=== PATIENT | male | born 1940 | race Caucasian/White ===

== ENCOUNTER 2018-04-24 14:00 | Inpatient (IN) | payer MEDICARE, SELFPAY ==
[2018-04-24] VITALS (20 sets, daily range): BP systolic 126–184; BP diastolic 11–117; PULSE 85–128; RESP 12–23; TEMP 36.2–36.6; O2SAT 95–100; BMI 25.9; BMI 25.7; BMI 26.0
--- NOTE | 2018-04-24 14:16 | NURSING ---
STROKE ALERT CALLED.
--- NOTE | 2018-04-24 14:17 | EKG12_ITS ---
Test Reason : NEURO SYMPTOMS Blood Pressure : / mmHG Vent. Rate : 093 BPM Atrial Rate : 100 BPM P-R Int : 000 ms QRS Dur : 066 ms QT Int : 324 ms P-R-T Axes : 000 072 033 degrees QTc Int : 402 ms Atrial fibrillation Septal infarct , age undetermined Abnormal ECG Confirmed by ABDI MATHEW, ALYSON ([id number]), assignment desk editor SPENCER BRIGHT ([id number]) on 04/27/2018 3:09:10 PM Referred By: KATHY Confirmed By:ALYSON PATTON MD
--- NOTE | 2018-04-24 14:17 | CT_ITS ---
STUDY: CT BRAIN WITHOUT CONTRAST REASON FOR EXAM: Male, 77 years old. Stroke protocol. History of aneurysmal bleed RADIATION DOSAGE (If Supplied By Facility): CTDIvol = ( 44.99 ) mGy, DLP = ( 796.11 ) mGycm TECHNIQUE: Transaxial CT imaging of the brain was performed without administration of intravenous contrast material. Individualized dose optimization techniques were used for this CT. COMPARISON: None. FINDINGS: No evidence for shift of midline structures, mass effect or compression of ventricles noted. No acute intra-articular extra-axial hemorrhage is seen. There is encephalomalacia and gliosis in the left parietal lobe noted with ex vacuo enlargement of the left occipital horn and atrial trigone of the lateral ventricle. Vascular calcifications are identified. No discrete mass in the posterior fossa. The basal cisterns are patent. Calvarium is intact. No evidence for cerebellar tonsillar herniation. IMPRESSION: No evidence for acute intracranial findings. Encephalomalacia and gliosis in the left parietal lobe noted with ex vacuo dilatation of the occipital horn of the left lateral ventricle as well as the left atrial trigone N.B. : The above information has been verbally conveyed by Drew Forrester to Mike Regan on 04/24/2018 14:32:05 (ET). Electronically Signed: Drew Forrester, at 14:33 EST Tel , Service support , CT/Brain/Head without Contrast
--- NOTE | 2018-04-24 14:17 | RAD_ITS ---
STUDY: X-RAY CHEST REASON FOR EXAM: Male, 77 years old. Possible stroke TECHNIQUE: AP COMPARISON: 05/28/2014 FINDINGS: EKG leads project over the chest. The lungs are clear and expanded. There is no demonstrated pleural abnormality. Normal size heart. Aortic valve device is noted. Normal mediastinum and roberto carlos. Normal visualized pulmonary arteries. There is atherosclerotic calcification of the aortic arch with tortuosity. No acute bony process. There is no demonstrated abnormality of the visualized soft tissue structures of the upper abdomen. RAD/Chest 1 View IMPRESSION: Nonacute portable x-ray examination of the chest. Electronically Signed: Chan Marion MD at 14:40 EST , Service support ,
--- NOTE | 2018-04-24 14:30 | ED.DCSUM_ITS ---
- ER Visit Summary Date of Service: 04/24/18 Chief Complaint: Headache with blurred vision and now difficulty with his speech History of Present Illness: The patient is a 77 M known history of a prior descending dissection and a prior bleeding brain aneurysm that was not surgically amenable to repair. This is already been evaluated and worked up in the past at [facility]. Yesterday the patient had a gradual onset of a headache that he thought was a sinus headache. He later developed some visual disturbance which all started around noon yesterday. And then today he has had trouble with his speech. And a headache and seems of gotten worse. He denies any vomiting. No head trauma. He is on no blood thinners besides aspirin. Denies any other complaints. Physical Examination: Blood pressure initially 171/1 oh temperature 97.3. Heart rate 100. Pulse ox 9 9% on room air no hypoxia. HEENT exam pupils round reactive light. 2 mm bilaterally. No facial droop. His words are easily understandable but he is having trouble putting them together consistent with a dysarthria. There is no slurring of speech. Neck nontender. Lungs clear to auscultation bilaterally. Heart irregular rate in the 90s. Abdomen is soft and nontender. Patient is moving all 4 extremities. He has equal symmetrical transplant case manager strength. Dorsi and plantar flexion intact. No numbness. Neurologically he is awake. He is alert. At times he does appear to have difficulty understanding my questions. He has obvious dysarthria but no slurring of his speech. No facial droop. Is an NIH score of 2. Test Results: Patient taken emergently to CAT scan and a stroke team was initiated. CBC normal. White count of 7. Hemoglobin is 13. Electrolytes unremarkable gap of 8. Glucose of 97. Creatinine 1.3. PT, PTT and INR normal. Troponin normal. EKG showed A. fib rate of 93. Chest x-ray portable one view showed no acute abnormality read both by myself and the radiologist. CT of the brain without contrast showed no acute findings per the radiologist who called me. He did have encephalomalacia on the left parietal lobe. CTA of the head and neck showed no acute abnormality. No significant occlusion. And no obvious aneurysm. Emergency Department Course and Treatment: While in the emergency department and awaiting test results the patient had -1-minute tonic-clonic seizure. It resolved spontaneously. He was given 1 mg of Ativan. I discussed this along with all his test results with the neurologist and he will be loaded with IV Keppra. I have also already spoken with the hospitalist to admit the patient to the PCU. Treatment Plan: Admission to the PCU for further evaluation and workup. At this time no anticoagulation per the radiologist. Disposition: Admission Impression: Acute headache with visual change and dysarthria secondary to acute CVA History of known brain aneurysm however not seen on our CTA of the brain and neck today. History of prior dissection Chronic atrial fibrillation Acute seizure This note was generated with [employer] dictation software. It may contain incorrect words, spelling, and punctuation that were not noted in review of the chart prior to signing ED Disposition - Plan for ED Patient: Chief Complaint: Neuro S/Sx Referrals: Kasi Velázquez MD [Primary Care Provider] -
--- NOTE | 2018-04-24 14:32 | CT_ITS ---
STUDY: CTA OF THE BRAIN AND NECK REASON FOR EXAM: Male, 77 years old. Stroke alert RADIATION DOSAGE (If Supplied By Facility): CTDIvol = ( 24.11 ) mGy, DLP = ( 742.65 ) mGycm TECHNIQUE: CT angiography was performed with a multi-detector CT scanner. Data acquisition was obtained from the aortic arch through the vertex following intravenous administration of 100 ml of Isovue 370. MIP images were reconstructed from the axial data set. Post-processing of the angiographic images was performed, with multiplanar reformation and 3D reconstruction. Individualized dose optimization techniques were used for this CT. COMPARISON: None. FINDINGS: The origin of the great vessels are patent. Atherosclerotic calcifications of the aortic arch seen. There is likely a chronic dissection of the proximal left subclavian artery with mild narrowing. The bilateral common carotid arteries are patent. There is atherosclerotic calcifications and soft tissue plaque formation of the bilateral carotid bifurcation with mild narrowing. The cervical internal carotid arteries are patent. Origin of the vertebral arteries are patent. The remaining segments of the vertebral arteries are also patent. Petrous and cavernous segments of the internal carotid arteries are patent mild fusiform dilatation of the cavernous segment of the right internal carotid artery seen. Bilateral middle cerebral arteries are patent. The bilateral anterior cerebral arteries are patent. Patent anterior communicating artery. Vertebrobasilar junction is patent. The basilar artery is patent. The superior cerebellar arteries are patent. Posterior cerebral arteries are patent. Small infundibulum at the origin of the left posterior communicating artery Emphysematous changes in the lung apices IMPRESSION: No evidence for significant cervical carotid or vertebral artery stenosis, occlusion or dissection. No definite evidence for intracranial saccular aneurysm seen. Fusiform dilatation of the cavernous segment of the right internal carotid artery measuring up to 6 mm. Small infundibulum versus 2 mm aneurysm at the origin of the left posterior communicating artery. 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 : The above information has been verbally conveyed by Drew Forrester to Dr. Mike Regan MD, on 04/24/2018 15:33:24 (ET). Electronically Signed: Drew Forrester, at 15:29 EST Tel , Service support , STUDY: CTA OF THE BRAIN AND NECK REASON FOR EXAM: Male, 77 years old. Stroke alert RADIATION DOSAGE (If Supplied By Facility): CTDIvol = ( 24.11 ) mGy, DLP = ( 742.65 ) mGycm TECHNIQUE: CT angiography was performed with a multi-detector CT scanner. Data acquisition was obtained from the aortic arch through the vertex following intravenous administration of 100 ml of Isovue 370. MIP images were reconstructed from the axial data set. Post-processing of the angiographic images was performed, with multiplanar reformation and 3D reconstruction. Individualized dose optimization techniques were used for this CT. COMPARISON: None. FINDINGS: The origin of the great vessels are patent. Atherosclerotic calcifications of the aortic arch seen. There is likely a chronic dissection of the proximal left subclavian artery with mild narrowing. The bilateral common carotid arteries are patent. There is atherosclerotic calcifications and soft tissue plaque formation of the bilateral carotid bifurcation with mild narrowing. The cervical internal carotid arteries are patent. Origin of the vertebral arteries are patent. The remaining segments of the vertebral arteries are also patent. Petrous and cavernous segments of the internal carotid arteries are patent mild fusiform dilatation of the cavernous segment of the right internal carotid artery seen. Bilateral middle cerebral arteries are patent. The bilateral anterior cerebral arteries are patent. Patent anterior communicating artery. Vertebrobasilar junction is patent. The basilar artery is patent. The superior cerebellar arteries are patent. Posterior cerebral arteries are patent. Small infundibulum at the origin of the left posterior communicating artery Emphysematous changes in the lung apices IMPRESSION: No evidence for significant cervical carotid or vertebral artery stenosis, occlusion or dissection. No definite evidence for intracranial saccular aneurysm seen. Fusiform dilatation of the cavernous segment of the right internal carotid artery measuring up to 6 mm. Small infundibulum versus 2 mm aneurysm at the origin of the left posterior communicating artery. 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 : The above information has been verbally conveyed by Drew Forrester to Dr. Mike Regan MD, on 04/24/2018 15:33:24 (ET). Electronically Signed: Drew Forrester, at 15:30 EST Tel , Service support , CT/CTA Neck W/WO Contrast
--- NOTE | 2018-04-24 14:32 | CT_ITS ---
STUDY: CTA OF THE BRAIN AND NECK REASON FOR EXAM: Male, 77 years old. Stroke alert RADIATION DOSAGE (If Supplied By Facility): CTDIvol = ( 24.11 ) mGy, DLP = ( 742.65 ) mGycm TECHNIQUE: CT angiography was performed with a multi-detector CT scanner. Data acquisition was obtained from the aortic arch through the vertex following intravenous administration of 100 ml of Isovue 370. MIP images were reconstructed from the axial data set. Post-processing of the angiographic images was performed, with multiplanar reformation and 3D reconstruction. Individualized dose optimization techniques were used for this CT. COMPARISON: None. FINDINGS: The origin of the great vessels are patent. Atherosclerotic calcifications of the aortic arch seen. There is likely a chronic dissection of the proximal left subclavian artery with mild narrowing. The bilateral common carotid arteries are patent. There is atherosclerotic calcifications and soft tissue plaque formation of the bilateral carotid bifurcation with mild narrowing. The cervical internal carotid arteries are patent. Origin of the vertebral arteries are patent. The remaining segments of the vertebral arteries are also patent. Petrous and cavernous segments of the internal carotid arteries are patent mild fusiform dilatation of the cavernous segment of the right internal carotid artery seen. Bilateral middle cerebral arteries are patent. The bilateral anterior cerebral arteries are patent. Patent anterior communicating artery. Vertebrobasilar junction is patent. The basilar artery is patent. The superior cerebellar arteries are patent. Posterior cerebral arteries are patent. Small infundibulum at the origin of the left posterior communicating artery Emphysematous changes in the lung apices IMPRESSION: No evidence for significant cervical carotid or vertebral artery stenosis, occlusion or dissection. No definite evidence for intracranial saccular aneurysm seen. Fusiform dilatation of the cavernous segment of the right internal carotid artery measuring up to 6 mm. Small infundibulum versus 2 mm aneurysm at the origin of the left posterior communicating artery. 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 : The above information has been verbally conveyed by Drew Forrester to Dr. Mike Regan MD, on 04/24/2018 15:33:24 (ET). Electronically Signed: Drew Forrester, at 15:29 EST Tel , Service support , STUDY: CTA OF THE BRAIN AND NECK REASON FOR EXAM: Male, 77 years old. Stroke alert RADIATION DOSAGE (If Supplied By Facility): CTDIvol = ( 24.11 ) mGy, DLP = ( 742.65 ) mGycm TECHNIQUE: CT angiography was performed with a multi-detector CT scanner. Data acquisition was obtained from the aortic arch through the vertex following intravenous administration of 100 ml of Isovue 370. MIP images were reconstructed from the axial data set. Post-processing of the angiographic images was performed, with multiplanar reformation and 3D reconstruction. Individualized dose optimization techniques were used for this CT. COMPARISON: None. FINDINGS: The origin of the great vessels are patent. Atherosclerotic calcifications of the aortic arch seen. There is likely a chronic dissection of the proximal left subclavian artery with mild narrowing. The bilateral common carotid arteries are patent. There is atherosclerotic calcifications and soft tissue plaque formation of the bilateral carotid bifurcation with mild narrowing. The cervical internal carotid arteries are patent. Origin of the vertebral arteries are patent. The remaining segments of the vertebral arteries are also patent. Petrous and cavernous segments of the internal carotid arteries are patent mild fusiform dilatation of the cavernous segment of the right internal carotid artery seen. Bilateral middle cerebral arteries are patent. The bilateral anterior cerebral arteries are patent. Patent anterior communicating artery. Vertebrobasilar junction is patent. The basilar artery is patent. The superior cerebellar arteries are patent. Posterior cerebral arteries are patent. Small infundibulum at the origin of the left posterior communicating artery Emphysematous changes in the lung apices IMPRESSION: No evidence for significant cervical carotid or vertebral artery stenosis, occlusion or dissection. No definite evidence for intracranial saccular aneurysm seen. Fusiform dilatation of the cavernous segment of the right internal carotid artery measuring up to 6 mm. Small infundibulum versus 2 mm aneurysm at the origin of the left posterior communicating artery. 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 : The above information has been verbally conveyed by Drew Forrester to Dr. Mike Regan MD, on 04/24/2018 15:33:24 (ET). Electronically Signed: Drew Forrester, at 15:30 EST Tel , Service support , CT/CTA Head W/WO Contrast
[2018-04-24 14:34] LABS: Absolute Lymphocyte Count 1.45 X10^3/ul (0.83-4.51); Absolute Neutrophil Count 5.1 X10^3/uL (2.0-7.7); Basophil# 0.04 X10^3/uL; Basophil% 0.5 % (0-1); Eosinophil# 0.26 X10^3/uL; Eosinophils% 3.4 % (0-5); Hematocrit 48.6 % (40-54); Hemoglobin 16.1 g/dl (13.0-16.5); Lymphocyte # 1.45 X10^3/ul (4.0); Lymphocyte % 19.2 % (19-41); Mean Corp Hgb Conc 33.1 g/gl (32-36); Mean Corpuscular Hgb 30.6 pg (27.0-32.0); Mean Corpuscular Volume 92.4 fL (80-94); Mean Platelet Vol. 9.6 fl (6.2-12.0); Monocyte# 0.66 X10^3/uL; Monocyte% 8.7 % (0-10); Neutrophil # 5.13 X10^3/uL (2.7-7.7); Neutrophil % 67.9 % (47-70); Platelet Count 185 K/mm3 (150-450); Prothrombin Time (Protime)PT. 12.9 SECONDS (11.7-14.9); RBC Distribution Width CV 13.9 % (11.6-14.6); RBC Distribution Width SD 46.1 fl (35.1-43.9); Red Blood Count 5.26 M/mm3 (4.6-6.2); White Blood Count 7.6 K/mm3 (4.4-11.0)
[2018-04-24 14:35] LABS: POSITIVE COUNT NO; POSITIVE DIFFERENTIAL NO; POSITIVE MORPHOLOGY NO; Partial Thromboplast Time 30.9 Seconds (24.1-36.2)
[2018-04-24] MEDS: 0.9% Normal Saline 1,000 ML 999 ML IV (14:38)
[2018-04-24 14:46] LABS: Anion Gap 8 (5-15); BUN 20 mg/dL (7-18); BUN/Creat Ratio 14.8 RATIO (10-20); Calcium,Total 9.4 mg/dL (8.5-10.1); Chloride 106 mmol/L (98-107); Creatinine, Serum 1.35 mg/dL (0.70-1.30); EST Glomerular Filtration Rate 54 mL/min (>60); Est Glom Filt Rate - Afr Amer 66 mL/min (>60); Estimated Creatinine Clearance 47.31 ml/min; Glucose 97 mg/dL (74-106); Potassium 4.5 mmol/L (3.5-5.1); Sodium Level 142 mmol/L (136-145)
--- NOTE | 2018-04-24 14:51 | NURSING ---
DR AG FOR DR HAMMER
[2018-04-24] MEDS: LORazepam 2 MG/ML Syringe 1 MG IV (15:28)
--- NOTE | 2018-04-24 15:29 | ED.RN ---
PT HAD A 30 TO 60 SEIZURE WHILE IN THE DEPARTMENT. DR HAMMER MADE AWARE, PT MEDICATED WITH ATIVAN. WAS BESIDE AND INFORMED PT HAD A HIGHER LIKELIHOOD OF HAVING SEIZURES.
--- NOTE | 2018-04-24 15:34 | NURSING ---
DR CUBA FOR DR HAMMER
--- NOTE | 2018-04-24 15:34 | NURSING ---
DR AG PAGED
--- NOTE | 2018-04-24 15:45 | NURSING ---
PCU CVA, ACUTE SEIZURE, CHRONIC AFIB KOTSONIS
[2018-04-24] MEDS: levETIRAcetam IV 1,000 MG/100 ML BAG 400 MG IV (15:55)
--- NOTE | 2018-04-24 16:17 | NURSING ---
NEW ROOM CVICU 201
--- NOTE | 2018-04-24 16:19 | HP.PCM_ITS ---
Problem List (1) Aneurysm Status: Chronic (2) Aortic dissection Status: Chronic (3) Chronic a-fib Status: Chronic (4) CVA (cerebral vascular accident) Status: Acute (5) Seizure Status: Acute (6) HTN (hypertension) Status: Chronic History of Present Illness Date of Admission: 04/24/18 Chief Complaint: Aphasia The patient is a 77 year old M with past medical history consistent for chronic A. fib, cerebral aneurysm, a descending aortic dissection, presenting with a headache for 1 day prior to admission and then today his noticed that he would speak but his words would be in an abnormal order or just incorrect. For example instead of saying let us take out the garbage and she said lets take out the sink. So she brought him to the hospital given his previous history with a cerebral aneurysm, where he was taken to [facility] where he was told that where it is in location they cannot repair it surgically, and that he needs to remain off of all anticoagulation. In the ER he only had the speech difficulty and was therefore given an NIH of 2. He had a CT of the brain which was negative for bleed, and the head and neck CTAs were both negative. Neurology had been called and made aware of the case. Between talking to the neurologist and consulting me for admission. The patient also then had a seizure that he spontaneously broke out of, however he was given a milligram of Ativan, and was loaded with 1 g of Keppra. During my interview and exam, patient had a second seizure. Also lasted lasted for less than a minute and resolved spontaneously. Past Medical History Past Medical History (Chronic Problems): Chronic Problems Aneurysm (Chronic) Aortic dissection (Chronic) Chronic a-fib (Chronic) HTN (hypertension) (Chronic) Allergies codeine Allergy (Verified 05/18/14 18:25) Other amoxicillin Adverse Reaction (Verified 04/24/18 14:01) Other Penicillins Adverse Reaction (Verified 04/24/18 14:01) Other Home Medications: Ambulatory Orders Medication Instructions Recorded Amlodipine [Norvasc] 5 mg PO DAILY 05/18/14 Aspirin [Aspirin, Baby] 81 mg PO DAILY@0800 05/18/14 Atorvastatin Calcium [Lipitor] 20 mg PO QHS 05/18/14 Metoprolol Succinate [Toprol Xl] 100 mg PO DAILY 04/24/18 Surgical History: no surgical history Lives: With Family Smoking Status: Former smoker Tobacco Use: Cigarettes Alcohol: None Drugs: None - *Family History Maternal History Items: Heart Disease Paternal History Items: Heart Disease, Stroke Review of Systems Unable to obtain accurate/complete ROS d/t: Patient altered mental status after Ativan and 2 seizures. VTE Information - Inpt Only VTE Present on Admission: No Patient Problems: Active and Suspected Problems CVA (cerebral vascular accident) (Acute) Seizure (Acute) - Physical Exam General: - - Cannot respond to questions, he does make eye contact when called HEENT: Atraumatic, PERRLA, EOMI, Normocephalic Oral: Dry Mucosa Neck: Supple, No JVD Lungs: Clear to auscultation, Normal air movement, No rhonchi, No wheeze, No rales Cardiovascular: Regular rate, Regular Rhythm, Normal S1, Normal S2, No murmurs Abdomen: Soft, Non Tender, Non-Distended, No Hepato-splenomegaly Extremities: No edema, Capillary Refill Less than 3 Seconds Skin: No rashes, No breakdown Neurological: - - Very difficult to assess neuro exam after Ativan and seizures. Initially he was unable to move both upper extremities and then progressed to scratching his face with his left hand. He does not respond to prompts to participate in exam. Vital Signs Temp Pulse Resp BP Pulse Ox 97.3 F L 128 H 18 153/106 H 100 04/24/18 14:01 04/24/18 16:00 04/24/18 16:00 04/24/18 16:00 04/24/18 16:00 Oxygen Flow Rate (L/min) 4 Oxygen Delivery Method Nasal Cannula Weight: 181 lb 3.52 oz Body Mass Index (BMI) 25.9 Finger Stick Blood Glucose 103 Laboratory Tests Past 24 Hrs 04/24/18 04/24/18 04/24/18 14:15 14:15 14:15 WBC 7.6 RBC 5.26 Hgb 16.1 Hct 48.6 MCV 92.4 MCH 30.6 MCHC 33.1 RDW 13.9 RDW Differential 46.1 H Plt Count 185 MPV 9.6 Immature Gran % (Auto) 0.300 Neut % (Auto) 67.9 Lymph % (Auto) 19.2 [place] % (Auto) 8.7 Eos % (Auto) 3.4 Baso % (Auto) 0.5 Absolute Neuts (auto) 5.1 Absolute Lymphs (auto) 1.45 Total Counted Not Reportable PT 12.9 INR 1.0 APTT 30.9 Sodium 142 Potassium 4.5 Chloride 106 Carbon Dioxide 28.0 Anion Gap 8 BUN 20 H Creatinine 1.35 H Estim Creat Clear Calc 47.31 Est GFR (MDRD) Af Amer 66 Est GFR (MDRD) Non-Af 54 L BUN/Creatinine Ratio 14.8 Glucose 97 Calcium 9.4 Troponin I < 0.015 Assessment/Plan All Active Problems CVA (cerebral vascular accident) (Acute) Seizure (Acute) 1. CVA/Seizure x2/h/o descending aortic dissection/Cerebral aneurysm - His symptoms prior to the seizure and ativan convincing for a stroke with an NIH of 2 - CT brain was negative for a bleed and CTA head and neck was also negative - Seizure is likely secondary to stroke as he does not have a seizure history - NPO, with speech therapy and PT/OT - 1 gm of keppra IV followed by Keppra 500 mg IV BID - C/s to neurology, MRI in am along with echo - Given the seizure and ativan it is very difficult to assess his neuro exam. Unable to determine NIH given this confounder, unfortunately, given his aneurysm, he is not a candidate for tPA or anticoagulation. - Admit to the ICU for neuro assessments - He is already on asprin, will add plavix - Will increase lipitor to 40 mg if/when able to take PO - permissive HTN, neuro checks per protocol 2. Chronic A-fib/HTN - will hold his home medications - Will make lopressor IV available if the HR requires it - Echo in am DVT: SCDs Code Visit Inpatient E&M: 35463 Subs Hosp L3
--- NOTE | 2018-04-24 16:38 | ED.RN ---
PT TAKING PT [facility] HOME.
[2018-04-24] MEDS: 0.9% Normal Saline 1,000 ML 100 ML IV (18:55)
--- NOTE | 2018-04-24 21:10 | ECHOCS_ITS ---
Reason For Study: TIA/CVA Procedure This was a 2D Doppler, Color Flow transthoracic echocardiogram. The study was technically difficult. Contrast injection was performed. Exam performed portable in ICU/CCU. Left Ventricle Normal LV size. Left ventricular systolic function is normal. The estimated ejection fraction is 60 %. Transmitral diastolic flow velocities suggest severe (stage 3) diastolic dysfunction. No regional wall motion abnormalities noted. Right Ventricle Normal RV size. Normal systolic function. Atria Normal left atrium. Normal right atrium. Bubble contrast study negative for right to left interatrial shunt. Mitral Valve Normal mitral valve. Tricuspid Valve Normal tricuspid valve. Aortic Valve The aortic valve is not well visualized. Pulmonic Valve Normal pulmonic valve. Great Vessels Normal aortic root. The pulmonary artery is normal size. Normal inferior vena cava. Pericardium/Pleural No pericardial effusion. Medication Diluted definity 3ml given slow IV push to enhance endocardial definition. Performed a rapid injection of agitated mix of 9 cc saline and 1cc air to assess for atrial septal defect. MMode/2D Measurements & Calculations LVIDd: 3.9 cm IVSd: 1.0 cm LVOT diam: 2.0 cm LVIDs: 2.5 cm LVPWd: 1.2 cm RVDd: 3.2 cm FS: 36.4 % LVOT area: 3.0 cm2 LAV(MOD-sp4): 38.6 ml LA A4 area: 17.4 cm2 RA A4 area: 17.7 cm2 Time Measurements MV dec time: 0.18 sec Doppler Measurements & Calculations MV E max bekah: 102.6 cm/sec Ao V2 max: 192.0 cm/sec LV V1 max: 107.0 cm/sec MV A max bekah: 37.2 cm/sec Ao max P.8 mmHg LV V1 max P.6 mmHg MV E/A: 2.8 Ao V2 mean: 112.0 cm/sec LV V1 mean P.1 mmHg Ao mean P.3 mmHg LV V1 mean: 64.1 cm/sec Ao V2 VTI: 33.0 cm LV V1 VTI: 21.7 cm REZA(I,D): 2.0 cm2 REZA(V,D): 1.7 cm2 SV(LVOT): 65.2 ml PA V2 max: 69.5 cm/sec TR max bekah: 266.4 cm/sec TR max P.4 mmHg Interpretation Summary Normal LV size. Left ventricular systolic function is normal. The estimated ejection fraction is 60 %. Bubble contrast study negative for right to left interatrial shunt. Contrast injection was performed. Ordering Physician: Oh Rose Referring Physician: Cdaen Velázquez Performed By: Benji Palafox RCS
[2018-04-24] MEDS: levETIRAcetam IV 100 ML 400 MG IV (22:05)
[2018-04-25] VITALS (17 sets, daily range): BP systolic 127–174; BP diastolic 75–122; PULSE 71–109; RESP 12–20; TEMP 35.6–36.7; O2SAT 2–100
[2018-04-25] MEDS: 0.9% Normal Saline 1,000 ML 100 ML IV ×2 (04:11→14:21)
--- NOTE | 2018-04-25 04:49 | EKG12_ITS ---
Test Reason : AM Blood Pressure : / mmHG Vent. Rate : 082 BPM Atrial Rate : 091 BPM P-R Int : 000 ms QRS Dur : 076 ms QT Int : 378 ms P-R-T Axes : 000 023 030 degrees QTc Int : 441 ms Atrial fibrillation Septal infarct , age undetermined Abnormal ECG When compared with ECG of 24-APR-2018 14:14, MANUAL COMPARISON REQUIRED, DATA IS UNCONFIRMED Confirmed by ABDI MATHEW, ALYSON ([id number]), hardwood faller SPENCER BRIGHT ([id number]) on 04/29/2018 2:24:23 PM Referred By: ROSA ELENA Confirmed By:ALYSON PATTON MD
[2018-04-25 04:53] LABS: Cholesterol 114 mg/dL (200); High Density Lipoprotein 36 mg/dL; Triglycerides 106 mg/dL; Very Low Density Lipoprotein 21 mg/dL (5-40)
[2018-04-25 05:15] LABS: AST(SGOT) 17 U/L (15-37); Alanine Aminotransfer ALT/SGPT 26 U/L (16-61); Albumin, Serum 3.2 g/dL (3.2-5.0); Alkaline Phosphatase 103 U/L (45-117); Bilirubin, Direct 0.23 mg/dL (0.00-0.30); Globulin 3.1 g/dL (2.2-4.2); Protein, Total 6.3 g/dL (6.4-8.2)
[2018-04-25 05:32] LABS: Amphetamine Urine VISTA NEGATIVE (<1000 ng/mL); Barbiturate Urine VISTA NEGATIVE (< 200 ng/mL); Benzodiazepine Urine VISTA NEGATIVE (< 200 ng/mL); Cocaine Urine VISTA NEGATIVE (< 300 ng/mL); Ecstacy Urine VISTA NEGATIVE (< 500 ng/mL); Methadone Urine VISTA NEGATIVE (< 300 ng/mL); PCP Urine VISTA NEGATIVE (< 25 ng/mL); THC Urine VISTA NEGATIVE (< 50 ng/mL); Vista UDS pH Range 6
[2018-04-25 06:40] LABS: Bedside Glucose 86 mg/dL (70-110)
--- NOTE | 2018-04-25 06:41 | NURSING ---
NIH: 9 BGT: 86 VSS PT IS MORE ALERT. SPEECH IS MORE CLEAR. CONTINUES TO BE APHASIC WITH DYSARTHRIA. NO S/S OF ANY SEIZURE ACTIVITY
--- NOTE | 2018-04-25 07:52 | PCM.PN.HOSP ---
Patient Problems: Active and Suspected Problems CVA (cerebral vascular accident) (Acute) Seizure (Acute) Subjective: Patient is a 77-year-old gentleman with multiple comorbidities including chronic A. fib not on systemic anticoagulation due to history of bleeding cerebral aneurysm as well as a descending aortic dissection who presented with speech difficulty with was later followed by seizure. A suspicion of acute ischemic stroke was made admitted to the intensive care unit for subsequent management Objective: GENERAL: Not in distress HEENT: Atraumatic; moist oral mucosa EYES; Anicteric, Normal Conjunctiva NECK; supple, normal thyroid, no distended JVD. RESPIRATORY: Diminished to auscultation bilaterally, CARDIOVASCULAR: Irregularly irregular GI: soft, non-tender, normoactive bowel sounds, : No Renal angle tenderness; EXTREMITIES: No edema, no clubbing, no cyanosis. MUSCULOSKELETAL: No Joint Tenderness; NEURO: Awake; with receptive aphasia muscle strength 5/5 in both upper and lower extremities SKIN: No Rash PSYCH; Normal affect Vitals/I&O's: Vital Signs Temp Pulse Resp BP Pulse Ox 97.4 F L 71 16 157/81 H 97 04/25/18 06:00 04/25/18 07:14 04/25/18 07:00 04/25/18 07:00 04/25/18 07:00 Oxygen Flow Rate (L/min) 2 Oxygen Delivery Method Room Air Weight: 82.3 kg Body Mass Index (BMI) 25.7 Finger Stick Blood Glucose 103 Intake and Output for Last 24 Hours 04/23/18 04/24/18 04/25/18 23:59 23:59 23:59 Intake Total 1098 / 1098 Output Total 600 / 600 980 / 980 Balance -600 / -600 118 / 118 Laboratory Results 04/24/18 14:15: WBC 7.6, RBC 5.26, Hgb 16.1, Hct 48.6, MCV 92.4, MCH 30.6, MCHC 33.1, RDW 13.9, RDW Differential 46.1 H, Plt Count 185, MPV 9.6, Immature Gran % (Auto) 0.300, Neut % (Auto) 67.9, Lymph % (Auto) 19.2, [place] % (Auto) 8.7, Eos % (Auto) 3.4, Baso % (Auto) 0.5, Absolute Neuts (auto) 5.1, Absolute Lymphs (auto) 1.45, Total Counted Not Reportable 04/24/18 14:15: PT 12.9, INR 1.0, APTT 30.9 04/24/18 14:15: Sodium 142, Potassium 4.5, Chloride 106, Carbon Dioxide 28.0, Anion Gap 8, BUN 20 H, Creatinine 1.35 H, Estim Creat Clear Calc 47.31, Est GFR (MDRD) Af Amer 66, Est GFR (MDRD) Non-Af 54 L, BUN/Creatinine Ratio 14.8, Glucose 97, Calcium 9.4, Troponin I < 0.015 04/25/18 04:16: Triglycerides 106, Cholesterol 114, LDL Cholesterol 57, VLDL Cholesterol 21, HDL Cholesterol 36 L 04/25/18 04:16: Total Bilirubin 1.00, Direct Bilirubin 0.23, AST 17, ALT 26, Alkaline Phosphatase 103, Total Protein 6.3 L, Albumin 3.2, Globulin 3.1, TSH 2.20 04/25/18 04:16: Troponin I < 0.015 04/25/18 05:00: Ethyl Alcohol 6.0 04/25/18 05:05: Urine Opiates Screen NEGATIVE, Urine Methadone Screen NEGATIVE, Ur Barbiturates Screen NEGATIVE, Ur Phencyclidine Scrn NEGATIVE, Ur Amphetamines Screen NEGATIVE, U Methamphetamin-MDMA NEGATIVE, U Benzodiazepines Scrn NEGATIVE, Urine Cocaine Screen NEGATIVE, U Cannabinoids Screen NEGATIVE, Ur Drug Screen Comment 04/25/18 06:37: POC Glucose 86 Current Medications Clopidogrel Bisulfate (Plavix) 75 mg PO DAILY [facility] Sodium Chloride () 1,000 mls @ 100 mls/hr IV .Q10H [facility] Last Admin: 04/25/18 04:11 Dose: 100 mls/hr Levetiracetam (Keppra Iv) 100 mls @ 400 mls/hr IV Q12 [facility] Last Admin: 04/24/18 22:05 Dose: 400 mls/hr Labetalol HCl (Trandate) 10 mg IV Q10M PRN PRN Reason: MAINTAIN BP < 220/120 Stop: 04/25/18 16:59 Magnesium Hydroxide (Milk Of Magnesia) 30 ml PO DAILY PRN PRN PRN Reason: Constipation Sodium Chloride () 5 - 15 ml IV UD PRN PRN Reason: SALINE FLUSH Medical Necessity - Tobacco Use Smoking Status: Former smoker Tobacco Use: Cigarettes Assessment/Plan All Active Problems CVA (cerebral vascular accident) (Acute) Seizure (Acute) Patient is a 77-year-old gentleman with multiple comorbidities including chronic A. fib not on systemic anticoagulation due to history of bleeding cerebral aneurysm as well as a descending aortic dissection who presented with speech difficulty with was later followed by seizure. A suspicion of acute ischemic stroke was made admitted to the intensive care unit for subsequent management 1. New onset seizure suspected to be secondary to stroke. Patient was started on Keppra admitted to the intensive care unit placed on seizure precautions did receive Ativan scheduled to undergo subsequent evaluation with MRI of the brain with and without contrast. Consultation placed to neurology Suspected ischemic CVA possibly embolic from patient underlying chronic A. fib. Admitted to the intensive care unit being assessed with every 4 neuro checks. Patient was started on Plavix MRI ordered for subsequent evaluation. 2D echo was also ordered and consultation placed to neurology 3. Chronic A. fib rate controlled patient was deemed not a candidate for systemic anticoagulation due to his history of bleeding cerebral aneurysm as well as ascending aortic dissection 4. Hypertension patient blood pressure acceptable 5. Dyslipidemia-patient is on statin therapy, continued at home dose 6. History of bleeding cerebral aneurysm 7. History of descending aortic dissection 8. DVT: SCDs Active Medications Clopidogrel Bisulfate (Plavix) 75 mg PO DAILY [facility] Sodium Chloride () 1,000 mls @ 100 mls/hr IV .Q10H [facility] Last Admin: 04/25/18 04:11 Dose: 100 mls/hr Levetiracetam (Keppra Iv) 100 mls @ 400 mls/hr IV Q12 [facility] Last Admin: 04/24/18 22:05 Dose: 400 mls/hr Labetalol HCl (Trandate) 10 mg IV Q10M PRN PRN Reason: MAINTAIN BP < 220/120 Stop: 04/25/18 16:59 Magnesium Hydroxide (Milk Of Magnesia) 30 ml PO DAILY PRN PRN PRN Reason: Constipation Sodium Chloride () 5 - 15 ml IV UD PRN PRN Reason: SALINE FLUSH Clinical Impression(s) from Imaging Studies Brain CT 04/24/18 14:17 Chest X-Ray 04/24/18 14:17 IMPRESSION: Nonacute portable x-ray examination of the chest. Electronically Signed: Chan Marion MD at 14:40 EST , Service support , Head CTA 04/24/18 14:32 Neck CTA 04/24/18 14:32 Code Visit Inpatient E&M: 73231 Subs Hosp L3
[2018-04-25] MEDS: levETIRAcetam IV 100 ML 400 MG IV (10:40)
--- NOTE | 2018-04-25 12:08 | CASEMGMT ---
SW met w/pt and in room. Tucker BAL, also in room and finishing up documentation. SW spoke w/pt and about prior level of function. Pt attempting to answer, and though his speech is clear, he is seeming to have difficulty answering the questions. As per , pt was fully independent to this. Pt lives home w/, drives, works, no DME needed. Pt's PCP is Dr. Velázquez, and pt uses [facility] in [place] for medication. As per VALERIANO Ceballos, pt will need speech therapy at discharge. PT/OT are pending, as per pt is having an MRI and will be able to do PT/OT after this. SW reviewed discharge options w/, including home w/home therapies, or outpt therapy, vs. rehab in a facility. SW educated pt and to the inpt rehab unit here in the hospital if needed. Pt's open to this and agreeable to have SW call and give the rehab unit his name. SW explained that once pt has PT/OT, we will have a better understanding on if this would be needed. states understanding. SW gave this SW's name and number in the event she has any additional questions. SW did call Juliana in inpt rehab and put pt on the inpt rehab list. SW will follow up later today or tomorrow once pt has had PT/OT. CAROLYN Sánchez, RESEARCH PROGRAM MANAGER
--- NOTE | 2018-04-25 13:13 | CON.PCM_ITS ---
Problem List (1) CVA (cerebral vascular accident) Status: Acute (2) Seizure Status: Acute Reason for Consult Date of Consultation: 04/25/18 Reason for Consultation: Stroke, seizure History of Present Illness: The patient is a 77 year old M with PMH HTN, Chronic Afib not on AC, H/O cerebral aneurysm with h/o brain bleeding, h/O aortic dissection admitted with CRAWFORD and speech disturbances. History is obtained from patient and his ,and medical records. Per he had frontal CRAWFORD that started on Wednesday04/23/18, then yesterday morning (04/24/18) had speech disturbances where he was making paraphasic errors, was repeating himself a lot, had issues with repetitions. No focal motor weakness, sensory loss, visual disturbances and per speech is improving since yesterday but she feels he is still not at baseline. NIHSS was 2 on admission per ED documentation. Per at baseline he does not fall, never had any seizures in the past, does not use cane or walker to ambulate, does drive, does not need any assistance for his ADLs and is on ASA. Per he has been told not to be on AC due to aneurysm and h/o brain bleed. He sees Dr. Rodriguez from [facility]. Per documentation patient also had 2 witnessed GTC seizure in the ED lasting for a minute or so, with tongue bite and confusion, was loaded with 1 g Keppra and started on Keppra [address] head showed left parietal en cephalomalacia, CTA head/neck showed Fusiform dilatation of the cavernous segment of the right internal carotid artery measuring up to 6 mm. Small infundibulum versus 2 mm aneurysm at the origin of the left posterior communicating artery. 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 Past Medical History Past Medical History (Chronic Problems): Chronic Problems Aneurysm (Chronic) Aortic dissection (Chronic) Chronic a-fib (Chronic) HTN (hypertension) (Chronic) Allergies codeine Allergy (Verified 05/18/14 18:25) Other amoxicillin Adverse Reaction (Verified 04/24/18 14:01) Other Penicillins Adverse Reaction (Verified 04/24/18 14:01) Other Home Medications: Ambulatory Orders Medication Instructions Recorded Amlodipine [Norvasc] 5 mg PO DAILY 05/18/14 Aspirin [Aspirin, Baby] 81 mg PO DAILY@0800 05/18/14 Atorvastatin Calcium [Lipitor] 20 mg PO QHS 05/18/14 Metoprolol Succinate [Toprol Xl] 100 mg PO DAILY 04/24/18 Surgical History: no surgical history Lives: With Family Smoking Status: Former smoker Tobacco Use: Cigarettes Alcohol: None Drugs: None - *Family History Maternal History Items: Heart Disease Paternal History Items: Heart Disease, Stroke Review of Systems Constitutional: Reports: - - complete ROS negative except as documented in HPI Patient Problems: Active and Suspected Problems CVA (cerebral vascular accident) (Acute) Seizure (Acute) - Physical Exam General: Alert HEENT: Normocephalic Neck: Supple Lungs: Normal air movement Cardiovascular: Normal S1, Normal S2, Irregular Rate Abdomen: Bowel Sounds Present Extremities: No cyanosis Neurological: - - consious, alert, AoAx3, CN 2-12 grossly intact, power 5/5 all 4 extremities, no cerebellar signs, no sensory loss, Reflexes + B/L B/S/T/K/A, gait deferred, 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, NIHSS 2 at present, mRS 0 at baseline Psych/Mental Status: Normal Affect Vital Signs Temp Pulse Resp BP Pulse Ox 98.1 F 95 14 139/80 H 96 04/25/18 08:00 04/25/18 12:32 04/25/18 11:00 04/25/18 11:00 04/25/18 11:00 Oxygen Flow Rate (L/min) 2 Oxygen Delivery Method Room Air Weight: 82.3 kg Body Mass Index (BMI) 25.7 Finger Stick Blood Glucose 103 Intake and Output for Last 24 Hours 04/23/18 04/24/18 04/25/18 23:59 23:59 23:59 Intake Total 1098 / 1098 Output Total 600 / 600 980 / 980 Balance -600 / -600 118 / 118 Laboratory Tests Past 24 Hrs 04/24/18 04/24/18 04/24/18 14:15 14:15 14:15 WBC 7.6 RBC 5.26 Hgb 16.1 Hct 48.6 MCV 92.4 MCH 30.6 MCHC 33.1 RDW 13.9 RDW Differential 46.1 H Plt Count 185 MPV 9.6 Immature Gran % (Auto) 0.300 Neut % (Auto) 67.9 Lymph % (Auto) 19.2 [place] % (Auto) 8.7 Eos % (Auto) 3.4 Baso % (Auto) 0.5 Absolute Neuts (auto) 5.1 Absolute Lymphs (auto) 1.45 Total Counted Not Reportable PT 12.9 INR 1.0 APTT 30.9 Sodium 142 Potassium 4.5 Chloride 106 Carbon Dioxide 28.0 Anion Gap 8 BUN 20 H Creatinine 1.35 H Estim Creat Clear Calc 47.31 Est GFR (MDRD) Af Amer 66 Est GFR (MDRD) Non-Af 54 L BUN/Creatinine Ratio 14.8 Glucose 97 Calcium 9.4 Total Bilirubin Direct Bilirubin AST ALT Alkaline Phosphatase Troponin I < 0.015 Total Protein Albumin Globulin Triglycerides Cholesterol LDL Cholesterol VLDL Cholesterol HDL Cholesterol TSH Urine Opiates Screen Urine Methadone Screen Ur Barbiturates Screen Ur Phencyclidine Scrn Ur Amphetamines Screen U Methamphetamin-MDMA U Benzodiazepines Scrn Urine Cocaine Screen U Cannabinoids Screen Ur Drug Screen Comment Ethyl Alcohol 04/25/18 04/25/18 04/25/18 04:16 04:16 04:16 WBC RBC Hgb Hct MCV MCH MCHC RDW RDW Differential Plt Count MPV Immature Gran % (Auto) Neut % (Auto) Lymph % (Auto) [place] % (Auto) Eos % (Auto) Baso % (Auto) Absolute Neuts (auto) Absolute Lymphs (auto) Total Counted PT INR APTT Sodium Potassium Chloride Carbon Dioxide Anion Gap BUN Creatinine Estim Creat Clear Calc Est GFR (MDRD) Af Amer Est GFR (MDRD) Non-Af BUN/Creatinine Ratio Glucose Calcium Total Bilirubin 1.00 Direct Bilirubin 0.23 AST 17 ALT 26 Alkaline Phosphatase 103 Troponin I < 0.015 Total Protein 6.3 L Albumin 3.2 Globulin 3.1 Triglycerides 106 Cholesterol 114 LDL Cholesterol 57 VLDL Cholesterol 21 HDL Cholesterol 36 L TSH 2.20 Urine Opiates Screen Urine Methadone Screen Ur Barbiturates Screen Ur Phencyclidine Scrn Ur Amphetamines Screen U Methamphetamin-MDMA U Benzodiazepines Scrn Urine Cocaine Screen U Cannabinoids Screen Ur Drug Screen Comment Ethyl Alcohol 04/25/18 04/25/18 05:00 05:05 WBC RBC Hgb Hct MCV MCH MCHC RDW RDW Differential Plt Count MPV Immature Gran % (Auto) Neut % (Auto) Lymph % (Auto) [place] % (Auto) Eos % (Auto) Baso % (Auto) Absolute Neuts (auto) Absolute Lymphs (auto) Total Counted PT INR APTT Sodium Potassium Chloride Carbon Dioxide Anion Gap BUN Creatinine Estim Creat Clear Calc Est GFR (MDRD) Af Amer Est GFR (MDRD) Non-Af BUN/Creatinine Ratio Glucose Calcium Total Bilirubin Direct Bilirubin AST ALT Alkaline Phosphatase Troponin I Total Protein Albumin Globulin Triglycerides Cholesterol LDL Cholesterol VLDL Cholesterol HDL Cholesterol TSH Urine Opiates Screen NEGATIVE Urine Methadone Screen NEGATIVE Ur Barbiturates Screen NEGATIVE Ur Phencyclidine Scrn NEGATIVE Ur Amphetamines Screen NEGATIVE U Methamphetamin-MDMA NEGATIVE U Benzodiazepines Scrn NEGATIVE Urine Cocaine Screen NEGATIVE U Cannabinoids Screen NEGATIVE Ur Drug Screen Comment Ethyl Alcohol 6.0 POC Glucose 04/25/18 06:37 POC Glucose 86 Assessment/Plan All Active Problems CVA (cerebral vascular accident) (Acute) Seizure (Acute) The patient is a 77 year old M with PMH HTN, Chronic Afib not on AC, H/O cerebral aneurysm with h/o brain bleeding, h/O aortic dissection admitted with CRAWFORD and speech disturbances. History is obtained from patient and his ,and medical records. Per he had frontal CRAWFORD that started on Wednesday04/23/18, then yesterday morning (04/24/18) had speech disturbances where he was making paraphasic errors, was repeating himself a lot, had issues with repetitions. No focal motor weakness, sensory loss, visual disturbances and per speech is improving since yesterday but she feels he is still not at baseline. NIHSS was 2 on admission per ED documentation. Per at baseline he does not fall, never had any seizures in the past, does not use cane or walker to ambulate, does drive, does not need any assistance for his ADLs and is on ASA. Per he has been told not to be on AC due to aneurysm and h/o brain bleed. He sees Dr. Rodriguez from [facility]. Per documentation patient also had 2 witnessed GTC seizure in the ED lasting for a minute or so, with tongue bite and confusion, was loaded with 1 g Keppra and started on Keppra [address] head showed left parietal encephalomalacia, CTA head/neck showed Fusiform dilatation of the cavernous segment of the right internal carotid artery measuring up to 6 mm. Small infundibulum versus 2 mm aneurysm at the origin of the left posterior communicating artery. 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 Impression R/O Left MCA stroke- possible ? Conduction aphasia Seizure Plan -On ASA -Lipitor 40 mg PO q hs -Check MRI Brain w/o contrast, if found to have a stroke, would recommend Eliquis. But patient's wants to discuss things further with her Neurologist from [facility] Dr. Rodriguez before agreeing to any AC. -CTA head/neck reviewed -Neurosurgery referral for aneurysm evaluation -TTE-EF 60%, normal LA size, no PFO -LDL-57, [id number] -Given h/o aneurysm and no hemodynamically significant intracranial or extracranial stenosis, control the SBP to around 140-150 mmHg, defer to hospitalist team -Stroke risk factors discussed and stroke education provided -Increase Keppra to 750 mg PO BID -Check EEG -Seizure precautions discussed in detail -Patient counseled not to drive for 6 months -Patient's wants to be transferred to [facility] for further management. -GI/DVT prophylaxis -Fall precautions -PT/OT/ST -Further medical management per hospitalist team -Please call with questions if any -Thank you for allowing us to participate in patient's care and management
--- NOTE | 2018-04-25 13:18 | CASEMGMT ---
SW spoke w/, she states that [facility] has POA/LW papers, she will try to get a copy for our charts here as well. CAROLYN Sánchez MSW
[2018-04-25] MEDS: 0.9% NaCl Peripheral Flush Adult/Peds IV ×2 (13:38→14:20)
[2018-04-25] MEDS: Labetalol 20 MG/4 ML Vial 10 MG IV ×2 (13:38→14:20)
--- NOTE | 2018-04-25 13:45 | PCM.DC ---
- Discharge Diagnoses Current Active Problems: Current Active and Chronic Problems Aneurysm (Chronic) Aortic dissection (Chronic) Chronic a-fib (Chronic) CVA (cerebral vascular accident) (Acute) Seizure (Acute) HTN (hypertension) (Chronic) You will use the following diet at home:: Cardiac Allergies/Adverse Reactions: Allergies codeine Allergy (Verified 05/18/14 18:25) Other amoxicillin Adverse Reaction (Verified 04/24/18 14:01) Other Penicillins Adverse Reaction (Verified 04/24/18 14:01) Other Medications to take at Discharge Amlodipine [Norvasc] 5 mg PO DAILY 05/18/14 Aspirin [Aspirin, Baby] 81 mg PO DAILY@0800 05/18/14 Atorvastatin Calcium [Lipitor] 20 mg PO QHS 05/18/14 Metoprolol Succinate [Toprol Xl] 100 mg PO DAILY 04/24/18 Primary Care Physician: Kasi Velázquez MD [Primary Care Provider] - Please follow up with your Primary Care Physician in: IN 1-2 WEEKS Test Results: Test results from this visit will be discussed in further detail at your follow-up appointment, if applicable. Proposed Discharge Date: 04/25/18
--- NOTE | 2018-04-25 14:03 | NURSING ---
Report called to Carmen LCAE[facility] at [facility]. Will call back to unit w/ ETA per request.
--- NOTE | 2018-04-25 14:09 | PCM.DC.SUM ---
Discharge Date and Diagnosis - Problem List Patient Problems: Active and Suspected Problems CVA (cerebral vascular accident) (Acute) Seizure (Acute) Date of Admission: 04/24/18 Date of Discharge: 04/25/18 - Primary Discharge Diagnosis Active and Suspected Problems CVA (cerebral vascular accident) (Acute) Seizure (Acute) - Secondary Discharge Diagnosis Chronic Problems Aneurysm (Chronic) Aortic dissection (Chronic) Chronic a-fib (Chronic) HTN (hypertension) (Chronic) Hospital Course and Treatment Imaging Results: Clinical Impression(s) from Imaging Studies Chest X-Ray 04/24/18 14:17 IMPRESSION: Nonacute portable x-ray examination of the chest. Electronically Signed: Chan Marion MD at 14:40 EST , Service support , Summary of Care Provided: Patient is a 77-year-old gentleman with multiple comorbidities including chronic A. fib not on systemic anticoagulation due to history of bleeding cerebral aneurysm as well as a descending aortic dissection who presented with speech difficulty with was later followed by seizure. A suspicion of acute ischemic stroke was made admitted to the intensive care unit for subsequent management 1. New onset seizure suspected to be secondary to stroke. Patient was started on Keppra admitted to the intensive care unit placed on seizure precautions did receive Ativan scheduled to undergo subsequent evaluation with MRI of the brain with and without contrast. Consultation placed to neurology patient was discussed with patient's neurologist at [facility] who requested for patient to be transferred to [facility] Main campus call was placed and patient was accepted for transfer 2. Suspected ischemic CVA possibly embolic from patient underlying chronic A. fib. Admitted to the intensive care unit being assessed with every 4 neuro checks. Patient was started on Plavix MRI ordered for subsequent evaluation. 2D echo was also ordered and consultation placed to neurology 3. Chronic A. fib rate controlled patient was deemed not a candidate for systemic anticoagulation due to his history of bleeding cerebral aneurysm as well as ascending aortic dissection 4. Hypertension patient blood pressure acceptable 5. Dyslipidemia-patient is on statin therapy, continued at home dose 6. History of bleeding cerebral aneurysm 7. History of descending aortic dissection 8. DVT: SCDs Patient Problems: Active and Suspected Problems CVA (cerebral vascular accident) (Acute) Seizure (Acute) - Physical Exam General: No apparent distress HEENT: Atraumatic Neck: No JVD Vital Signs Temp Pulse Resp BP Pulse Ox 98.1 F 95 18 169/122 H 97 04/25/18 13:00 04/25/18 13:00 04/25/18 13:00 04/25/18 13:00 04/25/18 13:00 Oxygen Flow Rate (L/min) 2 Oxygen Delivery Method Room Air Weight: 82.3 kg Body Mass Index (BMI) 25.7 Finger Stick Blood Glucose 103 Intake and Output for Last 24 Hours 04/23/18 04/24/18 04/25/18 23:59 23:59 23:59 Intake Total 2029 Output Total 600 / 600 1880 / 1880 Balance -600 / -600 150 / 150 Laboratory Tests Past 24 Hrs 04/24/18 04/24/18 04/24/18 14:15 14:15 14:15 WBC 7.6 RBC 5.26 Hgb 16.1 Hct 48.6 MCV 92.4 MCH 30.6 MCHC 33.1 RDW 13.9 RDW Differential 46.1 H Plt Count 185 MPV 9.6 Immature Gran % (Auto) 0.300 Neut % (Auto) 67.9 Lymph % (Auto) 19.2 [place] % (Auto) 8.7 Eos % (Auto) 3.4 Baso % (Auto) 0.5 Absolute Neuts (auto) 5.1 Absolute Lymphs (auto) 1.45 Total Counted Not Reportable PT 12.9 INR 1.0 APTT 30.9 Sodium 142 Potassium 4.5 Chloride 106 Carbon Dioxide 28.0 Anion Gap 8 BUN 20 H Creatinine 1.35 H Estim Creat Clear Calc 47.31 Est GFR (MDRD) Af Amer 66 Est GFR (MDRD) Non-Af 54 L BUN/Creatinine Ratio 14.8 Glucose 97 Calcium 9.4 Total Bilirubin Direct Bilirubin AST ALT Alkaline Phosphatase Troponin I < 0.015 Total Protein Albumin Globulin Triglycerides Cholesterol LDL Cholesterol VLDL Cholesterol HDL Cholesterol TSH Urine Opiates Screen Urine Methadone Screen Ur Barbiturates Screen Ur Phencyclidine Scrn Ur Amphetamines Screen U Methamphetamin-MDMA U Benzodiazepines Scrn Urine Cocaine Screen U Cannabinoids Screen Ur Drug Screen Comment Ethyl Alcohol 04/25/18 04/25/18 04/25/18 04:16 04:16 04:16 WBC RBC Hgb Hct MCV MCH MCHC RDW RDW Differential Plt Count MPV Immature Gran % (Auto) Neut % (Auto) Lymph % (Auto) [place] % (Auto) Eos % (Auto) Baso % (Auto) Absolute Neuts (auto) Absolute Lymphs (auto) Total Counted PT INR APTT Sodium Potassium Chloride Carbon Dioxide Anion Gap BUN Creatinine Estim Creat Clear Calc Est GFR (MDRD) Af Amer Est GFR (MDRD) Non-Af BUN/Creatinine Ratio Glucose Calcium Total Bilirubin 1.00 Direct Bilirubin 0.23 AST 17 ALT 26 Alkaline Phosphatase 103 Troponin I < 0.015 Total Protein 6.3 L Albumin 3.2 Globulin 3.1 Triglycerides 106 Cholesterol 114 LDL Cholesterol 57 VLDL Cholesterol 21 HDL Cholesterol 36 L TSH 2.20 Urine Opiates Screen Urine Methadone Screen Ur Barbiturates Screen Ur Phencyclidine Scrn Ur Amphetamines Screen U Methamphetamin-MDMA U Benzodiazepines Scrn Urine Cocaine Screen U Cannabinoids Screen Ur Drug Screen Comment Ethyl Alcohol 04/25/18 04/25/18 05:00 05:05 WBC RBC Hgb Hct MCV MCH MCHC RDW RDW Differential Plt Count MPV Immature Gran % (Auto) Neut % (Auto) Lymph % (Auto) [place] % (Auto) Eos % (Auto) Baso % (Auto) Absolute Neuts (auto) Absolute Lymphs (auto) Total Counted PT INR APTT Sodium Potassium Chloride Carbon Dioxide Anion Gap BUN Creatinine Estim Creat Clear Calc Est GFR (MDRD) Af Amer Est GFR (MDRD) Non-Af BUN/Creatinine Ratio Glucose Calcium Total Bilirubin Direct Bilirubin AST ALT Alkaline Phosphatase Troponin I Total Protein Albumin Globulin Triglycerides Cholesterol LDL Cholesterol VLDL Cholesterol HDL Cholesterol TSH Urine Opiates Screen NEGATIVE Urine Methadone Screen NEGATIVE Ur Barbiturates Screen NEGATIVE Ur Phencyclidine Scrn NEGATIVE Ur Amphetamines Screen NEGATIVE U Methamphetamin-MDMA NEGATIVE U Benzodiazepines Scrn NEGATIVE Urine Cocaine Screen NEGATIVE U Cannabinoids Screen NEGATIVE Ur Drug Screen Comment Ethyl Alcohol 6.0 POC Glucose 04/25/18 06:37 POC Glucose 86 Home Medications: Medications to take at Discharge Amlodipine [Norvasc] 5 mg PO DAILY 05/18/14 Aspirin [Aspirin, Baby] 81 mg PO DAILY@0800 05/18/14 Atorvastatin Calcium [Lipitor] 20 mg PO QHS 05/18/14 Metoprolol Succinate [Toprol Xl] 100 mg PO DAILY 04/24/18 Primary Care Physician: Kasi Velázquez MD [Primary Care Provider] - Please follow up with your Primary Care Physician in: [place] 1-2 WEEKS Disposition: Acute care Hospital [facility] Minutes spent on discharge:: 55 Patient Condition:: Stable Medical Necessity - Tobacco Use Smoking Status: Former smoker Tobacco Use: Cigarettes Meaningful Use Info Meaningful Use Diagnoses (Choose all that apply): Ischemic CVA - CVA Therapy Assessed for PT,OT and/or ST?: Yes - Ischemic Stroke Antithrombotic order at d/c?: Yes Dx of Atrial fib/flutter?: Yes Anticoagulant at discharge?: No Reason anticoagulant not ordered: Medical Contraindication Statins at discharge?: Yes Primary Dx Acute Ischemic CVA?: No IV tPA ordered during stay?: No Reason IV t-PA not ordered: Medical Contraindication Code Visit Inpatient E&M: [id number] Disch Hosp
--- NOTE | 2018-04-25 14:13 | DS.PCM_ITS ---
Discharge Date and Diagnosis - Problem List Patient Problems: Active and Suspected Problems CVA (cerebral vascular accident) (Acute) Seizure (Acute) Date of Admission: 04/24/18 Date of Discharge: 04/25/18 - Primary Discharge Diagnosis Active and Suspected Problems CVA (cerebral vascular accident) (Acute) Seizure (Acute) - Secondary Discharge Diagnosis Chronic Problems Aneurysm (Chronic) Aortic dissection (Chronic) Chronic a-fib (Chronic) HTN (hypertension) (Chronic) Hospital Course and Treatment Imaging Results: Clinical Impression(s) from Imaging Studies Chest X-Ray 04/24/18 14:17 IMPRESSION: Nonacute portable x-ray examination of the chest. Electronically Signed: Chan Marion MD at 14:40 EST , Service support , Summary of Care Provided: Patient is a 77-year-old gentleman with multiple comorbidities including chronic A. fib not on systemic anticoagulation due to history of bleeding cerebral aneurysm as well as a descending aortic dissection who presented with speech dif ficulty with was later followed by seizure. A suspicion of acute ischemic stroke was made admitted to the intensive care unit for subsequent management 1. New onset seizure suspected to be secondary to stroke. Patient was started on Keppra admitted to the intensive care unit placed on seizure precautions did receive Ativan scheduled to undergo subsequent evaluation with MRI of the brain with and without contrast. Consultation placed to neurology patient was discussed with patient's neurologist at [facility] who requested for patient to be transferred to [facility] Main campus call was placed and patient was accepted for transfer 2. Suspected ischemic CVA possibly embolic from patient underlying chronic A. fib. Admitted to the intensive care unit being assessed with every 4 neuro checks. Patient was started on Plavix MRI ordered for subsequent evaluation. 2D echo was also ordered and consultation placed to neurology 3. Chronic A. fib rate controlled patient was deemed not a candidate for systemic anticoagulation due to his history of bleeding cerebral aneurysm as well as ascending aortic dissection 4. Hypertension patient blood pressure acceptable 5. Dyslipidemia-patient is on statin therapy, continued at home dose 6. History of bleeding cerebral aneurysm 7. History of descending aortic dissection 8. DVT: SCDs Patient Problems: Active and Suspected Problems CVA (cerebral vascular accident) (Acute) Seizure (Acute) - Physical Exam General: No apparent distress HEENT: Atraumatic Neck: No JVD Vital Signs Temp Pulse Resp BP Pulse Ox 98.1 F 95 18 169/122 H 97 04/25/18 13:00 04/25/18 13:00 04/25/18 13:00 04/25/18 13:00 04/25/18 13:00 Oxygen Flow Rate (L/min) 2 Oxygen Delivery Method Room Air Weight: 82.3 kg Body Mass Index (BMI) 25.7 Finger Stick Blood Glucose 103 Intake and Output for Last 24 Hours 04/23/18 04/24/18 04/25/18 23:59 23:59 23:59 Intake Total 2029 Output Total 600 / 600 1880 / 1880 Balance -600 / -600 150 / 150 Laboratory Tests Past 24 Hrs 04/24/18 04/24/18 04/24/18 14:15 14:15 14:15 WBC 7.6 RBC 5.26 Hgb 16.1 Hct 48.6 MCV 92.4 MCH 30.6 MCHC 33.1 RDW 13.9 RDW Differential 46.1 H Plt Count 185 MPV 9.6 Immature Gran % (Auto) 0.300 Neut % (Auto) 67.9 Lymph % (Auto) 19.2 [place] % (Auto) 8.7 Eos % (Auto) 3.4 Baso % (Auto) 0.5 Absolute Neuts (auto) 5.1 Absolute Lymphs (auto) 1.45 Total Counted Not Reportable PT 12.9 INR 1.0 APTT 30.9 Sodium 142 Potassium 4.5 Chloride 106 Carbon Dioxide 28.0 Anion Gap 8 BUN 20 H Creatinine 1.35 H Estim Creat Clear Calc 47.31 Est GFR (MDRD) Af Amer 66 Est GFR (MDRD) Non-Af 54 L BUN/Creatinine Ratio 14.8 Glucose 97 Calcium 9.4 Total Bilirubin Direct Bilirubin AST ALT Alkaline Phosphatase Troponin I < 0.015 Total Protein Albumin Globulin Triglycerides Cholesterol LDL Cholesterol VLDL Cholesterol HDL Cholesterol TSH Urine Opiates Screen Urine Methadone Screen Ur Barbiturates Screen Ur Phencyclidine Scrn Ur Amphetamines Screen U Methamphetamin-MDMA U Benzodiazepines Scrn Urine Cocaine Screen U Cannabinoids Screen Ur Drug Screen Comment Ethyl Alcohol 04/25/18 04/25/18 04/25/18 04:16 04:16 04:16 WBC RBC Hgb Hct MCV MCH MCHC RDW RDW Differential Plt Count MPV Immature Gran % (Auto) Neut % (Auto) Lymph % (Auto) [place] % (Auto) Eos % (Auto) Baso % (Auto) Absolute Neuts (auto) Absolute Lymphs (auto) Total Counted PT INR APTT Sodium Potassium Chloride Carbon Dioxide Anion Gap BUN Creatinine Estim Creat Clear Calc Est GFR (MDRD) Af Amer Est GFR (MDRD) Non-Af BUN/Creatinine Ratio Glucose Calcium Total Bilirubin 1.00 Direct Bilirubin 0.23 AST 17 ALT 26 Alkaline Phosphatase 103 Troponin I < 0.015 Total Protein 6.3 L Albumin 3.2 Globulin 3.1 Triglycerides 106 Cholesterol 114 LDL Cholesterol 57 VLDL Cholesterol 21 HDL Cholesterol 36 L TSH 2.20 Urine Opiates Screen Urine Methadone Screen Ur Barbiturates Screen Ur Phencyclidine Scrn Ur Amphetamines Screen U Methamphetamin-MDMA U Benzodiazepines Scrn Urine Cocaine Screen U Cannabinoids Screen Ur Drug Screen Comment Ethyl Alcohol 04/25/18 04/25/18 05:00 05:05 WBC RBC Hgb Hct MCV MCH MCHC RDW RDW Differential Plt Count MPV Immature Gran % (Auto) Neut % (Auto) Lymph % (Auto) [place] % (Auto) Eos % (Auto) Baso % (Auto) Absolute Neuts (auto) Absolute Lymphs (auto) Total Counted PT INR APTT Sodium Potassium Chloride Carbon Dioxide Anion Gap BUN Creatinine Estim Creat Clear Calc Est GFR (MDRD) Af Amer Est GFR (MDRD) Non-Af BUN/Creatinine Ratio Glucose Calcium Total Bilirubin Direct Bilirubin AST ALT Alkaline Phosphatase Troponin I Total Protein Albumin Globulin Triglycerides Cholesterol LDL Cholesterol VLDL Cholesterol HDL Cholesterol TSH Urine Opiates Screen NEGATIVE Urine Methadone Screen NEGATIVE Ur Barbiturates Screen NEGATIVE Ur Phencyclidine Scrn NEGATIVE Ur Amphetamines Screen NEGATIVE U Methamphetamin-MDMA NEGATIVE U Benzodiazepines Scrn NEGATIVE Urine Cocaine Screen NEGATIVE U Cannabinoids Screen NEGATIVE Ur Drug Screen Comment Ethyl Alcohol 6.0 POC Glucose 04/25/18 06:37 POC Glucose 86 Home Medications: Medications to take at Discharge Amlodipine [Norvasc] 5 mg PO DAILY 05/18/14 Aspirin [Aspirin, Baby] 81 mg PO DAILY@0800 05/18/14 Atorvastatin Calcium [Lipitor] 20 mg PO QHS 05/18/14 Metoprolol Succinate [Toprol Xl] 100 mg PO DAILY 04/24/18 Primary Care Physician: Kasi Velázquez MD [Primary Care Provider] - Please follow up with your Primary Care Physician in: [place] 1-2 WEEKS Disposition: Acute care Hospital - [facility] Minutes spent on discharge:: 55 Patient Condition:: Stable Medical Necessity - Tobacco Use Smoking Status: Former smoker Tobacco Use: Cigarettes Meaningful Use Info Meaningful Use Diagnoses (Choose all that apply): Ischemic CVA - CVA Therapy Assessed for PT,OT and/or ST?: Yes - Ischemic Stroke Antithrombotic order at d/c?: Yes Dx of Atrial fib/flutter?: Yes Anticoagulant at discharge?: No Reason anticoagulant not ordered: Medical Contraindication Statins at discharge?: Yes Primary Dx Acute Ischemic CVA?: No IV tPA ordered during stay?: No Reason IV t-PA not ordered: Medical Contraindication Code Visit Inpatient E&M: [id number] Disch Hosp
[2018-04-25 21:35] LABS: Hemoglobin A1c 6.8 % (4.2-6.3)
[2018-04-28 07:16] LABS: Bedside Glucose 103 mg/dL (70-110)
--- OUTSIDE RECORDS SUMMARY | 2018-07-27 13:31 | XMS RPT_ITS ---
:1940 Author Organization OHIP Care Team Providers Name Role Phone NIYA BRADY Referring Unavailable NIYA BRADY Referring Unavailable SERGE, TRUPTI R Referring Unavailable SERGE, TRPUTI R Referring Unavailable SERGE, TRUPTI R Attending Unavailable DAVE BAUER (STUDY ABROAD ADVISOR) Referring Unavailable LIZ SKINNER Attending Unavailable SERGE, TRUPTI R Referring Unavailable HELDLAINE (CONSTRUCTION DRIVER) Referring Unavailable HELDLAINE (CONSTRUCTION DRIVER) Referring Unavailable LIZ EPPERSON Attending Unavailable HELDLAINE (CONSTRUCTION DRIVER) Attending Unavailable SERGE, TRUPTI R Referring Unavailable SHIRA WATKINS Attending Unavailable SERGE, TRUPTI R Referring Unavailable SERGE, TRUPTI R Referring Unavailable SERGE, TRUPTI R Admitting Unavailable SERGE, TRUPTI R Attending Unavailable SERGE, TRUPTI R Referring Unavailable SERGE, TRUPTI R Referring Unavailable KAREN OLIVEROS (PA) Attending Unavailable SERGE, TRUPTI R Referring Unavailable SERGE, TRUPTI R Referring Unavailable SERGE, TRUPTI R Referring Unavailable SERGE, TRUPTI R Attending Unavailable SERGE, TRUPTI R Referring Unavailable SERGE, TRUPTI R Referring Unavailable JOSE RAUL VELÁZQUEZ) Attending Unavailable LAINE QUILES (CONSTRUCTION DRIVER) Referring Unavailable JOSE RAUL VELÁZQUEZ) Referring Unavailable JOSE RAUL VELÁZQUEZ) Referring Unavailable BURSLEY, CHRISTOPHER B (MD) Attending Unavailable JOSE RAUL VELÁZQUEZ () Referring Unavailable JOSR, DOLORA R Admitting Unavailable BILLY MORALES Referring Unavailable LIMARCO Attending Unavailable JOSE RAUL VELÁZQUEZ) Attending Unavailable JOSE RAUL VELÁZQUEZ) Referring Unavailable WISCO, DOLORA R Attending Unavailable WISCO, DOLORA R Referring Unavailable CHIPTIEN Attending Unavailable WISCO, DOLORA R Referring Unavailable WAZNI, HEATHERSSAMA M Referring Unavailable CHIPTIEN Referring Unavailable EMMIE BAIRES Attending Unavailable WISCO, DOLORA R Referring Unavailable Kasi Velázquez Primary Care Unavailable [place] Admitting Unavailable Renan Hawk Consulting Unavailable Billy Morales Attending Unavailable [place] Admitting Unavailable [place] Attending Unavailable Kasi Velázquez Primary Care Unavailable [place] Consulting Unavailable [place] Admitting Unavailable Billy Morales Attending Unavailable Kasi Velázquez Primary Care Unavailable Renan Hawk Consulting Unavailable Billy Morales Consulting Unavailable Nathaniel Villafuerte Attending Unavailable Billy Morales Referring Unavailable PROBLEMS PROBLEMS DATE TYPE CONDITION / CODE ATTENDING STATUS SOURCE 05/18/2018 Active 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, not intractable, without status epilepticus / G40.109(ICD-10) 04/29/2018 Active Chronic atrial NA Active [facility] fibrillation / [facility] Main I48.2(ICD-10) [place] [facility] 05/18/2018 Active Nontraumatic WISCO, DOLORA R Active [facility] intracranial [facility] Main hemorrhage, [place] unspecified / Repository I62.9(ICD-10) 04/29/2018 Active Other sequelae of LI, [place]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[facility] cerebral infarction / [facility] I69.398(ICD-10) [place] [facility] 04/29/2018 Active Unspecified LI, [place] Active [facility] convulsions / [facility] Main R56.9(ICD-10) [place] [facility] 04/29/2018 Active Nontraumatic LI, [place] Active [facility] intracerebral [facility] Main hemorrhage, [place] unspecified / Repository I61.9(ICD-10) 04/27/2018 Active Other speech MARCO MARQUES Active [facility] disturbances / [facility] R47.89(ICD-10) [place] [facility] 12/24/2017 Active Transient visual NA Active [facility] loss, right eye / Clinic Main H53.121(ICD-10) [place] [facility] 12/24/2017 Active Sudden visual loss, NA Active [facility] right eye / Clinic Main H53.131(ICD-10) [place] [facility] 12/23/2017 Active Unspecified visual NA Active [facility] disturbance / [facility] Main H53.9(ICD-10) [place] [facility] 09/01/2017 Active 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 / I25.10(ICD-10) 09/01/2017 Active Essential (primary) SERGE, TRUPTI Active [facility] hypertension / R Clinic Main I10(ICD-10) [place] [facility] 09/01/2017 Active Nonrheumatic aortic SERGE, TRUPTI Active [facility] (valve) stenosis / R [facility] Main I35.0(ICD-10) [place] [facility] 09/01/2017 Active Hyperlipidemia, SERGE, TRUPTI Active [facility] unspecified / R Clinic Main E78.5(ICD-10) [place] [facility] 08/30/2017 Active Other hyperlipidemia SERGE, TRUPTI Active [facility] / E78.4(ICD-10) R Clinic Main [place] [facility] 08/26/2017 Active Encounter for NA Active [facility] preprocedural [facility] Main cardiovascular [place] examination / Repository Z01.810(ICD-10) 08/26/2017 Active Heart failure, NA Active [facility] unspecified / [facility] Main I50.9(ICD-10) [place] [facility] 08/26/2017 Active Endocarditis, 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 / [facility] Main I38(ICD-10) [place] [facility] 01/12/2017 Active Aphasia / NA Active [facility] R47.01(ICD-10) Clinic Main [place] [facility] 01/12/2017 Active Abdominal aortic NA Active [facility] aneurysm, without Clinic Main rupture / [place] I71.4(ICD-10) Repository 07/02/2017 Active Paroxysmal atrial NA Active [facility] fibrillation / [facility] Main I48.0(ICD-10) [place] [facility] 07/02/2017 Active 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 / Clinic Main I77.70(ICD-10) [place] [facility] 07/02/2017 Active Unknown / SERGE, TRUPTI Active [facility] UNK(Unknown) R Clinic Main [place] [facility] 07/02/2017 Active 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 Emmie Baires [phone] Your Physician has scheduled you for an elective procedure at [facility]. You will be scheduled in the Electrophysiology Laboratory at Desk J2-1 EP PROCEDURE Procedure Date: July 04, 2018 1) It is extremely important that you call [facility] at [phone] or and ask for the EP Scheduling Nurse, Pager #[phone] between the hours of 3:00 p.m. - 5:00 p.m. Wednesday through Wednesday, the day before the procedure date. The scheduling nurse will give you the report-in time for your procedure, discuss fasting instructions, and medication instructions. - If your procedure is Wednesday, please call the Wednesday before. - If your procedure is after a hol, please call the EP Scheduling Nurse the day before the holiday. Arrival time for your procedure is based on an approximate start time. While we attempt to give you an accurate time, emergency circumstances beyond our control may disrupt the existing schedule. We apologize ahead of time for any inconvenience that this may cause you. 2) Do not have anything to eat or drink after midnight the night before your procedure. 3) On the day of your procedure, please [facility] to Des[facility], to review your admission paper work. You will then need to proceed to Desk J2-1 on the second floor of the [facility] for your procedure. 4) If you are admitted after your procedure, you will go to a hospital floor after your procedure. You should be discharged at approximately 11:00am the day following your procedure. 5) It is important for you to call as soon as possible if you should need to cancel your scheduled procedure. If you have any further questions regarding your procedure, please contact your physician?s office : Dr. Emmie Baires [phone] 6) Medication instructions: Continue medication as prescribed 7) If you are female of childbearing age, we will request your permission for a test (blood work) prior to the procedure. 8) If you have any insurance concerns regarding this procedure, please contact our pre-certification office at or [phone] 9) If you are traveling from out of town and need overnight accommodations, please contact our lodging coordinator at ext [phone] or ext [phone] or visit our website at [email or web address] PROGRESS Observed: 05/18/2018 Status: COMPLETED Source: [place] 2:22 PM [facility] REPOSITORY HNO ID: [id number] Author: Emmie Baires MD Service: (none) Author Type: Physician Type: Progress Notes Filed: 05/20/2018 3:13 PM Note Text: [facility] [place] Greyson Santiago Department of Cardiovascular Medicine SECTION OF CARDIAC PACING and ELECTROPHYSIOLOGY OUTPATIENT VISIT DATE May 18, 2018 OUTPATIENT VISIT TYPE CONSULTATION PRIMARY CARE PHYSICIAN: Jose Raul Velázquez MD [address] [place] [address] REFERRING PHYSICIAN Jessica Rodriguez MD [address] [facility] [address] CHIEF COMPLAINT: AF, ICH HISTORY OF PRESENT ILLNESS/NURSING INTAKE HISTORY: Cardiac consultation at the request of Dr. Jessica Rodriguez.A copy of this consultation note will be provided to the requesting physician by way of shared Medical record or letter to requesting physician via US mail. Mr. Ruffin is a 78 year old male who is seen today for evaluation for a Watchman device. He has a history of permanent atrial fibrillation and had been treated with coumadin for stroke prophylaxis. He has history of ICH in the left parietal lobe in while on coumadin in 2013. Anticoagulation was stopped after the bleed and he has been off since that time. He has been cleared by Dr. Rodriguez to use short term Eliquis for the Watchman procedure. He denies chest pain, shortness of breath, orthopnea, cough, edema, palpitations, PND, lightheadedness or syncope. 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 - Scalp psoriasis - Seizures ([facility]) PAST SURGICAL HISTORY Procedure Laterality Date - PAST SURGICAL HISTORY OF 10/2017 TAVR - TONSILLECTOMY HX SOCIAL HISTORY Social History Substance Use Topics - Smoking status: Former Smoker Packs/day: 1.50 Years: 59.00 Quit date: 07/02/2012 - Smokeless tobacco: Never Used - Alcohol use Yes Comment: occasional FAMILY HISTORY Problem Relation Age of Onset - Hypertension Mother age 90 from internal bleeding - Stroke Father 80 age 84 - other (Myocardial infarction) Brother 70 ALLERGIES: ALLERGIES Allergen Reactions - Amoxacillin [Amoxic* Mental Status Change - Codeine Other: See Comments irregular heart beat - Penicillins Unknown MEDICATIONS: lamoTRIgine (LAMICTAL) 25 mg tablet Wk1:25 mg am; Wk 2:25mg bid;Wk 3: 50mg am, 25 mg pm; Wk 4: 50 mg bid; Wk 5: 75mg am, 50 mg pm; Wk 6: 75 mg bid; no refill lamoTRIgine (LAMICTAL) 100 mg tablet Take 1 tablet by mouth twice daily. Start week 7: 100 mg bid refill 100 mg bid phenytoin ER (DILANTIN) 100 mg ER capsule Take 3 capsules by mouth daily at bedtime. levETIRAcetam (KEPPRA) 750 mg tablet Take 2 tablets by mouth twice daily. triamcinolone acetonide (KENALOG) 0.1 % cream Apply 1 application to affected area twice daily. Apply sparingly to area for rash/itching. metoprolol succinate ER (TOPROL XL) 100 mg Tb24 Take 1 tablet by mouth once daily. amLODIPine (NORVASC) 5 mg tablet Take 1 tablet by mouth once daily. atorvastatin (LIPITOR) 20 mg tablet Take 1 tablet by mouth once daily. aspirin, enteric coated (ASPIRIN, ENTERIC COATED) 81 mg EC tablet Take 81 mg by mouth once daily. Angelica Edwards RN PHYSICAL EXAMINATION: Pulse 90 Ht 175.3 cm (5' 9) Wt 80.3 kg (177 lb) BMI 26.14 kg/m? General appearance: well appearing, in no acute distress, alert H+ENT: no JVP, no goiter apparent, no icterus Lungs: Lungs clear to auscultation, No wheezing or rhonchi Heart: irir, liliam Abdomen: Abdomen soft, non-tender. Bowel sounds normal. No masses, organomegaly Extremities: no edema Neuro: Grossly intact. Pulses: present bilaterally Skin:no apparent skin break CHIEF COMPLAINT: AF, ICH HISTORY OF PRESENT ILLNESS: Cardiac consultation at the request of Dr. Jessica Rodriguez.A copy of this consultation note will be provided to the requesting physician by way of shared Medical record or letter to requesting physician via US mail. Mr. Ruffin is a 78 year old male who is seen today for evaluation for a Watchman device. He has a history of permanent atrial fibrillation and had been treated with coumadin for stroke prophylaxis. He has history of ICH in the left parietal lobe in while on coumadin in 2013. Anticoagulation was stopped after the bleed and he has been off since that time. He has been cleared by Dr. Rodriguez to use short term Eliquis for the Watchman procedure. He denies chest pain, shortness of breath, orthopnea, cough, edema, palpitations, PND, lightheadedness or syncope. IMPRESSION:PLAN AND RECOMMENDATIONS: Permanent AF and ICH and CHADSVASC=5. Agree that Watchman is indicated to prevent stroke and avoid care home oral anticoagulation. Discussed the procedure at length including specific risks. They want to proceed. Emmie Baires MD I personally interviewed, confirmed and edited the above information as obtained by others. CONTACT INFORMATION: Emmie Baires MD, MD PHENYTOIN Collected: 05/18/2018 Status: F Source: [place] 1:51 PM [facility] REPOSITORY TYPE CODE TESTS RESULT OUT OF REFERENCE UNITS RANGE LAB PHT 10.0-20.0 ug/mL Phenytoin 12.6 Result Comment: Reference ranges and high/low indicator flags are provided as general guidelines only. The treating physician must determine appropriate target levels/dosing based on the specific clinical situation. Performed By: #### PHT, PHTFR, LEVET, CMP #### [facility] [address] [place], [place] [address] PHENYTOIN, FREE Collected: 05/18/2018 Status: F Source: [place] 1:51 PM [facility] REPOSITORY TYPE CODE TESTS RESULT OUT OF REFERENCE UNITS RANGE LAB PHTFR 1.0-2.0 ug/mL 1.1 Phenytoin, Free Result Comment: Reference ranges and high/low indicator flags are provided as general guidelines only. The treating physician must determine appropriate target levels/dosing based on the specific clinic al situation. This test was developed and its performance characteristics determined by [facility] Pathology and Laboratory Medicine [place] ([facility]). It has not been cleared or approved by the FDA. [facility] is regulated under CLIA as qualified to perform high-complexity testing. This test is used for clinical purposes. It should not be regarded as investigational or for research. Performed By: #### PHT, PHTFR, LEVET, CMP #### [facility] [address] [place], [place] [address] LEVETIRACETAM Collected: 05/18/2018 Status: F Source: [place] 1:51 PM [facility] REPOSITORY TYPE CODE TESTS RESULT OUT OF REFERENCE UNITS RANGE LAB LEVETI 12.0-46.0 ug/mL Levetiracetam High 52.6 Result Comment: This test is not suitable for patients receiving treatment with the drug brivaracetam (Briviact). The drug causes an interference that may lead to falsely elevated levetiracetam results. Reference ranges and high/low indicator flags are provided as general guidelines only. The treating physician must determine appropriate target levels/dosing based on the specific clinical situation. This test was developed and its performance characteristics determined by [facility] Pathology and Laboratory [facility] [place] ([facility]). It has not been cleared or approved by the FDA. -[facility] is regulated under CLIA as qualified to perform high-complexity testing. This test is used for clinical purposes. It should not be regarded as investigational or for research. Performed By: #### PHT, PHTFR, XOCHILT, CMP #### [facility] [address] [place] [id number] COMP METABOLIC PANEL Collected: 05/18/2018 Status: F Source: [place] 1:51 PM [facility] REPOSITORY TYPE CODE TESTS RESULT OUT OF REFERENCE UNITS RANGE LAB TP 6.3-8.0 g/dL Protein, High Total 8.2 LAB ALB 3.9-4.9 g/dL Albumin 4.7 LAB CA 8.5-10.2 mg/dL Calcium, Total 10.0 LAB TBIL 0.2-1.3 mg/dL Bilirubin, Total 0.3 LAB ALKP 38-113 U/L Alkaline High Phosphatase 177 LAB AST 14-40 U/L AST 32 LAB GLU 74-99 mg/dL Glucose High 102 Result Comment: The [place] Diabetes Association (ADA) provides guidance for cutoff values for fasting glucose and random glucose. The ADA defines fasting as no caloric intake for at least 8 hours. Fas ting plasma glucose results between 100 to 125 mg/dL indicate increased risk for diabetes (prediabetes). Fasting plasma glucose results greater than or equal to 126 mg/dL meet the criteria for diagnosis of diabetes. In the absence of unequivocal hyperglycemia, results should be confirmed by repeat testing. In a patient with classic symptoms of hyperglycemia or hyperglycemic crisis, random plasma glucose results greater than or equal to 200 mg/dL meet the criteria for diagnosis of diabetes. Reference: Standards of Medical Care in Diabetes 2016, [place] Diabetes Association. Diabetes Care. 2016.39(Suppl 1). LAB BUN 9-24 mg/dL BUN 18 LAB CRET 0.73-1.22 mg/dL Creatinine 1.15 LAB NA 136-144 mmol/L Sodium 140 LAB K 3.7-5.1 mmol/L Potassium 4.6 LAB CL 97-105 mmol/L Chloride 99 LAB CO2 22-30 mmol/L CO2 27 LAB AGAP 9-18 mmol/L Anion Gap 14 LAB ALT 10-54 U/L ALT 45 LAB GFRAA eGFR- Amer. >60 LAB GFRNAA . eGFR-All Other Races >60 Result Comment: eGFR (Estimated GFR) Units of measure: mL/min/1.73 meters squared eGFR is derived from the reexpressed MDRD Study equation using the following parameters: serum creatinine, age, gender and race. The creatinine assay has been calibrated to be traceable to IDMS. An eGFR <60 mL/min/1.73m2 for >3 months is consistent with chronic kidney disease. Refer to KDOQI guidelines for clinical interpretation. In patients with unstable renal function, e.g. those with acute kidney injury, the eGFR may not accurately reflect actual GFR. Performed By: #### PHT, PHTFR, XOCHILT, CMP #### [facility] [address] [place], [place] [address] CNOV Observed: 05/18/2018 Status: COMPLETED Source: [place] 1:45 PM [facility] REPOSITORY Office Visit (CARDMN) AUGUSTINTYREL Lis ([id number]) 1940 M Date Time Provider Department 05/18/18 1:45 PM EMMIE BAIRES During your visit today, we recorded the following information about you: Pulse Blood pressure Weight Height 90/minute 143/85 80.3 kg 1.753 m Emmie Baires MD, MD 05/20/2018 3:13 PM [facility] [place] Greyson Santiago Department of Cardiovascular Medicine SECTION OF CARDIAC PACING and ELECTROPHYSIOLOGY OUTPATIENT VISIT DATE May 18, 2018 OUTPATIENT VISIT TYPE CONSULTATION PRIMARY CARE PHYSICIAN: Jose Raul Velázquez MD [address] [place] [address] REFERRING PHYSICIAN Jessica Rodriguez MD [address] [facility] [address] CHIEF COMPLAINT: AF, ICH HISTORY OF PRESENT ILLNESS/NURSING INTAKE HISTORY: Cardiac consultation at the request of Dr. Jessica Rodriguez.A copy of this consultation note will be provided to the requesting physician by way of shared Medical record or letter to requesting physician via US mail. Mr. Ruffin is a 78 year old male who is seen today for evaluation for a Watchman device. He has a history of permanent atrial fibrillation and had been treated with coumadin for stroke prophylaxis. He has history of ICH in the left parietal lobe in while on coumadin in 2013. Anticoagulation was stopped after the bleed and he has been off since that time. He has been cleared by Dr. Rodriguez to use short term Eliquis for the Watchman procedure. He denies chest pain, shortness of breath, orthopnea, cough, edema, palpitations, PND, lightheadedness or syncope. PAST MEDICAL HISTORY Diagnosis Date - AAA (abdominal aortic aneurysm) ([facility]) - Aortic dissection distal to left subclavian ([facility]) - Aortic stenosis severe, s/p TAVR - Atrial fibrillation ([facility]) 2011 Dr. 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 - Scalp psoriasis - Seizures ([facility]) PAST SURGICAL HISTORY Procedure Laterality Date - PAST SURGICAL HISTORY OF 10/2017 TAVR - TONSILLECTOMY HX SOCIAL HISTORY Social History Substance Use Topics - Smoking status: Former Smoker Packs/day: 1.50 Years: 59.00 Quit date: 07/02/2012 - Smokeless tobacco: Never Used - Alcohol use Yes Comment: occasional FAMILY HISTORY Problem Relation Age of Onset - Hypertension Mother age 90 from internal bleeding - Stroke Father 80 age 84 - other (Myocardial infarction) Brother 70 ALLERGIES: ALLERGIES Allergen Reactions - Amoxacillin [Amoxic* Mental Status Change - Codeine Other: See Comments irregular heart beat - Penicillins Unknown MEDICATIONS: lamoTRIgine (LAMICTAL) 25 mg tablet Wk1:25 mg am; Wk 2:25mg bid;Wk 3: 50mg am, 25 mg pm; Wk 4: 50 mg bid; Wk 5: 75mg am, 50 mg pm; Wk 6: 75 mg bid; no refill lamoTRIgine (LAMICTAL) 100 mg tablet Take 1 tablet by mouth twice daily. Start week 7: 100 mg bid refill 100 mg bid phenytoin ER (DILANTIN) 100 mg ER capsule Take 3 capsules by mouth daily at bedtime. levETIRAcetam (KEPPRA) 750 mg tablet Take 2 tablets by mouth twice daily. triamcinolone acetonide (KENALOG) 0.1 % cream Apply 1 application to affected area twice daily. Apply sparingly to area for rash/itching. metoprolol succinate ER (TOPROL XL) 100 mg Tb24 Take 1 tablet by mouth once daily. amLODIPine (NORVASC) 5 mg tablet Take 1 tablet by mouth once daily. atorvastatin (LIPITOR) 20 mg tablet Take 1 tablet by mouth once daily. aspirin, enteric coated (ASPIRIN, ENTERIC COATED) 81 mg EC tablet Take 81 mg by mouth once daily. Angelica Edwards RN PHYSICAL EXAMINATION: Pulse 90 Ht 175.3 cm (5' 9) Wt 80.3 kg (177 lb) BMI 26.14 kg/m? General appearance: well appearing, in no acute distress, alert H+ENT: no JVP, no goiter apparent, no icterus Lungs: Lungs clear to auscultation, No wheezing or rhonchi Heart: irir, liliam Abdomen: Abdomen soft, non-tender. Bowel sounds normal. No masses, organomegaly Extremities: no edema Neuro: Grossly intact. Pulses: present bilaterally Skin:no apparent skin break CHIEF COMPLAINT: AF, ICH HISTORY OF PRESENT ILLNESS: Cardiac consultation at the request of Dr. Jessica Rodriguez.A copy of this consultation note will be provided to the requesting physician by way of shared Medical record or letter to requesting physician via [place] mail. Mr. Ruffin is a 78 year old male who is seen today for evaluation for a Watchman device. He has a history of permanent atrial fibrillation and had been treated with coumadin for stroke prophylaxis. He has history of ICH in the left parietal lobe in while on coumadin in 2013. Anticoagulation was stopped after the bleed and he has been off since that time. He has been cleared by Dr. Rodriguez to use short term Eliquis for the Watchman procedure. He denies chest pain, shortness of breath, orthopnea, cough, edema, palpitations, PND, lightheadedness or syncope. IMPRESSION:PLAN AND RECOMMENDATIONS: Permanent AF and ICH and CHADSVASC=5. 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 Discussed the procedure at length including specific risks. They want to proceed. Emmie Baires MD I personally interviewed, confirmed and edited the above information as obtained by others. CONTACT INFORMATION: Emmie Baires MD, MD Referring Provider: JESSICA RODRIGUEZ [[id number]] Allergies As of Date: 05/18/2018 Noted Allergy Reaction AMOXACILLIN (AMOXICILLIN) 07/02/2017 1 - Mental Status Change CODEINE 01/07/2017 14 - Other: See Comments Comments: irregular heart beat PENICILLINS 05/18/2018 16 - Unknown Date Reviewed: 05/18/2018 Reviewed by: Jazmine Perdomo Ma - Fully Assessed Primary Visit Diagnosis:AAA (abdominal aortic aneurysm) without rupture (HCC) [I71.4] Other Visit Diagnoses:Atrial fibrillation, chronic (HCC) [I48.2] Essential hypertension [I10] Atherosclerosis of [place] coronary artery of [place] heart without angina pectoris [I25.10] Prescriptions as of 05/18/2018 Sig: LAMOTRIGINE 25 MG TABLET Wk1:25 mg am; Wk 2:25mg bid;W* LAMOTRIGINE 100 MG TABLET Take 1 tablet by mouth twice * PHENYTOIN SODIUM EXTENDED 100* Take 3 capsules by mouth joel* X LEVETIRACETAM 750 MG TABLET Take 2 tablets by mouth twice* TRIAMCINOLONE ACETONIDE 0.1 %* Apply 1 application to affect* METOPROLOL SUCCINATE ER 100 M* Take 1 tablet by mouth once d* AMLODIPINE 5 MG TABLET Take 1 tablet by mouth once d* ATORVASTATIN 20 MG TABLET Take 1 tablet by mouth once d* ASPIRIN 81 MG TABLET,DELAYED * Take 81 mg by mouth once joel* Problem List As Of Date 05/18/2018 Noted Resolved Aortic dissection (HCC) [I71.00] INVALID FOR* More... Atrial fibrillation, chronic (HCC) [I48.2] INVALID FOR* More... Hyperlipidemia [E78.5] INVALID FOR* More... Essential hypertension [I10] INVALID FOR* More... Word finding difficulty [R47.89] INVALID FOR*04/27/2018 More... AAA (abdominal aortic aneurysm) without rupture*INVALID FOR* More... More... Nonrheumatic aortic valve stenosis [I35.0] INVALID FOR* More... Atherosclerosis of [place] coronary artery witho*INVALID FOR* More... Intraparenchymal hemorrhage of brain (HCC) [I61*INVALID FOR*04/29/2018 More... History of cerebral hemorrhage [Z86.79] INVALID FOR* More... 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 Focal epilepsy with impairment of consciousness*INVALID FOR* Encounter Status:Closed by EMMIE BAIRES MD on 05/20/18 ECG COMPLETE W Observed: 05/18/2018 Status: F Source: [facility] 1:38 PM [facility] REPOSITORY NAME : TYREL RUFFIN PID : [id number] : 1940 Gender : Male Race : ORD : [id number] Procedure Date : May 18 2018 13:38:14 Edit Date : May 20 2018 16:13:34 Diagnosis:ATRIAL FIBRILLATION ABNORMAL ECG Confirmed by LINDA WELLS M.D. ([id number]) on 05/20/2018 4:04:27 PM Ventricular Rate : 90 BPM Atrial Rate : 394 BPM QRS Duration : 68 ms Q-T Interval : 340 ms QTC Calculation(Bezet) : 415 ms R [place] : 23 degrees T [place] : 43 degrees Test Reason : Location : [address] [place], [place] [id number] J14 Overread By : LINDA WELLS M.D. Edited By : LINDA WELLS M.D. Referred By : EMMIE BAIRES Acquired by : TY JOHNSON PROGRESS Observed: 05/18/2018 Status: COMPLETED Source: [facility] 12:02 PM [facility] REPOSITORY O ID: [id number] Author: Tien Hill Service: (none) Author Type: Physician Type: Progress Notes Filed: 05/18/2018 1:33 PM Note Text: [facility] Patient Name: Tyrel Ruffin Date of : 1940 CLINIC NOTE - INITIAL VISIT CHIEF COMPLAINT: epilepsy, here for further evaluation and treatment. CONSULTING DOCTOR: Jessica Rodriguez MD [address] [facility] [address] Consultation requested by for treatment of seizures. PRESENT ILLNESS: The patient was accompanied by his at this clinic visit. This is a 78 year old right-handed male who presents with a chief complaint of new onset of seizures in Apr 2018. He has a history of L occipital ICH 2/2 (October of 2013), afib (not on AC), former aortic dissection. He was admitted to Neurology for seizures 04/2018, BEM recorded NCS seizures from left parietal-occipital region. He was treated with Levetiracetam and Vimpat but replaced vimpat with Dilantin due to the cost of Vimpat. It was noted that patient had 3 seconds of sinus pauses without symptoms. He was discharged on Levetiracetam 1500 mg bid and Dilantin 300 mg qHS. His major complain is tiredness 1-2 hours after taking morning dose of Levetiractam that he needs to take a nap, he feels fine afterwards. Denies mood irritability and depression. Per patient and his : seizure onset was 04/24/2016. Patient had visual aura of seeing colorful flashing in all visual collins that lasted for 10 seconds. His also noted him messed up his words that he said sink instead of toaster when he asked his to check the toast for breakfast. They decided to come to ER where he had a motor seizure (after HCT) that his noted that while lying in bed, his head turned to his right, and his eyes locked into his right side, he had right jaw clenching with tongue biting. 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 Discharged from [facility] Neurology 05/01/2018: ?77 year old male with a history of L occipital ICH 2/ (October of 2013), afib (not on AC), former aortic dissection who presented to [facility] from outside ED with new onset seizures. Seizure semiology: Technicolor vision in R visual field -> speech changes (mixing up words) -> right head version and jaw clenching (bit tongue) -> head shaking and right arm stiffening followed by confusion and lethargy. He had 2 of these seizures in the outside ED, was given 2 mg Ativan and 1 g Keppra, then started on Keppra [address] brain unremarkable. 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 He was transferred to [facility] for further management. At [facility] he was monitored with EEG which showed multiple left parietal occipital seizures. He was started on Vimpat 100 mg BID and his Keppra was increased to 1500 mg BID with resolution of his seizures. The patient was unable to afford Vimpat after discharge so this was switched to Dilantin ER 300 mg QHs. After starting Dilantin, he two 3 second sinus pauses during which he was asymptomatic. His discharge was therefore delayed to monitor for recurrence of this. He had no further sinus pauses and was discharged on 05/01/18. He had a repeat MRI which was stable to his prior imaging with no signs of a new stroke. Etiology of seizures thought to be area of prior ICH in the left occipital lobe. He will follow up in Epilepsy Clinic 05/11/18.? 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 Mild chronic microvascular ischemic changes. No significant interval change in imaging appearance of the brain since prior study dated 12/24/2017.? 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 levETIRAcetam (KEPPRA) 750 mg tablet Take 2 tablets by mouth twice daily. triamcinolone acetonide (KENALOG) 0.1 % cream Apply 1 application to affected area twice daily. Apply sparingly to area for rash/itching. metoprolol succinate ER (TOPROL XL) 100 mg Tb24 Take 1 tablet by mouth once daily. amLODIPine (NORVASC) 5 mg tablet Take 1 tablet by mouth once daily. atorvastatin (LIPITOR) 20 mg tablet Take 1 tablet by mouth once daily. aspirin, enteric coated (ASPIRIN, ENTERIC COATED) 81 mg EC tablet Take 81 mg by mouth once daily. 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 - Scalp psoriasis - Seizures ([facility]) No past medical history pertinent negatives. 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 Has living REVIEW OF SYSTEMS: CONST: no change in weight; no lightheadedness; no fevers, chills, or night sweats. There have been no headaches. EYES: no double vision; no blurred vision ENT: no change in hearing; no trouble swallowing NEURO: no focal weakness or sensory loss; + memory loss; difficult in reading CARD: no chest pain or palpitations, no leg edema RESP: no shortness of breath or cough : no urinary urgency, frequency, or hematuria GI: no abdominal pain or change in bowel habits MUSC: no joint pain or swelling, no muscle or back pain PSYCH: no change in mood or sleep patterns HEME: no bruising, bleeding, or swollen glands. All other organ systems are negative. GENERAL EXAMINATION: There were no vitals taken for this visit. General Appearance: in no acute distress. HEENT: There are no facial dysmorphic features. Normocephalic. SKIN: no rashes. Normal color. EXTREMITIES: no edema NEUROLOGICAL EXAM: The patient's speech, affect, and cognition appear normal. Normal eye movements. No nystagmus noted. No facial asymmetry,hearing intact. Muscle Bulk are normal. There is no tremor GAIT is steady. 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 Seizure onset 04/24/2018 with visual aura, words messed up, LOC and right cheek motor seizures. Currently on Levetiracetam 1500 mg bid and Dilantin 300 mg qHS He has side effects to peak level of LEV. Discussed that care home side effects of Dilantin, and recommended transition from Dilantin to Lamotrigine, and continue LEV at this time PLAN: The following tests were ordered for the patient: Levels LEV, Dilantin, CMP ---- he has peak level side effect to LEV (but just got a new bottle of medicine paid 180 $ for 30 days), discussed switching to extended 24 hr LEV but affordability is a question 1. change from taking 1500 mg (2 pills of 750 mg) and 1500 mg bid to 750 mg morning, 750 mg at lunch time and 1500 mg in the evening. 2. Transition from Dilantin to Lamotrigine LAMICTAL (Lamotrigine) 25 MG (watch for rash) Week 1: Take 1 pill AM Dilantin 300 mg bedtime Week 2: Take 1 pill AM and 1pill PM Dilantin 300 mg bedtime Week 3: Take 2 pills AM and 1 pill PM Dilantin 200 mg bedtime Week 4: Take 2 pills AM and 2 pills PM Dilantin 200 mg bedtime Week 5: Take 3 pills AM and 2 pills PM Dilantin 100 mg bedtime Week 6: Take 3 pills AM and 3 pills PM Dilantin 100 mg bedtime Then change the tablets to LAMICTAL(Lamotrigine) 100 mg Week 7: 100 mg morning, 100 mg evening Stop dilantin Call Dr. Hill's office for update and plans for lab work of LEV and Lamotrigine No driving till we clear him in the future. No climb stairs or walk down stairs when feeling lightheadbnwith the patient: Risks, benefits, side effects, and alternatives to use of Lamotrigine (Lamictal), Levetiracetam (Keppra) and Phenytoin (Dilantin) were discussed with the patient. The patient agreed with the plan as outlined above. Follow up in August 16, 2017 (Wednesday) Tien Hill MD PhD Staff, [facility] [place], [place] Primary Care Physician: Jose Raul Velázquez MD [address] [facility] [id number] Referring Physician: Jessica Rodriguez MD [address] [facility] [id number] Mr. Tyrel Ruffin [address] [place] [id number] CNOV Observed: 05/18/2018 Status: COMPLETED Source: [facility] 11:40 AM [facility] REPOSITORY Office Visit (NE50MN) TYREL RUFFIN ([id number]) 1940 M Date Time Provider Department 05/18/18 11:40 AM TIEN HILL NE50MN During your visit today, we recorded the following information about you: Pulse Blood pressure Weight Height 68/minute 163/82 80.3 kg 1.753 m Tien Hill MD PhD 05/18/2018 1:33 PM Signed [facility] Patient Name: Tyrel Ruffin Date of : 1940 CLINIC NOTE - INITIAL VISIT CHIEF COMPLAINT: epilepsy, here for further evaluation and treatment. CONSULTING DOCTOR: Jessica Rodriguez MD [address] [facility] [id number] Consultation requested by for treatment of seizures. PRESENT ILLNESS: The patient was accompanied by his at this clinic visit. This is a 78 year old right-handed male who presents with a chief complaint of new onset of seizures in Apr 2018. He has a history of L occipital ICH 2/2 (October of 2013), afib (not on AC), former aortic dissection. He was admitted to Neurology for seizures 04/2018, BEM recorded NCS seizures from left parietal-occipital region. He was treated with Levetiracetam and Vimpat but replaced vimpat with Dilantin due to the cost of Vimpat. It was noted that patient had 3 seconds of sinus pauses without symptoms. He was discharged on Levetiracetam 1500 mg bid and Dilantin 300 mg qHS. His major complain is tiredness 1-2 hours after taking morning dose of Levetiractam that he needs to take a nap, he feels fine afterwards. Denies mood irritability and depression. Per patient and his : seizure onset was 04/24/2016. Patient had visual aura of seeing colorful flashing in all visual collins that lasted for 10 seconds. His also noted him messed up his words that he said sink instead of toaster when he asked his to check the toast for breakfast. They decided to come to ER where he had a motor seizure (after HCT) that his noted that while lying in bed, his head turned to his right, and his eyes locked into his right side, he had right jaw clenching with tongue biting. 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 Discharged from [facility] Neurology 05/01/2018: ?77 year old male with a history of L occipital ICH 2/ (October of 2013), afib (not on AC), former aortic dissection who presented to [facility] from outside ED with new onset seizures. Seizure semiology: Technicolor vision in R visual field -> speech changes (mixing up words) -> right head version and jaw clenching (bit tongue) -> head shaking and right arm stiffening followed by confusion and lethargy. He had 2 of these seizures in the outside ED, was given 2 mg Ativan and 1 g Keppra, then started on Keppra [address] brain unremarkable. 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 He was transferred to [facility] for further management. At [facility] he was monitored with EEG which showed multiple left parietal occipital seizures. He was started on Vimpat 100 mg BID and his Keppra was increased to 1500 mg BID with resolution of his seizures. The patient was unable to afford Vimpat after discharge so this was switched to Dilantin ER 300 mg QHs. After starting Dilantin, he two 3 second sinus pauses during which he was asymptomatic. His discharge was therefore delayed to monitor for recurrence of this. He had no further sinus pauses and was discharged on 05/01/18. He had a repeat MRI which was stable to his prior imaging with no signs of a new stroke. Etiology of seizures thought to be area of prior ICH in the left occipital lobe. He will follow up in Epilepsy Clinic 05/11/18.? 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 Mild chronic microvascular ischemic changes. No significant interval change in imaging appearance of the brain since prior study dated 12/24/2017.? 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 levETIRAcetam (KEPPRA) 750 mg tablet Take 2 tablets by mouth twice daily. triamcinolone acetonide (KENALOG) 0.1 % cream Apply 1 application to affected area twice daily. Apply sparingly to area for rash/itching. metoprolol succinate ER (TOPROL XL) 100 mg Tb24 Take 1 tablet by mouth once daily. amLODIPine (NORVASC) 5 mg tablet Take 1 tablet by mouth once daily. atorvastatin (LIPITOR) 20 mg tablet Take 1 tablet by mouth once daily. aspirin, enteric coated (ASPIRIN, ENTERIC COATED) 81 mg EC tablet Take 81 mg by mouth once daily. 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 - Scalp psoriasis - Seizures ([facility]) No past medical history pertinent negatives. 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 Has living REVIEW OF SYSTEMS: CONST: no change in weight; no lightheadedness; no fevers, chills, or night sweats. There have been no headaches. EYES: no double vision; no blurred vision ENT: no change in hearing; no trouble swallowing NEURO: no focal weakness or sensory loss; + memory loss; difficult in reading CARD: no chest pain or palpitations, no leg edema RESP: no shortness of breath or cough : no urinary urgency, frequency, or hematuria GI: no abdominal pain or change in bowel habits MUSC: no joint pain or swelling, no muscle or back pain PSYCH: no change in mood or sleep patterns HEME: no bruising, bleeding, or swollen glands. All other organ systems are negative. GENERAL EXAMINATION: There were no vitals taken for this visit. General Appearance: in no acute distress. HEENT: There are no facial dysmorphic features. Normocephalic. SKIN: no rashes. Normal color. EXTREMITIES: no edema NEUROLOGICAL EXAM: The patient's speech, affect, and cognition appear normal. Normal eye movements. No nystagmus noted. No facial asymmetry,hearing intact. Muscle Bulk are normal. There is no tremor GAIT is steady. 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 Seizure onset 04/24/2018 with visual aura, words messed up, LOC and right cheek motor seizures. Currently on Levetiracetam 1500 mg bid and Dilantin 300 mg qHS He has side effects to peak level of LEV. 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 change from taking 1500 mg (2 pills of 750 mg) and 1500 mg bid to 750 mg morning, 750 mg at lunch time and 1500 mg in the evening. 2. Transition from Dilantin to Lamotrigine LAMICTAL (Lamotrigine) 25 MG (watch for rash) Week 1: Take 1 pill AM Dilantin 300 mg bedtime Week 2: Take 1 pill AM and 1pill PM Dilantin 300 mg bedtime Week 3: Take 2 pills AM and 1 pill PM Dilantin 200 mg bedtime Week 4: Take 2 pills AM and 2 pills PM Dilantin 200 mg bedtime Week 5: Take 3 pills AM and 2 pills PM Dilantin 100 mg bedtime Week 6: Take 3 pills AM and 3 pills PM Dilantin 100 mg bedtime Then change the tablets to LAMICTAL(Lamotrigine) 100 mg Week 7: 100 mg morning, 100 mg evening Stop dilantin Call Dr. Hill's office for update and plans for lab work of LEV and Lamotrigine No driving till we clear him in the future. No climb stairs or walk down stairs when feeling lightheadbnwith the patient: Risks, benefits, side effects, and alternatives to use of Lamotrigine (Lamictal), Levetiracetam (Keppra) and Phenytoin (Dilantin) were discussed with the patient. The patient agreed with the plan as outlined above. Follow up in August 16, 2017 (Wednesday) Tien Hill MD PhD Staff, [facility] [place], [place] Primary Care Physician: Jose Raul Velázquez MD [address] [id number] Referring Physician: Jessica Rodriguez MD [address] [id number] Mr. Tyrel Ruffin [facility] [phone] Tien Hill MD PhD 05/18/2018 1:07 PM Signed Levetiracetam: 750 mg morning, 750 mg at lunch, 1500 mg bedtime Transition from Dilantin to Lamotrigine LAMICTAL (Lamotrigine) 25 MG Week 1: Take 1 pill AM Dilantin 300 mg bedtime Week 2: Take 1 pill AM and 1pill PM Dilantin 300 mg bedtime Week 3: Take 2 pills AM and 1 pill PM Dilantin 200 mg bedtime Week 4: Take 2 pills AM and 2 pills PM Dilantin 200 mg bedtime Week 5: Take 3 pills AM and 2 pills PM Dilantin 100 mg bedtime Week 6: Take 3 pills AM and 3 pills PM Dilantin 100 mg bedtime Then change the tablets to LAMICTAL(Lamotrigine) 100 mg Week 7: 100 mg morning, 100 mg evening Stop dilantin Call Dr. 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 Start week 7: 100 mg bid refill 100 mg bidDisp: 60 tabletRfl: 11 COMP METABOLIC PANEL [SQCMP] Order #: [id number] FUTURE LEVETIRACETAM [SQLEVET] Order #: [id number] FUTURE PHENYTOIN/DILANTIN [SQPHT] Order #: [id number] FUTURE PHENYTOIN FREE BLD [SQPHTFR] Order #: [id number] FUTURE Prescriptions as of 05/18/2018 Sig: LAMOTRIGINE 25 MG TABLET Wk1:25 mg am; Wk 2:25mg bid;W* LAMOTRIGINE 100 MG TABLET Take 1 tablet by mouth twice * PHENYTOIN SODIUM EXTENDED 100* Take 3 capsules by mouth joel* LEVETIRACETAM 750 MG TABLET Take 2 tablets by mouth twice* TRIAMCINOLONE ACETONIDE 0.1 %* Apply 1 application to affect* METOPROLOL SUCCINATE ER 100 M* Take 1 tablet by mouth once d* AMLODIPINE 5 MG TABLET Take 1 tablet by mouth once d* ATORVASTATIN 20 MG TABLET Take 1 tablet by mouth once d* ASPIRIN 81 MG TABLET,DELAYED * Take 81 mg by mouth once joel* Problem List As Of Date 05/18/2018 Noted Resolved Aortic dissection (HCC) [I71.00] INVALID FOR* More... Atrial fibrillation, chronic (HCC) [I48.2] INVALID FOR* More... Hyperlipidemia [E78.5] INVALID FOR* More... Essential hypertension [I10] INVALID FOR* More... Word finding difficulty [R47.89] INVALID FOR*04/27/2018 More... AAA (abdominal aortic aneurysm) without rupture*INVALID FOR* More... More... Nonrheumatic aortic valve stenosis [I35.0] INVALID FOR* More... Atherosclerosis of [place] coronary artery witho*INVALID FOR* More... Intraparenchymal hemorrhage of brain (HCC) [I61*INVALID FOR*04/29/2018 More... Brain aneurysm [I67.1] INVALID FOR* Cerebral aneurysm, nonruptured [I67.1] INVALID FOR* History of cerebral hemorrhage [Z86.79] INVALID FOR* CVA (cerebral vascular accident) (HCC) [I63.9] INVALID FOR* More... 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 Focal epilepsy with impairment of consciousness*INVALID FOR* Other instructions from your clinician: Levetiracetam: 750 mg morning, 750 mg at lunch, 1500 mg bedtime Transition from Dilantin to Lamotrigine LAMICTAL (Lamotrigine) 25 MG Week 1: Take 1 pill AM Dilantin 300 mg bedtime Week 2: Take 1 pill AM and 1pill PM Dilantin 300 mg bedtime Week 3: Take 2 pills AM and 1 pill PM Dilantin 200 mg bedtime Week 4: Take 2 pills AM and 2 pills PM Dilantin 200 mg bedtime Week 5: Take 3 pills AM and 2 pills PM Dilantin 100 mg bedtime Week 6: Take 3 pills AM and 3 pills PM Dilantin 100 mg bedtime Then change the tablets to LAMICTAL(Lamotrigine) 100 mg Week 7: 100 mg morning, 100 mg evening Stop dilantin Call Dr. Hill's office for update and plans for lab work of LEV and Lamotrigine Prescriptions ordered this encounter Disp Refills Start End LAMOTRIGINE 25 MG TABLET 180 * 0 05/18/2018 Class: Print RX Sig: Wk1:25 mg am; Wk 2:25mg bid;Wk 3: 50mg am, 25 mg pm; Wk 4: 50 mg bid; Wk 5: 75mg am, 50 mg pm; Wk 6: 75 mg bid; no refill LAMOTRIGINE 100 MG TABLET 60 t* 11 05/18/2018 Class: Print RX Route: ORAL Sig: Take 1 tablet by mouth twice daily. Start week 7: 100 mg bid refill 100 mg bid Disposition: Return in about 3 months (around 08/16/2018). Follow-up and Disposition History Recorded Encounter Status:Closed by CHIP MATHEW, TIEN PHD on 05/18/18 PROGRESS Observed: 05/18/2018 Status: COMPLETED Source: [place] 10:10 AM [facility] RE[facility] HNO ID: [id number] Author: Jessica Rodriguez Service: (none) Author Type: Physician Type: Progress Notes Filed: 05/20/2018 4:47 PM Note Text: [facility] Follow-up Visit Last seen: 02/11/2017 Reason for visit: Est patient Date of last event: April 25, 2018 History of event; Patient presented to [facility] from [facility] with new onset seizures. Technicolor vision in R visual field and mixing up words right head version with jaw clenching head shaking and right arm stiffening followed by confusion and lethargy. Transferred to [facility] ICU Antiplatelet, Anticoagulant, Statin: Aspirin and Atorvastatin Side effects : No Refills needed: No Residual deficits: Fatigue PT/OT/ST: No therapy needs Disposition: Home Next phase of care: Home with spouse and children Interval history: Patient has had no new neurological deficits. Patient continues to have significant fatigue, unaware of new seizure events Questions for visit: What is risk for stroke? What should be done about atrial fibrillation? Jim Brown RN Tyrel Ruffin is a 78 year old right handed male who presents for follow-up of intracranial hemorrhage with atrial fibrillation Brief History: 76 year old man with s/p TAVR 2017, HTN, HPL, chronic AF who had ICH in the L parietal lobe w/ while on AC in October 2013 w/ recovery back to baseline. January 07, 2017 he had and episode of garbled speech, right sided numbness, and spasm with MRI negative for acute ischemic stroke. Interval History: Severe . He was deemed high risk for surgical valve replacement. He underwent minimally invasive valve replacement. TAVR done 2017 Admission for epilepsy in 04/25/18. He presented with altered mental status. MRI brain did not show new ischemic stroke. He was placed on VIMPAT and Keppra for seizure control. Switched to dilantin instead of Keppra due to cost. Did not get WATCHMAN device placement. Per cardiology note, plan was for L atrial appendage excision if he was going to have valve replacement surgery. CURRENT MEDICATION Current Outpatient Prescriptions: phenytoin ER (DILANTIN) 100 mg ER capsule Take 3 capsules by mouth daily at bedtime. levETIRAcetam (KEPPRA) 750 mg tablet Take 2 tablets by mouth twice daily. triamcinolone acetonide (KENALOG) 0.1 % cream Apply 1 application to affected area twice daily. Apply sparingly to area for rash/itching. metoprolol succinate ER (TOPROL XL) 100 mg Tb24 Take 1 tablet by mouth once daily. amLODIPine (NORVASC) 5 mg tablet Take 1 tablet by mouth once daily. atorvastatin (LIPITOR) 20 mg tablet Take 1 tablet by mouth once daily. aspirin, enteric coated (ASPIRIN, ENTERIC COATED) 81 mg EC tablet Take 81 mg by mouth once daily. No current facility-administered medications for this visit. REVIEW OF SYSTEMS ALLERGIES Allergen Reactions - Amoxacillin [Amoxic* Mental Status Change - Codeine Other: See Comments irregular heart beat Review of Systems Constitutional Positive for Fatigue Eyes Positive for Change in vison not corrected by glasses (occasional floaters) Hent: Negative Cardiovascular (A-fib) Respiratory: Negative GI: Negative : Negative Endocrine: Negative Musculoskeletal: Negative Integumentary: Negative Heme/Lymph: Negative Allergy/Immunologic: Negative Neurologic: Negative Psychiatric: Negative Patient's Review of Systems has been reviewed with the patient and updated as appropriate. EXAMINATION Vital Signs BP 124/100 Pulse 93 Resp 17 Ht 5' 9.02 (1.75m) Wt 177 lb (80.3kg) BMI 26.13 kg/(m2). GENERAL: No acute distress NECK: No carotid bruits, supple CARDIOVASCULAR: Irregular rhythm. No murmur RESPIRATORY: Normal respiratory effort. Clear to auscultation without rhonchi, rales, wheezing. NEURO: NIH Stroke Scale: 1a. Mental Status - LOC 0 = Alert and Attentive 1b. LOC Questions 0 = Correct age and month 1c. LOC-Commands 0 = Both 2. Gaze 0 = Normal 3. Visual Field 0 = Full 4. Facial Weakness 0 = Normal 5a. Left Arm 0 = No drift 5b. Right Arm 0 = No drift 6a. Left Leg 0 = No drift 6b. Right Leg 0 = No drift 7. Ataxia 0 = Absent 8. Sensory 0 = Normal 9. Aphasia 0 = None 10. Dysarthria 0 = Absent 11. Neglect 0 = None NIHSS Total (0-44): 0 MENTAL STATUS: Alert, oriented to person, place and time and Speech fluent and appropriate CRANIAL NERVES: PERRLA, Visual collins intact to confrontation, Extraocular movements intact, Facial sensation intact, Face symmetric, No facial droop or ptosis, No dysarthria and Tongue protrudes midline MOTOR: No drift and Normal tone MOTOR STRENGTH: Upper and lower extremity 5/5 bilaterally REFLEXES: UE and LE reflexes are equal and reactive SENSATION: Intact light touch in UE and LE bilaterally COORDINATION: Finger-to- nose-finger intact bilaterally and [id number] intact bilaterally GAIT: Normal-based REVIEW OF MEDICAL RECORDS LABS Cholesterol: Cholesterol, Total (mg/dL) Date Value 01/07/2017 132 Total Cholesterol, Nonfasting (mg/dL) Date Value 04/27/2018 107 LDL Cholesterol (mg/dL) Date Value 01/07/2017 73 LDL Cholesterol, Nonfasting (mg/dL) Date Value 04/27/2018 53 HDL Cholesterol (mg/dL) Date Value 01/07/2017 34 HDL Cholesterol, Nonfasting (mg/dL) Date Value 04/27/2018 34 Triglyceride (mg/dL) Date Value 01/07/2017 127 Triglycerides, Nonfasting (mg/dL) Date Value 04/27/2018 101 Diabetes: Hemoglobin A1C (%) Date Value 04/25/2018 6.5 IMAGING MRI brain 04/26/18: L parietal encephalomalacia. Negative for acute intracranial stroke or hemoarrahge. Stable small enhancement in the region of the encephalomalacia. IMPRESSION 78 year old man with history of parietal hemorrhage in 2013 when on anticoagulation with coumadin, s/p TAVR, chronic atrial fibrillation (only on aspirin), hypertension. [id number] 5(Age, HTN, TIA). Intracranial hemorrhage while on coumadin in 2014. Hemorrhage is parenchymal, not subarachnoid hemorrhage. MRA in 2017 does not show intracranial aneurysm. 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 Currently on dilantin and Keppra. This is managed by epilepsy, they have appointment today w/ Dr. Pa. RECOMMENDATION Continue aspirin at this time. Consult EP for Watchman placement for stroke prevention Ok to be on anticoagulation, Eliquis short term Discussion, counseling, coordination of care > 50% of 40 minutes. Questions asked/ answered. Follow-up with results/ adherence to plan/ continued education. SIGNATURE Jessica Rodriguez MD Staff, Vascular Neurology May 18, 2018 Addendum: Mr. Tyrel Ruffin has a history of non valvular AF. He is at increased risk for stroke and systemic embolism based on a [id number] May, Sushila LS, Mike JS, et. al., 2014 AHA/ACC/HRS Guideline for the Management of Patients With Atrial Fibrillation A Report of the [place] [employer]/[place] Heart Association Task Force on Practice Guidelines and the Heart Rhythm Society, Circulation, 2014; 130: [id number]. Score of 5 and is recommended for anticoagulation therapy. Mr. Ruffin is being referred for a Watchman Device as an alternative to oral anticoagulation and he has been found to be suitable for short term oral anticoagulation however is unable to take care home oral anticoagulation for the following reasons: intracranial hemorrhage The rationale for this procedure over pharmacologic therapy includes: increased risk of intracranial hemorrhage on care home anticoagulation, taking into account the safety and effectiveness of the device based on clinical trials. A formal shared decision was reached with Tyrel Ruffin. Through the use of the shared decision making tool, he has made the decision to have this device implanted with hopes of eliminating continued necessity for the long-term use of oral anticoagulation. I feel that Tyrel Ruffin will benefit greatly from this procedure. In addition to atrial fibrillation, he also suffers from (list all other health-related conditions that patient suffers from and include diagnoses that apply. Provide a brief description of patient?s therapies, including medical management, to date.) Jessica Rodriguez MD May 18, 2018 CNOV Observed: 05/18/2018 Status: COMPLETED Source: [place] 10:10 AM [facility] REPOSIT[facility] Office Visit ([id number]) TYREL RUFFIN ([id number]) 1940 M Date Time Provider Department 05/18/18 10:10 AM JESSICA RODRIGUEZ [id number] During your visit today, we recorded the following information about you: Pulse Respiration Blood pressure Weight 93/minute 17/minute 124/100 80.3 kg Height 1.753 m Jessica Rodriguez MD 05/20/2018 4:47 PM Addendum [facility] Follow-up Visit Last seen: 02/11/2017 Reason for visit: Est patient Date of last event: April 25, 2018 History of event; Patient presented to [facility] from [facility] with new onset seizures. Technicolor vision in R visual field and mixing up words right head version with jaw clenching head shaking and right arm stiffening followed by confusion and lethargy. Transferred to [facility] ICU Antiplatelet, Anticoagulant, Statin: Aspirin and Atorvastatin Side effects : No Refills needed: No Residual deficits: Fatigue PT/OT/ST: No therapy needs Disposition: Home Next phase of care: Home with spouse and children Interval history: Patient has had no new neurological deficits. Patient continues to have significant fatigue, unaware of new seizure events Questions for visit: What is risk for stroke? What should be done about atrial fibrillation? Jim Brown RN Tyrel Ruffin is a 78 year old right handed male who presents for follow-up of intracranial hemorrhage with atrial fibrillation Brief History: 76 year old man with s/p TAVR 2018, HTN, HPL, chronic AF who had ICH in the L parietal lobe w/ while on AC in October 2013 w/ recovery back to baseline. January 07, 2017 he had and episode of garbled speech, right sided numbness, and spasm with MRI negative for acute ischemic stroke. Interval History: Severe . He was deemed high risk for surgical valve replacement. He underwent minimally invasive valve replacement. TAVR done 2017 Admission for epilepsy in 04/25/18. He presented with altered mental status. MRI brain did not show new ischemic stroke. He was placed on VIMPAT and Keppra for seizure control. Switched to dilantin instead of Keppra due to cost. Did not get WATCHMAN device placement. Per cardiology note, plan was for L atrial appendage excision if he was going to have valve replacement surgery. CURRENT MEDICATION Current Outpatient Prescriptions: phenytoin ER (DILANTIN) 100 mg ER capsule Take 3 capsules by mouth daily at bedtime. levETIRAcetam (KEPPRA) 750 mg tablet Take 2 tablets by mouth twice daily. triamcinolone acetonide (KENALOG) 0.1 % cream Apply 1 application to affected area twice daily. Apply sparingly to area for rash/itching. metoprolol succinate ER (TOPROL XL) 100 mg Tb24 Take 1 tablet by mouth once daily. amLODIPine (NORVASC) 5 mg tablet Take 1 tablet by mouth once daily. atorvastatin (LIPITOR) 20 mg tablet Take 1 tablet by mouth once daily. aspirin, enteric coated (ASPIRIN, ENTERIC COATED) 81 mg EC tablet Take 81 mg by mouth once daily. No current facility-administered medications for this visit. REVIEW OF SYSTEMS ALLERGIES Allergen Reactions - Amoxacillin [Amoxic* Mental Status Change - Codeine Other: See Comments irregular heart beat Review of Systems Constitutional Positive for Fatigue Eyes Positive for Change in vison not corrected by glasses (occasional floaters) Hent: Negative Cardiovascular (A-fib) Respiratory: Negative GI: Negative : Negative Endocrine: Negative Musculoskeletal: Negative Integumentary: Negative Heme/Lymph: Negative Allergy/Immunologic: Negative Neurologic: Negative Psychiatric: Negative Patient's Review of Systems has been reviewed with the patient and updated as appropriate. EXAMINATION Vital Signs BP 124/100 Pulse 93 Resp 17 Ht 5' 9.02 (1.75m) Wt 177 lb (80.3kg) BMI 26.13 kg/(m2). GENERAL: No acute distress NECK: No carotid bruits, supple CARDIOVASCULAR: Irregular rhythm. No murmur RESPIRATORY: Normal respiratory effort. Clear to auscultation without rhonchi, rales, wheezing. NEURO: NIH Stroke Scale: 1a. Mental Status - LOC 0 = Alert and Attentive 1b. LOC Questions 0 = Correct age and month 1c. LOC-Commands 0 = Both 2. Gaze 0 = Normal 3. Visual Field 0 = Full 4. Facial Weakness 0 = Normal 5a. Left Arm 0 = No drift 5b. Right Arm 0 = No drift 6a. Left Leg 0 = No drift 6b. Right Leg 0 = No drift 7. Ataxia 0 = Absent 8. Sensory 0 = Normal 9. Aphasia 0 = None 10. Dysarthria 0 = Absent 11. Neglect 0 = None NIHSS Total (0-44): 0 MENTAL STATUS: Alert, oriented to person, place and time and Speech fluent and appropriate CRANIAL NERVES: PERRLA, Visual collins intact to confrontation, Extraocular movements intact, Facial sensation intact, Face symmetric, No facial droop or ptosis, No dysarthria and Tongue protrudes midline MOTOR: No drift and Normal tone MOTOR STRENGTH: Upper and lower extremity 5/5 bilaterally REFLEXES: UE and LE reflexes are equal and reactive SENSATION: Intact light touch in UE and LE bilaterally COORDINATION: Finger-to- nose-finger intact bilaterally and [id number] intact bilaterally GAIT: Normal-based REVIEW OF MEDICAL RECORDS LABS Cholesterol: Cholesterol, Total (mg/dL) Date Value 01/07/2017 132 Total Cholesterol, Nonfasting (mg/dL) Date Value 04/27/2018 107 LDL Cholesterol (mg/dL) Date Value 01/07/2017 73 LDL Cholesterol, Nonfasting (mg/dL) Date Value 04/27/2018 53 HDL Cholesterol (mg/dL) Date Value 01/07/2017 34 HDL Cholesterol, Nonfasting (mg/dL) Date Value 04/27/2018 34 Triglyceride (mg/dL) Date Value 01/07/2017 127 Triglycerides, Nonfasting (mg/dL) Date Value 04/27/2018 101 Diabetes: Hemoglobin A1C (%) Date Value 04/25/2018 6.5 IMAGING MRI brain 04/26/18: L parietal encephalomalacia. Negative for acute intracranial stroke or hemoarrahge. Stable small enhancement in the region of the encephalomalacia. IMPRESSION 78 year old man with history of parietal hemorrhage in 2013 when on anticoagulation with coumadin, s/p TAVR, chronic atrial fibrillation (only on aspirin), hypertension. [id number] 5(Age, HTN, TIA). Intracranial hemorrhage while on coumadin in 2014. Hemorrhage is parenchymal, not subarachnoid hemorrhage. MRA in 2017 does not show intracranial aneurysm. 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 Currently on dilantin and Keppra. This is managed by epilepsy, they have appointment today w/ Dr. Pa. RECOMMENDATION Continue aspirin at this time. Consult EP for Watchman placement for stroke prevention Ok to be on anticoagulation, Eliquis short term Discussion, counseling, coordination of care > 50% of 40 minutes. Questions asked/ answered. Follow-up with results/ adherence to plan/ continued education. SIGNATURE Jessica Rodriguez MD Staff, Vascular Neurology May 18, 2018 Addendum: Mr. Tyrel Ruffin has a history of non valvular AF. He is at increased risk for stroke and systemic embolism based on a [id number] May CT, Sushila LS, Mike JS, et. al., 2014 AHA/ACC/HRS Guideline for the Management of Patients With Atrial Fibrillation A Report of the [place] [employer]/[place] Heart Association Task Force on Practice Guidelines and the Heart Rhythm Society, Circulation, 2014; 130: [id number]. Score of 5 and is recommended for anticoagulation therapy. Mr. Ruffin is being referred for a Watchman Device as an alternative to oral anticoagulation and he has been found to be suitable for short term oral anticoagulation however is unable to take care home oral anticoagulation for the following reasons: intracranial hemorrhage The rationale for this procedure over pharmacologic therapy includes: increased risk of intracranial hemorrhage on vermin exterminator anticoagulation, taking into account the safety and effectiveness of the device based on clinical trials. A formal shared decision was reached with Tyrel Ruffin. Through the use of the shared decision making tool, he has made the decision to have this device implanted with hopes of eliminating continued necessity for the long-term use of oral anticoagulation. I feel that Tyrel Ruffin will benefit greatly from this procedure. In addition to atrial fibrillation, he also suffers from (list all other health-related conditions that patient suffers from and include diagnoses that apply. Provide a brief description of patient?s therapies, including medical management, to date.) Jessica Rodriguez MD May 18, 2018 Jessica Rodriguez MD 05/18/2018 11:53 AM Signed IMPRESSION Chronic atrial fibrillation Intracranial hemorrhage while on coumadin in 2013 Secondary epilepsy RECOMMENDATION Continue aspirin Consult EP for Watchman placement for stroke prevention Ok to be on anticoagulation, Eliquis short term SIGNATURE Jessica Rodriguez MD Staff, Vascular Neurology [phone] May 18, 2018 11:51 AM Stroke Signs and Symptoms: *Stroke is a medical emergency. Know these warning signs of stroke: Sudden numbness or weakness of the face, arm or leg, especially on one side of the body Sudden confusion, trouble speaking, or understanding Sudden trouble seeing in one eye, or both eyes Sudden trouble walking, dizziness, loss of balance, or coordination Sudden severe headache with no known cause *If you, or someone with you, has one or more of these signs, don't delay! Immediately call 911, or the emergency medical services (EMS) number so an ambulance can be sent for you. Also, check the time so that you will know when the symptoms first appeared. It is very important to take immediate action, every second counts. Medical treatment may be available if action is taken early enough. Referring Provider: JESSICA RODRIGUEZ [[id number]] Allergies As of Date: 05/18/2018 Noted Allergy Reaction AMOXACILLIN (AMOXICILLIN) 07/02/2017 1 - Mental Status Change CODEINE 01/07/2017 14 - Other: See Comments Comments: irregular heart beat PENICILLINS 05/18/2018 16 - Unknown Date Reviewed: 05/18/2018 Reviewed by: Jazmine Perdomo Ma - Fully Assessed Reason for Visit: Hospital Discharge [414] Visit Diagnoses:Atrial fibrillation, chronic (HCC) [I48.2] Spontaneous intracranial hemorrhage (HCC) [I62.9] History of intracranial hemorrhage [Z86.79] Order(s):CONSULT TO CARDIOLOGY [9004] Order #: [id number]: [id number] Prescriptions as of 05/18/2018 Sig: PHENYTOIN SODIUM EXTENDED 100* Take 3 capsules by mouth joel* X LEVETIRACETAM 750 MG TABLET Take 2 tablets by mouth twice* TRIAMCINOLONE ACETONIDE 0.1 %* Apply 1 application to affect* METOPROLOL SUCCINATE ER 100 M* Take 1 tablet by mouth once d* AMLODIPINE 5 MG TABLET Take 1 tablet by mouth once d* ATORVASTATIN 20 MG TABLET Take 1 tablet by mouth once d* ASPIRIN 81 MG TABLET,DELAYED * Take 81 mg by mouth once joel* Problem List As Of Date 05/18/2018 Noted Resolved Aortic dissection (HCC) [I71.00] INVALID FOR* More... Atrial fibrillation, chronic (HCC) [I48.2] INVALID FOR* More... Hyperlipidemia [E78.5] INVALID FOR* More... Essential hypertension [I10] INVALID FOR* More... Word finding difficulty [R47.89] INVALID FOR*04/27/2018 More... AAA (abdominal aortic aneurysm) without rupture*INVALID FOR* More... More... Nonrheumatic aortic valve stenosis [I35.0] INVALID FOR* More... Atherosclerosis of [place] coronary artery witho*INVALID FOR* More... Intraparenchymal hemorrhage of brain (HCC) [I61*INVALID FOR*04/29/2018 More... History of cerebral hemorrhage [Z86.79] INVALID FOR* More... 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 Focal epilepsy with impairment of consciousness*INVALID FOR* Other instructions from your clinician: IMPRESSION Chronic atrial fibrillation Intracranial hemorrhage while on coumadin in 2013 Secondary epilepsy RECOMMENDATION Continue aspirin Consult EP for Watchman placement for stroke prevention Ok to be on anticoagulation, Eliquis short term SIGNATURE Jessica Rodriguez MD Staff, Vascular Neurology [phone] May 18, 2018 11:51 AM Stroke Signs and Symptoms: *Stroke is a medical emergency. Know these warning signs of stroke: Sudden numbness or weakness of the face, arm or leg, especially on one side of the body Sudden confusion, trouble speaking, or understanding Sudden trouble seeing in one eye, or both eyes Sudden trouble walking, dizziness, loss of balance, or coordination Sudden severe headache with no known cause *If you, or someone with you, has one or more of these signs, don't delay! Immediately call 911, or the emergency medical services (EMS) number so an ambulance can be sent for you. Also, check the time so that you will know when the symptoms first appeared. It is very important to take immediate action, every second counts. Medical treatment may be available if action is taken early enough. Disposition: Return in about 3 months (around 08/16/2018). Follow-up and Disposition History Recorded Letter Text Jessica Rodriguez MD [address] [place] [address] May 18, 2018 Jose Raul Robles) MD [address] [facility] [address] VIA Facsimile: [phone] Re: Tyrel Ruffin : 1940 Dear Dr. Velázquez, Thank you for the opportunity to participate in the care of your patient Tyrel Ruffin, who I saw at [facility] [place] on 05/18/2018. My Assessment and Plan are as follows: [facility] Follow-up Visit Last seen: 02/11/2017 Reason for visit: Est patient Date of last event: April 25, 2018 History of event; Patient presented to [facility] from [facility] with new onset seizures. Technicolor vision in R visual field and mixing up words right head version with jaw clenching head shaking and right arm stiffening followed by confusion and lethargy. Transferred to [facility] ICU Antiplatelet, Anticoagulant, Statin: Aspirin and Atorvastatin Side effects : No Refills needed: No Residual deficits: Fatigue PT/OT/ST: No therapy needs Disposition: Home Next phase of care: Home with spouse and children Interval history: Patient has had no new neurological deficits. Patient continues to have significant fatigue, unaware of new seizure events Questions for visit: What is risk for stroke? What should be done about atrial fibrillation? Jim Brown RN Tyrel Ruffin is a 78 year old right handed male who presents for follow-up of intracranial hemorrhage with atrial fibrillation Brief History: 76 year old man with s/p TAVR 2017, HTN, HPL, chronic AF who had ICH in the L parietal lobe w/ while on AC in October 2013 w/ recovery back to baseline. January 07, 2017 he had and episode of garbled speech, right sided numbness, and spasm with MRI negative for acute ischemic stroke. Interval History: Severe . He was deemed high risk for surgical valve replacement. He underwent minimally invasive valve replacement. TAVR done 2017 Admission for epilepsy in 04/25/18. He presented with altered mental status. MRI brain did not show new ischemic stroke. He was placed on VIMPAT and Keppra for seizure control. Switched to dilantin instead of Keppra due to cost. Did not get WATCHMAN device placement. Per cardiology note, plan was for L atrial appendage excision if he was going to have valve replacement surgery. CURRENT MEDICATION Current Outpatient Prescriptions: phenytoin ER (DILANTIN) 100 mg ER capsule Take 3 capsules by mouth daily at bedtime. levETIRAcetam (KEPPRA) 750 mg tablet Take 2 tablets by mouth twice daily. triamcinolone acetonide (KENALOG) 0.1 % cream Apply 1 application to affected area twice daily. Apply sparingly to area for rash/itching. metoprolol succinate ER (TOPROL XL) 100 mg Tb24 Take 1 tablet by mouth once daily. amLODIPine (NORVASC) 5 mg tablet Take 1 tablet by mouth once daily. atorvastatin (LIPITOR) 20 mg tablet Take 1 tablet by mouth once daily. aspirin, enteric coated (ASPIRIN, ENTERIC COATED) 81 mg EC tablet Take 81 mg by mouth once daily. No current facility-administered medications for this visit. REVIEW OF SYSTEMS ALLERGIES Allergen Reactions - Amoxacillin [Amoxic* Mental Status Change - Codeine Other: See Comments irregular heart beat Review of Systems Constitutional Positive for Fatigue Eyes Positive for Change in vison not corrected by glasses (occasional floaters) Hent: Negative Cardiovascular (A-fib) Respiratory: Negative GI: Negative : Negative Endocrine: Negative Musculoskeletal: Negative Integumentary: Negative Heme/Lymph: Negative Allergy/Immunologic: Negative Neurologic: Negative Psychiatric: Negative Patient's Review of Systems has been reviewed with the patient and updated as appropriate. EXAMINATION Vital Signs BP 124/100 Pulse 93 Resp 17 Ht 5' 9.02 (1.75m) Wt 177 lb (80.3kg) BMI 26.13 kg/(m2). GENERAL: No acute distress NECK: No carotid bruits, supple CARDIOVASCULAR: Irregular rhythm. No murmur RESPIRATORY: Normal respiratory effort. Clear to auscultation without rhonchi, rales, wheezing. NEURO: NIH Stroke Scale: 1a. Mental Status - LOC 0 = Alert and Attentive 1b. LOC Questions 0 = Correct age and month 1c. LOC-Commands 0 = Both 2. Gaze 0 = Normal 3. Visual Field 0 = Full 4. Facial Weakness 0 = Normal 5a. Left Arm 0 = No drift 5b. Right Arm 0 = No drift 6a. Left Leg 0 = No drift 6b. Right Leg 0 = No drift 7. Ataxia 0 = Absent 8. Sensory 0 = Normal 9. Aphasia 0 = None 10. Dysarthria 0 = Absent 11. Neglect 0 = None NIHSS Total (0-44): 0 MENTAL STATUS: Alert, oriented to person, place and time and Speech fluent and appropriate CRANIAL NERVES: PERRLA, Visual collins intact to confrontation, Extraocular movements intact, Facial sensation intact, Face symmetric, No facial droop or ptosis, No dysarthria and Tongue protrudes midline MOTOR: No drift and Normal tone MOTOR STRENGTH: Upper and lower extremity 5/5 bilaterally REFLEXES: UE and LE reflexes are equal and reactive SENSATION: Intact light touch in UE and LE bilaterally COORDINATION: Finger-to- nose-finger intact bilaterally and Atxs-vq-[id number] intact bilaterally GAIT: Normal-based REVIEW OF MEDICAL RECORDS LABS Cholesterol: Cholesterol, Total (mg/dL) Date Value 01/07/2017 132 Total Cholesterol, Nonfasting (mg/dL) Date Value 04/27/2018 107 LDL Cholesterol (mg/dL) Date Value 01/07/2017 73 LDL Cholesterol, Nonfasting (mg/dL) Date Value 04/27/2018 53 HDL Cholesterol (mg/dL) Date Value 01/07/2017 34 HDL Cholesterol, Nonfasting (mg/dL) Date Value 04/27/2018 34 Triglyceride (mg/dL) Date Value 01/07/2017 127 Triglycerides, Nonfasting (mg/dL) Date Value 04/27/2018 101 Diabetes: Hemoglobin A1C (%) Date Value 04/25/2018 6.5 IMAGING MRI brain 04/26/18: L parietal encephalomalacia. Negative for acute intracranial stroke or hemoarrahge. Stable small enhancement in the region of the encephalomalacia. IMPRESSION 78 year old man with history of parietal hemorrhage in 2014 when on anticoagulation with coumadin, s/p TAVR, chronic atrial fibrillation (only on aspirin), hypertension. [id number] 5(Age, HTN, TIA). Intracranial hemorrhage while on coumadin in 2014. Hemorrhage is parenchymal, not subarachnoid hemorrhage. 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 Currently on dilantin and Keppra. This is managed by epilepsy, they have appointment today w/ Dr. Pa. RECOMMENDATION Continue aspirin at this time. Consult EP for Watchman placement for stroke prevention Ok to be on anticoagulation, Eliquis short term Discussion, counseling, coordination of care > 50% of 40 minutes. Questions asked/ answered. Follow-up with results/ adherence to plan/ continued education. SIGNATURE Jessica Rodriguez MD Staff, Vascular Neurology May 18, 2018 If you have any questions or need additional information, please feel free to contact me. Thanks again for your kind referral. Best regards, Jessica Rodriguez MD cc: No Recipients If you would like your next patient report to be electronic, please consider signing up for [facility]'s [employer] service. This is a complimentary service that enables you to view real-time information about the treatment your patients receive while at [facility]. To register online to use [employer], simply log onto [facility]ia and click the register button to begin. If you need assistance, please contact [employer] customer support at [phone] or [email or web address]. Encounter Status:Closed by JESSICA RODRIGUEZ MD on 05/18/18 CNOV Observed: 05/11/2018 Status: COMPLETED Source: [place] 4:00 PM [facility] REPOSITORY Office Visit (FAMPWS) TYREL RUFFIN ([id number]) 1940 M Date Time Provider Department 05/11/18 4:00 PM JOSE RAUL VEL[facility]ZQUEZ) [facility] During your visit today, we recorded the following information about you: Temperature Pulse Respiration Blood pressure 97.3 degrees 72/minute 16/minute 118/84 Weight 80.3 kg Jose Raul Velázquez MD 05/11/2018 8:34 PM Signed Chief Complaint No chief complaint on file. HPI Tyrel Ruffin is a 78 year old male who presents here today for Hospital Discharge Follow up. Patient was admitted to [facility] from 04/25 to 05/01 after having new onset of seizures. 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 Seizure semiology: Technicolor vision in R visual field -> speech changes (mixing up words) -> right head version and jaw clenching (bit tongue) -> head shaking and right arm stiffening followed by confusion and lethargy. He had 2 of these seizures in the outside ED, was given 2 mg Ativan and 1 g Keppra, then started on Keppra [address] brain unremarkable. 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 He was transferred to [facility] for further management. ? At [facility] he was monitored with EEG which showed multiple left parietal occipital seizures. He was started on Vimpat 100 mg BID and his Keppra was increased to 1500 mg BID with resolution of his seizures. The patient was unable to afford Vimpat after discharge so this was switched to Dilantin ER 300 mg QHs. ? After starting Dilantin, he two 3 second sinus pauses during which he was asymptomatic. His discharge was therefore delayed to monitor for recurrence of this. He had no further sinus pauses and was discharged on 05/01/18. ? ? He had a repeat MRI which was stable to his prior imaging with no signs of a new stroke. Etiology of seizures thought to be area of prior ICH in the left occipital lobe. He will follow up in Epilepsy Clinic 05/11/18. ? Transitions of Care Critical Issues: New medications: Dilantin ER 300mg qhs, Keppra 1500 mg BID ? Was supposed to be evaluated for Watchman but was lost to follow up. Follow up in Stroke clinic scheduled for 05/18/18 ? LABS AND PROCEDURES PENDING AT DISCHARGE: No pending results. ? TRANSITION CARE MANAGEMENT (TCM) INITIAL CONTACT H[employer] Commanding Officer Outreach ? Provider Action/FYI: Pt states is not in need of anything at this time. ? ? Initial contact with patient post discharge, spoke to spouse. Patient identified by name and . ? TRANSITION CARE MANAGEMENT INITIAL OUTREACH DOCUMENTATION: Date of Outreach: 04/27/2018 04/27/2018 Outreach Attempt 1: - Contact Not Made Outreach Attempt 2: Contact Not Made - Date of Discharge 04/25/2018 04/25/2018 Some recent data might be hidden ? ? SUMMARY: -Pt discharged from [facility] [place] on 05/01/18. -Admitted for: cva ? Do you have a hospital follow up appointment with your PCP? Appointment on 05/13/[address] Velázquez. Yes. Remind patient of appointment date, time, and location. If not within 14 calendar days of discharge - please reschedule accordingly. ? MEDICATIONS: Many patients have questions or concerns about their medications once they are home. Were you prescribed any new medications? Yes, phenytoin 100 mg 3 at bedtime, keppra 750 mg 2 in am 2 in pm ? Were you told to hold any medications? No Were any of your medications discontinued? No ? Do you have any questions about getting or taking your medications? No ? Your discharge instructions/After visit Summary (AVS) are important in guiding you through the recovery process. Is there anything I might help you understand? No ? Do you have all the necessary equipment and supplies at home? Yes ? Medical records from recent hospitalization: Epic Since discharge, patient has not had any recurrent seizure activity. Complains of feeling more fatigued and a bit lightheaded on current regimen. Denies falls. Tolerating PO diet without nausea, vomiting, diarrhea. Able to perform ADLs. Has not been driving per neurology recommendations. Has upcoming appointment with stroke team and seizure team on 05/18 at [facility]. Discussed that patient may be on current regimen indefinitely. From records available, does not look like he had new stroke, just remnants from prior ICH that could be causing current seizure symptoms. Past medical history, appointments, medications, allergies reviewed. 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 - Scalp psoriasis Previous Surgical History PAST SURGICAL HISTORY Procedure Laterality Date - PAST SURGICAL HISTORY OF 10/2017 TAVR - TONSILLECTOMY HX Family History FAMILY HISTORY Problem Relation Age of Onset - Hypertension Mother age 90 from internal bleeding - Stroke Father 80 age 84 - other (Myocardial infarction) Brother 70 Patient Allergies ALLERGIES Allergen Reactions - Amoxacillin [Amoxic* Mental Status Change - Codeine Other: See Comments irregular heart beat Current Medications Current Outpatient Prescriptions on File Prior to Visit: amLODIPine (NORVASC) 5 mg tablet Take 1 tablet by mouth once daily. aspirin, enteric coated (ASPIRIN, ENTERIC COATED) 81 mg EC tablet Take 81 mg by mouth once daily. atorvastatin (LIPITOR) 20 mg tablet Take 1 tablet by mouth once daily. levETIRAcetam (KEPPRA) 750 mg tablet Take 2 tablets by mouth twice daily. metoprolol succinate ER (TOPROL XL) 100 mg Tb24 Take 1 tablet by mouth once daily. phenytoin ER (DILANTIN) 100 mg ER capsule Take 3 capsules by mouth daily at bedtime. triamcinolone acetonide (KENALOG) 0.1 % cream Apply 1 application to affected area twice daily. Apply sparingly to area for rash/itching. No current facility-administered medications on file prior to visit. 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 Has living Review of Symptoms REVIEW OF SYSTEMS GENERAL: No weight loss, malaise or fevers RESPIRATORY: Negative for cough, hemoptysis, wheezing, COPD, dyspnea or shortness of breath CARDIOVASCULAR: Negative for chest pain, leg swelling, hypertension, CHF or palpitations GI: No nausea, vomiting, or diarrhea SKIN: Negative for lesions, rash, and itching EXAM: BP 118/84 Pulse 72 Temp 36.3 ?C (97.3 ?F) (Tympanic) Resp 16 Wt 80.3 kg (177 lb) SpO2 98% BMI 26.13 kg/m? General Appearance: Well appearing, AOx2, (name, place)in no acute distress, well-hydrated, well nourished.. Skin: Skin color, texture, turgor normal, no suspicious rashes or lesions. Lungs: lungs clear to auscultation. No wheezing, rhonchi, rales. Heart: RRR without murmur, gallop, or rubs. No ectopy. Abdomen: Normal abdominal exam, Abdomen soft, non-tender. Bowel sounds normal. No masses, organomegaly. Extremities: No deformities, edema, skin discoloration, clubbing or cyanosis. Good capillary refill. . Neurologic: Negative findings: speech normal, mental status intact, cranial nerves 2-12 intact, gait, including heel, toe, and tandem walking normal, Romberg negative, muscle tone normal, muscle strength normal, sensation to light touch and pinprick normal, reflexes normal and symmetric. Health Maintenance List DTAP,TDAP,TD(1 - Tdap) due on 1959 COLORECTAL CANCER SCREENING,SEE MODIFIER due on 1990 ADULT PREVNAR-13 due on 2005 PNEUMOVAX AGE 65 AND OVER WITH 5YR LOOKBACK(1) due on 2005 STATIN MED ADHERENCE due on 06/10/2018 ANNUAL PCP TEAM CHRONIC DISEASE VISIT due on 01/25/2019 BP CONTROLLED (<130/80) due on 01/25/2019 LDL CHOLESTEROL due on 04/27/2019 DIABETES SCREEN due on 04/29/2021 LIPID SCREEN due on 04/27/2023 INFLUENZA Completed Data reviewed Component Latest Ref Rng AND Units 04/28/2018 04/29/2018 04/30/2018 05/01/2018 05/01/2018 05/01/2018 5:01 AM 7:16 AM 11:19 AM WBC 3.70 - 11.00 k/uL 6.06 6.26 RBC 4.20 - 6.00 m/uL 5.18 5.11 Hemoglobin 13.0 - 17.0 g/dL 15.7 15.5 Hematocrit 39.0 - 51.0 % 47.0 46.9 MCV 80.0 - 100.0 fL 90.7 91.8 MCH 26.0 - 34.0 pG 30.3 30.3 MCHC 30.5 - 36.0 g/dL 33.4 33.0 RDW-CV 11.5 - 15.0 % 13.4 13.7 Platelet Count 150 - 400 k/uL 174 185 MPV 9.0 - 12.7 fL 10.3 10.1 Absolute nRBC <0.01 k/uL <0.01 <0.01 Glucose 74 - 99 mg/dL 111 (H) BUN 9 - 24 mg/dL 19 Creatinine 0.73 - 1.22 mg/dL 1.22 Sodium 136 - 144 mmol/L 141 Potassium 3.7 - 5.1 mmol/L 3.6 (L) Chloride 97 - 105 mmol/L 103 CO2 22 - 30 mmol/L 25 Anion Gap 9 - 18 mmol/L 13 Calcium 8.5 - 10.2 mg/dL 9.5 eGFR- >60 eGFR-All Other Races . 58 Phenytoin Free 1.0 - 2.0 ug/mL 1.3 1.3 Phenytoin 10.0 - 20.0 ug/mL 13.7 12.7 Glucose, Point of Care 74 - 99 mg/dL 96 131 (A) ASSESSMENT/PLAN: 1. 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 No recurrent episodes on current regimen. Recommend f/u with neurology as scheduled. 2. History of cerebral hemorrhage - ICD9: V12.59, ICD10: Z86.79 No new stroke symptoms. Continue current regimen to control BP, lipids, and ASA. 3. Cerebral aneurysm, nonruptured - ICD9: 437.3, ICD10: I67.1 See #2 4. Cerebrovascular accident (CVA), unspecified mechanism (HCC) - ICD9: 434.91, ICD10: I63.9 See #2 5. Hospital discharge follow-up - ICD9: V67.59, ICD10: Z09 Jose Raul Velázquez MD Referring Provider: JOSE RAUL VELÁZQUEZ) [[id number]] Allergies As of Date: 05/11/2018 Noted Allergy Reaction AMOXACILLIN (AMOXICILLIN) 07/02/2017 1 - Mental Status Change CODEINE 01/07/2017 14 - Other: See Comments Comments: irregular heart beat Date Reviewed: 05/11/2018 Reviewed by: Tal Horvath Ma - Fully Assessed Reason for Visit: Hospital Follow Up [177] Cmt: [facility] [place] Reason For Visit History Recorded Primary Visit Diagnosis:Seizures (HCC) [R56.9] Other Visit Diagnoses:History of cerebral hemorrhage [Z86.79] Cerebral aneurysm, nonruptured [I67.1] Cerebrovascular accident (CVA), unspecified mechanism (HCC) [I63.9] Hospital discharge follow-up [Z09] Prescriptions as of 05/11/2018 Sig: AMLODIPINE 5 MG TABLET Take 1 tablet by mouth once d* ASPIRIN 81 MG TABLET,DELAYED * Take 81 mg by mouth once joel* ATORVASTATIN 20 MG TABLET Take 1 tablet by mouth once d* LEVETIRACETAM 750 MG TABLET Take 2 tablets by mouth twice* METOPROLOL SUCCINATE ER 100 M* Take 1 tablet by mouth once d* PHENYTOIN SODIUM EXTENDED 100* Take 3 capsules by mouth joel* TRIAMCINOLONE ACETONIDE 0.1 %* Apply 1 application to affect* Problem List As Of Date 05/11/2018 Noted Resolved Aortic dissection (HCC) [I71.00] INVALID FOR* More... Atrial fibrillation, chronic (HCC) [I48.2] INVALID FOR* More... Hyperlipidemia [E78.5] INVALID FOR* More... Essential hypertension [I10] INVALID FOR* More... Word finding difficulty [R47.89] INVALID FOR*04/27/2018 More... AAA (abdominal aortic aneurysm) without rupture*INVALID FOR* More... More... Nonrheumatic aortic valve stenosis [I35.0] INVALID FOR* More... Atherosclerosis of [place] coronary artery witho*INVALID FOR* More... Intraparenchymal hemorrhage of brain (HCC) [I61*INVALID FOR*04/29/2018 More... Brain aneurysm [I67.1] INVALID FOR* Cerebral aneurysm, nonruptured [I67.1] INVALID FOR* History of cerebral hemorrhage [Z86.79] INVALID FOR* CVA (cerebral vascular accident) (HCC) [I63.9] INVALID FOR* More... 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 Disposition: Return if symptoms worsen or fail to improve. Follow-up and Disposition History Recorded Encounter Status:Closed by JOSE RAUL VELÁZQUEZ MD on 05/11/18 PROGRESS Observed: 05/11/2018 Status: COMPLETED Source: [place] 3:49 PM [facility] REPOSITORY O ID: [id number] Author: Jose Raul Robles) Eber Service: (none) Author Type: Physician Type: Progress Notes Filed: 05/11/2018 8:34 PM Note Text: Chief Complaint No chief complaint on file. HPI Tyrel Ruffin is a 78 year old male who presents here today for Hospital Discharge Follow up. Patient was admitted to [facility] from 04/25 to 05/01 after having new onset of seizures. 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 Seizure semiology: Technicolor vision in R visual field -> speech changes (mixing up words) -> right head version and jaw clenching (bit tongue) -> head shaking and right arm stiffening followed by confusion and lethargy. He had 2 of these seizures in the outside ED, was given 2 mg Ativan and 1 g Keppra, then started on Keppra [address] brain unremarkable. 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 He was transferred to [facility] for further management. ? At [facility] he was monitored with EEG which showed multiple left parietal occipital seizures. He was started on Vimpat 100 mg BID and his Keppra was increased to 1500 mg BID with resolution of his seizures. The patient was unable to afford Vimpat after discharge so this was switched to Dilantin ER 300 mg QHs. ? After starting Dilantin, he two 3 second sinus pauses during which he was asymptomatic. His discharge was therefore delayed to monitor for recurrence of this. He had no further sinus pauses and was discharged on 05/01/18. ? ? He had a repeat MRI which was stable to his prior imaging with no signs of a new stroke. Etiology of seizures thought to be area of prior ICH in the left occipital lobe. He will follow up in Epilepsy Clinic 05/11/18. ? Transitions of Care Critical Issues: New medications: Dilantin ER 300mg qhs, Keppra 1500 mg BID ? Was supposed to be evaluated for Watchman but was lost to follow up. Follow up in Stroke clinic scheduled for 05/18/18 ? LABS AND PROCEDURES PENDING AT DISCHARGE: No pending results. ? TRANSITION CARE MANAGEMENT (TCM) INITIAL CONTACT H[employer] Commanding Officer Outreach ? Provider Action/FYI: Pt states is not in need of anything at this time. ? ? Initial contact with patient post discharge, spoke to spouse. Patient identified by name and . ? TRANSITION CARE MANAGEMENT INITIAL OUTREACH DOCUMENTATION: Date of Outreach: 04/27/2018 04/27/2018 Outreach Attempt 1: - Contact Not Made Outreach Attempt 2: Contact Not Made - Date of Discharge 04/25/2018 04/25/2018 Some recent data might be hidden ? ? SUMMARY: -Pt discharged from [facility] on 05/01/18. -Admitted for: cva ? Do you have a hospital follow up appointment with your PCP? Appointment on 05/13/[address] Velázquez. Yes. Remind patient of appointment date, time, and location. If not within 14 calendar days of discharge - please reschedule accordingly. ? MEDICATIONS: Many patients have questions or concerns about their medications once they are home. Were you prescribed any new medications? Yes, phenytoin 100 mg 3 at bedtime, keppra 750 mg 2 in am 2 in pm ? Were you told to hold any medications? No Were any of your medications discontinued? No ? Do you have any questions about getting or taking your medications? No ? Your discharge instructions/After visit Summary (AVS) are important in guiding you through the recovery process. Is there anything I might help you understand? No ? Do you have all the necessary equipment and supplies at home? Yes ? Medical records from recent hospitalization: Epic Since discharge, patient has not had any recurrent seizure activity. Complains of feeling more fatigued and a bit lightheaded on current regimen. Denies falls. Tolerating PO diet without nausea, vomiting, diarrhea. Able to perform ADLs. Has not been driving per neurology recommendations. Has upcoming appointment with stroke team and seizure team on 05/18 at [facility]. Discussed that patient may be on current regimen indefinitely. From records available, does not look like he had new stroke, just remnants from prior ICH that could be causing current seizure symptoms. Past medical history, appointments, medications, allergies reviewed. 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 - Scalp psoriasis Previous Surgical History PAST SURGICAL HISTORY Procedure Laterality Date - PAST SURGICAL HISTORY OF 10/2017 TAVR - TONSILLECTOMY HX Family History FAMILY HISTORY Problem Relation Age of Onset - Hypertension Mother age 90 from internal bleeding - Stroke Father 80 age 84 - other (Myocardial infarction) Brother 70 Patient Allergies ALLERGIES Allergen Reactions - Amoxacillin [Amoxic* Mental Status Change - Codeine Other: See Comments irregular heart beat Current Medications Current Outpatient Prescriptions on File Prior to Visit: amLODIPine (NORVASC) 5 mg tablet Take 1 tablet by mouth once daily. aspirin, enteric coated (ASPIRIN, ENTERIC COATED) 81 mg EC tablet Take 81 mg by mouth once daily. atorvastatin (LIPITOR) 20 mg tablet Take 1 tablet by mouth once daily. levETIRAcetam (KEPPRA) 750 mg tablet Take 2 tablets by mouth twice daily. metoprolol succinate ER (TOPROL XL) 100 mg Tb24 Take 1 tablet by mouth once daily. phenytoin ER (DILANTIN) 100 mg ER capsule Take 3 capsules by mouth daily at bedtime. triamcinolone acetonide (KENALOG) 0.1 % cream Apply 1 application to affected area twice daily. Apply sparingly to area for rash/itching. No current facility-administered medications on file prior to visit. 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 Has living Review of Symptoms REVIEW OF SYSTEMS GENERAL: No weight loss, malaise or fevers RESPIRATORY: Negative for cough, hemoptysis, wheezing, COPD, dyspnea or shortness of breath CARDIOVASCULAR: Negative for chest pain, leg swelling, hypertension, CHF or palpitations GI: No nausea, vomiting, or diarrhea SKIN: Negative for lesions, rash, and itching EXAM: BP 118/84 Pulse 72 Temp 36.3 ?C (97.3 ?F) (Tympanic) Resp 16 Wt 80.3 kg (177 lb) SpO2 98% BMI 26.13 kg/m? General Appearance: Well appearing, AOx2, (name, place)in no acute distress, well-hydrated, well nourished.. Skin: Skin color, texture, turgor normal, no suspicious rashes or lesions. Lungs: lungs clear to auscultation. No wheezing, rhonchi, rales. Heart: RRR without murmur, gallop, or rubs. No ectopy. Abdomen: Normal abdominal exam, Abdomen soft, non-tender. Bowel sounds normal. No masses, organomegaly. Extremities: No deformities, edema, skin discoloration, clubbing or cyanosis. Good capillary refill. . Neurologic: Negative findings: speech normal, mental status intact, cranial nerves 2-12 intact, gait, including heel, toe, and tandem walking normal, Romberg negative, muscle tone normal, muscle strength normal, sensation to light touch and pinprick normal, reflexes normal and symmetric. Health Maintenance List DTAP,TDAP,TD(1 - Tdap) due on 1959 COLORECTAL CANCER SCREENING,SEE MODIFIER due on 1990 ADULT PREVNAR-13 due on 2005 PNEUMOVAX AGE 65 AND OVER WITH 5YR LOOKBACK(1) due on 2005 STATIN MED ADHERENCE due on 06/10/2018 ANNUAL PCP TEAM CHRONIC DISEASE VISIT due on 01/25/2019 BP CONTROLLED (<130/80) due on 01/25/2019 LDL CHOLESTEROL due on 04/27/2019 DIABETES SCREEN due on 04/29/2021 LIPID SCREEN due on 04/27/2023 INFLUENZA Completed Data reviewed Component Latest Ref Rng AND Units 04/28/2018 04/29/2018 04/30/2018 05/01/2018 05/01/2018 05/01/2018 5:01 AM 7:16 AM 11:19 AM WBC 3.70 - 11.00 k/uL 6.06 6.26 RBC 4.20 - 6.00 m/uL 5.18 5.11 Hemoglobin 13.0 - 17.0 g/dL 15.7 15.5 Hematocrit 39.0 - 51.0 % 47.0 46.9 MCV 80.0 - 100.0 fL 90.7 91.8 MCH 26.0 - 34.0 pG 30.3 30.3 MCHC 30.5 - 36.0 g/dL 33.4 33.0 RDW-CV 11.5 - 15.0 % 13.4 13.7 Platelet Count 150 - 400 k/uL 174 185 MPV 9.0 - 12.7 fL 10.3 10.1 Absolute nRBC <0.01 k/uL <0.01 <0.01 Glucose 74 - 99 mg/dL 111 (H) BUN 9 - 24 mg/dL 19 Creatinine 0.73 - 1.22 mg/dL 1.22 Sodium 136 - 144 mmol/L 141 Potassium 3.7 - 5.1 mmol/L 3.6 (L) Chloride 97 - 105 mmol/L 103 CO2 22 - 30 mmol/L 25 Anion Gap 9 - 18 mmol/L 13 Calcium 8.5 - 10.2 mg/dL 9.5 eGFR- >60 eGFR-All Other Races . 58 Phenytoin Free 1.0 - 2.0 ug/mL 1.3 1.3 Phenytoin 10.0 - 20.0 ug/mL 13.7 12.7 Glucose, Point of Care 74 - 99 mg/dL 96 131 (A) ASSESSMENT/PLAN: 1. 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 No recurrent episodes on current regimen. Recommend f/u with neurology as scheduled. 2. History of cerebral hemorrhage - ICD9: V12.59, ICD10: Z86.79 No new stroke symptoms. Continue current regimen to control BP, lipids, and ASA. 3. Cerebral aneurysm, nonruptured - ICD9: 437.3, ICD10: I67.1 See #2 4. Cerebrovascular accident (CVA), unspecified mechanism (HCC) - ICD9: 434.91, ICD10: I63.9 See #2 5. Hospital discharge follow-up - ICD9: V67.59, ICD10: Z09 Jose Raul Velázquez MD PROGRESS Observed: 05/04/2018 Status: COMPLETED Source: [place] 3:28 PM [facility] REPOSITORY HNO ID: [id number] Author: Jose Raul Robles) Eber Service: (none) Author Type: Physician Type: Progress Notes Filed: 05/04/2018 3:28 PM Note Text: Reviewed. Will f/u as Scheduled on 05/13. PLAN OF CARE Observed: 05/01/2018 Status: COMPLETED Source: [place] 3:52 PM [facility] REPOSITORY HNO ID: [id number] Author: Vikram Milton Diesel Retrofit Installer) Service: (none) Author Type: (none) Type: Plan of Care Filed: 05/01/2018 3:53 PM Note Text: PHARMACY BEDSIDE DELIVERY SERVICE Patient Name: Tyrel Ruffin The marked outpatient medications were Filled at: [facility] and delivered to the patient's bedside to patient Medication List START taking these medications levETIRAcetam 750 mg tablet X Commonly known as: KEPPRA Take 2 tablets by mouth twice daily. phenytoin ER 100 mg ER capsule X Commonly known as: DILANTIN Take 3 capsules by mouth daily at bedtime. CONTINUE taking these medications amLODIPine 5 mg tablet Commonly known as: NORVASC Take 1 tablet by mouth once daily. aspirin, enteric coated 81 mg EC tablet Commonly known as: ASPIRIN, ENTERIC COATED atorvastatin 20 mg tablet Commonly known as: LIPITOR Take 1 tablet by mouth once daily. metoprolol succinate ER 100 mg Tb24 Commonly known as: TOPROL XL Take 1 tablet by mouth once daily. triamcinolone acetonide 0.1 % cream Commonly known as: KENALOG Apply 1 application to affected area twice daily. Apply sparingly to area for rash/itching. You might also be taking other medications not listed above. If you have questions about any of your other medications, talk to the person who prescribed them or your Primary Care Provider. [facility] Diesel Retrofit Installer May 01, 2018 3:53 PM CASE MANAGEM Observed: 05/01/2018 Status: COMPLETED Source: [place] 2:06 PM [facility] REPOSITORY HNO ID: [id number] Author: Roxana Heredia (Asst) Service: Care Management Author Type: Resource Center Field Support Technician Type: Care Mgt Progress Note Filed: 05/01/2018 2:07 PM Note Text: CARE MANAGEMENT PROGRESS NOTE SERVICE DATE: 05/01/2018 SERVICE TIME: 12:46 pm LOS: 6 days IM letter given to patient on 05/01/18. SIGNATURE: Asst Neela PATIENT NAME: Tyrel Ruffin DATE: May 01, 2018 TIME: 2:06 PM PAGER/CONTACT #: [phone] CASE MANAGEM Observed: 05/01/2018 Status: COMPLETED Source: [place] 10:38 AM [facility] REPOSITORY HNO ID: [id number] Author: Oh Leggett RN Service: Case Management Author Type: Registered Nurse Type: Care Mgt Progress Note Filed: 05/01/2018 10:45 AM Note Text: CARE MANAGEMENT DISCHARGE NOTE SERVICE DATE: 05/01/2018 SERVICE TIME: 1038 LOS: 6 days Admission Date: 04/25/2018 DISCHARGE ARRANGEMENT (list agency and phone number) [facility] - PT and OT Provider: [facility] CAREGIVER ASSESSMENT: Caregiver is ready, willing and able to meet the patient's needs as recommended by the inter-professional team? Yes Patient's transition needs and plan for meeting these needs: Pt for DC home with HHC Does the patient have an acute stroke diagnosis, or has the patient had a stroke during this admission? Yes HANDOFF COMMUNICATION: Per EMR TRANSPORTATION ARRANGEMENTS: Car Family to transport ADDITIONAL CONTACT RESOURCES: Needs Prior to Discharge: Ready for Discharge Pt for DC with [facility]. Interim HH to follow for HC needs. Family to transport. Pt provided WHEEL ASSEMBLER contact information. SIGNATURE: Oh Leggett RN PATIENT NAME: Tyrel Ruffin DATE: May 01, 2018 TIME: 10:38 AM PAGER/CONTACT #: [phone] PROGRESS Observed: 05/01/2018 Status: COMPLETED Source: [place] 6:28 AM [facility] REPOSITORY HNO ID: [id number] Author: Marco Marques Service: Neurology General Author Type: Physician Type: Progress Notes Filed: 05/01/2018 10:51 AM Note Text: TEAM PROGRESS NOTE (GENERAL) NEUROLOGY SERVICE DATE: 05/01/2018 SERVICE TIME: 6:59 AM Subjective -No events overnight. Patient has not had any more episodes of confusion or blurry vision. He has no complaints. -No seizures from [id number] on BE check overnight. Current hospital medications: acetaminophen 650 mg tab(s) (TYLENOL) 650 mg ORAL/FEEDING TUBE q 4 H PRN aspirin 300 mg suppository 300 mg RECTAL DAILY aspirin 81 mg chewable tab(s) 81 mg ORAL/FEEDING TUBE DAILY atorvastatin 20 mg tab(s) (LIPITOR) 20 mg ORAL/FEEDING TUBE AT BEDTIME dextrose 40 % 15 g 15 g ORAL PRN dextrose 50 % 12.5 g injection 12.5 g INTRAVENOUS PRN glucagon 1 mg injection (GLUCAGEN) 1 mg INTRAMUSCULAR PRN heparin 5,000 Units injection 5,000 Units SUBCUTANEOUS q 8 H insulin lispro injection (rapid acting) (HumaLOG) SUBCUTANEOUS w MEALS AND HS levETIRAcetam 1,500 mg tab(s) (KEPPRA) 1,500 mg ORAL BID metoprolol 2.5 mg injection (LOPRESSOR) 2.5 mg INTRAVENOUS q 4 H PRN metoprolol tartrate (short acting) 50 mg tab(s) (LOPRESSOR) 50 mg ORAL q 12 H phenytoin ER 300 mg cap(s) (DILANTIN) 300 mg ORAL AT BEDTIME VITAL SIGNS 24 HOUR REVIEW: BP 149/84 Pulse 93 Temp 36.4 ?C (97.5 ?F) (Oral) Resp 18 Ht 175.3 cm (5' 9.02) Wt 79.9 kg (176 lb 2.4 oz) SpO2 97% BMI 26.00 kg/m? Objective General:awake/easily arousable and no acute distress. CV: irregularly irregular rhythm, no murmurs Lungs: clear to auscultation. Neurological: ? Mental Status: Alert, oriented to person, place and time and Follows commands. ? Cranial Nerves: PERRL, visual collins intact to confrontation, extraocular movements intact, facial sensation intact, face symmetric, no facial droop or ptosis, hearing intact to finger rub bilaterally, no dysarthria, palate elevate symmetrically, tongue protrudes midline and shoulder shrug intact and symmetric. ? Motor: muscle strength 5/5 both upper and lower extremities, normal tone. ? Reflexes: Brisker on R compared to L. ? Sensation: intact. ? Coordination: Finger-to- nose-finger intact bilaterally. ? Gait: not assessed. LABS/DATA: CBC, Coags, BMP, Mg, Phos Recent Labs 04/29/18 0527 WBC 6.26 HB 15.5 HCT 46.9 PLT 185 NA 141 K 3.6* CHLOR 103 CO2 25 BUN 19 CREAT 1.22 GLUC 111* CA 9.5 Liver Function, Amylase, AND Lipase DATA: BE prelim read 05/01: Preliminary Classification ? Abnormal III (Awake, Sleep, 10-20 Scalp Electrodes, Anterior temporal ? electrodes) ? 1 ? ?Continuous Slow, Regional left temporo-occipital ? 2 ? ?Intermittent Slow, Generalized ? 3 ? ?Asymmetry, Decreased Background left occipital Preliminary Impression ? Continuous video-EEG monitoring was reviewed from 6:21 04/30/2018 to ? 5:18 05/01/2018 and is consistent with the history of a structural ? lesion involving the left posterior head region in the presence of a ? mild diffuse encephalopathy.?No epileptiform discharges or EEG seizures ? are noted. Diagnostic tests reviewed for today's visit: Most recent labs and imaging results. Assessment/Plan Medication and Non-Pharmacologic VTE Prophylaxis/Anticoagulants Anticoagulant AND Antiplatelet Medications Start Dose Route Frequency Ordered Stop 04/26/18 0900 aspirin 81 mg chewable tab(s) (asprin non- enteric coated 81mg ORAL OR 300mg WV) 81 mg PO/FT DAILY 04/25/181901 -- 04/25/181999 heparin 5,000 Units injection (Medical At Risk ) 5,000 Units SUBCUTANEOUS EVERY 8 HOURS 04/25/18 1859 -- 04/26/18 0615 pneumatic compression stockings ([place] 04/25/18 1900 activity - mobilize patient ([place]) VTE Prophylaxis: VTE prophylaxis appropriate 77 year old male with PMHx 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 CT brain/CTA unremarkable at OSH. EEG with left parietal occipital seizures, last seizure on 04/26. Neurology Seizure as late effect of cerebrovascular accident (CVA) ([facility]) Assessment AND Plan Two episodes of seizure-like activity witnessed at OSH ED First episode preceded by technicolor vision in R peripheral visual field Patient has no recollection of episodes +Tongue bite wound Last seizure 5 am 04/27 Patient does not have medication coverage for Vimpat, switch to Dilantin PLAN: -Seizure precautions -EEG monitoring -Continue Keppra 1.5 g bid -Switch from Vimpat to Dilantin 100 mg TID as patient cannot afford Vimpat after discharge * CVA (cerebral vascular accident) (HCC) Assessment AND Plan History of 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 Rodriguez Assessment: Stable PLAN: -Repeat MRI brain when seizures are under control -Lipitor 80 -ASA 81 Cardiovascular Atrial fibrillation, chronic (HCC) Assessment AND Plan CHADS-VASc 4 PLAN: -No AC due to history of ICH -ASA 81 -metoprolol 50 mg BID Aortic dissection (HCC) Assessment AND Plan 2017 Assessment: stable PLAN: -No anticoagulation due to increased bleeding risk QUALITY CHECKLIST Current indwelling catheters/lines: None. Current rodriguez catheter status: None. Current restraint orders: None After 5pm and on weekends, please page [phone]) to contact the General Neurology Resident Precision Dyer. SIGNATURE: David Muñoz MD PATIENT NAME: Tyrel Ruffin DATE: May 01, 2018 TIME: 12:28 AM PAGER/CONTACT #: [phone] Marco Marques MD, PhD [facility] [place] [address] CNDS Observed: 05/01/2018 Status: COMPLETED Source: [place] 6:00 AM [facility] REPOSITORY HNO ID: [id number] Author: Marco Marques Service: Neurology General Author Type: Physician Type: Discharge Summaries Filed: 05/01/2018 10:51 AM Note Text: DISCHARGE SUMMARY PATIENT NAME: Tyrel Ruffin ADMISSION DATE: 04/25/2018 DISCHARGE DATE: 05/01/2018 ATTENDING PHYSICIAN: Marco Marques Code Status: Not on file Highest Readmission Risk Score: 10 The 30 day readmissions risk score is derived from an internally validated risk model which evaluates patient level characteristics, utilization history, medication orders and lab results up until the day of discharge. Patients with a score of 40 or above are considered highest risk for readmission. Specific patient level drivers will be listed at the bottom of the summary. 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 ? ? Interictal: ? 1 ? ?Continuous Slow, Regional left parietal occipital ? 2 ? ?Intermittent Slow, Generalized ? Ictal: ? 1 ? ?EEG: EEG Seizure, Regional left parietal occipital ?Seizure: No Clinical Signs MRI Brain 04/27: Old left parietal infarct with associated old hemorrhage. Mild chronic microvascular ischemic changes. No significant interval change in imaging appearance of the brain since prior study dated 12/24/2017. 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 Seizure semiology: Technicolor vision in R visual field -> speech changes (mixing up words) -> right head version and jaw clenching (bit tongue) -> head shaking and right arm stiffening followed by confusion and lethargy. He had 2 of these seizures in the outside ED, was given 2 mg Ativan and 1 g Keppra, then started on Keppra [address] brain unremarkable. 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 He was transferred to [facility] for further management. At [facility] he was monitored with EEG which showed multiple left parietal occipital seizures. He was started on Vimpat 100 mg BID and his Keppra was increased to 1500 mg BID with resolution of his seizures. The patient was unable to afford Vimpat after discharge so this was switched to Dilantin ER 300 mg QHs. After starting Dilantin, he two 3 second sinus pauses during which he was asymptomatic. His discharge was therefore delayed to monitor for recurrence of this. He had no further sinus pauses and was discharged on 05/01/18. He had a repeat MRI which was stable to his prior imaging with no signs of a new stroke. Etiology of seizures thought to be area of prior ICH in the left occipital lobe. He will follow up in Epilepsy Clinic 05/11/18. Transitions of Care Critical Issues: New medications: Dilantin ER 300mg qhs, Keppra 1500 mg BID Was supposed to be evaluated for Watchman but was lost to follow up. Follow up in Stroke clinic scheduled for 05/18/18 LABS AND PROCEDURES PENDING AT DISCHARGE: No pending results. CONSULTING TEAMS DURING HOSPITALIZATION: None PATIENT CONDITION AT DISCHARGE: Stable DISCHARGE DISPOSITION: Home with Home Health Care General:awake/easily arousable and no acute distress. CV: RRR Lungs: clear to auscultation. Neurological: ? Mental Status: Alert, oriented to person, place and time and Follows commands. ? Cranial Nerves: PERRL, visual collins intact to confrontation, extraocular movements intact, facial sensation intact, face symmetric, no facial droop or ptosis, hearing intact to finger rub bilaterally, no dysarthria, palate elevate symmetrically, tongue protrudes midline and shoulder shrug intact and symmetric. ? Motor: muscle strength 5/5 both upper and lower extremities. ? Reflexes: Reflexes slightly brisker on R ? Sensation: intact to light touch ? Coordination: Finger-to- nose-finger intact bilaterally. INFORMATION PROVIDED TO PATIENT: (To pull info documented from the DC Instruct Orderset Complete O/S First): Seizure precautions DIET: Resume pre-hospital diet ACTIVITY: Seizure precautions WOUND/SURGICAL SITE CARE: None ALLERGIES Allergen Reactions - Amoxacillin [Amoxic* Mental Status Change - Codeine Other: See Comments irregular heart beat DISCHARGE MEDICATION: Current Discharge Medication List START taking these medications levETIRAcetam (KEPPRA) 1,500 mg Take 1,500 mg by mouth twice daily. Qty: 120 tablet Refills: 2 phenytoin ER (DILANTIN) 300 mg Take 300 mg by mouth daily at bedtime. Qty: 90 capsule Refills: 2 CONTINUE these medications which have NOT CHANGED amLODIPine (NORVASC) 5 mg Take 5 mg by mouth once daily. Qty: 90 tablet Refills: 3 aspirin, enteric coated (ASPIRIN, ENTERIC COATED) 81 mg Take 81 mg by mouth once daily. atorvastatin (LIPITOR) 20 mg Take 20 mg by mouth once daily. Qty: 90 tablet Refills: 3 metoprolol succinate ER (TOPROL XL) 100 mg Take 100 mg by mouth once daily. Qty: 30 tablet Refills: 11 triamcinolone acetonide (KENALOG) 1 application Apply 1 application to affected area twice daily. Apply sparingly to area for rash/itching. Qty: 1 Tube Refills: 1 Associated Diagnoses:Scalp psoriasis FUTURE APPOINTMENTS: Future Appointments Date Time Provider Department Center 05/11/2018 7:40 AM Tien Hill [id number] NEUR S [facility] 05/18/2018 10:10 AM Jessica Rodriguez [id number] NEUR S [facility] 07/25/2018 11:00 AM Jose Raul Robles) Eber ROTH [facility] The patient's risk for 30-day readmission is determined using the following contributing factors: Pt variables contributing to increased readmission risk: 16 Most Recent BUN Result 13 Active Medication Orders 8.8 First Resulted Calcium During Admission 1 Insurance - Medicare 1 Active Anticoagulant 1 Number of Hospitalizations (12 mos.) TIME OF CARE: Discharge Management: I personally spent greater than 30 minutes involved in the discharge management of this patient. SIGNATURE: Liz Metzger MD PAGER/CONTACT #: [phone] DATE: 04/30/2018 TIME: 10:40 AM PHENYTOIN Collected: 05/01/2018 Status: F Source: [place] 5:01 AM [facility] REPOSITORY TYPE CODE TESTS RESULT OUT OF REFERENCE UNITS RANGE LAB PHT 10.0-20.0 ug/mL Phenytoin 12.7 Result Comment: Reference ranges and high/low indicator flags are provided as general guidelines only. The treating physician must determine appropriate target levels/dosing based on the specific clinical situation. Performed By: #### PHT, PHTFR #### [facility] [address] [place], [place] [address] PHENYTOIN, FREE Collected: 05/01/2018 Status: F Source: [place] 5:01 AM [facility] REPOSITORY TYPE CODE TESTS RESULT OUT OF REFERENCE UNITS RANGE LAB PHTFR 1.0-2.0 ug/mL 1.3 Phenytoin, Free Result Comment: Reference ranges and high/low indicator flags are provided as general guidelines only. The treating physician must determine appropriate target levels/dosing based on the specific clinic al situation. This test was developed and its performance characteristics determined by [facility] [place] ([facility]). It has not been cleared or approved by the FDA. -[facility] is regulated under CLIA as qualified to perform high-complexity testing. This test is used for clinical purposes. It should not be regarded as investigational or for research. Performed By: #### PHT, PHTFR #### [facility] [address] [place], [place] [address] PLAN OF CARE Observed: 04/30/2018 Status: COMPLETED Source: [place] 1:16 PM [facility] REPOSITORY HNO ID: [id number] Author: Liz Metzger Service: Neurology General Author Type: Resident Type: Plan of Care Filed: 04/30/2018 1:19 PM Note Text: noted patient confused and perseverating for around 2 minutes. Upon my assessment patient was alert, oriented x3 with intact repetition and able to name objects and describe their function. Will restart bedside EEG monitoring Liz Metzger MD 04/30/2018 1:19 PM ECG COMPLETE W Observed: 04/30/2018 Status: F Source: [place] INTERPRETATION 12:52 PM [facility] REPOSITORY NAME : TYREL RUFFIN PID : [id number] : 1940 Gender : Male Race : ORD : [id number] Procedure Date : Apr 30 2018 12:52:49 Edit Date : May 09 2018 13:30:40 Diagnosis:ATRIAL FIBRILLATION ANTEROSEPTAL MYOCARDIAL INFARCTION , AGE UNDETERMINED ABNORMAL ECG Confirmed by ANA MARÍA CASIANO M.D. ([id number]) on 05/09/2018 12:40:19 PM Also confirmed by ANA MARÍA CASIANO M.D. ([id number]) on 05/09/2018 12:40:23 PM Ventricular Rate : 70 BPM Atrial Rate : 394 BPM QRS Duration : 76 ms Q-T Interval : 380 ms QTC Calculation(Bezet) : 410 ms R [place] : 31 degrees T [place] : 45 degrees Test Reason : Location : 63 : H60 17 Overread By : ANA MARÍA CASIANO M.D. Edited By : ANA MARÍA CASIANO M.D. Referred By : BILLY MORALES Acquired by : Geni Benito CASE MANAGEM Observed: 04/30/2018 Status: COMPLETED Source: [place] 11:48 AM [facility] REPOSITORY HNO ID: [id number] Author: Marya Hanks RN Service: Care Management Author Type: Registered Nurse Type: Care Mgt Progress Note Filed: 04/30/2018 11:49 AM Note Text: CASE MANAGEMENT PROGRESS NOTE SERVICE DATE: 04/30/2018 SERVICE TIME: 1148 D/C today has been cancelled. D/C w/ [facility] pended for tomorrow. SIGNATURE: Marya Hanks RN PATIENT NAME: Tyrel Ruffin DATE: April 30, 2018 TIME: 11:49 AM PAGER/CONTACT #: [phone] PLAN OF CARE Observed: 04/30/2018 Status: COMPLETED Source: [place] 11:45 AM [facility] REPOSITORY HNO ID: [id number] Author: Liz Metzger Service: Neurology General Author Type: Resident Type: Plan of Care Filed: 04/30/2018 1:16 PM Note Text: Patient experienced two sinus pauses lasting 3 seconds, one at 9:16 AM and again at 11:15 AM. He was asymptomatic with these. Per Dr. Marques we will cancel discharge at this time and continue to monitor. Per discussion with cardiology, OK to continue monitoring through the day today. Liz Metzger MD 04/30/2018 11:47 AM CASE MANAGEM Observed: 04/30/2018 Status: COMPLETED Source: [place] 11:32 AM [facility] REPOSITORY HNO ID: [id number] Author: Marya (Rn) DEEPTHI Hanks Service: Care Management Author Type: Registered Nurse Type: Care Mgt Progress Note Filed: 04/30/2018 11:36 AM Note Text: CARE MANAGEMENT DISCHARGE?NOTE ? SERVICE DATE: 04/30/2018 SERVICE TIME:?1130 ? LOS: 5?days ? Admission Date:??04/27/2018 ? DISCHARGE ARRANGEMENT?(list agency and phone number) Home Care - Home PT/OT ? Provider:?[facility] ([facility] Phone:?[phone] or [phone] ? CAREGIVER ASSESSMENT: Caregiver is ready, willing and able to meet the patient's needs as recommended by the inter-professional team??Yes Patient's transition needs and plan for meeting these needs:?Home w/ HC Does the patient have an acute stroke diagnosis, or has the patient had a stroke during this admission??No? ? HANDOFF COMMUNICATION:? RN will give pt D/C instructions Updates sent to HC via [facility] and [facility] fax ?? TRANSPORTATION ARRANGEMENTS: Mode of Transportation: Car - Family Financial Care Management Responsibility: None Estimated Charge: N/A. Approving Drafter Apprentice: N/A. ? ADDITIONAL CONTACT RESOURCES: N/A ? ? Pt is D/C ready. Plan is for Home PT/OT. Per previous TCC/SW, [facility] accepted pt w/ SOC for 05/04/18. Spoke w/ HC's on-call nurse - not aware of this pt since SOC isn't this wkend, HC ([facility]) will call previous TCC/SW Mon during normal hrs if needed re confirm D/C. D/C order and instructions complete. SIGNATURE: Marya Hanks RN PATIENT NAME: Tryel Ruffin DATE: April 30, 2018 TIME: 11:32 AM PAGER/CONTACT #: [phone] NURSING PROG Observed: 04/30/2018 Status: COMPLETED Source: [place] 9:28 AM [facility] REPOSITORY HNO ID: [id number] Author: Samantha (Rn) DEEPTHI Eagle Service: (none) Author Type: Registered Nurse Type: Nursing Progress Note Filed: 04/30/2018 1:08 PM Note Text: Nursing Progress Note Patient Name: Tyrel Ruffin [address] Daily Note: Pt had a three second pause at 0915 this morning, pt asymptomatic at this time. Notified on-call General Neurology ([id number]) Pt had another three second pause at 1110, pt asymptomatic at this time. Rhythm is now afib, was previously normal sinus. Notified on-call General Neurology ([id number]).Team came to bedside to assess patient. At 1300 pt's reported the pt had two minutes of confusion and began repeating himself. The pt returned to baseline upon entering the room. On-call General Neurology notified and came to bedside to talk to . This note was completed by: Samantha Eagle RN PROGRESS Observed: 04/30/2018 Status: COMPLETED Source: [place] 9:09 AM [facility] REPOSITORY HNO ID: [id number] Author: Marco Marques Service: Neurology General Author Type: Physician Type: Progress Notes Filed: 04/30/2018 12:09 PM Note Text: TEAM PROGRESS NOTE (GENERAL) NEUROLOGY SERVICE DATE: 04/30/2018 SERVICE TIME: 9:10 AM Subjective No seizures on BEM overnight. Patient had acute onset dizziness, vertigo, nystagmus, and blurry vision yesterday after given IV phosphenytoin load which resolved after several minutes and reports none of these this AM Current hospital medications: acetaminophen 650 mg tab(s) (TYLENOL) 650 mg ORAL/FEEDING TUBE q 4 H PRN aspirin 300 mg suppository 300 mg RECTAL DAILY aspirin 81 mg chewable tab(s) 81 mg ORAL/FEEDING TUBE DAILY atorvastatin 20 mg tab(s) (LIPITOR) 20 mg ORAL/FEEDING TUBE AT BEDTIME dextrose 40 % 15 g 15 g ORAL PRN dextrose 50 % 12.5 g injection 12.5 g INTRAVENOUS PRN glucagon 1 mg injection (GLUCAGEN) 1 mg INTRAMUSCULAR PRN heparin 5,000 Units injection 5,000 Units SUBCUTANEOUS q 8 H insulin lispro injection (rapid acting) (HumaLOG) SUBCUTANEOUS w MEALS AND HS levETIRAcetam 1,500 mg tab(s) (KEPPRA) 1,500 mg ORAL BID metoprolol 2.5 mg injection (LOPRESSOR) 2.5 mg INTRAVENOUS q 4 H PRN metoprolol tartrate (short acting) 50 mg tab(s) (LOPRESSOR) 50 mg ORAL q 12 H phenytoin ER 100 mg cap(s) (DILANTIN) 100 mg ORAL TID VITAL SIGNS 24 HOUR REVIEW: BP 118/78 Pulse 76 Temp 36.3 ?C (97.3 ?F) (Oral) Resp 18 Ht 175.3 cm (5' 9.02) Wt 79.9 kg (176 lb 2.4 oz) SpO2 99% BMI 26.00 kg/m? Objective General:awake/easily arousable and no acute distress. CV: RRR Lungs: clear to auscultation. Neurological: ? Mental Status: Alert, oriented to person, place and time and Follows commands. ? Cranial Nerves: PERRL, visual collins intact to confrontation, extraocular movements intact, facial sensation intact, face symmetric, no facial droop or ptosis, hearing intact to finger rub bilaterally, no dysarthria, palate elevate symmetrically, tongue protrudes midline and shoulder shrug intact and symmetric. ? Motor: muscle strength 5/5 both upper and lower extremities. ? Reflexes: Reflexes slightly brisker on R ? Sensation: intact to light touch ? Coordination: Finger-to- nose-finger intact bilaterally. ? Gait: deferred LABS/DATA: CBC, Coags, BMP, Mg, Phos Recent Labs 04/29/18 0527 04/28/18 0637 WBC 6.26 6.06 HB 15.5 15.7 HCT 46.9 47.0 PLT 185 174 NA 141 141 K 3.6* 3.8 CHLOR 103 102 CO2 25 26 BUN 19 16 CREAT 1.22 1.15 GLUC 111* 89 CA 9.5 9.5 DATA: Diagnostic tests reviewed for today's visit: Most recent labs and imaging results. Assessment/Plan Medication and Non-Pharmacologic VTE Prophylaxis/Anticoagulants Anticoagulant AND Antiplatelet Medications Start Dose Route Frequency Ordered Stop 04/26/18 0900 aspirin 81 mg chewable tab(s) (asprin non- enteric coated 81mg ORAL OR 300mg W[place]) 81 mg PO/FT DAILY 04/25/18 1902 -- 04/25/181999 heparin 5,000 Units injection (Medical At Risk ) 5,000 Units SUBCUTANEOUS EVERY 8 HOURS 04/25/18 1859 -- 04/26/18 0615 pneumatic compression stockings ([place]) 04/25/18 1900 activity - mobilize patient ([place] VTE Prophylaxis: VTE prophylaxis appropriate 77 year old male with PMHx 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 CT brain/CTA unremarkable at OSH. EEG with left parietal occipital seizures, last seizure on 04/26. Neurology Seizure as late effect of cerebrovascular accident (CVA) ([facility]) Assessment AND Plan Two episodes of seizure-like activity witnessed at OSH ED First episode preceded by technicolor vision in R peripheral visual field Patient has no recollection of episodes +Tongue bite wound Last seizure 5 am 04/27 Patient does not have medication coverage for Vimpat, switch to Dilantin PLAN: -Seizure precautions -EEG monitoring -Continue Keppra 1.5 g bid -Switch from Vimpat to Dilantin 100 mg TID as patient cannot afford Vimpat after discharge * CVA (cerebral vascular accident) ([facility]) Assessment AND Plan History of 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 Rodriguez Assessment: Stable PLAN: -Repeat MRI brain when seizures are under control -Lipitor 80 -ASA 81 Cardiovascular Atrial fibrillation, chronic (HCC) Assessment AND Plan CHADS-VASc 4 PLAN: -No AC due to history of ICH -ASA 81 -metoprolol 50 mg BID Aortic dissection ([facility]) Assessment AND Plan 2017 Assessment: stable PLAN: -No anticoagulation due to increased bleeding risk QUALITY CHECKLIST Current indwelling catheters/lines: None. Current rodriguez catheter status: None. Current restraint orders: None After 5pm and on weekends, please page [phone]) to contact the General Neurology Resident Precision Dyer. SIGNATURE: Liz Metzger MD PATIENT NAME: Tyrel Ruffin DATE: 04/30/2018 TIME: 9:09 AM PAGER/CONTACT #: [phone] Attending note: I have seen and examined . Tyrel Ruffin with Dr. Metzger and I fully agree with the outlined assessment and plan. Has been loaded with dilantin. Dilantin level 13.7. He felt dizzy a bit. He can stand alone with minimal support. Due to his heart beat pause, we decide to hold off discharging for today. Marco Marques MD, PhD [facility] [place] [address] PHENYTOIN Collected: 04/30/2018 Status: F Source: [place] 5:14 AM [facility] REPOSITORY TYPE CODE TESTS RESULT OUT OF REFERENCE UNITS RANGE LAB PHT 10.0-20.0 ug/mL Phenytoin 13.7 Result Comment: Reference ranges and high/low indicator flags are provided as general guidelines only. The treating physician must determine appropriate target levels/dosing based on the specific clinical situation. Performed By: #### PHT, PHTFR #### [place] [address] PHENYTOIN, FREE Collected: 04/30/2018 Status: F Source: [place] 5:14 AM [facility] REPOSITORY TYPE CODE TESTS RESULT OUT OF REFERENCE UNITS RANGE LAB PHTFR 1.0-2.0 ug/mL 1.3 Phenytoin, Free Result Comment: Reference ranges and high/low indicator flags are provided as general guidelines only. The treating physician must determine appropriate target levels/dosing based on the specific clinic al situation. This test was developed and its performance characteristics determined by [facility] [place] ([facility]). It has not been cleared or approved by the FDA. [facility] is regulated under CLIA as qualified to perform high-complexity testing. This test is used for clinical purposes. It should not be regarded as investigational or for research. Performed By: #### PHT, PHTFR #### [facility] [address] [place], [place] [address] NURSING PROG Observed: 04/29/2018 Status: COMPLETED Source: [place] 6:52 PM [facility] REPOSITORY HNO ID: [id number] Author: Kishan Llanes) DEEPTHI Smyth Service: Nursing Author Type: Registered Nurse Type: Nursing Progress Note Filed: 04/29/2018 7:50 PM Note Text: Nursing Progress Note Patient Name: Tyrel Ruffin Patient Location: H060 017/H060-17 1702 IV fosphenytoin hung 1745 Patient complaining of new onset severe dizziness and double vision, patient holding hands over eyes and perseverating about I can't see. Very difficult to get patient cooperate with exam, but when patient's eyes are held open, he cannot identify any objects in front of him. Patient having some confusion, unable to follow most commands. Dr. Benjamin and Dr. Dumont at bedside. VS stable. Instructed to continue to monitor closely, patient slowly improving. 1830 Patient dry heaving and trying to get OOB unassisted. Dry heaving stopped and patient drowsy but oriented x 3, following more commands, able to identify objects and read white board in room. L eye scleral hemorrhage present from dry heaving. 1900 Patient more alert and appropriate, AOx3, following complex commands. This note was completed by: Kishan Smyth RN PLAN OF CARE Observed: 04/29/2018 Status: COMPLETED Source: [place] 6:14 PM [facility] REPOSITORY HNO ID: [id number] Author: Marya Benjamin Service: Neurology General Author Type: Resident Type: Plan of Care Filed: 04/29/2018 7:18 PM Note Text: Neurology Plan of Care Note Paged to bedside as patient was finishing fosphenytoin load. Patient complaining of severe dizziness and blurred vision. On exam noted to have confusion with word finding difficulty as well as nystagmus. Moving all extremities against gravity. After ~5 minutes, the patient began reporting improvement in his vision and began to speak more coherently. No seizures on BEM check. Suspected to have side effects of medications as he received Vimpat this morning as well as phosphenytoin load. Fosphenytoin load complete, will continue to monitor for further improvement of symptoms. Marya Benjamin MD April 29, 2018 6:20 PM PLAN OF CARE Observed: 04/29/2018 Status: COMPLETED Source: [place] 3:36 PM [facility] REPOSITORY HNO ID: [id number] Author: Carlos Do (Diesel Retrofit Installer) Service: (none) Author Type: (none) Type: Plan of Care Filed: 04/29/2018 3:37 PM Note Text: [facility] BEDSIDE DELIVERY SURVEY 1. Patient to use [facility] Bedside Delivery - YES CABELLO CHECK 2. If fax, patient would like us to fax prescriptions to Pharmacy of choice a. Pharmacy: b. Location: c. Phone: 3. Insurance card on file - N/A 4. Credit card for payment - N/A CABELLO CHECK FOR PHENYTOIN ER 100MG 90 CAPSULES/ 30 DAY SUPPLY CO-PAY AMT $32.98 PROGRESS Observed: 04/29/2018 Status: COMPLETED Source: [place] 3:24 PM [facility] REPOSITORY HNO ID: [id number] Author: Shannan LoganEnglish Division Chair) CORNELIUS Coe Service: (none) Author Type: LICENSED NURSE Type: Progress Notes Filed: 04/29/2018 3:24 PM Note Text: Closed pt was not discharged home was discharged to [facility]. CASE MANAGEM Observed: 04/29/2018 Status: COMPLETED Source: [place] 3:17 PM [facility] REPOSITORY HNO ID: [id number] Author: Shira LoganRn) DEEPTHI Harris Service: Care Management Author Type: Registered Nurse Type: Care Mgt Progress Note Filed: 04/29/2018 3:23 PM Note Text: CARE MANAGEMENT PROGRESS NOTE SERVICE DATE: 04/29/2018 SERVICE TIME: 3:18 PM LOS: 4 days Needs Prior to Discharge: To Be Determined D/C tomorrow home with [facility]. [facility] has accepted the patient. Contact information for [facility] ([phone]) provided to patient's . D/C instructions and snapshot to be faxed to: ([phone]). Start of care is 05/04/18. Medical team-Koki Rush-has been informed and is agreeable to the start of care date. SIGNATURE: Shira Harris RN PATIENT NAME: Tyrel Ruffin DATE: April 29, 2018 TIME: 3:17 PM PAGER/CONTACT #: [phone] PROGRESS Observed: 04/29/2018 Status: COMPLETED Source: [place] 2:28 PM [facility] REPOSITORY HNO ID: [id number] Author: Marco Marques Service: Neurology General Author Type: Physician Type: Progress Notes Filed: 04/29/2018 5:18 PM Note Text: TEAM PROGRESS NOTE (GENERAL) NEUROLOGY SERVICE DATE: 04/29/2018 SERVICE TIME: 2:29 PM Subjective No seizures on BEM overnight. Plan for d/c today, however patient does not have coverage for Vimpat. Will transition to Dilantin today if affordable to patient and monitor for seizures overnight. Discharge tomorrow if no seizures overnight Current hospital medications: acetaminophen 650 mg tab(s) (TYLENOL) 650 mg ORAL/FEEDING TUBE q 4 H PRN aspirin 300 mg suppository 300 mg RECTAL DAILY aspirin 81 mg chewable tab(s) 81 mg ORAL/FEEDING TUBE DAILY atorvastatin 20 mg tab(s) (LIPITOR) 20 mg ORAL/FEEDING TUBE AT BEDTIME dextrose 40 % 15 g 15 g ORAL PRN dextrose 50 % 12.5 g injection 12.5 g INTRAVENOUS PRN glucagon 1 mg injection (GLUCAGEN) 1 mg INTRAMUSCULAR PRN heparin 5,000 Units injection 5,000 Units SUBCUTANEOUS q 8 H insulin lispro injection (rapid acting) (HumaLOG) SUBCUTANEOUS w MEALS AND HS lacosamide 100 mg tab(s) (VIMPAT) 100 mg ORAL BID levETIRAcetam 1,500 mg tab(s) (KEPPRA) 1,500 mg ORAL BID metoprolol 2.5 mg injection (LOPRESSOR) 2.5 mg INTRAVENOUS q 4 H PRN metoprolol tartrate (short acting) 50 mg tab(s) (LOPRESSOR) 50 mg ORAL q 12 H VITAL SIGNS 24 HOUR REVIEW: BP 142/89 Pulse 81 Temp 36.2 ?C (97.1 ?F) (Oral) Resp 18 Ht 175.3 cm (5' 9.02) Wt 79.9 kg (176 lb 2.4 oz) SpO2 97% BMI 26.00 kg/m? Objective General:awake/easily arousable and no acute distress. CV: RRR Lungs: clear to auscultation. Neurological: ? Mental Status: Alert, oriented to person, place and time and Follows commands. ? Cranial Nerves: PERRL, visual collins intact to confrontation, extraocular movements intact, facial sensation intact, face symmetric, no facial droop or ptosis, hearing intact to finger rub bilaterally, no dysarthria, palate elevate symmetrically, tongue protrudes midline and shoulder shrug intact and symmetric. ? Motor: muscle strength 5/5 both upper and lower extremities. ? Reflexes: Reflexes slightly brisker on R ? Sensation: intact to light touch ? Coordination: Finger-to- nose-finger intact bilaterally. ? Gait: deferred LABS/DATA: CBC, Coags, BMP, Mg, Phos Recent Labs 04/29/18 0527 04/28/18 0637 04/27/18 0314 WBC 6.26 6.06 5.03 HB 15.5 15.7 14.6 HCT 46.9 47.0 43.9 PLT 185 174 159 NA 141 141 141 K 3.6* 3.8 4.2 CHLOR 103 102 106* CO2 25 26 24 BUN 19 16 17 CREAT 1.22 1.15 1.14 GLUC 111* 89 92 CA 9.5 9.5 8.5 MG -- -- 2.2 DATA: Diagnostic tests reviewed for today's visit: Most recent labs and imaging results. Assessment/Plan Medication and Non-Pharmacologic VTE Prophylaxis/Anticoagulants Anticoagulant AND Antiplatelet Medications Start Dose Route Frequency Ordered Stop 04/26/18 0900 aspirin 81 mg chewable tab(s) (asprin non- enteric coated 81mg ORAL OR 300mg WV) 81 mg PO/FT DAILY 04/25/18 1902 -- 04/25/181999 heparin 5,000 Units injection (Medical At Risk ) 5,000 Units SUBCUTANEOUS EVERY 8 HOURS 04/25/18 1859 -- 04/26/18 0615 pneumatic compression stockings ([place]) 04/25/18 1900 activity - mobilize patient ([place]) VTE Prophylaxis: VTE prophylaxis appropriate 77 year old male with PMHx 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 CT brain/CTA unremarkable at OSH. EEG with left parietal occipital seizures, last seizure on 04/26. 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 Rodriguez Assessment: Stable PLAN: -Repeat MRI brain when seizures are under control -Lipitor 80 -ASA 81 Seizure as late effect of cerebrovascular accident (CVA) ([facility]) 04/25/2018 - Present Current Assessment AND Plan Two episodes of seizure-like activity witnessed at OSH ED First episode preceded by technicolor vision in R peripheral visual field Patient has no recollection of episodes +Tongue bite wound Last seizure 5 am 04/27 Patient does not have medication coverage for Vimpat, consider switch to Dilantin PLAN: -Seizure precautions -EEG monitoring -Continue Keppra 1.5 g bid -Switch from Vimpat to Dilantin 100 mg TID as patient cannot afford Vimpat after discharge QUALITY CHECKLIST Current indwelling catheters/lines: None. Current rodriguez catheter status: None. Current restraint orders: None After 5pm and on weekends, please page [phone]) to contact the General Neurology Resident [employer] Dyer. SIGNATURE: Marya Benjamin MD PATIENT NAME: Tyrel Ruffin DATE: April 29, 2018 TIME: 2:29 PM PAGER/CONTACT #: [phone] Attending note: I have seen and examined Mr. Tyrel Ruffin with residents and I fully agree with the outlined assessment and plan. Marco Marques MD, PhD [facility] [place] [facility] [address] [place] [address] 12 LEAD ELECTROCARDIOGRAM Observed: 04/29/2018 Status: F Source: [place] 2:24 PM [facility] REPOSITORY [place] [facility] [place] [address] 12 Lead EKG 04/25/18 0532 MR#: [id number] Acct: [id number] Name: TYREL RUFFIN Rep #: [id number] : 1940 77 From: Nathaniel Villafuerte MD Attending Dr: Billy Morales MD Status: DIS IN Ordering Dr: Oh Rose MD Date: 04/25/18 Location: ICU Sex: M C Admitted: 04/24/18 Test Reason : AM Blood Pressure : / mmHG Vent. Rate : 082 BPM Atrial Rate : 091 BPM P-R Int : 000 ms QRS Dur : 076 ms QT Int : 378 ms P-R-T Axes : 000 023 030 degrees QTc Int : 441 ms Atrial fibrillation Septal infarct , age undetermined Abnormal ECG When compared with ECG of 24-APR-2018 14:14, MANUAL COMPARISON REQUIRED, DATA IS UNCONFIRMED Confirmed by ABDI MATHEW, NATHANIEL ([id number]), news videotape editor SPENCER BRIGHT ([id number]) on 04/29/2018 2:24:23 PM Referred By: ROSA ELENA Confirmed By:NATHANIEL VILLAFUERTE MD 04/29/18 1424 Date Nathaniel Villafuerte MD CC: Kasi Velázquez MD; Billy Morales MD; Oh Rose MD Signed CASE MANAGEM Observed: 04/29/2018 Status: COMPLETED Source: [place] 11:12 AM [facility] RE[facility] HNO ID: [id number] Author: Shira LoganRn) DEEPTHI Harris Service: Care Management Author Type: Registered Nurse Type: Care Mgt Progress Note Filed: 04/29/2018 1:28 PM Note Text: CARE MANAGEMENT PROGRESS NOTE SERVICE DATE: 04/29/2018 SERVICE TIME: 11:12 AM LOS: 4 days Needs Prior to Discharge: Ready for Discharge D/C ready. Patient prefers [facility]. Referral sent. [facility] is unable to accept. Will obtain other choices from the patient for d/c today. Will follow for d/c planning needs. SIGNATURE: Shira Harris RN PATIENT NAME: Tyrel Ruffin DATE: April 29, 2018 TIME: 11:12 AM PAGER/CONTACT #: [phone] Referrals sent to [facility] [facility] per patient's preferences. Await response. [facility]-out of service area BASIC METABOLIC PANL Collected: 04/29/2018 Status: F Source: [place] 5:27 AM [facility] REPOSITORY TYPE CODE TESTS RESULT OUT OF REFERENCE UNITS RANGE LAB GLU 74-99 mg/dL High Glucose 111 Result Comment: The [place] Diabetes Association (ADA) provides guidance for cutoff values for fasting glucose and random glucose. The ADA defines fasting as no caloric intake for at least 8 hours. Fas ting plasma glucose results between 100 to 125 mg/dL indicate increased risk for diabetes (prediabetes). Fasting plasma glucose results greater than or equal to 126 mg/dL meet the criteria for diagnosis of diabetes. In the absence of unequivocal hyperglycemia, results should be confirmed by repeat testing. In a patient with classic symptoms of hyperglycemia or hyperglycemic crisis, random plasma glucose results greater than or equal to 200 mg/dL meet the criteria for diagnosis of diabetes. Reference: Standards of Medical Care in Diabetes 2016, [place] Diabetes Association. Diabetes Care. 2016.39(Suppl 1). LAB BUN 9-24 mg/dL BUN 19 LAB CRET 0.73-1.22 mg/dL Creatinine 1.22 LAB NA 136-144 mmol/L Sodium 141 LAB K 3.7-5.1 mmol/L Potassium Low 3.6 LAB CL 97-105 mmol/L Chloride 103 LAB CO2 22-30 mmol/L CO2 25 LAB AGAP 9-18 mmol/L Anion Gap 13 LAB CA 8.5-10.2 mg/dL Calcium, Total 9.5 LAB GFRAA eGFR- Amer. >60 LAB GFRNAA . eGFR-All Other Races 58 Result Comment: eGFR (Estimated GFR) Units of measure: mL/min/1.73 meters squared eGFR is derived from the reexpressed MDRD Study equation using the following parameters: serum creatinine, age, gender and race. The creatinine assay has been calibrated to be traceable to IDPR. An eGFR <60 mL/min/1.73m2 for >3 months is consistent with chronic kidney disease. Refer to KDOQI guidelines for clinical interpretation. In patients with unstable renal function, e.g. those with acute kidney injury, the eGFR may not accurately reflect actual GFR. Performed By: #### BMP, CBC #### [facility] [address], [place] [address] CBC Collected: 04/29/2018 Status: F Source: [place] 5:27 AM [facility] REPOSITORY TYPE CODE TESTS RESULT OUT OF REFERENCE UNITS RANGE LAB WBC 3.70-11.00 k/uL WBC 6.26 LAB RBC 4.20-6.00 m/uL RBC 5.11 LAB HGB 13.0-17.0 g/dL Hemoglobin 15.5 LAB HCT 39.0-51.0 % Hematocrit 46.9 LAB MCV 80.0-100.0 fL MCV 91.8 LAB MCH 26.0-34.0 pG MCH 30.3 LAB MCHC 30.5-36.0 g/dL MCHC 33.0 LAB RDWCV 11.5-15.0 % RDW-CV 13.7 LAB PLTCT 150-400 k/uL Platelet Count 185 LAB MPV 9.0-12.7 fL MPV 10.1 LAB ABSNUC <0.01 k/uL Absolute nRBC <0.01 Performed By: #### BMP, CBC #### [facility] [address] [place], [place] [id number] CNPN Observed: 04/29/2018 Status: COMPLETED Source: [place] 12:00 AM [facility] REPOSITORY Telephone (FAMPWS) TYREL RUFFIN ([id number]) 1940 M Date Time Provider Department 04/29/18 JOSE RAUL VELÁZQUEZ) FAMPWS During your visit today, we recorded the following information about you: Filiberto Chow PSR 04/29/2018 1:44 PM Signed Yesenia, from [facility], called to ask if Dr. Velázquez would follow up with home health care. The patient is in the process of getting discharged, but [facility] cannot accept care until a primary care doctor can follow up. Please give Yesenia a call back with an answer. Thanks Filiberto Chow PSR Jose Raul Velázquez MD 04/29/2018 2:06 PM Signed Will follow with home health care. Does patient have need for follow up at this time? Shannan Coe LPN, CORNELIUS 04/29/2018 2:19 PM Signed Spoke with Yesenia from [facility] She voices understanding.. She states there most likely is need to follow up . She will have hospital set up appointment to f/up. Jose Raul Velázquez MD 04/29/2018 2:24 PM Signed Ok, please schedule as available and obtain hospital records. Shannan Coe LPN, CORNELIUS 04/29/2018 3:22 PM Addendum We got records via fax pts discharge on 04/25 Looks as though was transferred to [facility] on 04/25/18. Placed records from [facility] in your inbox on desk. You had viewed these previously others should be in our system. Allergies As of Date: 04/29/2018 Noted Allergy Reaction AMOXACILLIN (AMOXICILLIN) 07/02/2017 1 - Mental Status Change CODEINE 01/07/2017 14 - Other: See Comments Comments: irregular heart beat Date Reviewed: 04/29/2018 Reviewed by: Kishan (Rn) DEEPTHI Smyth - Fully Assessed Reason for Visit: Hospital Discharge [414] Prescriptions as of 04/29/2018 Sig: AMLODIPINE 5 MG TABLET Take 1 tablet by mouth once d* ASPIRIN 81 MG TABLET,DELAYED * Take 81 mg by mouth once joel* ATORVASTATIN 20 MG TABLET Take 1 tablet by mouth once d* LEVETIRACETAM 750 MG TABLET Take 2 tablets by mouth twice* METOPROLOL SUCCINATE ER 100 M* Take 1 tablet by mouth once d* PHENYTOIN SODIUM EXTENDED 100* Take 1 capsule by mouth three* TRIAMCINOLONE ACETONIDE 0.1 %* Apply 1 application to affect* Problem List As Of Date 04/29/2018 Noted Resolved Aortic dissection (HCC) [I71.00] INVALID FOR* More... Atrial fibrillation, chronic (HCC) [I48.2] INVALID FOR* More... Hyperlipidemia [E78.5] INVALID FOR* More... Essential hypertension [I10] INVALID FOR* More... Word finding difficulty [R47.89] INVALID FOR*04/27/2018 More... AAA (abdominal aortic aneurysm) without rupture*INVALID FOR* More... More... Nonrheumatic aortic valve stenosis [I35.0] INVALID FOR* More... Atherosclerosis of [place] coronary artery witho*INVALID FOR* More... Intraparenchymal hemorrhage of brain (HCC) [I61*INVALID FOR*04/29/2018 More... Brain aneurysm [I67.1] INVALID FOR* Cerebral aneurysm, nonruptured [I67.1] INVALID FOR* History of cerebral hemorrhage [Z86.79] INVALID FOR* CVA (cerebral vascular accident) (HCC) [I63.9] INVALID FOR* More... 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 Encounter Status:Closed by FILIBERTO CALL on 04/29/18 PLAN OF CARE Observed: 04/28/2018 Status: COMPLETED Source: [place] 2:35 PM [facility] REPOSITORY HNO ID: [id number] Author: Carlos Do (Diesel Retrofit Installer) Service: (none) Author Type: (none) Type: Plan of Care Filed: 04/29/2018 12:03 PM Note Text: SPRAGGER BEDSIDE DELIVERY SURVEY 1. Patient to use [facility] Bedside Delivery - YES CABELLO CHECK 2. If fax, patient would like us to fax prescriptions to Pharmacy of choice a. Pharmacy: b. Location: c. Phone: 3. Insurance card on file - YES 4. Credit card for payment - N/A CABELLO CHECK FOR VIMPAT 100MG 60 TABLET/ 30 DAY SUPPLY CO-PAY AMT $752.00 WITH DISCOUNT CARD. CASE MANAGEM Observed: 04/28/2018 Status: COMPLETED Source: [place] 12:18 PM [facility] REPOSITORY HNO ID: [id number] Author: Tracy LoganAsszeb Cain Service: Care Management Author Type: Resource Center Field Support Technician Type: Care Mgt Progress Note Filed: 04/28/2018 12:19 PM Note Text: CARE MANAGEMENT PROGRESS NOTE SERVICE DATE: 04/28/2018 SERVICE TIME: 11:51 LOS: 3 days IM letter given to patient on 04/28/18. SIGNATURE: Asst Shayne PATIENT NAME: Tyrel Ruffin DATE: April 28, 2018 TIME: 12:18 PM PAGER/CONTACT #: [phone] PROGRESS Observed: 04/28/2018 Status: COMPLETED Source: [place] 9:34 AM [facility] REPOSITORY HNO ID: [id number] Author: Shannan Coe LPN Service: (none) Author Type: LICENSED NURSE Type: Progress Notes Filed: 04/29/2018 3:24 PM Note Text: pts number does not have voice mail set up as of yet.Wifes cell a message was left to return call to make hospital f/up appointment. Sent message to call for hospital follow up appointment via my chart. PROGRESS Observed: 04/28/2018 Status: COMPLETED Source: [place] 8:31 AM [facility] REPOSITORY HNO ID: [id number] Author: Marco Marques Service: Neurology General Author Type: Physician Type: Progress Notes Filed: 04/28/2018 3:49 PM Note Text: TEAM PROGRESS NOTE (GENERAL) NEUROLOGY SERVICE DATE: 04/28/2018 SERVICE TIME: 8:32 AM Subjective No seizures on BEM check overnight. Had a seizure yesterday morning around 5:30 am. Keppra increased to 1500 mg BID. Awake and oriented x3, denies visual symptoms MRI brain stable from prior scan in December Plan for Today: -continue BEM -continue Keppra 1.5 g BID, Vimpat 100 mg BID -anticipate d/c tomorrow if no seizures Current hospital medications: acetaminophen 650 mg tab(s) (TYLENOL) 650 mg ORAL/FEEDING TUBE q 4 H PRN aspirin 300 mg suppository 300 mg RECTAL DAILY aspirin 81 mg chewable tab(s) 81 mg ORAL/FEEDING TUBE DAILY atorvastatin 20 mg tab(s) (LIPITOR) 20 mg ORAL/FEEDING TUBE AT BEDTIME dextrose 40 % 15 g 15 g ORAL PRN dextrose 50 % 12.5 g injection 12.5 g INTRAVENOUS PRN glucagon 1 mg injection (GLUCAGEN) 1 mg INTRAMUSCULAR PRN heparin 5,000 Units injection 5,000 Units SUBCUTANEOUS q 8 H insulin lispro injection (rapid acting) (HumaLOG) SUBCUTANEOUS w MEALS AND HS iv contrast (radiology procedure) INTRAVENOUS DIRECTED PRN lacosamide 100 mg tab(s) (VIMPAT) 100 mg ORAL BID levETIRAcetam 1,500 mg tab(s) (KEPPRA) 1,500 mg ORAL BID metoprolol 2.5 mg injection (LOPRESSOR) 2.5 mg INTRAVENOUS q 4 H PRN metoprolol tartrate (short acting) 50 mg tab(s) (LOPRESSOR) 50 mg ORAL q 12 H VITAL SIGNS 24 HOUR REVIEW: BP 143/77 Pulse 75 Temp 36.6 ?C (97.8 ?F) (Oral) Resp 18 Ht 175.3 cm (5' 9.02) Wt 79.9 kg (176 lb 2.4 oz) SpO2 97% BMI 26.00 kg/m? Objective General:awake/easily arousable and no acute distress. CV: RRR Lungs: clear to auscultation. Neurological: ? Mental Status: Alert, oriented to person, place and time and Follows commands. ? Cranial Nerves: PERRL, visual collins intact to confrontation, extraocular movements intact, facial sensation intact, face symmetric, no facial droop or ptosis, hearing intact to finger rub bilaterally, no dysarthria, palate elevate symmetrically, tongue protrudes midline and shoulder shrug intact and symmetric. ? Motor: muscle strength 5/5 both upper and lower extremities. ? Reflexes: Reflexes slightly brisker on R ? Sensation: intact to light touch ? Coordination: Finger-to- nose-finger intact bilaterally. ? Gait: deferred LABS/DATA: CBC, Coags, BMP, Mg, Phos Recent Labs 04/28/18 0637 04/27/18 0314 04/25/18 2235 WBC 6.06 5.03 5.86 HB 15.7 14.6 14.3 HCT 47.0 43.9 42.5 PLT 174 159 168 INR -- -- 1.0 APTT -- -- 29.1 NA -- 141 142 K -- 4.2 3.9 CHLOR -- 106* 104 CO2 -- 24 27 BUN -- 17 14 CREAT -- 1.14 1.23* GLUC -- 92 97 CA -- 8.5 8.8 MG -- 2.2 2.2 P -- -- 3.3 DATA: Diagnostic tests reviewed for today's visit: Most recent labs and imaging results. Assessment/Plan Medication and Non-Pharmacologic VTE Prophylaxis/Anticoagulants Anticoagulant AND Antiplatelet Medications Start Dose Route Frequency Ordered Stop 04/26/18 0900 aspirin 81 mg chewable tab(s) (asprin non- enteric coated 81mg ORAL OR 300mg WV) 81 mg PO/FT DAILY 04/25/18 1902 -- 04/25/18 2000 heparin 5,000 Units injection (Medical At Risk ) 5,000 Units SUBCUTANEOUS EVERY 8 HOURS 04/25/18 1859 -- 04/26/18 0615 pneumatic compression stockings ([place]) 04/25/18 1900 activity - mobilize patient ([place]) VTE Prophylaxis: VTE prophylaxis appropriate 77 year old male with PMHx 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 CT brain/CTA unremarkable at OSH. EEG with left parietal occipital seizures, last seizure on 04/26. Active Hospital Problems as of 04/28/2018 Noted - Resolved Hospital Aortic dissection ([facility]) 01/07/2017 - Present Current Assessment AND Plan 2017 Assessment: stable PLAN: -No anticoagulation due to increased bleeding risk Atrial fibrillation, chronic ([facility]) 01/07/2017 - Present Current Assessment AND Plan CHADS-VASc 4 PLAN: -No AC due to history of ICH -ASA 81 -metoprolol 50 mg BID * (Principal)CVA (cerebral vascular accident) ([facility]) 04/25/2018 - Present Current Assessment AND Plan History of 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 Rodriguez Assessment: Stable PLAN: -Repeat MRI brain when seizures are under control -Lipitor 80 -ASA 81 Intraparenchymal hemorrhage of brain ([facility]) 05/10/2013 - Present Current Assessment AND Plan Assessment: -2/2 aneurysm rupture PLAN: -Repeat MRI brain Seizure as late effect of cerebrovascular accident (CVA) ([facility]) 04/25/2018 - Present Current Assessment AND Plan Two episodes of seizure-like activity witnessed at OSH ED First episode preceded by technicolor vision in R peripheral visual field Patient has no recollection of episodes +Tongue bite wound Last seizure 5 am 04/27 PLAN: -Seizure precautions -EEG monitoring -Continue Keppra 1.5 g bid, Vimpat 100 mg BID QUALITY CHECKLIST Current indwelling catheters/lines: None. Current rodriguez catheter status: None. Current restraint orders: None After 5pm and on weekends, please page [phone] ([phone]) to contact the General Neurology Resident [employer] Dyer. SIGNATURE: Marya Benjamin MD PATIENT NAME: Tyrel Ruffin DATE: April 28, 2018 TIME: 8:32AM PAGER/CONTACT #: [phone] Attending note: I have seen and examined Mr. Tyrel Ruffin with Dr. Benjamin and I fully agree with the outlined assessment and plan. Doing well. Alert. Following commands. Await BEM reading. Possibly discharge tomorrow. Marco Marques MD, PhD [facility] [place] [address] CBC Collected: 04/28/2018 Status: F Source: [place] 6:37 AM [facility] REPOSITORY TYPE CODE TESTS RESULT OUT OF REFERENCE UNITS RANGE LAB WBC 3.70-11.00 k/uL WBC 6.06 LAB RBC 4.20-6.00 m/uL RBC 5.18 LAB HGB 13.0-17.0 g/dL Hemoglobin 15.7 LAB HCT 39.0-51.0 % Hematocrit 47.0 LAB MCV 80.0-100.0 fL MCV 90.7 LAB MCH 26.0-34.0 pG MCH 30.3 LAB MCHC 30.5-36.0 g/dL MCHC 33.4 LAB RDWCV 11.5-15.0 % RDW-CV 13.4 LAB PLTCT 150-400 k/uL Platelet Count 174 LAB MPV 9.0-12.7 fL MPV 10.3 LAB ABSNUC <0.01 k/uL Absolute nRBC <0.01 Performed By: #### CBC, BMP #### [place] [address] BASIC METABOLIC PANL Collected: 04/28/2018 Status: F Source: [facility] 6:37 AM [facility] REPOS[facility] TYPE CODE TESTS RESULT OUT OF REFERENCE UNITS RANGE LAB GLU 74-99 mg/dL Glucose 89 Result Comment: The [place] Diabetes Association (ADA) provides guidance for cutoff values for fasting glucose and random glucose. The ADA defines fasting as no caloric intake for at least 8 hours. Fas ting plasma glucose results between 100 to 125 mg/dL indicate increased risk for diabetes (prediabetes). Fasting plasma glucose results greater than or equal to 126 mg/dL meet the criteria for diagnosis of diabetes. In the absence of unequivocal hyperglycemia, results should be confirmed by repeat testing. In a patient with classic symptoms of hyperglycemia or hyperglycemic crisis, random plasma glucose results greater than or equal to 200 mg/dL meet the criteria for diagnosis of diabetes. Reference: Standards of Medical Care in Diabetes 2016, [place] Diabetes Association. Diabetes Care. 2016.39(Suppl 1). LAB BUN 9-24 mg/dL BUN 16 LAB CRET 0.73-1.22 mg/dL Creatinine 1.15 LAB NA 136-144 mmol/L Sodium 141 LAB K 3.7-5.1 mmol/L Potassium 3.8 LAB CL 97-105 mmol/L Chloride 102 LAB CO2 22-30 mmol/L CO2 26 LAB AGAP 9-18 mmol/L Anion Gap 13 LAB CA 8.5-10.2 mg/dL Calcium, Total 9.5 LAB GFRAA eGFR- Amer. >60 LAB GFRNAA . eGFR-All Other Races >60 Result Comment: eGFR (Estimated GFR) Units of measure: mL/min/1.73 meters squared eGFR is derived from the reexpressed MDRD Study equation using the following parameters: serum creatinine, age, gender and race. The creatinine assay has been calibrated to be traceable to IDMS. An eGFR <60 mL/min/1.73m2 for >3 months is consistent with chronic kidney disease. Refer to KDOQI guidelines for clinical interpretation. In patients with unstable renal function, e.g. those with acute kidney injury, the eGFR may not accurately reflect actual GFR. Performed By: #### CBC, BMP #### [facility] [address] [place], [place] [address] MRI BRAIN WO/W Observed: 04/27/2018 Status: F Source: [place] IVCON 8:00 PM [facility] REPOSITORY * * *Final Report* * * DATE OF EXAM: Apr 27 2018 8:00PM QBM 0295 - MRI BRAIN WO/W IVCON / PROCEDURE REASON: Seizure, new, nontraumatic, >40 yrs * * * * Physician Interpretation * * * * EXAMINATION: MRI BRAIN WO/W IVCON CLINICAL HISTORY: Seizure. TECHNIQUE: Routine brain MRI protocol without and with contrast including diffusion images. MQ: [id number] Contrast: 16 mL Dotarem IV COMPARISON: Prior MRI brain dated 12/24/2017. Prior CT head dated 12/24/2017. RESULT: Acute Change: There is no evidence of restricted diffusion to suggest an acute infarct. Hemorrhage: Areas of susceptibility in the left parietal lobe and left parietal cortex likely reflects old hemorrhage in the area of encephalomalacia. Mass Lesion/ Mass Effect: No evidence of an intracranial mass or extra-axial fluid collection. No significant mass effect. Chronic Change: Old left parietal infarct. Mild chronic microvascular ischemic changes. Stable enhancement in the left parietal region adjacent to the area of infarct may represent a confluence of distended cortical veins or an area of granulation. Parenchyma: No significant volume loss for age. The brain parenchyma is otherwise within normal limits of signal intensity and morphology. Ventricles: Stable ex vacuo prominence of the dorsal aspect of the left lateral ventricle. Skull Base: Hypothalamic and pituitary region are grossly normal. Craniocervical junction is normal. No significant marrow replacement process. Vasculature: Major intracranial arterial structures, and dural venous sinuses show typical flow void, suggesting patency by spin echo criteria. Other: The visualized paranasal sinuses and mastoid air cells are clear. The orbits and extracranial soft tissues are unremarkable. IMPRESSION: Old left parietal infarct with associated old hemorrhage. Mild chronic microvascular ischemic changes. No significant interval change in imaging appearance of the brain since prior study dated 12/24/2017. Alarm Operator: PSCB Transcribe Date/Time: Apr 27 2018 8:10P Dictated by : GRAYSON WORKMAN MD This examination was interpreted and the report reviewed and electronically signed by: GRAYSON WORKMAN MD on Apr 27 2018 8:16PM EST [id number] ALLIED HEALTH Observed: 04/27/2018 Status: COMPLETED Source: [place] 7:50 PM [facility] REPOSITORY HNO ID: [id number] Author: Pauline Payne (Rt) Service: Radiology Author Type: Spring Intern Type: Allied Health Filed: 04/27/2018 7:51 PM Note Text: Radiology Service Progress Note PATIENT NAME: Tyrel Ruffin DATE OF SERVICE: April 27, 2018 TIME: 7:50 PM PATIENT IDENTITY VERIFICATION COMPLETED USING TWO (2) METHODS: Patient confirmed name verbally and ID band matches.. PATIENT GENDER DATA: Male PATIENT RELEVANT IMPLANT DATA REVIEWED: Yes RADIOLOGY DEPARTMENT: MR; Exam(s) Completed: Head: Routine Brain PERIPHERAL IV DATA: Inpatient: see LDA documentation SIGNED BY: RT Jackelin/ YWILL April 27, 2018 7:50 PM NURSING PROG Observed: 04/27/2018 Status: COMPLETED Source: [place] 7:25 PM [facility] REPOSITORY HNO ID: [id number] Author: Koby LoganRnYovana Hargrove RN Service: Radiology Author Type: Registered Nurse Type: Nursing Progress Note Filed: 04/27/2018 7:26 PM Note Text: Radiology Service Progress Note PATIENT NAME: Tyrel Ruffin DATE OF SERVICE: April 27, 2018 TIME: 7:26 PM PATIENT WEIGHT: 176 LBS PATIENT IDENTITY VERIFICATION COMPLETED USING TWO (2) METHODS: Patient confirmed name verbally and ID band matches.. PATIENT GENDER DATA: Male CONTRAST INDUCED NEPHROPATHY RISK FACTORS: Patient age > 60 years CREATININE: Creatinine Date Value Ref Range Status 04/27/2018 1.14 0.73 - 1.22 mg/dL Final 04/25/2018 1.23 (H) 0.73 - 1.22 mg/dL Final 12/23/2017 1.27 (H) 0.73 - 1.22 mg/dL Final eGFR-All Other Races Date Value Ref Range Status 04/27/2018 >60 . Final Comment: eGFR (Estimated GFR) Units of measure: mL/min/1.73 meters squared eGFR is derived from the reexpressed MDRD Study equation using the following parameters: serum creatinine, age, gender and race. The creatinine assay has been calibrated to be traceable to IDPR. An eGFR <60 mL/min/1.73m2 for >3 months is consistent with chronic kidney disease. Refer to KDOQI guidelines for clinical interpretation. In patients with unstable renal function, e.g. those with acute kidney injury, the eGFR may not accurately reflect actual GFR. eGFR- Date Value Ref Range Status 04/27/2018 >60 Final P.O.C.T. RESULTS: N/A April 27, 2018 TREATMENT: No Hydration needed. ALLERGIES: Reviewed and unchanged CONTRAST ALLERGY: NO. IV SITE: Inpatient - refer to LDA documentation IV SITE APPEARANCE: Clean,Dry and Intact SIGNED BY: Koby Hargrove RN April 27, 2018 7:26 PM NURSING PROG Observed: 04/27/2018 Status: COMPLETED Source: [place] 6:08 PM [facility] REPOSITORY HNO ID: [id number] Author: Dorina Llanes) DEEPTHI Richards Service: (none) Author Type: Registered Nurse Type: Nursing Progress Note Filed: 04/27/2018 6:39 PM Note Text: Nursing Progress Note Patient Name: Tyrel Ruffin Patient Location: [place] [id number] Transfer Note: Patient transferred into room/unit h60-17 in stable condition. Actions taken: No futher actions taken at this time. Will continue to monitor and check with patient. This note was completed by: Dorina Richards RN CASE MGT INIT Observed: 04/27/2018 Status: COMPLETED Source: [facility] 3:58 PM [facility] REPOSITORY HNO ID: [id number] Author: Carolyn Winters (Sw) Service: Care Management Author Type: Aviation Operations Specialist Type: Care Mgt Initial Assessment Filed: 04/27/2018 4:04 PM Note Text: CARE MANAGEMENT: ASSESSMENT AND DISCHARGE PLAN SERVICE DATE: 04/27/2018 SERVICE TIME: 3:30pm PRIMARY CARE PHYSICIAN: Jose Raul Velázquez MD ADMISSION STATUS: Inpatient Needs Prior to Discharge: Other: See Comment (accepting HHC agency) MEDICAL: Patient/Reuse Technician Stated Goals: To return home to life as it was Health Insurance: MEDICARE A AND B Medicare Health Issues Impacting Discharge Plan: Last Admission Date: Previous admit date: 08/30/2017 Is this Within the Past 30 days? No Advance Directive: Current Advance Directive: Health Care Power of Silk Worker In Chart: Yes Up To Date and Valid: Yes Health Literacy: 1. How often do you need to have someone help you when you read instructions, pamphlets, or other written material from your doctor or pharmacy? Never - 1 2. How confident are you filling out medical forms by yourself? Extremely - 1 If Patient scores > 3 on either question, the following interventions were put into place: Patient did not score > 3 FUNCTIONAL AND COGNITIVE/BEHAVIORAL PRIOR TO ADMISSION: Baseline Mental Status: Alert AND Oriented, Person, Place , Time and Situation Functional Status: Independent Does Patient Currently Receive Any Community Services or Home Care? None Equipment Prior to Admission: None Has the Patient Been in a Half-Way Facility in the Past 30 days? No SOCIAL: Living Arrangement: Home Lives With: Spouse and minor DTR Financial Resources: Retired Primary Contact: Extended Emergency Contact Information Primary Emergency Contact: AugustinJulia Address: [address] [place] [address] [facility] Mobile Relation: Spouse Supportive: Yes Other Important Patient Contacts: None Caregiver Assessment: Caregiver is ready, willing and able to meet the patient's needs as recommended by the inter-professional team? Pt anticipated to d/c home with [facility] PT and OT Patient's transition needs and plan for meeting these needs: Pt resides with his and minor DTR. Plan for pt to d/c home with [facility] PT and OT services Does the patient have an acute stroke diagnosis, or has the patient had a stroke during this admission? No Medication Adherence: I am convinced of the importance of my prescription medication: Agree completely - 0 I worry that my prescription medication will do more harm than good to me Disagree completely - 0 I feel financially burdened by my [id number] expenses for my prescription medication: Disagree completely - 0 Patient is categorized as low risk < 2 Are you interested in bedside delivery of your medications? Yes Food Concerns: In the Last Month, Have You had Trouble Getting Food? No trouble getting food During the Last Month, Have You Worried Whether Your Food Would Run Out Before You Had Enough Money to Buy More? No Is the Patient Psychosocially Complex? No ASSESSMENT AND PLAN: Medical Needs: 2 or more chronic diseases and Stroke/Cognitive defects Psychosocial Needs: None FREEDOM OF CHOICE EXPLAINED: Yes Pt and pt Financial Disclosure Provided The patient and/or family has been given the Provider List: Yes Provider List: Home Care Preference: pending [employer] Home OT/PT Pt admitted from home for post-stroke seizures. Pt has hx ICH 2/2 aneurysm rupture. On BEM. Pt resides with his and minor DTR. 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 PT and OT rec home with [facility] PT and OT. HC order in place. SW discussed importance of patient preferences and freedom of choice with patient and left [facility] list for patient to review on own. Awaiting [facility] agency preferences. Floor CM to continue to follow. SIGNATURE: TIEN Patel PATIENT NAME: Tyrel Ruffin DATE: April 27, 2018 TIME: 3:58 PM PAGER/CONTACT #: [phone] THERAPY NT Observed: 04/27/2018 Status: COMPLETED Source: [place] 3:26 PM [facility] REPOSITORY HNO ID: [id number] Author: Natividad (Property Claims Adjuster) Karlos Service: Speech/Swallow Author Type: Speech Language Pathologist Type: Therapy (PT/OT/Speech/Resp) Filed: 04/27/2018 3:43 PM Note Text: Speech Pathology - [facility] Speech Evaluation SERVICE DATE: 04/27/2018 ROOM: [place] [id number]/[id number]- IMPRESSIONS: Pt presents with mildly decreased expressive skills, which may be residual deficits from h/o ICH 2/2 aneurysm rupture, suspect pt may be close to baseline level of function. LOWER SIOUX status impacts ability to process information with need for repetition at times. Slight delay with word retrieval, yet pt states this has been the case since ICH, as well as memory difficulties. PROGNOSIS: Good for continued level of function to express basic needs/wants/family interaction for ADLs contexts. RECOMMENDATIONS: No further follow up needed. PLAN: Will monitor, yet it appears the pt will not need interventions. Natividad Everett MA CCC/REGULATORY INTERNSHIP Pager # [phone] BRIEF DIAGNOSIS AND HISTORY: This is a 77 year old male with h/o ICH 2/2 aneurysm rupture, afib (not on AC), former aortic dissection who presents with headache and language disturbance, had witnessed seizure-like activity x 2 in OSH ED, given Ativan and started on Keppra prior to transfer to [facility]. CT brain/CTA unremarkable at OSH; impression most concerning for seizure. ? Patient's history is most consistent with new-onset seizure possibly 2/2 encephalomalacia. His fluctuating symptoms in absence of vessel stenosis or BP variability does not fit well with a vascular etiology. His positive visual phenomenon and lack of weakness during episodes are also more consistent with seizure activity. PAST MEDICAL HISTORY Diagnosis Date - AAA (abdominal aortic aneurysm) ([facility]) - Aortic dissection distal to left subclavian ([facility]) - Aortic stenosis severe, s/p TAVR - Atrial fibrillation ([facility]) 2011 Dr. 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 - Scalp psoriasis PAST SURGICAL HISTORY Procedure Laterality Date - PAST SURGICAL HISTORY OF 10/2017 TAVR - TONSILLECTOMY HX BEHAVIORAL OBSERVATIONS: Alert, Cooperative PRESENT FEEDING METHOD: Oral Diet Level: Regular Diet with thin liquids Dentition: Adequate Tracheostomy: No O2: Room Air ORAL MECHANISM EVALUATION: Did not assess this date. SPEECH PRODUCTION: Pt is able to speak at conversation levels, with occasional hesitancies in word retrieval, grossly funcitonal. TESTS ADMINISTERED: Portions of the Western Aphasia Battery (WAB), as well as informal measures of speech-language skills for this session. RECEPTIVE LANGUAGE AUDITORY COMPREHENSION Points to Pictures, Objects, AND Body Parts: Did not test Answers Yes / No Questions: Within Functional Limits Follows 1 Step Commands: Within Functional Limits Follows 2 Step Commands: Did not test Conversation Level: Within Functional Limits READING COMPREHENSION Symbol Discrimination: Did not test Object Picture Recognition: Did not test Scanning (Neglect): Did not test Word recognition: Did not test Phrase level: Did not test Sentence level: Did not test Paragraph level: Did not test EXPRESSIVE LANGUAGE VERBAL EXPRESSION Automatic Speech: Within Functional Limits Repetition / Imitation: Did not test Sentence Completion: Within Functional Limits Word Fluency: Impaired- slight, with 12 members generated in a one minute timed trial Responsive Naming: Impaired- slight, mildly decreased response onset time Confrontational Naming: Within Functional Limits Answers Questions: Impaired- mild difficulty with more open ended stimuli, fully functional for brief responses per the WAB stimuli, 5/5 accuracy. Conversational Discourse: Impaired- mildly decreased with need for additional processing time for response onset, yet this may be baseline given pt report of difficulty post ICH. LOWER SIOUX status impacts fluency of interaction at conversational levels. Nonverbal Expression: Within Functional Limits WRITTEN LANGUAGE Signature / Address: Did not test Copies Shapes AND Words: Did not test Writes to Dictation: Did not test Generative Writing: Did not test Results and Recommendations were discussed with: Pt, nursing, family arriving at end of visit. SIGNATURE: Natividad Everett MA CCC/REGULATORY INTERNSHIP PATIENT NAME: Tyrel Ruffin DATE: April 27, 2018 TIME: 3:26 PM PAGER: [phone] LEAD ELECTROCARDIOGRAM Observed: 04/27/2018 Status: F Source: [place] 3:09 PM [facility] REPOSITORY [place] [facility] [address] [place] [id number] Lead EKG 04/24/18 1414 MR#: [id number] Acct: [id number] Name: TYREL RUFFIN Rep #: [id number] : 1940 77 From: Nathaniel Villafuerte MD Attending Dr: Billy Morales MD Status: DIS IN Ordering Dr: Mike Regan MD Date: 04/24/18 Location: ICU Sex: M C Admitted: 04/24/18 Test Reason : NEURO SYMPTOMS Blood Pressure : / mmHG Vent. Rate : 093 BPM Atrial Rate : 100 BPM P-R Int : 000 ms QRS Dur : 066 ms QT Int : 324 ms P-R-T Axes : 000 072 033 degrees QTc Int : 402 ms Atrial fibrillation Septal infarct , age undetermined Abnormal ECG Confirmed by NATHANIEL VILLAFUERTE MD ([id number]), news videotape editor SPENCER BRIGHT ([id number]) on 04/27/2018 3:09:10 PM Referred By: KATHY Confirmed By:NATHANIEL VILLAFUERTE MD 04/27/18 1509 Date Nathaniel Villafuerte MD CC: Kasi Velázquez MD; Billy Morales MD; Mike Regan MD Signed PROGRESS Observed: 04/27/2018 Status: COMPLETED Source: [place] 2:47 PM [facility] REPOSITORY HNO ID: [id number] Author: Shannan Santillan) CORNELIUS Coe Service: (none) Author Type: LICENSED NURSE Type: Progress Notes Filed: 04/29/2018 3:24 PM Note Text: 0did reach wifes cell Left message for her to return call concerning tcm. PROGRESS Observed: 04/27/2018 Status: COMPLETED Source: [place] 2:04 PM [facility] REPOSITORY HNO ID: [id number] Author: Shannan Clark (Cornelius) CORNELIUS Coe Service: (none) Author Type: LICENSED NURSE Type: Progress Notes Filed: 04/29/2018 3:24 PM Note Text: Attempted to contact pt voice mail is not set up yet. Will need to try again. THERAPY NT Observed: 04/27/2018 Status: COMPLETED Source: [place] 1:25 PM [facility] [place] REPOSITORY HNO ID: [id number] Author: Corinne (Ot/L) Pierre Part Service: Occupational Therapy Author Type: Occupational Therapist Type: Therapy (PT/OT/Speech/Resp) Filed: 04/27/2018 1:34 PM Note Text: Occupational Therapy Evaluation SERVICE DATE: 04/27/2018 SERVICE TIME: 910 to 948 ROOM: [place] [address] Recommended Discharge Disposition: Home OT Anticipated Discharge Needs: Physical Assist at Home;Supervision at Home Physical Assist at Home for: Medication Management (heavy chores) Recommended Discharge Equipment: No equipment needs anticipated OT Recommendations to Nursing: To Bathroom for ADL?s /and or Toileting;OOB for meals;With assist of 1 person OT 6 Clicks Score: 20 Precautions/Activity Restrictions: Fall Risk;Lines/Tubes/Drains ASSESSMENT: 77 year old male with 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 CT brain/CTA unremarkable at OSH; impression most concerning for seizure. Pt has mild expressive language deficits and cognitive deficits (pt reports the cog deficits are baseline from aneurysm). Pt demonstrated safe functional mobility but required min verbal cues for sequencing during ADLs. Anticipate pt will be safe to d/c home with spouse's assist PRN and supervision due to decreased safety awareness and impaired cognition (need for verbal cues during self-care tasks). Recommend home OT at d/c to maximize functional independence. Patient Disposition at Start of Session: Supine in Bed;Call Solorio in Reach Patient Disposition at End of Session: Supine in Bed;Call Solorio in Reach Tolerated Full Session Occupational Therapy Problem List: Cognitive Deficit;Education Deficit;Safety Deficits;Impaired Self Care;Functional Mobility Impairment Patient /Caregiver Goals: Go Home Goals for Plan of Care: Grooming with: Modified Independent Upper Body Bathing with: Modified Independent Upper Body Dressing with: Modified Independent Lower Body Bathing with: Modified Independent Lower Body Dressing with: Modified Independent Demonstrate Competence With Education with: Modified Independent Increased Awareness of Cognitive Impairments as Related to ADL's/IADL's: Demonstrated Progress Toward Goals: Progressing as expected Rehab Potential: Good PLAN: Treatment Frequency (times per week): 3 Current admission Treatment Interventions: Education;Self Care / Home Management;Energy Conservation Training;Functional Mobility Training;Cognitive Training;Balance Training Plan of Care developed with: Patient TREATMENT INTERVENTIONS: Therapy Diagnosis: Decreased activities of daily living (ADL);Signs and Symptoms Involving Cognitive Functions and Awareness Interventions Provided: Evaluation;Self Long Term Management (39120);Cognitive Training (58435 or G0515) $ Evaluation-Low (19425) Billed Units: 1 unit Self Long Term Management (43158) Treatment Minutes: 15 1 unit Skilled Intervention(s): Instructions for safe ADLs and encouraged promoting independence with self care including: -Provided min A and cuing for hand/oral hygiene while standing to complete at sink. Pt attempted to squeeze toothpaste into cup instead of toothbrush. -Cues and supervision for sequencing in hygiene tasks -Additional time provided and encouragement for taking frequent rest breaks, maintaining awareness of body's response to physical exertion during ADLs, and coordinating rest breaks/therapeutic breathing appropriately. ? Cognitive Training (G0515) Treatment Minutes (2018 Only): 8 $ Cognitive Training (G0515) Billed Units (2018 Only): 1 unit Skilled Intervention(s): Administered short blessed test with performance documented in assessment, patient educated on purpose of and results of assessment. Mod verbal cues for safety awareness and sequencing during ADL tasks. Total Timed Code Treatment Minutes: 23 Total Treatment Time (minutes): 38 FUNCTIONAL G CODE: OT 6 Clicks Score: 20 (04/27/18910) Self Care Current Status (G8987): CJ (04/27/18910) Self Care Goal Status (G8988): CI (04/27/18910) Based on clinical assessment and the score on the 6 Clicks Functional Assessment Tool, the G code and corresponding severity modifiers are documented above. 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 CT brain/CTA unremarkable at OSH; impression most concerning for seizure. 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 What Year Is It Now?: Incorrect 2. What Month Is It Now?: Correct 3. What Time is it? (WIthin 1 hour): Correct 4. Count Aloud Backwards 20 to 1 (Errors): 0 5. Months of the Year in Reverse Order (Errors): 2 6. Memory Phrase (Errors) : 5 Short Blessed Final Score: 18 CURRENT FUNCTIONAL STATUS: Current Activities of Daily Living Assist Level Feeding Set Up Grooming Minimal Assistance Bathing Upper Body Minimal Assistance Bathing Lower Body Minimal Assistance Dressing Upper Body Set Up Dressing Lower Body Set Up Toileting Supervision Functional Mobility Assist Level Rolling Supervision Supine to Sit Supervision Sit to Supine Supervision Scooting Supervision Sit to Stand Contact Guard Assistance Stand to Sit Contact Guard Assistance Bed to Chair Toilet/Commode Functional Mobility Contact Guard Assistance Wheeled Walker Please see discipline specific clinical documentation flowsheet for complete details for this therapy evaluation/treatment. SIGNATURE: Corinne Randhawa OT/L PATIENT NAME: Tyrel Ruffin DATE: April 27, 2018 TIME: 1:25 PM THERAPY NT Observed: 04/27/2018 Status: COMPLETED Source: [place] 10:56 AM [facility] [place] REPOSITORY HNO ID: [id number] Author: Lidia (Pt) Elo Service: Physical Therapy Author Type: Physical Therapist Type: Therapy (PT/OT/Speech/Resp) Filed: 04/27/2018 11:02 AM Note Text: Physical Therapy Treatment SERVICE DATE: 04/27/2018 SERVICE TIME: 1013 to 1042 ROOM: [place] [address] Recommended Discharge Disposition: Home PT Recommended Discharge Disposition Comments: Justification For Post Acute Needs: Anticipated community discharge Anticipated Discharge Needs: Physical Assist at Home Physical Assist at Home for: Ambulation;Laundry;Cleaning;Stairs;Safety;Shopping;Transportation;Medicatio n Management Recommended Discharge Equipment: No equipment needs anticipated PT Recommendations to Nursing: Ambulate with device;To bathroom;With assist of 1 person Device: Wheeled Walker PT 6 Clicks Score: 20 Precautions/Activity Restrictions: Fall Risk;Seizure;Lines/Tubes/Drains ASSESSMENT : Patient presents with improved gait stability vs. Performance yesterday with single to no upper extremity support. Occasional minimal assistance steadying on turns. Increased postural sway noted with static stance with normal base of support and narrow base of support. Spoke with patient's spouse on the phone who provided information regarding home set up; patient has 10 steps to enter with handrail, has wheeled walker and cane, and will have 24 hour assist. Notified patient's spouse that patient currently requires minimal assistance for mobility. Requires skilled PT in home setting to maximize safety with progression to outpatient as appropriate to facilitate return to prior level of function. Patient Disposition at Start of Session: Supine in Bed;Bed Alarm;Call Solorio in Reach;SCDs Patient Disposition at End of Session: OOB in Chair;SCDs;Call Solorio in Reach (nurse aware and reinforced fall precautions) Tolerated Full Session Physical Therapy Problem List: Cognitive Deficit;Safety Deficits;Functional Mobility Impairment;Balance Impaired Patient /Caregiver Goals: Go Home Goals for Plan of Care: Transfer supine to/from sit with: Modified Independent Transfer sit to/from stand with: Modified Independent Ambulate with: Modified Independent Distance: 300 ft Device: No Device Ambulate up and down steps with: Modified Independent Number of steps: 12 Device: Rail Rehab Potential: Good PLAN: Treatment Frequency (times per week): 3 Current admission Treatment Interventions: Education;Functional Mobility Training;Balance Training;Neuromuscular Re-education Plan of Care developed with: Patient TREATMENT INTERVENTIONS: Therapy Diagnosis: Abnormalities of gait and mobility-other Interventions Provided: Gait Training (17535);Neuromuscular Reeducation (00446) Gait Training (03933) Treatment Minutes: 15 1 unit Skilled Intervention(s): Instruction in sit to stand technique with proper hand placement and body positioning at edge of bed/chair. Cues for safe timing to allow for management of monitors and line. Instruction in stand to sit technique with LE's touching chair/bed and reaching back for surface Instruction in correction of gait deviations. Cues for progression from use of IV pole to no assistive device with mostly contact guard assist/occasional minimal assistance. Cues for direction, safe base of support, and obstacle negotiation. Instruction for step up/down x 6 reps with contact guard assist. Cues for use of handrail. Cues for safety with attention to line. Patient/spousal education regarding discharge recommendations, benefits of home physical therapy, benefits of use of cane for balance corrections, fall precautions, safety considerations, and plan of care. Neuromuscular Re-Education (76171) Treatment Minutes: 10 1 unit Skilled Intervention(s): Instruction for static and dynamic balance challenges including romberg, sharpened romberg, tandem stances, gait with head turns/nods, gait with changing speed/stopping, and gait with turn and stop. Minimal assistance for steadying. Total Timed Code Treatment Minutes: 25 Total Treatment Time (minutes): 29 FUNCTIONAL G CODE: PT 6 Clicks Score: 20 (04/27/18 1013) Mobility: Walking and Moving Around Current Status (G8978): CK (04/26/18 1501) Mobility: Walking and Moving Around Goal Status (G8979): CJ (04/26/18 1501) Based on clinical assessment and the score on the 6 Clicks Functional Assessment Tool, the G code and corresponding severity modifiers are documented above. 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 Patient referring to visual disturbance. 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 OBJECTIVE: CURRENT FUNCTIONAL STATUS: Current Functional Mobility Assist Level Additional Information Rolling Supine to Sit Supervision Sit to Supine Contact Guard Assistance Scooting Sit to Stand Contact Guard Assistance Stand to Sit Contact Guard Assistance Bed to Chair Toilet/Commode Gait Minimal Assistance Gait Device: IV Pole;None Gait Distance (feet): 150 ft Stairs Contact Guard Assistance Stairs Device: Rail Number of Stairs: 6 Curb Step Car Transfer General Gait Deviations: Ashia decreased;Lateral sway increased;Difficulty changing direction/turning Balance: Dynamic Standing Dynamic Standing Balance: Minimal Assistance -HLM: 7: Walk 25 feet or more Please see discipline specific clinical documentation flowsheet for complete details for this therapy evaluation/treatment. SIGNATURE: Lidia Gasca PT PATIENT NAME: Tyrel Ruffin DATE: April 27, 2018 TIME: 10:56 AM PROGRESS Observed: 04/27/2018 Status: COMPLETED Source: [place] 8:39 AM [facility] REPOSITORY O ID: [id number] Author: Marco Marques Service: Neurology General Author Type: Physician Type: Progress Notes Filed: 04/27/2018 12:54 PM Note Text: TEAM PROGRESS NOTE (GENERAL) NEUROLOGY SERVICE DATE: 04/27/2018 SERVICE TIME: 8:40 AM Subjective No seizures on BEM check overnight. Prelim BEM report pending. Awake and oriented x3 today. Does not remember much of yesterday. VSS Plan for Today: -continue BEM -continue Keppra 1g BID, Vimpat 100 mg BID -convert AEDs to PO Current hospital medications: acetaminophen 650 mg tab(s) (TYLENOL) 650 mg ORAL/FEEDING TUBE q 4 H PRN aspirin 300 mg suppository 300 mg RECTAL DAILY aspirin 81 mg chewable tab(s) 81 mg ORAL/FEEDING TUBE DAILY atorvastatin 20 mg tab(s) (LIPITOR) 20 mg ORAL/FEEDING TUBE AT BEDTIME dextrose 40 % 15 g 15 g ORAL PRN dextrose 50 % 12.5 g injection 12.5 g INTRAVENOUS PRN glucagon 1 mg injection (GLUCAGEN) 1 mg INTRAMUSCULAR PRN heparin 5,000 Units injection 5,000 Units SUBCUTANEOUS q 8 H insulin lispro injection (rapid acting) (HumaLOG) SUBCUTANEOUS w MEALS AND HS lacosamide 100 mg in NaCl 0.9% 50 mL (VIMPAT) 100 mg INTRAVENOUS q 12 H levETIRAcetam iv piggyback 1,000 mg in NaCl (iso-osmotic) 100 mL (KEPPRA) 1,000 mg INTRAVENOUS BID metoprolol 2.5 mg injection (LOPRESSOR) 2.5 mg INTRAVENOUS q 4 H PRN metoprolol tartrate (short acting) 50 mg tab(s) (LOPRESSOR) 50 mg ORAL q 12 H VITAL SIGNS 24 HOUR REVIEW: BP 166/88 Pulse 79 Temp 37 ?C (98.6 ?F) (Oral) Resp 16 Ht 175.3 cm (5' 9.02) Wt 79.9 kg (176 lb 2.4 oz) SpO2 98% BMI 26.00 kg/m? Objective General:awake/easily arousable and no acute distress. CV: RRR Lungs: clear to auscultation. Neurological: ? Mental Status: Alert, oriented to person, place and time and Follows commands. ? Cranial Nerves: PERRL, visual collins intact to confrontation, extraocular movements intact, facial sensation intact, face symmetric, no facial droop or ptosis, hearing intact to finger rub bilaterally, no dysarthria, palate elevate symmetrically, tongue protrudes midline and shoulder shrug intact and symmetric. ? Motor: muscle strength 5/5 both upper and lower extremities. ? Reflexes: UE and LE reflexes are equal and reactive. ? Sensation: intact to light touch ? Coordination: Finger-to- nose-finger intact bilaterally. ? Gait: deferred LABS/DATA: CBC, Coags, BMP, Mg, Phos Recent Labs 04/27/18 0314 04/25/18 2235 WBC 5.03 5.86 HB 14.6 14.3 HCT 43.9 42.5 PLT 159 168 INR -- 1.0 APTT -- 29.1 NA 141 142 K 4.2 3.9 CHLOR 106* 104 CO2 24 27 BUN 17 14 CREAT 1.14 1.23* GLUC 92 97 CA 8.5 8.8 MG 2.2 2.2 P -- 3.3 DATA: Diagnostic tests reviewed for today's visit: Most recent labs and imaging results. Assessment/Plan Medication and Non-Pharmacologic VTE Prophylaxis/Anticoagulants Anticoagulant AND Antiplatelet Medications Start Dose Route Frequency Ordered Stop 04/26/18 0900 aspirin 81 mg chewable tab(s) (asprin non- enteric coated 81mg ORAL OR 300mg W[place]) 81 mg PO/FT DAILY 04/25/18 1902 -- 04/25/18 2000 heparin 5,000 Units injection (Medical At Risk ) 5,000 Units SUBCUTANEOUS EVERY 8 HOURS 04/25/18 1859 -- 04/26/18 0615 pneumatic compression stockings (ma,ny) 04/25/18 1900 activity - mobilize patient ([place]) VTE Prophylaxis: VTE prophylaxis appropriate 77 year old male with PMHx 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 CT brain/CTA unremarkable at OSH. EEG with left parietal occipital seizures, last seizure on 04/26. 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 Current rodriguez catheter status: None. Current restraint orders: None After 5pm and on weekends, please page [phone] ([phone]) to contact the General Neurology Resident [facility]. SIGNATURE: Marya Benjamin MD PATIENT NAME: Tyrel Ruffin DATE: April 27, 2018 TIME: 8:40 AM PAGER/CONTACT #: [phone] Attending note: I have seen and examined Mr. Tyrel Ruffin with residents and I fully agree with the outlined assessment and plan. Alert. Following commands. We will move patient to regular floor. Marco Marques MD, PhD [facility] [place] [id number] CBC Collected: 04/27/2018 Status: F Source: [place] 3:14 AM [facility] REPOSITORY TYPE CODE TESTS RESULT OUT OF REFERENCE UNITS RANGE LAB WBC 3.70-11.00 k/uL WBC 5.03 LAB RBC 4.20-6.00 m/uL RBC 4.76 LAB HGB 13.0-17.0 g/dL Hemoglobin 14.6 LAB HCT 39.0-51.0 % Hematocrit 43.9 LAB MCV 80.0-100.0 fL MCV 92.2 LAB MCH 26.0-34.0 pG MCH 30.7 LAB MCHC 30.5-36.0 g/dL MCHC 33.3 LAB RDWCV 11.5-15.0 % RDW-CV 13.3 LAB PLTCT 150-400 k/uL Platelet Count 159 LAB MPV 9.0-12.7 fL MPV 10.0 LAB ABSNUC <0.01 k/uL Absolute High nRBC 0.01 Performed By: #### CBC, BMP, LIPNF, MG1 #### [facility] [address] [place] [address] BASIC METABOLIC PANL Collected: 04/27/2018 Status: F Source: [place] 3:14 AM [facility] REPOSITORY TYPE CODE TESTS RESULT OUT OF REFERENCE UNITS RANGE LAB GLU 74-99 mg/dL Glucose 92 Result Comment: The [place] Diabetes Association (ADA) provides guidance for cutoff values for fasting glucose and random glucose. The ADA defines fasting as no caloric intake for at least 8 hours. Fas ting plasma glucose results between 100 to 125 mg/dL indicate increased risk for diabetes (prediabetes). Fasting plasma glucose results greater than or equal to 126 mg/dL meet the criteria for diagnosis of diabetes. In the absence of unequivocal hyperglycemia, results should be confirmed by repeat testing. In a patient with classic symptoms of hyperglycemia or hyperglycemic crisis, random plasma glucose results greater than or equal to 200 mg/dL meet the criteria for diagnosis of diabetes. Reference: Standards of Medical Care in Diabetes 2016, [place] Diabetes Association. Diabetes Care. 2016.39(Suppl 1). LAB BUN 9-24 mg/dL BUN 17 LAB CRET 0.73-1.22 mg/dL Creatinine 1.14 LAB NA 136-144 mmol/L Sodium 141 LAB K 3.7-5.1 mmol/L Potassium 4.2 LAB CL 97-105 mmol/L Chloride High 106 LAB CO2 22-30 mmol/L CO2 24 LAB AGAP 9-18 mmol/L Anion Gap 11 LAB CA 8.5-10.2 mg/dL Calcium, Total 8.5 LAB GFRAA eGFR- Amer. >60 LAB GFRNAA . eGFR-All Other Races >60 Result Comment: eGFR (Estimated GFR) Units of measure: mL/min/1.73 meters squared eGFR is derived from the reexpressed MDRD Study equation using the following parameters: serum creatinine, age, gender and race. The creatinine assay has been calibrated to be traceable to IDMS. An eGFR <60 mL/min/1.73m2 for >3 months is consistent with chronic kidney disease. Refer to KDOQI guidelines for clinical interpretation. In patients with unstable renal function, e.g. those with acute kidney injury, the eGFR may not accurately reflect actual GFR. Performed By: #### CBC, BMP, LIPNF, MG1 #### [facility] [address] [place], [place] [address] LIPID PANEL, NONFAST Collected: 04/27/2018 Status: F Source: [place] 3:14 AM [facility] REPOSITORY TYPE CODE TESTS RESULT OUT OF REFERENCE UNITS RANGE LAB CHOLNF <200 mg/dL Total Cholesterol NF 107 Result Comment: <200 mg/dL, Desirable 200-239 mg/dL, Borderline high >239 mg/dL, High LAB TRIGNF <150 mg/dL Triglycerides, NF 101 Result Comment: <150 mg/dL, Normal 150-199 mg/dL, Borderline high 200-499 mg/dL, High >499 mg/dL, Very high LAB HDLNF >39 mg/dL HDL Cholesterol, NF Low 34 Result Comment: 40-59 mg/dL, Acceptable >59 mg/dL, High: Negative risk factor for coronary heart disease <40 mg/dL, Low: Positive risk factor for coronary heart disease LAB LDLNF <100 mg/dL LDL Cholesterol, NF 53 Result Comment: <100 mg/dL, Optimal 100-129 mg/dL, Near optimal/above optimal 130-159 mg/dL, Borderline high 160-189 mg/dL, High >189 mg/dL, Very high Secondary prevention optimal LDL Cholesterol levels are recommended to be < 70 mg/dL LAB NOHDLN <130 mg/dL Non HDL Chol, 73 NF Result Comment: <130 mg/dL, Optimal 130-159 mg/dL, Near optimal/above optimal 160-189 mg/dL, Borderline high 190-219 mg/dL, High >219 mg/dL, Very high Secondary prevention optimal non HDL Cholesterol levels are recommended to be < 100 mg/dL LAB VLDLNF <30 mg/dL VLDL Cholesterol, NF 20 LAB TCHDLN <5.10 mg/dL T Chol/HDL Ratio NF 3.15 LAB LDLHDN <2.54 mg/dL LDL/HDL Ratio, NF 1.56 Result Comment: Reference: 1. National Cholesterol Education Program ATP III Guideline At-A-Glance Quick Desk Reference: National Heart, Lung, and Blood [place]. National Institutes of Health. 2001: NIH Publication No. 01-3305. 2. An International Atherosclerosis Society position paper: global recommendations for the management of dyslipidemia: executive summary, Atherosclerosis. 2014: 232(2):410-413. Performed By: #### CBC, BMP, LIPNF, MG1 #### [facility] [address] [place], [place] [address] MAGNESIUM Collected: 04/27/2018 Status: F Source: [place] 3:14 AM [facility] REPOSITORY TYPE CODE TESTS RESULT OUT OF REFERENCE UNITS RANGE LAB MG 1.7-2.3 mg/dL Magnesium 2.2 Performed By: #### CBC, BMP, LIPNF, MG1 #### [facility] [address] [place] [id number] KAITLIN Observed: 04/27/2018 Status: COMPLETED Source: [place] 12:00 AM [facility] REPOSITORY Patient Outreach (FAMPWS) TYREL RUFFIN ([id number]) 1940 M Date Time Provider Department 04/27/18 JOSE RAUL VELÁZQUEZ) FAMPWS During your visit today, we recorded the following information about you: Shannan Coe LPN, LPN 04/29/2018 3:24 PM Signed Attempted to contact pt voice mail is not set up yet. Will need to try again. Shannan Coe LPN, LPN 04/29/2018 3:24 PM Signed 0did reach wifes cell Left message for her to return call concerning tcm. Shannan Coe LPN, LPN 04/29/2018 3:24 PM Signed pts number does not have voice mail set up as of yet.[facility] cell a message was left to return call to make hospital f/up appointment. Sent message to call for hospital follow up appointment via my chart. Shannan Coe LPN, LPN 04/29/2018 3:24 PM Signed Closed pt was not discharged home was discharged to [facility]. Allergies As of Date: 04/27/2018 Noted Allergy Reaction AMOXACILLIN (AMOXICILLIN) 07/02/2017 1 - Mental Status Change CODEINE 01/07/2017 14 - Other: See Comments Comments: irregular heart beat Date Reviewed: 04/27/2018 Reviewed by: Marla (Rn) DEEPTHI Alvarez - Fully Assessed Prescriptions as of 04/27/2018 Sig: AMLODIPINE 5 MG TABLET Take 1 tablet by mouth once d* ASPIRIN 81 MG TABLET,DELAYED * Take 81 mg by mouth once joel* ATORVASTATIN 20 MG TABLET Take 1 tablet by mouth once d* METOPROLOL SUCCINATE ER 100 M* Take 1 tablet by mouth once d* TRIAMCINOLONE ACETONIDE 0.1 %* Apply 1 application to affect* Problem List As Of Date 04/27/2018 Noted Resolved Aortic dissection (HCC) [I71.00] INVALID FOR* More... Atrial fibrillation, chronic (HCC) [I48.2] INVALID FOR* More... Hyperlipidemia [E78.5] INVALID FOR* More... Essential hypertension [I10] INVALID FOR* More... Word finding difficulty [R47.89] INVALID FOR*04/27/2018 More... AAA (abdominal aortic aneurysm) without rupture*INVALID FOR* More... More... Nonrheumatic aortic valve stenosis [I35.0] INVALID FOR* More... Atherosclerosis of [place] coronary artery witho*INVALID FOR* More... Intraparenchymal hemorrhage of brain (HCC) [I61*INVALID FOR* More... Brain aneurysm [I67.1] INVALID FOR* Cerebral aneurysm, nonruptured [I67.1] INVALID FOR* History of cerebral hemorrhage [Z86.79] INVALID FOR* CVA (cerebral vascular accident) (HCC) [I63.9] INVALID FOR* More... 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 Encounter Status:Closed by SHANNAN COE LPN on 04/29/18 PLAN OF CARE Observed: 04/26/2018 Status: COMPLETED Source: [place] 4:09 PM [facility] REPOSITORY [facility] ID: [id number] Author: Marya Benjamin Service: Neurology General Author Type: Resident Type: Plan of Care Filed: 04/26/2018 4:14 PM Note Text: Neurology Plan of Care Patient reported seeing shadows and colors, had difficulty expressing himself further when asked for more details. EEG button pressed at 3:45 pm for concern for seizures causing visual disturbances (patient previously reported seeing colors on right side of vision prior to seizure). BEM check was done and was negative for EEG seizures. Plan: Continue BEM, re-check BEM tonight Continue current AEDs Marya Benjamin MD April 26, 2018 4:13 PM THERAPY NT Observed: 04/26/2018 Status: COMPLETED Source: [place] 4:02 PM [facility] REPOSITORY O ID: [id number] Author: Lidia Gasca Service: Physical Therapy Author Type: Physical Therapist Type: Therapy (PT/OT/Speech/Resp) Filed: 04/26/2018 4:20 PM Note Text: Physical Therapy Evaluation SERVICE DATE: 04/26/2018 SERVICE TIME: 1501 to 1544 ROOM: [place] [address] Recommended Discharge Disposition: Acute Rehab Recommended Discharge Disposition Comments: potential to progress to home PT pending confirmation of home set up and improvement in gait stability Justification For Post Acute Needs: Anticipate patient will tolerate 3 hours of daily therapy at the time of admission to post-acute setting;Living the community premorbidly;Motivated;Anticipate that patient will require daily (5x/wk) skilled therapy in a post-acute facility setting at the time of acute hospital discharge;Good premorbid functional status Anticipated Discharge Needs: Physical Assist at Home Physical Assist at Home for: Ambulation;Laundry;Cleaning;Stairs;Safety;Shopping;Transportation;Medicatio n Management Recommended Discharge Equipment: To Be Determined PT Recommendations to Nursing: Ambulate with device;To bathroom;With assist of 1 person Device: Wheeled Walker PT 6 Clicks Score: 18 Precautions/Activity Restrictions: Fall Risk;Seizure;Lines/Tubes/Drains ASSESSMENT : Patient presents with aphasia, confusion, unsteady gait, and decreased safety awareness limiting functional independence. Difficult to obtain history and home set up from patient due to communication deficits. Patient making contradictory statements about home environment; I.e. Saying he lives alone then stating he lives with his . Patient reporting lightheadedness in sitting and standing. Patient having difficulty following instructions for transfers and gait. Narrow base of support, path deviation, and lateral losses of balance noted during gait with no assistive device. Mild improvement with use of 2-wheeled walker though patient continued to require steadying assist. Per nurse, patient had been drowsy/sleeping up until therapy session due to seizure medications. Patient also reporting to this therapist and his nurse mild double vision at end of session, improves with right eye closed. Anticipate patient would benefit from AR to address multi-disciplinary needs and maximize safety. Will continue to assess and gather more information regarding home set up and assist available as possible. Patient Disposition at Start of Session: Supine in Bed;Call [facility] in Reach;Bed Alarm;SCDs Patient Disposition at End of Session: Supine in Bed;Call [facility] in Reach;SCDs (nurse present) Tolerated Full Session Physical Therapy Problem List: Cognitive Deficit;Safety Deficits;Functional Mobility Impairment;Balance Impaired Patient /Caregiver Goals: Go Home Goals for Plan of Care: Transfer supine to/from sit with: Modified Independent Transfer sit to/from stand with: Modified Independent Ambulate with: Modified Independent Distance: 300 ft Device: No Device Ambulate up and down steps with: Modified Independent Number of steps: 12 Device: Rail Rehab Potential: Good PLAN: Treatment Frequency (times per week): 5 Current admission Treatment Interventions: Education;Functional Mobility Training;Balance Training;Neuromuscular Re-education Plan of Care developed with: Patient TREATMENT INTERVENTIONS: Therapy Diagnosis: Abnormalities of gait and mobility-other Interventions Provided: Evaluation;Gait Training (25773);Therapeutic Activity (71688) $ Evaluation-Moderate (19341) Billed Units: 1 unit Therapeutic Activity (71820) Treatment Minutes: 15 1 unit Skilled Intervention(s): Instructed patient in supine to sit pushing with upper extremities to sit up Instructed patient in sit to supine using safe, effective technique Instruction in sit to stand technique with proper hand placement and body positioning at edge of bed/chair. Cues for safe hand placement due to patient tending to pull up with hands on walker. Education provided regarding safety risks using this method though patient did not demo understanding. Instruction in stand to sit technique with lower extremities touching chair/bed and reaching back for surface. Cues and manual guidance to reach posteriorly for bed surface. Increased time and cues required for communication and command following. Vitals monitored due to hypertension in supine and sitting and patient c/o lightheadedness. SBP < 160 in standing. Nurse notified. Education with role of physical therapist, benefits of use of 2-wheeled walker due to balance deficits during gait with no assistive device, benefits of AR vs. Home physical therapy, plan of care, safety considerations, and discharge planning. Gait Training (68283) Treatment Minutes: 10 1 unit Skilled Intervention(s): Instruction in correction of gait deviations. Cues for obstacle avoidance, upright posture, safe pace, and correction of path deviation with no assistive device. Modified to use of IV pole then use of 2-wheeled walker. Decreased lateral sway with use of 2-wheeled walker though steadying assist required due to path deviation and narrow base of support. Cues to correct and for direction. Total Timed Code Treatment Minutes: 25 Total Treatment Time (minutes): 43 FUNCTIONAL G CODE: PT 6 Clicks Score: 18 (04/26/18 1501) Mobility: Walking and Moving Around Current Status (G8978): CK (04/26/18 1501) Mobility: Walking and Moving Around Goal Status (G8979): CJ (04/26/18 1501) Based on clinical assessment and the score on the 6 Clicks Functional Assessment Tool, the G code and corresponding severity modifiers are documented above. 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 CT brain/CTA unremarkable at OSH; impression most concerning for seizure. Patient's history is most consistent with new-onset seizure possibly 2/2 encephalomalacia. His fluctuating symptoms in absence of vessel stenosis or BP variability does not fit well with a vascular etiology. His positive visual phenomenon and lack of weakness during episodes are also more consistent with seizure activity. 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 Home Environment Patient Lives With: Spouse Assistance Available: PRN (pt questionable historian due to communication deficits) Entry To Home: No Stairs (per pt; questionable historian) Prior Functional Level: Within Functional Limits OBJECTIVE: CURRENT FUNCTIONAL STATUS: Current Functional Mobility Assist Level Additional Information Rolling Supine to Sit Contact Guard Assistance Sit to Supine Contact Guard Assistance Scooting Sit to Stand Minimal Assistance Stand to Sit Minimal Assistance Bed to Chair Toilet/Commode Gait Minimal Assistance Gait Device: None;IV Pole;Wheeled Walker Gait Distance (feet): 50 ft x 2 Stairs Curb Step Car Transfer General Gait Deviations: Ashia decreased;Lateral sway increased;Step length decreased;Narrow Base of Support;Difficulty changing direction/turning;Loss of Balance -M: 7: Walk 25 feet or more Please see discipline specific clinical documentation flowsheet for complete details for this therapy evaluation/treatment. SIGNATURE: Lidia Gasca PT PATIENT NAME: Tyrel Ruffin DATE: April 26, 2018 TIME: 4:02 PM CASE MANAGEM Observed: 04/26/2018 Status: COMPLETED Source: [place] 3:39 PM [facility] REPOSITORY HNO ID: [id number] Author: Shira LoganRn) DEEPTHI Harris Service: Care Management Author Type: Registered Nurse Type: Care Mgt Progress Note Filed: 04/26/2018 3:40 PM Note Text: CARE MANAGEMENT PROGRESS NOTE SERVICE DATE: 04/26/2018 SERVICE TIME: 3:39 PM LOS: 1 day Needs Prior to Discharge: To Be Determined D/C end of week pending seizure control-per medical team. CM attempted to complete an initial assessment; however, therapy was at the bedside. Will continue to follow for d/c planning needs. SIGNATURE: Shira Harris RN PATIENT NAME: Tyrel Ruffin DATE: April 26, 2018 TIME: 3:39 PM PAGER/CONTACT #: [phone] CONSULTATION Observed: 04/26/2018 Status: F Source: [place] 1:04 PM [facility] REPOSITORY [place] Medical Records Department [address] [place] [id number] Consultation 04/25/18 1306 MR#: [id number] Acct: [id number] Name: TYREL RUFFIN Rep #: [id number] : 1940 77 From: Amanda Boswell MD PCP: Kasi Velázquez MD Status: DIS IN Y Location: ICU [id number] Problem List (1) CVA (cerebral vascular accident) Status: Acute (2) Seizure Status: Acute Reason for Consult Date of Consultation: 04/25/18 Reason for Consultation: Stroke, seizure History of Present Illness: The patient is a 77 year old M with PMH HTN, Chronic Afib not on AC, H/O cerebral aneurysm with h/o brain bleeding, h/O aortic dissection admitted with CRAWFORD and speech disturbances. History is obtained from patient and his ,and medical records. Per he had frontal CRAWFORD that started on Wednesday04/23/18, then yesterday morning (04/24/18) had speech disturbances where he was making paraphasic errors, was repeating himself a lot, had issues with repetitions. No focal motor weakness, sensory loss, visual disturbances and per speech is improving since yesterday but she feels he is still not at baseline. NIHSS was 2 on admission per ED documentation. Per at baseline he does not fall, never had any seizures in the past, does not use cane or walker to ambulate, does drive, does not need any assistance for his ADLs and is on ASA. Per he has been told not to be on AC due to aneurysm and h/o brain bleed. He sees Dr. Rodriguez from [facility]. Per documentation patient also had 2 witnessed GTC seizure in the ED lasting for a minute or so, with tongue bite and confusion, was loaded with 1 g Keppra and started on Keppra [address] head showed left parietal encephalomalacia, CTA head/neck showed Fusiform dilatation of the cavernous segment of the right internal carotid artery measuring up to 6 mm. Small infundibulum versus 2 mm aneurysm at the origin of the left posterior communicating artery. 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 Past Medical History Past Medical History (Chronic Problems): Chronic Problems Aneurysm (Chronic) Aortic dissection (Chronic) Chronic a-fib (Chronic) HTN (hypertension) (Chronic) Allergies codeine Allergy (Verified 05/18/14 18:25) Other amoxicillin Adverse Reaction (Verified 04/24/18 14:01) Other Penicillins Adverse Reaction (Verified 04/24/18 14:01) Other Home Medications: Ambulatory Orders Medication Instructions Recorded Amlodipine [Norvasc] 5 mg PO DAILY 05/18/14 Surgical History: no surgical history Lives: With Family Smoking Status: Former smoker Tobacco Use: Cigarettes Alcohol: None Drugs: None - *Family History Maternal History Items: Heart Disease Paternal History Items: Heart Disease, Stroke Review of Systems Constitutional: Reports: - - complete ROS negative except as documented in HPI Patient Problems: Active and Suspected Problems CVA (cerebral vascular accident) (Acute) Seizure (Acute) - Physical Exam General: Alert HEENT: Normocephalic Neck: Supple Lungs: Normal air movement Cardiovascular: Normal S1, Normal S2, Irregular Rate Abdomen: Bowel Sounds Present Extremities: No cyanosis Neurological: - - consious, alert, AoAx3, CN 2-12 grossly intact, power 5/5 all 4 extremities, no cerebellar signs, no sensory loss, Reflexes + B/L B/S/T/K/A, gait deferred, 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, NIHSS 2 at present, mRS 0 at baseline Psych/Mental Status: Normal Affect Vital Signs Temp Pulse Resp BP Pulse Ox 98.1 F 95 14 139/80 H 96 04/25/18 08:00 04/25/18 12:32 04/25/18 11:00 04/25/18 11:00 04/25/18 11:00 Oxygen Flow Rate (L/min) 2 Oxygen Delivery Method Room Air Weight: 82.3 kg Body Mass Index (BMI) 25.7 Finger Stick Blood Glucose 103 Intake and Output for Last 24 Hours Intake Total 1098 / 1098 Output Total 600 / 600 980 / 980 Balance -600 / -600 118 / 118 Laboratory Tests Past 24 Hrs WBC 7.6 RBC 5.26 Hgb 16.1 Hct 48.6 MCV 92.4 MCH 30.6 MCHC 33.1 RDW 13.9 RDW Differential 46.1 H WBC RBC Hgb Hct MCV MCH MCHC RDW RDW Differential Plt Count MPV Immature Gran % (Auto) Neut % (Auto) Lymph % (Auto) POC Glucose POC Glucose 86 Assessment/Plan All Active Problems CVA (cerebral vascular accident) (Acute) Seizure (Acute) The patient is a 77 year old M with PMH HTN, Chronic Afib not on AC, H/O cerebral aneurysm with h/o brain bleeding, h/O aortic dissection admitted with CRAWFORD and speech disturbances. History is obtained from patient and his ,and medical records. Per he had frontal CRAWFORD that started on Wednesday04/23/18, then yesterday morning (04/24/18) had speech disturbances where he was making paraphasic errors, was repeating himself a lot, had issues with repetitions. No focal motor weakness, sensory loss, visual disturbances and per speech is improving since yesterday but she feels he is still not at baseline. NIHSS was 2 on admission per ED documentation. Per at baseline he does not fall, never had any seizures in the past, does not use cane or walker to ambulate, does drive, does not need any assistance for his ADLs and is on ASA. Per he has been told not to be on AC due to aneurysm and h/o brain bleed. He sees Dr. Rodriguez from [facility]. Per documentation patient also had 2 witnessed GTC seizure in the ED lasting for a minute or so, with tongue bite and confusion, was loaded with 1 g Keppra and started on Keppra [address] head showed left parietal encephalomalacia, CTA head/neck showed Fusiform dilatation of the cavernous segment of the right internal carotid artery measuring up to 6 mm. Small infundibulum versus 2 mm aneurysm at the origin of the left posterior communicating artery. 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 Impression R/O Left MCA stroke- possible ? Conduction aphasia Seizure Plan -On ASA -Lipitor 40 mg PO q hs -Check MRI Brain w/o contrast, if found to have a stroke, would recommend Eliquis. But patient's wants to discuss things further with her Neurologist from [facility] Dr. Rodriguez before agreeing to any AC. -CTA head/neck reviewed -Neurosurgery referral for aneurysm evaluation -TTE-EF 60%, normal LA size, no PFO -LDL-57, [id number] -Given h/o aneurysm and no hemodynamically significant intracranial or extracranial stenosis, control the SBP to around 140-150 mmHg, defer to hospitalist team -Stroke risk factors discussed and stroke education provided -Increase Keppra to 750 mg PO BID -Check EEG -Seizure precautions discussed in detail -Patient counseled not to drive for 6 months -Patient's wants to be transferred to [facility] for further management. -GI/DVT prophylaxis -Fall precautions -PT/OT/ST -Further medical management per hospitalist team -Please call with questions if any -Thank you for allowing us to participate in patient's care and management 04/26/18 [id number] <Electronically signed by Amanda Boswell MD> Date Amanda Boswell MD Cosigner Signature (if applicable): Date CC: Kasi Velázquez MD; Renan Hawk MD Signed THERAPY NT Observed: 04/26/2018 Status: COMPLETED Source: [place] 12:13 PM [facility] REPOSITORY HNO ID: [id number] Author: Natividad (Property Claims Adjuster) Karlos Service: Speech/Swallow Author Type: Speech Language Pathologist Type: Therapy (PT/OT/Speech/Resp) Filed: 04/26/2018 12:14 PM Note Text: Speech Pathology Attempted speech-language evaluation this date. Unable to rouse pt to participate at this time. Nursing reports pt has been lethargic all day, possible impact of meds. Nursing reports expressive and receptive deficits are evident. Will return tomorrow to attempt completion of assessment as able per pt status. Natividad Everett M.A., [facility] Speech Language Pathologist [id number] URINALYSIS WITH Collected: 04/26/2018 Status: F Source: [facility] 10:23 AM [facility] REPOSITORY TYPE CODE TESTS RESULT OUT OF REFERENCE UNITS RANGE LAB UCOL Yellow Color Yellow LAB [facility] Clear Clarity Clear LAB UGLUC Negative mg/dL Glucose, Urine Negative LAB UBIL Negative Bilirubin, Urine Negative LAB UKET Negative Ketones, Urine Negative LAB USPG 1.005-1.030 Specific [place], Ur 1.014 LAB UHGB Negative Hemoglobin/Blood, Negative Ur LAB UPH 4.5-8.0 pH 6.0 LAB UPROT Negative mg/dL Protein, Urine Negative LAB UUROB Normal Urobilinogen Normal LAB UNITR Negative Nitrites Negative LAB ULKEST Negative Leukest Negative LAB UCOM Comments SEE COMMENT Result Comment: N/A LAB UMCOM Urine SEE Curtis Comment COMMENT Result Comment: N/A LAB UWBC 0-5 /HPF WBC 0-5 LAB URBC 0-3 /HPF RBC 0-3 LAB UCAST 0 /LPF Abnormal Alert Cast SEE COMMENT Result Comment: 1-3 Hyaline Cast Performed By: #### UAWMIC #### [facility] [address] [place], [place] [address] CT BRAIN WO IVCON Observed: 04/26/2018 Status: F Source: [place] 9:18 AM [facility] REPOSITORY * * *Final Report* * * DATE OF EXAM: Apr 26 2018 9:18AM [facility] [place] [place] - CT BRAIN WO IVCON / PROCEDURE REASON: Seizure, new, acute, hx of trauma, > 18 yrs * * * * Physician Interpretation * * * * EXAMINATION: CT BRAIN WO IVCON CLINICAL HISTORY: SEIZURE, NEW, ACUTE, HX OF TRAUMA TECHNIQUE: Serial axial images without IV contrast were obtained from the vertex to the foramen magnum. MQ: [id number] CT Dose-Length Product (DLP): 776 mGy*cm CT Dose Reduction Employed: No dose reduction techniques were required COMPARISON: MRI brain 12/24/2017. Outside CTA head 04/24/2018 RESULT: Post-operative change: None. Acute change: No evidence of an acute intracranial process. Hemorrhage: No evidence of acute intracranial hemorrhage. Mass Lesion / Mass Effect: No evidence of an intracranial mass or extraaxial fluid collection. No significant mass effect. Chronic change: Stable encephalomalacia involving cortex and subcortical white matter of the superior left parietal lobe extending slightly into the left occipital lobe with adjacent gliosis extending to the atrium and occipital horn of the left lateral ventricle. Parenchyma: Mild generalized parenchymal volume loss. Ventricles: Stable caliber and morphology with ex vacuo dilation of the atrium and occipital horn of the left lateral ventricle. Paranasal sinuses and skull base: The calvarium, skull base, imaged paranasal sinuses, mastoids, orbits and extracranial soft tissues are unremarkable. Bilateral cataract surgery. EEG leads overlie the scalp. IMPRESSION: No acute intracranial findings. Chronic changes, as detailed. Alarm Operator: JUNE Transcribe Date/Time: Apr 26 2018 9:27A Dictated by : PARADISE PUGA MD This examination was interpreted and the report reviewed and electronically signed by: KISHAN ALBERT MD on Apr 26 2018 9:54AM EST [id number] PROGRESS Observed: 04/26/2018 Status: COMPLETED Source: [place] 9:17 AM [facility] REPOSITORY HNO ID: [id number] Author: JAH Armando (Ct) Service: Radiology Author Type: Clinical Spring Intern Type: Progress Notes Filed: 04/26/2018 9:18 AM Note Text: Radiology Service Progress Note PATIENT NAME: Tyrel Ruffin DATE OF SERVICE: April 26, 2018 TIME: 9:17 AM PATIENT IDENTITY VERIFICATION COMPLETED USING TWO (2) METHODS: ID Band and Date of . PATIENT GENDER DATA: Male PATIENT RELEVANT IMPLANT DATA REVIEWED: Yes RADIOLOGY DEPARTMENT: CT; Exam(s) Completed: Brain PERIPHERAL IV DATA: Not applicable SIGNED BY: JAH Armando April 26, 2018 9:17 AM PLAN OF CARE Observed: 04/26/2018 Status: COMPLETED Source: [place] 7:47 AM [facility] REPOSITORY HNO ID: [id number] Author: Koki (Oz) Victor Manuel Service: Neurology General Author Type: Resident Type: Plan of Care Filed: 04/26/2018 7:48 AM Note Text: April 26, 2018 7:47 AM Patient to be transferred to General Neurology for further management of seizures. Please page [phone] with concerns and questions. Koki Rush MD PGY-3, Neurology Pager [phone] LEVETIRACETAM Collected: 04/26/2018 Status: F Source: [place] 3:52 AM [facility] REPOSITORY TYPE CODE TESTS RESULT OUT OF REFERENCE UNITS RANGE LAB LEVETI 12.0-46.0 ug/mL Levetiracetam High 99.1 Result Comment: This test is not suitable for patients receiving treatment with the drug brivaracetam (Briviact). The drug causes an interference that may lead to falsely elevated levetiracetam results. Reference ranges and high/low indicator flags are provided as general guidelines only. The treating physician must determine appropriate target levels/dosing based on the specific clinical situation. This test was developed and its performance characteristics determined by [facility] Pathology [facility] Laboratory Medicine [place] ([facility]). It has not been cleared or approved by the FDA. [facility] is regulated under CLIA as qualified to perform high-complexity testing. This test is used for clinical purposes. It should not be regarded as investigational or for research. Performed By: #### LEVET #### [facility] [address] [address] NURSING PROG Observed: 04/26/2018 Status: COMPLETED Source: [place] 1:08 AM [facility] REPOSITORY HNO ID: [id number] Author: Nathalie LoganRn) DEEPTHI Farah Service: Nursing Author Type: Registered Nurse Type: Nursing Progress Note Filed: 04/26/2018 1:09 AM Note Text: Nursing Progress Note Patient Name: Tyrel Ruffin Patient Location: H063 005/H063-05 Daily Note: 0105-Received call from EEG stating pt had ~1 minute subclinical seizure; Pt assessed, no neuro changes, VSS. Stroke service notified. This note was completed by: Nathalie Farah RN PROTIME Collected: 04/25/2018 Status: F Source: [place] 10:35 PM [facility] REPOSITORY TYPE CODE TESTS RESULT OUT OF RANGE REFERENCE UNITS LAB PSEC 9.7-13.0 sec PT Sec 10.8 LAB INR 0.9-1.3 PT INR 1.0 Result Comment: Vitamin K Antagonist (VKA) Therapeutic Range: INR 2 to 3 (Target INR of 2.5) Note: For patients treated with VKA drugs, such as warfarin, the [place] College [employer]icians 2012 Guideline recommends a therapeutic INR range of 2 to 3 (target INR of 2.5). This recommendation includes high-risk patients with antiphospholipid syndrome with previous arterial or venous thromboembolism, current-generation mechanical or bioprosthetic aortic heart valve replacement. Note: Patients with mechanical aortic valve replacement and additional risk factors for thromboembolic events (atrial fibrillation, previous thromboembolism, LV dysfunction, hypercoagulable conditions) or an older generation mechanical AVR (i.e., ball in-Cage) or any mechanical MVR should have a INR therapeutic range of 2.5 to 3.5 (target INR of 3). Justina KUMAR, et al. Chest 2012, 141:7S-47S Yasmin RA, et al. [facility] 2017, 70: 252-289 Performed By: #### PT, PTT, CBCDIF, CMP #### [facility] [address] [place], [place] [address] APTT Collected: 04/25/2018 Status: F Source: [place] 10:35 PM [facility] REPOSITORY TYPE CODE TESTS RESULT OUT OF RANGE REFERENCE UNITS LAB APTT 23.0-32.4 sec APTT 29.1 Result Comment: Unfractionated Heparin Therapeutic Ranges: Standard Heparin Nomogram: 53 to 78 seconds (anti-Xa level of 0.3 to 0.7 U/ml) Low Dose/ACS Nomogram: 49 to 67 seconds (anti-Xa level of 0.2 to 0.5 U/ml) Stroke Treatment Nomogram: 49 to 67 seconds (anti-Xa level of 0.2 to 0.5 U/ml) Note: The APTT therapeutic range has been determined for the current lot of laboratory APTT reagent in use throughout the [facility]. Performed By: #### PT, PTT, CBCDIF, CMP #### [facility] [address] [place] [id number] CBC AND DIFFERENTIAL Collected: 04/25/2018 Status: F Source: [place] 10:35 PM [facility] REPOSITORY TYPE CODE TESTS RESULT OUT OF REFERENCE UNITS RANGE LAB WBC 3.70-11.00 k/uL WBC 5.86 LAB RBC 4.20-6.00 m/uL RBC 4.62 LAB HGB 13.0-17.0 g/dL Hemoglobin 14.3 LAB HCT 39.0-51.0 % Hematocrit 42.5 LAB MCV 80.0-100.0 fL MCV 92.0 LAB MCH 26.0-34.0 pG MCH 31.0 LAB MCHC 30.5-36.0 g/dL MCHC 33.6 LAB RDWCV 11.5-15.0 % RDW-CV 13.6 LAB PLTCT 150-400 k/uL Platelet Count 168 LAB MPV 9.0-12.7 fL MPV 10.4 LAB ANEUT % Neut% 69.0 LAB AANEUT 1.45-7.50 k/uL Abs Neut 4.03 LAB ALYMP % Lymph% 18.8 LAB AALYMP 1.00-4.00 k/uL Abs Lymph 1.10 LAB AMONO % Dougherty% 7.7 LAB AAMONO <0.87 k/uL Abs Dougherty 0.45 LAB AEOS % Eosin% 3.6 LAB AAEOS <0.46 k/uL Abs Eosin 0.21 LAB ABASO % Baso% 0.9 LAB AABASO <0.11 k/uL Abs Baso 0.05 LAB AUNRBC 0 /100 WBC NRBCs 0.0 LAB ABNRBC <0.01 k/uL Absolute nRBC <0.01 LAB DTYP DTYPE Auto Diff Performed By: #### PT, PTT, CBCDIF, CMP #### [facility] [address] [place], [place] [address] COMP METABOLIC PANEL Collected: 04/25/2018 Status: F Source: [place] 10:35 PM [facility] REPOSITORY TYPE CODE TESTS RESULT OUT OF REFERENCE UNITS RANGE LAB TP 6.3-8.0 g/dL Protein, Total 6.4 LAB ALB 3.9-4.9 g/dL Low Albumin 3.6 LAB CA 8.5-10.2 mg/dL Calcium, Total 8.8 LAB TBIL 0.2-1.3 mg/dL Bilirubin, Total 0.6 LAB ALKP 38-113 U/L Alkaline Phosphatase 96 LAB AST 14-40 U/L AST 17 LAB GLU 74-99 mg/dL Glucose 97 Result Comment: The [place] Diabetes Association (ADA) provides guidance for cutoff values for fasting glucose and random glucose. The ADA defines fasting as no caloric intake for at least 8 hours. Fas ting plasma glucose results between 100 to 125 mg/dL indicate increased risk for diabetes (prediabetes). Fasting plasma glucose results greater than or equal to 126 mg/dL meet the criteria for diagnosis of diabetes. In the absence of unequivocal hyperglycemia, results should be confirmed by repeat testing. In a patient with classic symptoms of hyperglycemia or hyperglycemic crisis, random plasma glucose results greater than or equal to 200 mg/dL meet the criteria for diagnosis of diabetes. Reference: Standards of Medical Care in Diabetes 2016, [place] Diabetes Association. Diabetes Care. 2016.39(Suppl 1). LAB BUN 9-24 mg/dL BUN 14 LAB CRET 0.73-1.22 mg/dL Creatinine High 1.23 LAB NA 136-144 mmol/L Sodium 142 LAB K 3.7-5.1 mmol/L Potassium 3.9 LAB CL 97-105 mmol/L Chloride 104 LAB CO2 22-30 mmol/L CO2 27 LAB AGAP 9-18 mmol/L Anion Gap 11 LAB ALT 10-54 U/L ALT 18 LAB GFRAA eGFR- Amer. >60 LAB GFRNAA . eGFR-All Other Races 57 Result Comment: eGFR (Estimated GFR) Units of measure: mL/min/1.73 meters squared eGFR is derived from the reexpressed MDRD Study equation using the following parameters: serum creatinine, age, gender and race. The creatinine assay has been calibrated to be traceable to IDMS. An eGFR <60 mL/min/1.73m2 for >3 months is consistent with chronic kidney disease. Refer to KDOQI guidelines for clinical interpretation. In patients with unstable renal function, e.g. those with acute kidney injury, the eGFR may not accurately reflect actual GFR. Performed By: #### PT, PTT, CBCDIF, CMP #### [facility] [address] [address] MAGNESIUM Collected: 04/25/2018 Status: F Source: [place] 10:35 PM [facility] REPOSITORY TYPE CODE TESTS RESULT OUT OF REFERENCE UNITS RANGE LAB MG 1.7-2.3 mg/dL Magnesium 2.2 Performed By: #### MG1, PHOS #### [place] [address] PHOSPHORUS Collected: 04/25/2018 Status: F Source: [place] 10:35 PM [facility] REPOSITORY TYPE CODE TESTS RESULT OUT OF REFERENCE UNITS RANGE LAB PHOS 2.7-4.8 mg/dL Phosphorus 3.3 Performed By: #### MG1, PHOS #### [facility] [address] [address] HEMOGLOBIN A1C Collected: 04/25/2018 Status: F Source: [place] 10:35 PM [facility] REPOSITORY TYPE CODE TESTS RESULT OUT OF REFERENCE UNITS RANGE LAB HGBA1C 4.3-5.6 % High Hemoglobin A1c 6.5 Result Comment: [place] Diabetes Association guidelines indicate that patients with HgbA1c in the range 5.7-6.4% are at increased risk for development of diabetes, and intervention by lifestyle modification may be beneficial. HgbA1c greater or equal to 6.5% is considered diagnostic of diabetes. LAB HBA0 mg/dL Est. Average Glucose 140 Result Comment: eAG: (Estimated average glucose) is a calculated value from HgbA1c and is field service representative of the average blood glucose level in the last 2-3 month period. Performed By: #### HBA1C #### [facility] [address] [facility], [place] [address] ECG COMPLETE W Observed: 04/25/2018 Status: F Source: [place] INTERPRETATION 8:22 PM [facility] REPOSITORY NAME : TYREL RUFFIN PID : [id number] : 1940 Gender : Male Race : ORD : [id number] Procedure Date : Apr 25 2018 20:22:19 Edit Date : Apr 26 2018 15:39:20 Diagnosis:ATRIAL FIBRILLATION ABNORMAL ECG Confirmed by ANA MARÍA CASIANO M.D. ([id number]) on 04/26/2018 3:30:20 PM Ventricular Rate : 100 BPM Atrial Rate : 326 BPM QRS Duration : 68 ms Q-T Interval : 340 ms QTC Calculation(Bezet) : 438 ms R [place] : 35 degrees T [place] : 47 degrees Test Reason : Location : 123 : H63 5 Overread By : ANA MARÍA CASIANO M.D. Edited By : ANA MARÍA CASIANO M.D. Referred By : BILLY MORALES Acquired by : MARIAJOSE CHÁVEZ HISTORY PHYSICAL Observed: 04/25/2018 Status: COMPLETED Source: [place] 6:20 PM [facility] REPOSITORY HNO ID: [id number] Author: Marco Marques Service: Neurology Stroke Author Type: Physician Type: HANDP Filed: 04/26/2018 4:10 PM Note Text: HANDP NEURO STROKE SERVICE DATE: 04/25/2018 SERVICE TIME: 7:12 PM PCP: Jose Raul Velázquez MD REASON FOR STROKE EVALUATION: Language disturbance Subjective HPI: Mr. Dobbins is a 77 year old male transferred from [place] due to speech changes. PMH: -afib (2012 on on AC due to prior ICH) -Infrarenal AAA -cerebral aneurysm with ICH in 2013 -aortic dissection (?L subclavian aa) in 08/2017 s/p repair of valve -former smoker, started at age 14, quit at age 70, 1ppd He had frontal headache started on Monday 04/23. Headache dull, bifrontal location, resolved with ibuprofen. At noon on 04/24 he had speech changes- per he was mixing up his words (example, get the toast out of the sink), which he said is difficult to remember now, he remembers not feeling well but not the speech changes. Per his , he was able to follow commands. He denied focal weakness, sensory changes, visual changes. Speech changes continued while in the ED. He presented to ED on 04/24, NIHSS 2 for possible aphasia (difficulty putting words together). 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 In the ED, he was witnessed to have two 1 minute tonic clonic seizure, resolving spontaneously. His described it as: turning his head to the right, jaw clenched, bit tongue with blood coming out of mouth, head shaking, right arm stiffened. He remembers seeing color on the right side of vision prior to the seizure, and not being able to understand after the seizure. He was given 1mg of Ativan and 1g Keppra, then started on Keppra 750mg BID; he was confused and sleepy for about 1 hour. He was admitted for further work-up. He was started on Plavix, his home ASA was continued, and his Lipitor was increased to 40mg. He was then transferred for further management (discussion of need and risk for starting AC). He has never had this happen before. No changes in medications, recent illnesses. He is now feeling back to normal but his said he is still having occasonial trouble with comprehsion. He has not had a seizure in the past. He still has a slight headache, no neck stiffness. Patient was seen by Stroke Neurology (Dr. Rodriguez) 02/11/17 for Watchman evaluation; seen by Cardiology but then appears to have been lost to follow up. Imaging at [place]: ECHO 04/24/18: EF 60%, normal left atrium, normal aortic root, negative bubble. CTA H/N 04/24/18: No significant cervical carotid or vert stenosis or occlusions. Fusiform dilatation of cavernous segment of R ICA up to 6mm. Small infundibulum versus 2mm aneurysm at origin of L FOOT GATHERER. Chronic dissection oat origin of L subclavian artery with narrowing. LDL 114 TSH 2.2 Utox negative Per [place] medical records: The patient is a 77 year old M with past medical history consistent for chronic A. fib, cerebral aneurysm, a descending aortic dissection, presenting with a headache for 1 day prior to admission and then today his noticed that he would speak but his words would be in an abnormal order or just incorrect. For example instead of saying let us take out the garbage and she said lets take out the sink. So she brought him to the hospital given his previous history with a cerebral aneurysm, where he was taken to [facility] where he was told that where it is in location they cannot repair it surgically, and that he needs to remain off of all anticoagulation. In the ER he only had the speech difficulty and was therefore given an NIH of 2. He had a CT of the brain which was negative for bleed, and the head and neck CTAs were both negative. Neurology had been called and made aware of the case. Between talking to the neurologist and consulting me for admission. The patient also then had a seizure that he spontaneously broke out of, however he was given a milligram of Ativan, and was loaded with 1 g of Keppra. During my interview and exam, patient had a second seizure. Also lasted lasted for less than a minute and resolved spontaneously. Pre-admission Pre-morbid mRS: Premorbid Modified Jennifer Score: 1 - No significant disability despite symptoms - able to carry out all usual duties and activities PAST MEDICAL HISTORY Diagnosis Date - AAA (abdominal aortic aneurysm) ([facility]) - Aortic dissection distal to left subclavian ([facility]) - Aortic stenosis severe, s/p TAVR - Atrial fibrillation ([facility]) 2011 Dr. Valentine - Brain aneurysm 2013 - Family history of early CAD - History of smoking - HTN (hypertension) 2013 - Hyperlipidemia 2013 - Intraparenchymal hemorrhage of brain ([facility]) 2014 chronic L parietal ICH October 2013 w/ no significant residual deficit. 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 Has living FAMILY HISTORY Problem Relation Age of Onset - Hypertension Mother age 90 from internal bleeding - Stroke Father 80 age 84 - other (Myocardial infarction) Brother 70 ALLERGIES Allergen Reactions - Amoxacillin [Amoxic* Mental Status Change - Codeine Other: See Comments irregular heart beat MEDICATION Pre-admission Prescriptions Prior to Admission: amLODIPine (NORVASC) 5 mg tablet Take 1 tablet by mouth once daily. Disp: 90 tablet Rfl: 3 04/24/2018 at Unknown time aspirin, enteric coated (ASPIRIN, ENTERIC COATED) 81 mg EC tablet Take 81 mg by mouth once daily. Disp: Rfl: 04/24/2018 at Unknown time atorvastatin (LIPITOR) 20 mg tablet Take 1 tablet by mouth once daily. Disp: 90 tablet Rfl: 3 04/24/2018 at Unknown time metoprolol succinate ER (TOPROL XL) 100 mg Tb24 Take 1 tablet by mouth once daily. Disp: 30 tablet Rfl: 11 Unknown at Unknown time triamcinolone acetonide (KENALOG) 0.1 % cream Apply 1 application to affected area twice daily. Apply sparingly to area for rash/itching. Disp: 1 Tube Rfl: 1 Unknown at Unknown time Current amLODIPine (NORVASC) 5 mg tablet Take 1 tablet by mouth once daily. aspirin, enteric coated (ASPIRIN, ENTERIC COATED) 81 mg EC tablet Take 81 mg by mouth once daily. atorvastatin (LIPITOR) 20 mg tablet Take 1 tablet by mouth once daily. metoprolol succinate ER (TOPROL XL) 100 mg Tb24 Take 1 tablet by mouth once daily. triamcinolone acetonide (KENALOG) 0.1 % cream Apply 1 application to affected area twice daily. Apply sparingly to area for rash/itching. REVIEW OF SYSTEMS COMPLETE REVIEW OF SYSTEMS PAIN ASSESSMENT: Negative for pain, history of chronic pain, or current treatment for a chronic pain condition GENERAL: No weight loss, malaise or fevers HEENT: No changes in hearing or vision, no nose bleeds or other nasal problems. NECK: Negative for lumps, goiter, pain and significant neck swelling RESPIRATORY: Negative for cough, wheezing or shortness of breath. CARDIOVASCULAR: Negative for chest pain, leg swelling or palpitations. GI: Negative for abdominal discomfort, blood in stools or black stools or change in bowel habits. : No history of dysuria, frequency or incontinence. MUSCULOSKELETAL: Negative for joint pain or swelling, back pain or muscle pain. SKIN: Negative for lesions, rash, and itching. HEMATOLOGY/LYMPHOLOGY: Negative for prolonged bleeding, bruising easily or swollen nodes. ENDOCRINE: Negative for cold or heat intolerance, polyuria, polydipsia and goiter. ALLERGIC/IMMUNOLOGIC: Negative for autoimmune diseases and allergies. NEURO: SEE HPI Objective PHYSICAL EXAM Vital Signs: BP 150/92 Pulse 109 Temp 37 ?C (98.6 ?F) (Oral) Resp 18 SpO2 98% GENERAL: Awake/easily arousable HEENT: +Healing bite wound R side of tongue, no lymphadenopathy, thyroid non-tender, without palpable masses/nodules or enlargement RESPIRATORY: Normal respiratory effort. Clear to auscultation without rhonchi, rales, wheezing. CARDIOVASCULAR: RRR, normal S1, S2 auscultated, no murmur present GI: Soft abdomen, nontender, nondistended without mass. No hepatosplenomegaly. Normal bowel sounds EXTREMITIES: No cyanosis, clubbing or edema. Good capillary refill. SKIN: Skin color, texture, turgor normal. No rashes or lesions. MUSCULOSKELETAL No joint swelling, deformity, or tenderness. NEUROLOGICAL: LOC: 0 - alert and responsive 0 LOC Questions: 1 - one correct (Incorrect age) 1 (Incorrect age) LOC Commands: 0 - both correct 0 LOC Normal Gaze: 0 - normal gaze 0 Visual Collins: 0 - no visual loss 0 Facial Palsy: 0 - normal 0 Motor Left Arm: 0 - no drift 0 Motor Right Arm: 0 - no drift 0 Motor Left Le - no drift 0 Motor Right Le - no drift 0 Limb Ataxia: 0 - no ataxia (or aphasic, hemiplegic) 0 Sensory: 0 - normal 0 Language: 0 - normal (Episodic, mixed aphasia) 0 (Episodic, mixed aphasia) Dysarthria: 0 - normal 0 Extinction/Neglect: 0 - normal, none detected (or visual loss alone) 0 Initial NIHSS: 1 (04/25/18 1900 : Vikram (Sara Reyes) 1 MENTAL STATUS: Alert, oriented to person, place, states incorrect year; witnessed transient, sudden-onset mixed aphasia (perseverating, unable to follow commands, impaired naming/repetition, resolved after 1-2 minutes) followed by return to fluent/appropriate language with intact naming/repetition/commands CRANIAL NERVES: PERRL, intact blink to threat OU, EOMI, sensation intact, face symmetric, no dysarthria MOTOR: No drift and Normal tone MOTOR STRENGTH: Upper and lower extremity 5/5 bilaterally REFLEXES: UE and LE reflexes are equal and reactive SENSATION: Intact light touch COORDINATION: Finger-to- nose-finger intact bilaterally GAIT: Not assessed DATA: Diagnostic tests reviewed for today's visit: CMP, CBC, Coags Most recent labs and imaging results. STROKE CARE PATH [facility] Date Patient Last Known Well: 04/23/18 Date of Patient Arrival at THIS Facility: 04/25/18 Time of Patient Arrival at THIS Facility: 1900 [place] Coma Scale Totals (Calculated): 14 [address] Imaging Review: CT Imaging reviewed, NO acute infarct/hemorrhage seen CTA Imaging Review: CTA Imaging reviewed, NO large vessel occlusion or severe stenosis seen Candidate for Endovascular Therapy (Last Known Well within 24 hours): No - Negative for evidence of large vessel occlusion STROKE 9 CARE AND PREVENTION CHECKLIST 1. Is the patient currently on an ANTITHROMBOTIC medication (Antiplatelet or Anticoagulant): Aspirin 2. Does the patient have known AFIB/FLUTTER: Paroxysmal atrial fibrillation Is the patient currently on anticoagulation: No Reason patient not on anticoagulation: Aortic dissection Are there plans to start anticoagulation: No plan to start anticoagulation 3. Is the patient on a STATIN: Other medication - see comment (Lipitor 20) 4. Is the patient on VTE prophylaxis: Mechanical prophylaxis Mechanical intervention type: Intermittent compression stocking(s) 5. GLYCEMIC Control Medications: Not Diabetic 6. Stroke BP Goals: Other - see comment (Normotension) Stroke BP Control: BP well controlled 7. Stroke IVF/Nutrition: Diet 8. TEMPERATURE Control: Normothermic 9. 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 * Assessment/Plan This is a 77 year old male with h/o ICH 2/2 aneurysm rupture, afib (not on AC), former aortic dissection who presents with headache and language disturbance, had witnessed seizure-like activity x 2 in OSH ED, given Ativan and started on Keppra prior to transfer to F. CT brain/CTA unremarkable at OSH; impression most concerning for seizure. Patient's history is most consistent with new-onset seizure possibly 2/2 encephalomalacia. His fluctuating symptoms in absence of vessel stenosis or BP variability does not fit well with a vascular etiology. His positive visual phenomenon and lack of weakness during episodes are also more consistent with seizure activity. 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 Rodriguez Assessment: Stable PLAN: -Repeat MRI brain -Lipitor 80 -Will discuss antiplatelets Intraparenchymal hemorrhage of brain (HCC) Assessment AND Plan Assessment: -2/2 aneurysm rupture PLAN: -Repeat MRI brain Cardiovascular Aortic dissection (HCC) Assessment AND Plan 2017 Assessment: stable PLAN: -No anticoagulation due to increased bleeding risk Atrial fibrillation, chronic (HCC) Assessment AND Plan CHADS-VASc 4 PLAN: -Holding antiplatelets tonight, will likely start aspirin tomorrow ENT Word finding difficulty Assessment AND Plan Fluctuating word-finding difficulties since Wednesday, improving with episodic worsening OSH CT/CTA nonacute with no LVO Assessment: Most consistent with seizure activity PLAN: -See seizure plan below Imaging Ordered Today: None SIGNATURE: Vikram Reyes DO PATIENT NAME: Tyrel Ruffin DATE: April 25, 2018 TIME: 6:21 PM PAGER/CONTACT #: [id number] Senior Resident Addendum Please refer to the excellent note above for the HPI. Agree with above neurological exam. Overnight updates: From 1am to 3am, patient had 8 seizures. He was given 2g IV Keppra. Maintenance could not be increased due to GFR, so continued at 1g BID. From 3am to 5am he had several more seizures. Gave 20mg/kg Depakote load and started 500mg BID for maintenance. This morning he had further speech changes, Depakote not given yet, so he was given 2mg of Ativan. Plan: - Keppra 1g BID - Depakote 500mg BID - Continue EEG - MRI Brain wo Roseline Dumont MD PGY-3 Neurology Resident [id number] Attending note: I have seen and examined Mr. Tyrel Ruffin with residents and I fully agree with the outlined assessment and plan. Current EEG shows significant generalized slow. Open eyes when his name is called. Not following commands. Hold arms in air briefly. Move legs. Continue current AED treatment. Marco Marques MD, PhD [facility] [place] [id number] DISCHARGE SUMMARY Observed: 04/25/2018 Status: F Source: [place] 2:14 PM [facility] [place] Medical Records Department [address] [place] [address] Discharge Summary 04/25/18 1409 MR#: [id number] Acct: [id number] Name: TYREL RUFFIN Rep #: [id number] : 1940 77 From: Billy Morales MD PCP: Kasi Velázquez MD Status: ADM IN Y Location: ICU [id number] Discharge Date and Diagnosis - Problem List Patient Problems: Active and Suspected Problems CVA (cerebral vascular accident) (Acute) Seizure (Acute) Date of Admission: 04/24/18 Date of Discharge: 04/25/18 - Primary Discharge Diagnosis Active and Suspected Problems CVA (cerebral vascular accident) (Acute) Seizure (Acute) - Secondary Discharge Diagnosis Chronic Problems Aneurysm (Chronic) Aortic dissection (Chronic) Chronic a-fib (Chronic) HTN (hypertension) (Chronic) Hospital Course and Treatment Imaging Results: Clinical Impression(s) from Imaging Studies Chest X-Ray 04/24/18 14:17 IMPRESSION: Nonacute portable x-ray examination of the chest. Electronically Signed: Chan Marion MD at 14:40 EST , Service support , Summary of Care Provided: Patient is a 77-year-old gentleman with multiple comorbidities including chronic A. fib not on systemic anticoagulation due to history of bleeding cerebral aneurysm as well as a descending aortic dissection who presented with speech difficulty with was later followed by seizure. A suspicion of acute ischemic stroke was made admitted to the intensive care unit for subsequent management 1. New onset seizure suspected to be secondary to stroke. Patient was started on Keppra admitted to the intensive care unit placed on seizure precautions did receive Ativan scheduled to undergo subsequent evaluation with MRI of the brain with and without contrast. Consultation placed to neurology patient was discussed with patient's neurologist at [facility] who requested for patient to be transferred to [facility] Main [place] call was placed and patient was accepted for transfer 2. Suspected ischemic CVA possibly embolic from patient underlying chronic A. fib. Admitted to the intensive care unit being assessed with every 4 neuro checks. Patient was started on Plavix MRI ordered for subsequent evaluation. 2D echo was also ordered and consultation placed to neurology 3. Chronic A. fib rate controlled patient was deemed not a candidate for systemic anticoagulation due to his history of bleeding cerebral aneurysm as well as ascending aortic dissection 4. Hypertension patient blood pressure acceptable 5. Dyslipidemia-patient is on statin therapy, continued at home dose 6. History of bleeding cerebral aneurysm 7. History of descending aortic dissection 8. DVT: SCDs Patient Problems: Active and Suspected Problems CVA (cerebral vascular accident) (Acute) Seizure (Acute) - Physical Exam General: No apparent distress HEENT: Atraumatic Neck: No JVD Vital Signs Temp Pulse Resp BP Pulse Ox 98.1 F 95 18 169/122 H 97 04/25/18 13:00 04/25/18 13:00 04/25/18 13:00 04/25/18 13:00 04/25/18 13:00 Oxygen Flow Rate (L/min) 2 Oxygen Delivery Method Room Air Weight: 82.3 kg Body Mass Index (BMI) 25.7 Finger Stick Blood Glucose 103 Intake and Output for Last 24 Hours Intake Total 2029 / 2029 Output Total 600 / 600 1880 / 1880 Balance -600 / -600 150 / 150 Laboratory Tests Past 24 Hrs WBC 7.6 RBC 5.26 Hgb 16.1 Hct 48.6 MCV 92.4 MCH 30.6 MCHC 33.1 RDW 13.9 RDW Differential 46.1 H WBC RBC Hgb Hct MCV MCH MCHC RDW RDW Differential Plt Count MPV Immature Gran % (Auto) Neut % (Auto) Lymph % (Auto) POC Glucose POC Glucose 86 Home Medications: Medications to take at Discharge Amlodipine [Norvasc] 5 mg PO DAILY 05/18/14 Aspirin [Aspirin, Baby] 81 mg PO DAILY@0800 05/18/14 Atorvastatin Calcium [Lipitor] 20 mg PO QHS 05/18/14 Metoprolol Succinate [Toprol Xl] 100 mg PO DAILY 04/24/18 Primary Care Physician: Kasi Velázquez MD [Primary Care Provider] - Please follow up with your Primary Care Physician in: [place] 1- 2 WEEKS Disposition: [facility] Minutes spent on discharge:: 55 Patient Condition:: Stable Medical Necessity - Tobacco Use Smoking Status: Former smoker Tobacco Use: Cigarettes Meaningful Use Info Meaningful Use Diagnoses (Choose all that apply): Ischemic CVA - CVA Therapy Assessed for PT,OT and/or ST?: Yes - Ischemic Stroke Antithrombotic order at d/c?: Yes Dx of Atrial fib/flutter?: Yes Anticoagulant at discharge?: No Reason anticoagulant not ordered: Medical Contraindication Statins at discharge?: Yes Primary Dx Acute Ischemic CVA?: No IV tPA ordered during stay?: No Reason IV t-PA not ordered: Medical Contraindication Code Visit Inpatient E AND M: [id number] Disch Hosp 04/25/18 1414 <Electronically signed by Billy Morales MD> Date Billy Morales MD Cosigner Signature (if applicable): Date CC: Kasi Velázquez MD; Billy Morales MD Signed DISCHARGE INSTRUCTION Observed: 04/25/2018 Status: F Source: [place] 1:47 PM [facility] [place] Medical Records Department [address] [place] [address] Instructions for Home/Discharge Instructions 04/25/18 1345 MR#: [id number] Acct: [id number] Name: TYREL RUFFIN Rep #: [id number] : 1940 77 From: Billy Morales MD PCP: Kasi Velázquez MD Status: ADM IN - Discharge Diagnoses Current Active Problems: Current Active and Chronic Problems Aneurysm (Chronic) Aortic dissection (Chronic) Chronic a-fib (Chronic) CVA (cerebral vascular accident) (Acute) Seizure (Acute) HTN (hypertension) (Chronic) You will use the following diet at home:: Cardiac Allergies/Adverse Reactions: Allergies codeine Allergy (Verified 05/18/14 18:25) Other amoxicillin Adverse Reaction (Verified 04/24/18 14:01) Other Penicillins Adverse Reaction (Verified 04/24/18 14:01) Other Medications to take at Discharge Amlodipine [Norvasc] 5 mg PO DAILY 05/18/14 Aspirin [Aspirin, Baby] 81 mg PO DAILY@0800 05/18/14 Atorvastatin Calcium [Lipitor] 20 mg PO QHS 05/18/14 Metoprolol Succinate [Toprol Xl] 100 mg PO DAILY 04/24/18 Primary Care Physician: Kasi Velázquez MD [Primary Care Provider] - Please follow up with your Primary Care Physician in: [place] 1- 2 WEEKS Test Results: Test results from this visit will be discussed in further detail at your follow-up appointment, if applicable. Proposed Discharge Date: 04/25/18 04/25/18 1347 <Electronically signed by Billy Morales MD> Date Billy Morales MD CC: Kasi Velázquez MD; Renan Hawk MD ECHO, COMPLETE W/ Observed: 04/25/2018 Status: F Source: [place] CONTRAST 12:10 PM [facility] [place] Cardiovascular Services [address] [place] [address] Echo Complete W/ Contrast 04/25/18 0859 MR#: [id number] Acct: [id number] Name: TYREL RUFFIN Rep #: [id number] : 1940 77 From: Nathaniel Villafuerte MD Attending Dr: Billy Morales MD Status: ADM IN Ordering Dr: Oh Rose MD Date: 04/24/18 Location: ICU Sex: M C Admitted: 04/24/18 Reason For Study: TIA/CVA Procedure This was a 2D Doppler, Color Flow transthoracic echocardiogram. The study was technically difficult. Contrast injection was performed. Exam performed portable in ICU/CCU. Left Ventricle Normal LV size. Left ventricular systolic function is normal. The estimated ejection fraction is 60 %. Transmitral diastolic flow velocities suggest severe (stage 3) diastolic dysfunction. No regional wall motion abnormalities noted. Right Ventricle Normal RV size. Normal systolic function. Atria Normal left atrium. Normal right atrium. Bubble contrast study negative for right to left interatrial shunt. Mitral Valve Normal mitral valve. Tricuspid Valve Normal tricuspid valve. Aortic Valve The aortic valve is not well visualized. Pulmonic Valve Normal pulmonic valve. Great Vessels Normal aortic root. The pulmonary artery is normal size. Normal inferior vena cava. Pericardium/Pleural No pericardial effusion. Medication Diluted definity 3ml given slow IV push to enhance endocardial definition. Performed a rapid injection of agitated mix of 9 cc saline and 1cc air to assess for atrial septal defect. MMode/2D Measurements AND Calculations LVIDd: 3.9 cm IVSd: 1.0 cm LVOT diam: 2.0 cm LVIDs: 2.5 cm LVPWd: 1.2 cm RVDd: 3.2 cm FS: 36.4 % LVOT area: 3.0 cm2 LAV(MOD-sp4): 38.6 ml LA A4 area: 17.4 cm2 RA A4 area: 17.7 cm2 Time Measurements MV dec time: 0.18 sec Doppler Measurements AND Calculations MV E max bekah: 102.6 cm/sec Ao V2 max: 192.0 cm/sec LV V1 max: 107.0 cm/sec MV A max bekah: 37.2 cm/sec Ao max P.8 mmHg LV V1 max P.6 mmHg MV E/A: 2.8 Ao V2 mean: 112.0 cm/sec LV V1 mean P.1 mmHg Ao mean P.3 mmHg LV V1 mean: 64.1 cm/sec Ao V2 VTI: 33.0 cm LV V1 VTI: 21.7 cm REZA(I,D): 2.0 cm2 REZA(V,D): 1.7 cm2 SV(LVOT): 65.2 ml PA V2 max: 69.5 cm/sec TR max bekah: 266.4 cm/sec TR max P.4 mmHg Interpretation Summary Normal LV size. Left ventricular systolic function is normal. The estimated ejection fraction is 60 %. Bubble contrast study negative for right to left interatrial shunt. Contrast injection was performed. Ordering Physician: Oh Rose Referring Physician: Jose Raul Velázquez Performed By: Benji Palafox RCS 04/25/18 1209 Date Nathaniel Villafuerte MD CC: Kasi Velázquez MD; Billy Morales MD; Oh Rose MD Date Dictated: 04/25/18 0859 Date Transcribed: 04/25/18 1209 Alarm Operator: Signed BEDSIDE GLUCOSE Collected: 04/25/2018 Status: F Source: [place] 6:37 AM [facility] TYPE CODE TESTS RESULT OUT OF RANGE REFERENCE UNITS LAB L501.080 70-110 mg/dL Normal BEDSIDE GLU 86 Result Comment: MANAGEMENT OF PATIENT CARE PER NURSING PROTOCOL Performed By: #### L501.080 #### [facility] Point of Care [address] [facility]. [place], [place] [id number] URINE DRUG SCREEN Collected: 04/25/2018 Status: F Source: [place] (VISTA) 5:05 AM [facility] TYPE CODE TESTS RESULT OUT OF RANGE REFERENCE UNITS LAB L505.0075 TO BE Normal CONFIRMED Result Comment: CONFIRMATORY TESTING FOR ALL POSITIVE URINE DRUG SCREEN RESULTS WILL ONLY BE SENT OUT UPON PHYSICIAN ORDER. VISTA Urine Drug Screen methods provide only preliminary analytical test results. A more specific alternate chemical method must be used in order to obtain a confirmed analytical result. Gas chromatography/mass spectrometery (GC/MS) is the preferred confirmatory method. Clinical consideration and professional judgement should be applied to any drug of abuse test result, particularly when preliminary positive results are used. URINE TCA TESTING MUST BE ORDERED SEPARATELY. USE TEST MNEMONIC: [facility] LAB L505.5005 VISTA UDS PH 6 Normal LAB L505.5015 <1000 ng/mL AMPHETAMINES Normal NEGATIVE LAB L505.5025 < 200 ng/mL BARBITIURATES Normal NEGATIVE LAB L505.5035 < 200 ng/mL BENZODIAZIPINE Normal NEGATIVE LAB L505.5045 < 300 ng/mL COCAINE Normal NEGATIVE LAB L505.5055 < 500 ng/mL ECSTACY Normal NEGATIVE LAB L505.5065 < 300 ng/mL METHADONE Normal NEGATIVE LAB L505.5075 < 300 ng/mL OPIATES Normal NEGATIVE LAB L505.5085 < 25 ng/mL PCP Normal NEGATIVE LAB L505.5095 < 50 ng/mL THC Normal NEGATIVE Performed By: #### L505.5000 #### [facility] [address]. [place], [place], [id number] ALCOHOL, BLOOD Collected: 04/25/2018 Status: F Source: [place] (MEDICAL)-SERUM 5:00 AM [facility] TYPE CODE TESTS RESULT OUT OF RANGE REFERENCE UNITS LAB L501.9100 mg/dL Normal SERUM 6.0 ETOH Result Comment: The serum:whole blood ethanol ratio is approximately 1.14 and varies slightly with hematocrit. Medical Alcohol reference interval and critical value in non-tolerant individuals; 50 - 100 Impairment 100 Intoxication 100 - 250 Severe Poisoning 250 - 400 Deep/possible fatal coma Performed By: #### L501.9100 #### [facility] [address] [place], [place], [address] LIPID PROFILE Collected: 04/25/2018 Status: F Source: [place] 4:16 AM [facility] TYPE CODE TESTS RESULT OUT OF RANGE REFERENCE UNITS LAB L501.4900 200 mg/dL Normal CHOL 114 Result Comment: <200 mg/dL Desirable 200-240 mg/dL Borderline >240 mg/dL High Risk LAB L501.5000 mg/dL Normal TRIG 106 Result Comment: The drugs N-Acetylcysteine and Metamizole may falsely depress this assay. Serum Triglycerides Reference Interval Normal <150 mg/dL Borderline high 150 - 199 mg/dL High 200 - 499 mg/dL Very High > or = 500 mg/dL LAB L501.6400 mg/dL Low HDL 36 Result Comment: The drugs N-Acetylcysteine and Metamizole may falsely depress this assay. Reference Range HDL <40 mg/dL Low HDL Cholesterol HDL >or= 60 mg/dL High HDL Cholesterol LAB L501.6500 0-130 mg/dL Normal LDL 57 LAB L501.6600 5-40 mg/dL Normal VLDL 21 Performed By: #### L500.4100 #### [facility] [address] [facility] [place], [place], [id number] LIVER PROFILE Collected: 04/25/2018 Status: F Source: [place] 4:16 AM [facility] TYPE CODE TESTS RESULT OUT OF RANGE REFERENCE UNITS LAB L501.1500 6.4-8.2 g/dL Low T PROT 6.3 LAB L501.1800 3.2-5.0 g/dL Normal ALB 3.2 LAB L501.1950 2.2-4.2 g/dL Normal GLOB 3.1 LAB L501.4100 15-37 U/L Normal AST 17 LAB L501.4305 45-117 U/L Normal ALK P 103 LAB L501.4405 16-61 U/L Normal ALT 26 LAB L501.4600 0.20-1.00 mg/dL Normal T BILI 1.00 LAB L501.4700 0.00-0.30 mg/dL Normal D BILI 0.23 Performed By: #### L500.3400, L501.9520 #### [facility] [address] [facility] [place], [address] THYROID STIM HORMONE Collected: 04/25/2018 Status: F Source: [place] (TSH) 4:16 AM [facility] TYPE CODE TESTS RESULT OUT OF RANGE REFERENCE UNITS LAB L501.9520 0.358-3.74 uIU/mL Normal TSH 2.20 Performed By: #### L500.3400, L501.9520 #### [facility] [address] [facility]. [place], [place], [address] TROPONIN-I Collected: 04/25/2018 Status: F Source: [place] 4:16 AM [facility] TYPE CODE TESTS RESULT OUT OF RANGE REFERENCE UNITS LAB L501.4010 <0.045 ng/mL Normal < 0.015 TROPONIN-I Result Comment: TROPONIN-I EXPECTED VALUES <0.045 Negative 0.045 - 0.590 Consistent with Cardiac Damage > OR = 0.600 Critical Value Not every elevated troponin is indicative of VA. These values should be used with clinical judgement in examining the patient's clinical picture for diagnosis. To establish a diagnosis of VA versus myocardial injury, there must be a demonstrated rise and/or fall in the troponin values, in addition to ischemic symptoms, EKG changes, new regional wall motion abnormality, and/or angiographical evidence. PLEASE NOTE: REFERENCE RANGES EDITED 17 Performed By: #### L501.4010 #### [facility] [address] [place], [place], [address] HISTORY AND PHYSICAL Observed: 04/24/2018 Status: F Source: [place] EXAM 4:35 PM [facility] [place] Medical Records Department [address] [place] [address] History and Physical 04/24/18 1615 MR#: [id number] Acct: [id number] Name: TYREL RUFFIN Rep #: [id number] : 1940 77 From: Oh Rose MD PCP: Kasi Velázquez MD Status: ADM IN Y Location: ICU [id number] Problem List (1) Aneurysm Status: Chronic (2) Aortic dissection Status: Chronic (3) Chronic a-fib Status: Chronic (4) CVA (cerebral vascular accident) Status: Acute (5) Seizure Status: Acute (6) HTN (hypertension) Status: Chronic History of Present Illness Date of Admission: 04/24/18 Chief Complaint: Aphasia The patient is a 77 year old M with past medical history consistent for chronic A. fib, cerebral aneurysm, a descending aortic dissection, presenting with a headache for 1 day prior to admission and then today his noticed that he would speak but his words would be in an abnormal order or just incorrect. For example instead of saying let us take out the garbage and she said lets take out the sink. So she brought him to the hospital given his previous history with a cerebral aneurysm, where he was taken to [facility] where he was told that where it is in location they cannot repair it surgically, and that he needs to remain off of all anticoagulation. In the ER he only had the speech difficulty and was therefore given an NIH of 2. He had a CT of the brain which was negative for bleed, and the head and neck CTAs were both negative. Neurology had been called and made aware of the case. Between talking to the neurologist and consulting me for admission. The patient also then had a seizure that he spontaneously broke out of, however he was given a milligram of Ativan, and was loaded with 1 g of Keppra. During my interview and exam, patient had a second seizure. Also lasted lasted for less than a minute and resolved spontaneously. Past Medical History Past Medical History (Chronic Problems): Chronic Problems Aneurysm (Chronic) Aortic dissection (Chronic) Chronic a-fib (Chronic) HTN (hypertension) (Chronic) Allergies codeine Allergy (Verified 05/18/14 18:25) Other amoxicillin Adverse Reaction (Verified 04/24/18 14:01) Other Penicillins Adverse Reaction (Verified 04/24/18 14:01) Other Home Medications: Ambulatory Orders Medication Instructions Recorded Amlodipine [Norvasc] 5 mg PO DAILY 05/18/14 Surgical History: no surgical history Lives: With Family Smoking Status: Former smoker Tobacco Use: Cigarettes Alcohol: None Drugs: None - *Family History Maternal History Items: Heart Disease Paternal History Items: Heart Disease, Stroke Review of Systems Unable to obtain accurate/complete ROS d/t: Patient altered mental status after Ativan and 2 seizures. VTE Information - Inpt Only VTE Present on Admission: No Patient Problems: Active and Suspected Problems CVA (cerebral vascular accident) (Acute) Seizure (Acute) - Physical Exam General: - - Cannot respond to questions, he does make eye contact when called HEENT: Atraumatic, PERRLA, EOMI, Normocephalic Oral: Dry Mucosa Neck: Supple, No JVD Lungs: Clear to auscultation, Normal air movement, No rhonchi, No wheeze, No rales Cardiovascular: Regular rate, Regular Rhythm, Normal S1, Normal S2, No murmurs Abdomen: Soft, Non Tender, Non-Distended, No Hepato-splenomegaly Extremities: No edema, Capillary Refill Less than 3 Seconds Skin: No rashes, No breakdown Neurological: - - Very difficult to assess neuro exam after Ativan and seizures. Initially he was unable to move both upper extremities and then progressed to scratching his face with his left hand. He does not respond to prompts to participate in exam. Vital Signs Temp Pulse Resp BP Pulse Ox 97.3 F L 128 H 18 153/106 H 100 04/24/18 14:01 04/24/18 16:00 04/24/18 16:00 04/24/18 16:00 04/24/18 16:00 Oxygen Flow Rate (L/min) 4 Oxygen Delivery Method Nasal Cannula Weight: 181 lb 3.52 oz Body Mass Index (BMI) 25.9 Finger Stick Blood Glucose 103 Laboratory Tests Past 24 Hrs Assessment/Plan All Active Problems CVA (cerebral vascular accident) (Acute) Seizure (Acute) 1. CVA/Seizure x2/h/o descending aortic dissection/Cerebral aneurysm - His symptoms prior to the seizure and ativan convincing for a stroke with an NIH of 2 - CT brain was negative for a bleed and CTA head and neck was also negative - Seizure is likely secondary to stroke as he does not have a seizure history - NPO, with speech therapy and PT/OT - 1 gm of keppra IV followed by Keppra 500 mg IV BID - C/s to neurology, MRI in am along with echo - Given the seizure and ativan it is very difficult to assess his neuro exam. Unable to determine NIH given this confounder, unfortunately, given his aneurysm, he is not a candidate for tPA or anticoagulation. - Admit to the ICU for neuro assessments - He is already on asprin, will add plavix - Will increase lipitor to 40 mg if/when able to take PO - permissive HTN, neuro checks per protocol 2. Chronic A-fib/HTN - will hold his home medications - Will make lopressor IV available if the HR requires it - Echo in am DVT: SCDs Code Visit Inpatient E AND M: 54455 Subs Hosp L3 04/24/18 1635 <Electronically signed by Oh Rose MD> Date Oh Rose MD Cosigner Signature: Date (if applicable) CC: Kasi Velázquez MD; Oh Rose MD Signed EMERGENCY DEPARTMENT Observed: 04/24/2018 Status: F Source: [place] SUMMARY 4:03 PM [facility] [place] Medical Records Department [address] [place] [address] Emergency Department Summary 04/24/18 1426 MR#: [id number] Acct: [id number] Name: TYREL RUFFIN Rep #: [id number] : 1940 77 From: Mike Regan MD PCP: Kasi Velázquez MD Status: ADM IN - ER Visit Summary Date of Service: 04/24/18 Chief Complaint: Headache with blurred vision and now difficulty with his speech History of Present Illness: The patient is a 77 M known history of a prior descending dissection and a prior bleeding brain aneurysm that was not surgically amenable to repair. This is already been evaluated and worked up in the past at [facility]. Yesterday the patient had a gradual onset of a headache that he thought was a sinus headache. He later developed some visual disturbance which all started around noon yesterday. And then today he has had trouble with his speech. And a headache and seems of gotten worse. He denies any vomiting. No head trauma. He is on no blood thinners besides aspirin. Denies any other complaints. Physical Examination: Blood pressure initially 171/1 oh temperature 97.3. Heart rate 100. Pulse ox 9 9% on room air no hypoxia. HEENT exam pupils round reactive light. 2 mm bilaterally. No facial droop. His words are easily understandable but he is having trouble putting them together consistent with a dysarthria. There is no slurring of speech. Neck nontender. Lungs clear to auscultation bilaterally. Heart irregular rate in the 90s. Abdomen is soft and nontender. Patient is moving all 4 extremities. He has equal symmetrical customer care agent strength. Dorsi and plantar flexion intact. No numbness. Neurologically he is awake. He is alert. At times he does appear to have difficulty understanding my questions. He has obvious dysarthria but no slurring of his speech. No facial droop. Is an NIH score of 2. Test Results: Patient taken emergently to CAT scan and a stroke team was initiated. CBC normal. White count of 7. Hemoglobin is 13. Electrolytes unremarkable gap of 8. Glucose of 97. Creatinine 1.3. PT, PTT and INR normal. Troponin normal. EKG showed A. fib rate of 93. Chest x-ray portable one view showed no acute abnormality read both by myself and the radiologist. CT of the brain without contrast showed no acute findings per the radiologist who called me. He did have encephalomalacia on the left parietal lobe. CTA of the head and neck showed no acute abnormality. No significant occlusion. And no obvious aneurysm. Emergency Department Course and Treatment: While in the emergency department and awaiting test results the patient had -1-minute tonic-clonic seizure. It resolved spontaneously. He was given 1 mg of Ativan. I discussed this along with all his test results with the neurologist and he will be loaded with IV Keppra. I have also already spoken with the hospitalist to admit the patient to the PCU. Treatment Plan: Admission to the PCU for further evaluation and workup. At this time no anticoagulation per the radiologist. Disposition: Admission Impression: Acute headache with visual change and dysarthria secondary to acute CVA History of known brain aneurysm however not seen on our CTA of the brain and neck today. History of prior dissection Chronic atrial fibrillation Acute seizure This note was generated with Qwite dictation software. It may contain incorrect words, spelling, and punctuation that were not noted in review of the chart prior to signing ED Disposition - Plan for ED Patient: Chief Complaint: Neuro S/Sx Referrals: Kasi Velázquez MD [Primary Care Provider] - What to do if you have Problems For any increased pain, shortness of breath, bleeding, nausea or vomiting, chest pain, or any unexpected problems, contact your Primary Care Provider. Call [facility] ([phone]) or report to the closest Emergency Room. Call 911 if necessary. 04/24/18 1603 <Electronically signed by Mike Regan MD> Date Mike Regan MD Cosigner Signature (If Indicated): Date CC: Kasi Velázquez MD CTA NECK W/WO Observed: 04/24/2018 Status: F Source: [place] CONTRAST 2:33 PM [facility] [place] Imaging Services [address] [facility] [place] [address] CTA Neck W/WO Contrast MR#: [id number] Acct: [id number] Name: TRYEL RUFFIN Rep #: [id number] : 1940 M 77 From: Drew Forrester MD PCP: Kasi Velázquez MD Status: REG ER Study: CTA Neck W/WO Contrast Date of Exam: 04/24/18 Exam# [id number] Ordering Dr: Mike Regan MD STUDY: CTA OF THE BRAIN AND NECK REASON FOR EXAM: Male, 77 years old. Stroke alert RADIATION DOSAGE (If Supplied By Facility): CTDIvol = ( 24.11 ) mGy, DLP = ( 742.65 ) mGycm TECHNIQUE: CT angiography was performed with a multi-detector CT scanner. Data acquisition was obtained from the aortic arch through the vertex following intravenous administration of 100 ml of Isovue 370. MIP images were reconstructed from the axial data set. Post-processing of the angiographic images was performed, with multiplanar reformation and 3D reconstruction. Individualized dose optimization techniques were used for this CT. COMPARISON: None. FINDINGS: The origin of the great vessels are patent. Atherosclerotic calcifications of the aortic arch seen. There is likely a chronic dissection of the proximal left subclavian artery with mild narrowing. The bilateral common carotid arteries are patent. There is atherosclerotic calcifications and soft tissue plaque formation of the bilateral carotid bifurcation with mild narrowing. The cervical internal carotid arteries are patent. Origin of the vertebral arteries are patent. The remaining segments of the vertebral arteries are also patent. Petrous and cavernous segments of the internal carotid arteries are patent mild fusiform dilatation of the cavernous segment of the right internal carotid artery seen. Bilateral middle cerebral arteries are patent. The bilateral anterior cerebral arteries are patent. Patent anterior communicating artery. Vertebrobasilar junction is patent. The basilar artery is patent. The superior cerebellar arteries are patent. Posterior cerebral arteries are patent. Small infundibulum at the origin of the left posterior communicating artery Emphysematous changes in the lung apices IMPRESSION: No evidence for significant cervical carotid or vertebral artery stenosis, occlusion or dissection. No definite evidence for intracranial saccular aneurysm seen. Fusiform dilatation of the cavernous segment of the right internal carotid artery measuring up to 6 mm. Small infundibulum versus 2 mm aneurysm at the origin of the left posterior communicating artery. 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 : The above information has been verbally conveyed by Drew Forrester to Dr. Mike Regan MD, on 04/24/2018 15:33:24 (ET). Electronically Signed: Drew Forrester, at 15:29 EST Tel , Service support , STUDY: CTA OF THE BRAIN AND NECK REASON FOR EXAM: Male, 77 years old. Stroke alert RADIATION DOSAGE (If Supplied By Facility): CTDIvol = ( 24.11 ) mGy, DLP = ( 742.65 ) mGycm TECHNIQUE: CT angiography was performed with a multi-detector CT scanner. Data acquisition was obtained from the aortic arch through the vertex following intravenous administration of 100 ml of Isovue 370. MIP images were reconstructed from the axial data set. Post-processing of the angiographic images was performed, with multiplanar reformation and 3D reconstruction. Individualized dose optimization techniques were used for this CT. COMPARISON: None. FINDINGS: The origin of the great vessels are patent. Atherosclerotic calcifications of the aortic arch seen. There is likely a chronic dissection of the proximal left subclavian artery with mild narrowing. The bilateral common carotid arteries are patent. There is atherosclerotic calcifications and soft tissue plaque formation of the bilateral carotid bifurcation with mild narrowing. The cervical internal carotid arteries are patent. Origin of the vertebral arteries are patent. The remaining segments of the vertebral arteries are also patent. Petrous and cavernous segments of the internal carotid arteries are patent mild fusiform dilatation of the cavernous segment of the right internal carotid artery seen. Bilateral middle cerebral arteries are patent. The bilateral anterior cerebral arteries are patent. Patent anterior communicating artery. Vertebrobasilar junction is patent. The basilar artery is patent. The superior cerebellar arteries are patent. Posterior cerebral arteries are patent. Small infundibulum at the origin of the left posterior communicating artery Emphysematous changes in the lung apices IMPRESSION: No evidence for significant cervical carotid or vertebral artery stenosis, occlusion or dissection. No definite evidence for intracranial saccular aneurysm seen. Fusiform dilatation of the cavernous segment of the right internal carotid artery measuring up to 6 mm. Small infundibulum versus 2 mm aneurysm at the origin of the left posterior communicating artery. 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 : The above information has been verbally conveyed by Drew Forrester to Dr. Mike Regan MD, on 04/24/2018 15:33:24 (ET). Electronically Signed: Drew Forrester, at 15:30 EST Tel , Service support , CT/CTA Neck W/WO Contrast CC: Kasi Velázquez MD; Mike Regan MD Alarm Operator: Signed CTA HEAD W/WO Observed: 04/24/2018 Status: F Source: [place] CONTRAST 2:33 PM [facility] [place] Imaging Services [address] [place] [address] CTA Head W/WO Contrast MR#: [id number] Acct: [id number] Name: TYREL RUFFIN Rep #: [id number] : 1940 M 77 From: Drew Forrester MD PCP: Kasi Velázquez MD Status: REG ER Study: CTA Head W/WO Contrast Date of Exam: 04/24/18 Exam# [id number] Ordering Dr: Mike Regan MD STUDY: CTA OF THE BRAIN AND NECK REASON FOR EXAM: Male, 77 years old. Stroke alert RADIATION DOSAGE (If Supplied By Facility): CTDIvol = ( 24.11 ) mGy, DLP = ( 742.65 ) mGycm TECHNIQUE: CT angiography was performed with a multi-detector CT scanner. Data acquisition was obtained from the aortic arch through the vertex following intravenous administration of 100 ml of Isovue 370. MIP images were reconstructed from the axial data set. Post-processing of the angiographic images was performed, with multiplanar reformation and 3D reconstruction. Individualized dose optimization techniques were used for this CT. COMPARISON: None. FINDINGS: The origin of the great vessels are patent. Atherosclerotic calcifications of the aortic arch seen. There is likely a chronic dissection of the proximal left subclavian artery with mild narrowing. The bilateral common carotid arteries are patent. There is atherosclerotic calcifications and soft tissue plaque formation of the bilateral carotid bifurcation with mild narrowing. The cervical internal carotid arteries are patent. Origin of the vertebral arteries are patent. The remaining segments of the vertebral arteries are also patent. Petrous and cavernous segments of the internal carotid arteries are patent mild fusiform dilatation of the cavernous segment of the right internal carotid artery seen. Bilateral middle cerebral arteries are patent. The bilateral anterior cerebral arteries are patent. Patent anterior communicating artery. Vertebrobasilar junction is patent. The basilar artery is patent. The superior cerebellar arteries are patent. Posterior cerebral arteries are patent. Small infundibulum at the origin of the left posterior communicating artery Emphysematous changes in the lung apices IMPRESSION: No evidence for significant cervical carotid or vertebral artery stenosis, occlusion or dissection. No definite evidence for intracranial saccular aneurysm seen. Fusiform dilatation of the cavernous segment of the right internal carotid artery measuring up to 6 mm. Small infundibulum versus 2 mm aneurysm at the origin of the left posterior communicating artery. 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 : The above information has been verbally conveyed by Drew Forrester to Dr. Mike Regan MD, on 04/24/2018 15:33:24 (ET). Electronically Signed: Drew Forrester, at 15:29 EST Tel , Service support , STUDY: CTA OF THE BRAIN AND NECK REASON FOR EXAM: Male, 77 years old. Stroke alert RADIATION DOSAGE (If Supplied By Facility): CTDIvol = ( 24.11 ) mGy, DLP = ( 742.65 ) mGycm TECHNIQUE: CT angiography was performed with a multi-detector CT scanner. Data acquisition was obtained from the aortic arch through the vertex following intravenous administration of 100 ml of Isovue 370. MIP images were reconstructed from the axial data set. Post-processing of the angiographic images was performed, with multiplanar reformation and 3D reconstruction. Individualized dose optimization techniques were used for this CT. COMPARISON: None. FINDINGS: The origin of the great vessels are patent. Atherosclerotic calcifications of the aortic arch seen. There is likely a chronic dissection of the proximal left subclavian artery with mild narrowing. The bilateral common carotid arteries are patent. There is atherosclerotic calcifications and soft tissue plaque formation of the bilateral carotid bifurcation with mild narrowing. The cervical internal carotid arteries are patent. Origin of the vertebral arteries are patent. The remaining segments of the vertebral arteries are also patent. Petrous and cavernous segments of the internal carotid arteries are patent mild fusiform dilatation of the cavernous segment of the right internal carotid artery seen. Bilateral middle cerebral arteries are patent. The bilateral anterior cerebral arteries are patent. Patent anterior communicating artery. Vertebrobasilar junction is patent. The basilar artery is patent. The superior cerebellar arteries are patent. Posterior cerebral arteries are patent. Small infundibulum at the origin of the left posterior communicating artery Emphysematous changes in the lung apices IMPRESSION: No evidence for significant cervical carotid or vertebral artery stenosis, occlusion or dissection. No definite evidence for intracranial saccular aneurysm seen. Fusiform dilatation of the cavernous segment of the right internal carotid artery measuring up to 6 mm. Small infundibulum versus 2 mm aneurysm at the origin of the left posterior communicating artery. 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 : The above information has been verbally conveyed by Drew Forrester to Dr. Mike Regan MD, on 04/24/2018 15:33:24 (ET). Electronically Signed: Drew Forrester, at 15:30 EST Tel , Service support , CT/CTA Head W/WO Contrast CC: Kasi Velázquez MD; Mike Regan MD Alarm Operator: Signed BRAIN/HEAD WITHOUT Observed: 04/24/2018 Status: F Source: [place] CONTRAST 2:19 PM [facility] [place] Imaging Services [address] [place] [address] Brain/Head without Contrast MR#: [id number] Acct: [id number] Name: TYREL RUFFIN Rep #: [id number] : 1940 M 77 From: Drew Forrester MD PCP: Kasi Velázquez MD Status: REG ER Study: Brain/Head without Contrast Date of Exam: 04/24/18 Exam# [id number] Ordering Dr: Mike Regan MD STUDY: CT BRAIN WITHOUT CONTRAST REASON FOR EXAM: Male, 77 years old. Stroke protocol. History of aneurysmal bleed RADIATION DOSAGE (If Supplied By Facility): CTDIvol = ( 44.99 ) mGy, DLP = ( 796.11 ) mGycm TECHNIQUE: Transaxial CT imaging of the brain was performed without administration of intravenous contrast material. Individualized dose optimization techniques were used for this CT. COMPARISON: None. FINDINGS: No evidence for shift of midline structures, mass effect or compression of ventricles noted. No acute intra-articular extra-axial hemorrhage is seen. There is encephalomalacia and gliosis in the left parietal lobe noted with ex vacuo enlargement of the left occipital horn and atrial trigone of the lateral ventricle. Vascular calcifications are identified. No discrete mass in the posterior fossa. The basal cisterns are patent. Calvarium is intact. No evidence for cerebellar tonsillar herniation. IMPRESSION: No evidence for acute intracranial findings. Encephalomalacia and gliosis in the left parietal lobe noted with ex vacuo dilatation of the occipital horn of the left lateral ventricle as well as the left atrial trigone N.B. : The above information has been verbally conveyed by Drew Forrester to Mike Regan on 04/24/2018 14:32:05 (ET). Electronically Signed: Drew Forrester, at 14:33 EST Tel , Service support , CT/Brain/Head without Contrast CC: Kasi Velázquez MD; Mike Regan MD Alarm Operator: Signed CHEST 1 VIEW Observed: 04/24/2018 Status: F Source: [place] 2:19 PM [facility] [place] Imaging Services [address] [place] [address] Chest 1 View MR#: [id number] Acct: [id number] Name: TYREL RUFFIN Rep #: [id number] : 1940 M 77 From: Chan Marion MD PCP: Kasi Velázquez MD Status: DIS IN Study: Chest 1 View Date of Exam: 04/24/18 Exam# [id number] Ordering Dr: Mike Regan MD ADDENDUM by Chan Marion MD on 05/02/18 at 0749 ADDENDUM REASON FOR EXAM: Male, 77 years old. Stroke protocol. History of aneurysmal bleed Electronically Signed: Chan Marion MD at 7:49 EST , Service support , 05/02/18 0749 Date cc: Kasi Velázquez MD; Mike Regan MD * Signed ADDENDUM by Chan Marion MD on 05/02/18 at 0749 RAD/Chest 1 View 05/02/18 0755 Date cc: Kasi Velázquez MD; Mike Regan MD * Signed STUDY: X-RAY CHEST REASON FOR EXAM: Male, 77 years old. Possible stroke TECHNIQUE: AP COMPARISON: 05/28/2014 FINDINGS: EKG leads project over the chest. The lungs are clear and expanded. There is no demonstrated pleural abnormality. Normal size heart. Aortic valve device is noted. Normal mediastinum and roberto carlos. Normal visualized pulmonary arteries. There is atherosclerotic calcification of the aortic arch with tortuosity. No acute bony process. There is no demonstrated abnormality of the visualized soft tissue structures of the upper abdomen. RAD/Chest 1 View IMPRESSION: Nonacute portable x-ray examination of the chest. Electronically Signed: hCan Marion MD at 14:40 EST , Service support , CC: Kasi Velázquez MD; Mike Regan MD Alarm Operator: Signed CBC W/DIFF, AUTOMATED Collected: 04/24/2018 Status: F Source: [place] 2:15 PM [facility] TYPE CODE TESTS RESULT OUT OF RANGE REFERENCE UNITS LAB L100.1000 4.4-11.0 K/mm3 Normal WBC 7.6 LAB L100.1200 4.6-6.2 M/mm3 Normal RBC 5.26 LAB L100.1300 13.0-16.5 g/dl Normal HGB 16.1 LAB L100.1400 40-54 % Normal HCT 48.6 LAB L100.1500 80-94 fL Normal MCV 92.4 LAB L100.1600 27.0-32.0 pg Normal MCH 30.6 LAB L100.1700 32-36 g/gl Normal MCHC 33.1 LAB L100.1810 11.6-14.6 % Normal RDW CV 13.9 LAB L100.1820 35.1-43.9 fl High RDW SD 46.1 LAB L100.1900 150-450 K/mm3 Normal PLT 185 LAB L100.2000 6.2-12.0 fl Normal MPV 9.6 LAB L100.2100 47-70 % Normal NEUT% 67.9 LAB L100.2200 19-41 % Normal LY% 19.2 LAB L100.2300 0-10 % Normal MONO% 8.7 LAB L100.2400 0-5 % Normal EO% 3.4 LAB L100.2500 0-1 % Normal BASO% 0.5 LAB L100.2550 0.0-0.9 % Normal IM GRAN % 0.300 Result Comment: IG% - Immature Granulocytes (promyelocytes, myelocytes and metamyelocytes) > 1% indicates that a LEFT SHIFT is Present. LAB L100.2620 2.0-7.7 X10 3/uL Normal Absolute Neut 5.1 LAB L100.2720 0.83-4.51 X10 3/ul Normal Absolute Lymph 1.45 Performed By: #### L100.0100 #### [facility] [address] [place], [address] PROTHROMBIN TIME W/INR Collected: 04/24/2018 Status: F Source: [place] 2:15 PM [facility] TYPE CODE TESTS RESULT OUT OF RANGE REFERENCE UNITS LAB L300.4150 11.7-14.9 SECONDS Normal PROTIME 12.9 LAB L300.4200 Normal INR 1.0 Performed By: #### L300.3900, L300.4310 #### [facility] [address] [place], [address] PARTIAL THROMBOPLAST Collected: 04/24/2018 Status: F Source: [place] TIME 2:15 PM [facility] TYPE CODE TESTS RESULT OUT OF RANGE REFERENCE UNITS LAB L300.4310 24.1-36.2 Seconds Normal PTT 30.9 Performed By: #### L300.3900, L300.4310 #### [facility] [address] [place], [address] BASIC METABOLIC Collected: 04/24/2018 Status: F Source: [place] PROFILE (BMP) 2:15 PM [facility] TYPE CODE TESTS RESULT OUT OF RANGE REFERENCE UNITS LAB L501.0100 74-106 mg/dL Normal GLU 97 Result Comment: Please note revised GLUCOSE reference range effective 2017. LAB L501.1000 7-18 mg/dL High BUN 20 LAB L501.1100 0.70-1.30 mg/dL High CREAT,SERUM 1.35 Result Comment: The validity of the calculated GFR AND GFRAA in patients over 70 years has not been determined. Clinical correlation is essential. LAB L501.1110 >60 mL/min Low EST GFR 54 Result Comment: Non- GFR Calc LAB L501.1115 >60 mL/min Normal EST GFR - AA 66 Result Comment: GFR Calc LAB L501.1255 ml/min Normal Estimated CRCL 47.31 LAB L501.1300 10-20 RATIO Normal BUN/CRE 14.8 LAB L501.2200 8.5-10 mg/dL Normal .1 CA 9.4 LAB L501.5300 136-14 mmol/L Normal 5 NA 142 LAB L501.5600 3.5-5. mmol/L Normal 1 K 4.5 Result Comment: Moderate Hemolysis, Result may be falsely increased. LAB L501.5900 98-107 mmol/L Normal CL 106 LAB L501.6100 21.0-32.0 mmol/L Normal CO2 28.0 LAB L501.6200 5-15 Normal 8 GAP Performed By: #### L500.2500, L501.4010 #### [facility] [address] [place], [address] TROPONIN-I Collected: 04/24/2018 Status: F Source: [place] 2:15 PM [facility] TYPE CODE TESTS RESULT OUT OF RANGE REFERENCE UNITS LAB L501.4010 <0.045 ng/mL Normal < 0.015 TROPONIN-I Result Comment: TROPONIN-I EXPECTED VALUES <0.045 Negative 0.045 - 0.590 Consistent with Cardiac Damage > OR = 0.600 Critical Value Not every elevated troponin is indicative of VA. These values should be used with clinical judgement in examining the patient's clinical picture for diagnosis. To establish a diagnosis of VA versus myocardial injury, there must be a demonstrated rise and/or fall in the troponin values, in addition to ischemic symptoms, EKG changes, new regional wall motion abnormality, and/or angiographical evidence. PLEASE NOTE: REFERENCE RANGES EDITED 17 Performed By: #### L500.2500, L501.4010 #### [facility] [address] [place], [address] HEMOGLOBIN A1C Collected: 04/24/2018 Status: F Source: [place] 2:15 PM [facility] REPOSITORY TYPE CODE TESTS RESULT OUT OF RANGE REFERENCE UNITS LAB L501.9985 4.2-6.3 % High HGB A1C 6.8 Performed By: #### L501.9985 #### [facility] [address] [place], [address] BEDSIDE GLUCOSE Collected: 04/24/2018 Status: F Source: [place] 2:09 PM [facility] REPOSITORY TYPE CODE TESTS RESULT OUT OF RANGE REFERENCE UNITS LAB L501.080 70-110 mg/dL Normal BEDSIDE GLU 103 Result Comment: MANAGEMENT OF PATIENT CARE PER NURSING PROTOCOL Performed By: #### L501.080 #### [facility] Point of Care [address] [place] [address] CT-CTA HEAD W/WO Observed: 04/24/2018 Status: F Source: [place] 12:00 AM [facility] REPOSITORY Images were obtained outside of [facility] [id number] CR-CHEST 1 VIEW Observed: 04/24/2018 Status: F Source: [place] 12:00 AM [facility] REPOSITORY Images were obtained outside of [facility] [id number] CT-BRAIN/HEAD WITHOUT Observed: 04/24/2018 Status: F Source: [place] 12:00 AM [facility] REPOSITORY Images were obtained outside of [facility] [id number] CR-CHEST 1 VIEW Observed: 04/24/2018 Status: F Source: [place] 12:00 AM [facility] REPOSITORY Images were obtained outside of [facility] [id number] CT-BRAIN/HEAD WITHOUT Observed: 04/24/2018 Status: F Source: [place] 12:00 AM [facility] REPOSITORY Images were obtained outside of [facility] [id number] CNOV Observed: 01/25/2018 Status: COMPLETED Source: [place] 7:20 PM [facility] REPOSITORY Office Visit (FAMPWS) TYREL RUFFIN ([id number]) 1940 M Date Time Provider Department 01/25/18 7:20 PM JOSE RAUL VELÁZQUEZ) FAMPWS During your visit today, we recorded the following information about you: Pulse Respiration Blood pressure Weight 66/minute 16/minute 136/82 81.6 kg Jose Raul Velázquez MD 01/25/2018 11:19 PM Signed Chief Complaint Patient presents with: 4-6 week follow up HPI Tyrel Ruffin is a 77 year old male who presents here today for follow up of vision changes, possible amaurosis fugax. Since last OV, has not had any recurrent vision changes. Normal imaging as noted below. Has not followed up with optho as recommended. Discussed importance of getting retinas checked. Complaining today of itchy rash on back of scalp which started about 8 months ago. Had similar rash 14 years ago when daughter was born. Treating now with OTC hydrocortisone which has not cleared rash. Thinks he is up to date on pneumococcal vaccines, thinks he had both when he saw Dr. Nieves. Refusing flu shot today. Due for repeat blood work. Past medical history, appointments, medications, allergies reviewed. 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 Previous Surgical History PAST SURGICAL HISTORY Procedure Laterality Date - PAST SURGICAL HISTORY OF 10/2017 TAVR - TONSILLECTOMY HX Family History FAMILY HISTORY Problem Relation Age of Onset - Hypertension Mother age 90 from internal bleeding - Stroke Father 80 age 84 - other (Myocardial infarction) Brother 70 Patient Allergies ALLERGIES Allergen Reactions - Amoxacillin [Amoxic* Mental Status Change - Codeine Other: See Comments irregular heart beat Current Medications Current Outpatient Prescriptions on File Prior to Visit: metoprolol succinate ER (TOPROL XL) 100 mg Tb24 Take 1 tablet by mouth once daily. amLODIPine (NORVASC) 5 mg tablet Take 1 tablet by mouth once daily. atorvastatin (LIPITOR) 20 mg tablet Take 1 tablet by mouth once daily. aspirin, enteric coated (ASPIRIN, ENTERIC COATED) 81 mg EC tablet Take 81 mg by mouth once daily. No current facility-administered medications on file prior to visit. 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 Has living Review of Symptoms REVIEW OF SYSTEMS GENERAL: No weight loss, malaise or fevers RESPIRATORY: Negative for cough, hemoptysis, wheezing, COPD, dyspnea or shortness of breath CARDIOVASCULAR: Negative for chest pain, leg swelling, hypertension, CHF or palpitations GI: No nausea, vomiting, or diarrhea SKIN: See HPI EXAM: BP 136/82 Pulse 66 Resp 16 Wt 81.6 kg (180 lb) BMI 26.58 kg/m? General Appearance: Well appearing, alert, in no acute distress, well-hydrated, well nourished.. Skin: mild psoriasis on posterior scalp. Lungs: Lungs clear to auscultation. No wheezing, rhonchi, rales. Heart: irregularly irregular with normal rate without murmur, gallop, or rubs. Abdomen: Normal abdominal exam, Abdomen soft, non-tender. Bowel sounds normal. No masses, organomegaly. Extremities: No deformities, edema, skin discoloration, clubbing or cyanosis. Good capillary refill. . Health Maintenance List BP CONTROLLED (<130/80) due on 1958 DTAP,TDAP,TD(1 - Tdap) due on 1959 COLORECTAL CANCER SCREENING,SEE MODIFIER due on 1990 ADULT PREVNAR-13 due on 2005 PNEUMOVAX AGE 65 AND OVER WITH 5YR LOOKBACK(1) due on 2005 LDL CHOLESTEROL due on 01/07/2018 INFLUENZA(1) due on 01/08/2018 STATIN MED ADHERENCE due on 02/07/2018 ANNUAL PCP TEAM CHRONIC DISEASE VISIT due on 12/23/2018 DIABETES SCREEN due on 10/20/2020 LIPID SCREEN due on 01/07/2022 Data reviewed Component Latest Ref Rng AND Units 09/10/2017 10/20/2017 12/23/2017 WBC 3.70 - 11.00 k/uL 9.26 7.29 7.53 RBC 4.20 - 6.00 m/uL 4.63 4.57 5.25 Hemoglobin 13.0 - 17.0 g/dL 13.7 13.9 15.2 Hematocrit 39.0 - 51.0 % 43.0 42.7 49.0 MCV 80.0 - 100.0 fL 92.9 93.4 93.3 MCH 26.0 - 34.0 pG 29.6 30.4 29.0 MCHC 30.5 - 36.0 g/dL 31.9 32.6 31.0 RDW-CV 11.5 - 15.0 % 13.9 13.9 13.6 Platelet Count 150 - 400 k/uL 248 196 185 MPV 9.0 - 12.7 fL 9.5 9.6 10.1 Neut% % 63.0 Abs Neut (ANC) 1.45 - 7.50 k/uL 4.74 Lymph% % 22.8 Abs Lymph 1.00 - 4.00 k/uL 1.72 Dougherty% % 9.0 Abs Dougherty <0.87 k/uL 0.68 Eosin% % 4.4 Abs Eosin <0.46 k/uL 0.33 Baso% % 0.8 Abs Baso <0.11 k/uL 0.06 Nucleated Reds 0 /100 WBC 0.0 Absolute nRBC <0.01 k/uL <0.01 <0.01 <0.01 Diff Type Auto Diff Protein, Total 6.3 - 8.0 g/dL 6.4 6.6 Albumin 3.9 - 4.9 g/dL 4.0 4.0 Calcium 8.5 - 10.2 mg/dL 9.3 10.1 Bilirubin, Total 0.2 - 1.3 mg/dL 0.5 0.8 Alkaline Phosphatase 36 - 108 U/L 111 (H) 104 AST 14 - 40 U/L 12 (L) 18 Glucose 74 - 99 mg/dL 98 127 (H) BUN 9 - 24 mg/dL 19 20 Creatinine 0.73 - 1.22 mg/dL 1.30 (H) 1.33 (H) 1.27 (H) Sodium 136 - 144 mmol/L 142 144 Potassium 3.7 - 5.1 mmol/L 4.6 4.9 Chloride 97 - 105 mmol/L 100 103 CO2 22 - 30 mmol/L 29 29 Anion Gap 9 - 18 mmol/L 13 12 ALT 10 - 54 U/L 16 18 eGFR- >60 >60 >60 eGFR-All Other Races . 54 52 55 MRI/MRA BRAIN and CAROTID: IMPRESSION: No acute abnormality. Remote ischemic changes left parietal and occipital lobes with adjacent ex vacuo ventricular prominence. Patent neck vessels. ASSESSMENT/PLAN: 1. Vision changes - ICD9: 368.9, ICD10: H53.9 (primary diagnosis) No recurrent symptoms. Negative for neuro cause. F/u with optho. 2. Atrial fibrillation, chronic (HCC) - ICD9: 427.31, ICD10: I48.2 Rate controlled, continue anti platelet therapy per cardiology. 3. Hyperlipidemia, unspecified hyperlipidemia type - ICD9: 272.4, ICD10: E78.5 - Continue current medication. - Encouraged following a low fat, low cholesterol diet. - Discussed the benefits of regular aerobic exercise and weight loss. 4. Transient visual loss of right eye - ICD9: 368.12, ICD10: H53.121 See above. 5. 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 Call if no improvement. - TRIAMCINOLONE ACETONIDE 0.1 % TOPICAL CREAM Jose Raul Velázquez MD Referring Provider: JOSE RAUL VELÁZQUEZ) [[id number]] Allergies As of Date: 01/25/2018 Noted Allergy Reaction AMOXACILLIN (AMOXICILLIN) 07/02/2017 1 - Mental Status Change CODEINE 01/07/2017 14 - Other: See Comments Comments: irregular heart beat Date Reviewed: 01/25/2018 Reviewed by: Tal Horvath Ma - Fully Assessed Reason for Visit: 4-6 week follow up [Other] Primary Visit Diagnosis:Vision changes [H53.9] Other Visit Diagnoses:Atrial fibrillation, chronic (HCC) [I48.2] Hyperlipidemia, unspecified hyperlipidemia type [E78.5] Transient visual loss of right eye [H53.121] Scalp psoriasis [L40.9] Order(s):triamcinolone acetonide (KENALOG) 0.1 % creamApply 1 application to affected area twice daily. Apply sparingly to area for rash/itching.Disp: 1 TubeRfl: 1 Prescriptions as of 01/25/2018 Sig: METOPROLOL SUCCINATE ER 100 M* Take 1 tablet by mouth once d* AMLODIPINE 5 MG TABLET Take 1 tablet by mouth once d* ATORVASTATIN 20 MG TABLET Take 1 tablet by mouth once d* ASPIRIN 81 MG TABLET,DELAYED * Take 81 mg by mouth once joel* TRIAMCINOLONE ACETONIDE 0.1 %* Apply 1 application to affect* Problem List As Of Date 01/25/2018 Noted Resolved Aortic dissection (HCC) [I71.00] INVALID FOR* Atrial fibrillation, chronic (HCC) [I48.2] INVALID FOR* Priority: C More... Hyperlipidemia [E78.5] INVALID FOR* Priority: E More... Primary hypertension [I10] INVALID FOR* Priority: D More... Word finding difficulty [R47.89] INVALID FOR* More... AAA (abdominal aortic aneurysm) without rupture*INVALID FOR* Priority: A More... Aphasia [R47.01] INVALID FOR* Priority: A More... Nonrheumatic aortic valve stenosis [I35.0] INVALID FOR* More... Atherosclerosis of [place] coronary artery witho*INVALID FOR* More... Intraparenchymal hemorrhage of brain (HCC) [I61*INVALID FOR* More... Prescriptions ordered this encounter Disp Refills Start End TRIAMCINOLONE ACETONIDE 0.1 % TOPICA* 1 Tu* 1 01/25/2018 Route: TOPICAL Sig: Apply 1 application to affected area twice daily. Apply sparingly to area for rash/itching. Encounter Status:Closed by JOSE RAUL VELÁZQUEZ MD on 01/25/18 PROGRESS Observed: 01/25/2018 Status: COMPLETED Source: [place] 6:44 PM [facility] REPOSITORY O ID: [id number] Author: Jose Raul Robles) [place] Service: (none) Author Type: Physician Type: Progress Notes Filed: 01/25/2018 11:19 PM Note Text: Chief Complaint Patient presents with: 4-6 week follow up HPI Tyrel Ruffin is a 77 year old male who presents here today for follow up of vision changes, possible amaurosis fugax. Since last OV, has not had any recurrent vision changes. Normal imaging as noted below. Has not followed up with optho as recommended. Discussed importance of getting retinas checked. Complaining today of itchy rash on back of scalp which started about 8 months ago. Had similar rash 14 years ago when daughter was born. Treating now with OTC hydrocortisone which has not cleared rash. Thinks he is up to date on pneumococcal vaccines, thinks he had both when he saw Dr. Nieves. Refusing flu shot today. Due for repeat blood work. Past medical history, appointments, medications, allergies reviewed. 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 Previous Surgical History PAST SURGICAL HISTORY Procedure Laterality Date - PAST SURGICAL HISTORY OF 10/2017 TAVR - TONSILLECTOMY HX Family History FAMILY HISTORY Problem Relation Age of Onset - Hypertension Mother age 90 from internal bleeding - Stroke Father 80 age 84 - other (Myocardial infarction) Brother 70 Patient Allergies ALLERGIES Allergen Reactions - Amoxacillin [Amoxic* Mental Status Change - Codeine Other: See Comments irregular heart beat Current Medications Current Outpatient Prescriptions on File Prior to Visit: metoprolol succinate ER (TOPROL XL) 100 mg Tb24 Take 1 tablet by mouth once daily. amLODIPine (NORVASC) 5 mg tablet Take 1 tablet by mouth once daily. atorvastatin (LIPITOR) 20 mg tablet Take 1 tablet by mouth once daily. aspirin, enteric coated (ASPIRIN, ENTERIC COATED) 81 mg EC tablet Take 81 mg by mouth once daily. No current facility-administered medications on file prior to visit. 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 Has living Review of Symptoms REVIEW OF SYSTEMS GENERAL: No weight loss, malaise or fevers RESPIRATORY: Negative for cough, hemoptysis, wheezing, COPD, dyspnea or shortness of breath CARDIOVASCULAR: Negative for chest pain, leg swelling, hypertension, CHF or palpitations GI: No nausea, vomiting, or diarrhea SKIN: See HPI EXAM: BP 136/82 Pulse 66 Resp 16 Wt 81.6 kg (180 lb) BMI 26.58 kg/m? General Appearance: Well appearing, alert, in no acute distress, well-hydrated, well nourished.. Skin: mild psoriasis on posterior scalp. Lungs: Lungs clear to auscultation. No wheezing, rhonchi, rales. Heart: irregularly irregular with normal rate without murmur, gallop, or rubs. Abdomen: Normal abdominal exam, Abdomen soft, non-tender. Bowel sounds normal. No masses, organomegaly. Extremities: No deformities, edema, skin discoloration, clubbing or cyanosis. Good capillary refill. . Health Maintenance List BP CONTROLLED (<130/80) due on 1958 DTAP,TDAP,TD(1 - Tdap) due on 1959 COLORECTAL CANCER SCREENING,SEE MODIFIER due on 1990 ADULT PREVNAR-13 due on 2005 PNEUMOVAX AGE 65 AND OVER WITH 5YR LOOKBACK(1) due on 2005 LDL CHOLESTEROL due on 01/07/2018 INFLUENZA(1) due on 01/08/2018 STATIN MED ADHERENCE due on 02/07/2018 ANNUAL PCP TEAM CHRONIC DISEASE VISIT due on 12/23/2018 DIABETES SCREEN due on 10/20/2020 LIPID SCREEN due on 01/07/2022 Data reviewed Component Latest Ref Rng AND Units 09/10/2017 10/20/2017 12/23/2017 WBC 3.70 - 11.00 k/uL 9.26 7.29 7.53 RBC 4.20 - 6.00 m/uL 4.63 4.57 5.25 Hemoglobin 13.0 - 17.0 g/dL 13.7 13.9 15.2 Hematocrit 39.0 - 51.0 % 43.0 42.7 49.0 MCV 80.0 - 100.0 fL 92.9 93.4 93.3 MCH 26.0 - 34.0 pG 29.6 30.4 29.0 MCHC 30.5 - 36.0 g/dL 31.9 32.6 31.0 RDW-CV 11.5 - 15.0 % 13.9 13.9 13.6 Platelet Count 150 - 400 k/uL 248 196 185 MPV 9.0 - 12.7 fL 9.5 9.6 10.1 Neut% % 63.0 Abs Neut (ANC) 1.45 - 7.50 k/uL 4.74 Lymph% % 22.8 Abs Lymph 1.00 - 4.00 k/uL 1.72 Dougherty% % 9.0 Abs Dougherty <0.87 k/uL 0.68 Eosin% % 4.4 Abs Eosin <0.46 k/uL 0.33 Baso% % 0.8 Abs Baso <0.11 k/uL 0.06 Nucleated Reds 0 /100 WBC 0.0 Absolute nRBC <0.01 k/uL <0.01 <0.01 <0.01 Diff Type Auto Diff Protein, Total 6.3 - 8.0 g/dL 6.4 6.6 Albumin 3.9 - 4.9 g/dL 4.0 4.0 Calcium 8.5 - 10.2 mg/dL 9.3 10.1 Bilirubin, Total 0.2 - 1.3 mg/dL 0.5 0.8 Alkaline Phosphatase 36 - 108 U/L 111 (H) 104 AST 14 - 40 U/L 12 (L) 18 Glucose 74 - 99 mg/dL 98 127 (H) BUN 9 - 24 mg/dL 19 20 Creatinine 0.73 - 1.22 mg/dL 1.30 (H) 1.33 (H) 1.27 (H) Sodium 136 - 144 mmol/L 142 144 Potassium 3.7 - 5.1 mmol/L 4.6 4.9 Chloride 97 - 105 mmol/L 100 103 CO2 22 - 30 mmol/L 29 29 Anion Gap 9 - 18 mmol/L 13 12 ALT 10 - 54 U/L 16 18 eGFR- >60 >60 >60 eGFR-All Other Races . 54 52 55 MRI/MRA BRAIN and CAROTID: IMPRESSION: No acute abnormality. Remote ischemic changes left parietal and occipital lobes with adjacent ex vacuo ventricular prominence. Patent neck vessels. ASSESSMENT/PLAN: 1. Vision changes - ICD9: 368.9, ICD10: H53.9 (primary diagnosis) No recurrent symptoms. Negative for neuro cause. F/u with optho. 2. Atrial fibrillation, chronic (HCC) - ICD9: 427.31, ICD10: I48.2 Rate controlled, continue anti platelet therapy per cardiology. 3. Hyperlipidemia, unspecified hyperlipidemia type - ICD9: 272.4, ICD10: E78.5 - Continue current medication. - Encouraged following a low fat, low cholesterol diet. - Discussed the benefits of regular aerobic exercise and weight loss. 4. Transient visual loss of right eye - ICD9: 368.12, ICD10: H53.121 See above. 5. 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 Call if no improvement. - TRIAMCINOLONE ACETONIDE 0.1 % TOPICAL CREAM Jose Raul Velázquez MD [facility] Observed: 01/11/2018 Status: COMPLETED Source: [place] 12:00 AM [facility] REPOSITORY Patient Outreach (FAMPST) TYREL RUFFIN ([id number]) 1940 M Date Time Provider Department 01/11/18 JO[facility]ZQUEZ) [facility] During your visit today, we recorded the following information about you: Allergies As of Date: 01/11/2018 Noted Allergy Reaction AMOXACILLIN (AMOXICILLIN) 07/02/2017 1 - Mental Status Change CODEINE 01/07/2017 14 - Other: See Comments Comments: irregular heart beat Date Reviewed: 12/23/2017 Reviewed by: Emily Jimenez Ma - Fully Assessed Visit Diagnosis:Medication management [Z79.899] Order(s):HGB A1C [OLOTS4D] Order #: [id number] FUTURE LIPID PANEL BASIC [SQLIPB] Order #: [id number] FUTURE Prescriptions as of 01/11/2018 Sig: METOPROLOL SUCCINATE ER 100 M* Take 1 tablet by mouth once d* AMLODIPINE 5 MG TABLET Take 1 tablet by mouth once d* ATORVASTATIN 20 MG TABLET Take 1 tablet by mouth once d* ASPIRIN 81 MG TABLET,DELAYED * Take 81 mg by mouth once joel* Problem List As Of Date 01/11/2018 Noted Resolved Aortic dissection (HCC) [I71.00] INVALID FOR* Atrial fibrillation, chronic (HCC) [I48.2] INVALID FOR* Priority: C More... Hyperlipidemia [E78.5] INVALID FOR* Priority: E More... Primary hypertension [I10] INVALID FOR* Priority: D More... Word finding difficulty [R47.89] INVALID FOR* More... AAA (abdominal aortic aneurysm) without rupture*INVALID FOR* Priority: A More... Aphasia [R47.01] INVALID FOR* Priority: A More... Nonrheumatic aortic valve stenosis [I35.0] INVALID FOR* More... Atherosclerosis of [place] coronary artery witho*INVALID FOR* More... Intraparenchymal hemorrhage of brain (HCC) [I61*INVALID FOR* More... Encounter Status:Closed by EPIC, PRODUSER on 02/18/18 MRA CAROTID WO IVCON Observed: 12/24/2017 Status: F Source: [place] 3:34 PM [facility] REPOSITORY * * *Final Report* * * DATE OF EXAM: Dec 24 2017 3:34PM [facility] 0275 - MRA CAROTID WO IVCON / PROCEDURE REASON: multiple diagnoses * * * * Physician Interpretation * * * * EXAMINATION: MRI BRAIN WO/W IVCON, MRA CAROTID WO IVCON CLINICAL HISTORY: Transient visual loss, right eye Sudden visual loss, right eye TECHNIQUE: Routine brain MRI protocol without and with contrast including diffusion images. MQ: [id number]_2 Contrast: 16ml mL Dotarem IV COMPARISON: 01/08/2017 RESULT: Acute Change: There is no evidence of restricted diffusion to suggest an acute infarct. Hemorrhage: Petechial hemorrhage is associated with remote left parietal infarct. Mass Lesion/ Mass Effect: No evidence of an intracranial mass or extra-axial fluid collection. No abnormal parenchymal or leptomeningeal enhancement is noted following contrast administration. No significant mass effect. Chronic Change: Remote left parietal-occipital infarct with encephalomalacia and areas of petechial hemorrhage. Next vacuo prominence of the adjacent lateral ventricle. Small area of stellate enhancement within the left parietal encephalomalacia slightly diminished in size since the prior study. Parenchyma: There is mild generalized parenchymal volume loss. The brain parenchyma is otherwise within normal limits of signal intensity and morphology. Ventricles: Extra-axial prominence of the lateral ventricle adjacent to remote infarct. Skull Base: Hypothalamic and pituitary region are grossly normal. Craniocervical junction is normal. No significant marrow replacement process. Vasculature: Major intracranial arterial structures, and dural venous sinuses show typical flow void, suggesting patency by spin echo criteria. Other: The visualized paranasal sinuses and mastoid air cells are clear. The orbits and extracranial soft tissues are unremarkable. MRA of the neck: Bilaterally, the common carotid arteries are patent. Cervical vertebral arteries are patent bilaterally. Carotid bifurcations are patent and normal bilaterally. There is 0% bilateral cervical ICA narrowing according to NASCET criteria. Visualized distal cervical ICAs are patent bilaterally. IMPRESSION: No acute abnormality. Remote ischemic changes left parietal and occipital lobes with adjacent ex vacuo ventricular prominence. Patent neck vessels. Alarm Operator: PSCB Transcribe Date/Time: Dec 24 2017 4:50P Dictated by : LORRIE ALEJANDRA MD This examination was interpreted and the report reviewed and electronically signed by: LORRIE ALEJANDRA MD on Dec 24 2017 4:54PM EST [id number] MRI BRAIN WO/W Observed: 12/24/2017 Status: F Source: [place] IVCON 3:34 PM [facility] REPOSITORY * * *Final Report* * * DATE OF EXAM: Dec 24 2017 3:34PM [facility] 0295 - MRI BRAIN WO/W IVCON / PROCEDURE REASON: multiple diagnoses * * * * Physician Interpretation * * * * EXAMINATION: MRI BRAIN WO/W IVCON, MRA CAROTID WO IVCON CLINICAL HISTORY: Transient visual loss, right eye Sudden visual loss, right eye TECHNIQUE: Routine brain MRI protocol without and with contrast including diffusion images. MQ: [id number]_2 Contrast: 16ml mL Dotarem IV COMPARISON: 01/08/2017 RESULT: Acute Change: There is no evidence of restricted diffusion to suggest an acute infarct. Hemorrhage: Petechial hemorrhage is associated with remote left parietal infarct. Mass Lesion/ Mass Effect: No evidence of an intracranial mass or extra-axial fluid collection. No abnormal parenchymal or leptomeningeal enhancement is noted following contrast administration. No significant mass effect. Chronic Change: Remote left parietal-occipital infarct with encephalomalacia and areas of petechial hemorrhage. Next vacuo prominence of the adjacent lateral ventricle. Small area of stellate enhancement within the left parietal encephalomalacia slightly diminished in size since the prior study. Parenchyma: There is mild generalized parenchymal volume loss. The brain parenchyma is otherwise within normal limits of signal intensity and morphology. Ventricles: Extra-axial prominence of the lateral ventricle adjacent to remote infarct. Skull Base: Hypothalamic and pituitary region are grossly normal. Craniocervical junction is normal. No significant marrow replacement process. Vasculature: Major intracranial arterial structures, and dural venous sinuses show typical flow void, suggesting patency by spin echo criteria. Other: The visualized paranasal sinuses and mastoid air cells are clear. The orbits and extracranial soft tissues are unremarkable. MRA of the neck: Bilaterally, the common carotid arteries are patent. Cervical vertebral arteries are patent bilaterally. Carotid bifurcations are patent and normal bilaterally. There is 0% bilateral cervical ICA narrowing according to NASCET criteria. Visualized distal cervical ICAs are patent bilaterally. IMPRESSION: No acute abnormality. Remote ischemic changes left parietal and occipital lobes with adjacent ex vacuo ventricular prominence. Patent neck vessels. Alarm Operator: PSCB Transcribe Date/Time: Dec 24 2017 4:50P Dictated by : LORRIE ALEJANDRA MD This examination was interpreted and the report reviewed and electronically signed by: LORRIE ALEJANDRA MD on Dec 24 2017 4:54PM EST [id number] PROGRESS Observed: 12/24/2017 Status: COMPLETED Source: [place] 3:16 PM [facility] REPOSITORY O ID: [id number] Author: Karen (Rt) Seb Flores Service: (none) Author Type: Spring Intern Type: Progress Notes Filed: 12/24/2017 3:18 PM Note Text: Radiology Service Progress Note PATIENT NAME: Tyrel Ruffin DATE OF SERVICE: December 24, 2017 TIME: 3:16 PM PATIENT IDENTITY VERIFICATION COMPLETED USING TWO (2) METHODS: Patient confirmed name verbally and Date of . PATIENT GENDER DATA: Male PATIENT RELEVANT IMPLANT DATA REVIEWED: Yes CONTRAST INDUCED NEPHROPATHY RISK FACTORS: Patient age > 60 years CREATININE: Creatinine Date Value Ref Range Status 12/23/2017 1.27 (H) 0.73 - 1.22 mg/dL Final 10/20/2017 1.33 (H) 0.73 - 1.22 mg/dL Final 09/10/2017 1.30 (H) 0.73 - 1.22 mg/dL Final eGFR-All Other Races Date Value Ref Range Status 12/23/2017 55 . Final Comment: eGFR (Estimated GFR) Units of measure: mL/min/1.73 meters squared eGFR is derived from the reexpressed MDRD Study equation using the following parameters: serum creatinine, age, gender and race. The creatinine assay has been calibrated to be traceable to IDMS. An eGFR <60 mL/min/1.73m2 for >3 months is consistent with chronic kidney disease. Refer to KDOQI guidelines for clinical interpretation. In patients with unstable renal function, e.g. those with acute kidney injury, the eGFR may not accurately reflect actual GFR. eGFR- Date Value Ref Range Status 12/23/2017 >60 Final P.O.C.T. RESULTS: POC done: Yes, See Lab Tab December 24, 2017 RADIOLOGIST NOTIFIED?: No ALLERGIES: Reviewed and unchanged CONTRAST ALLERGY: NO. PERIPHERAL IV ACCESS: Ambulatory: IV type: A peripheral IV was started in the Left antecubital site with a Angio cath: 22 gauge., Site assessment: Clean,Dry and Intact, Site disposition Discontinued RADIOLOGY DEPARTMENT: MR; Exam(s) Completed: Head: Routine Brain Neck: Carotids MRA, bilateral SIGNED BY: RT Erika December 24, 2017 3:16 PM CBC AND DIFFERENTIAL Collected: 12/23/2017 Status: F Source: [place] 4:31 PM [facility] TYPE CODE TESTS RESULT OUT OF REFERENCE UNITS RANGE LAB WBC 3.70-11.00 k/uL WBC 7.53 LAB RBC 4.20-6.00 m/uL RBC 5.25 LAB HGB 13.0-17.0 g/dL Hemoglobin 15.2 LAB HCT 39.0-51.0 % Hematocrit 49.0 LAB MCV 80.0-100.0 fL MCV 93.3 LAB MCH 26.0-34.0 pG MCH 29.0 LAB MCHC 30.5-36.0 g/dL MCHC 31.0 LAB RDWCV 11.5-15.0 % RDW-CV 13.6 LAB PLTCT 150-400 k/uL Platelet Count 185 LAB MPV 9.0-12.7 fL MPV 10.1 LAB ANEUT % Neut% 63.0 LAB AANEUT 1.45-7.50 k/uL Abs Neut 4.74 LAB ALYMP % Lymph% 22.8 LAB AALYMP 1.00-4.00 k/uL Abs Lymph 1.72 LAB AMONO % Dougherty% 9.0 LAB AAMONO <0.87 k/uL Abs Dougherty 0.68 LAB AEOS % Eosin% 4.4 LAB AAEOS <0.46 k/uL Abs Eosin 0.33 LAB ABASO % Baso% 0.8 LAB AABASO <0.11 k/uL Abs Baso 0.06 LAB AUNRBC 0 /100 WBC NRBCs 0.0 LAB ABNRBC <0.01 k/uL Absolute nRBC <0.01 LAB DTYP DTYPE Auto Diff Performed By: #### CBCDIF, CRET1 #### [facility] [address] [place], [place] [address] CREATININE Collected: 12/23/2017 Status: F Source: [place] 4:31 PM [facility] REPOSITORY TYPE CODE TESTS RESULT OUT OF REFERENCE UNITS RANGE LAB CRET 0.73-1.22 mg/dL High Creatinine 1.27 LAB GFRAA eGFR- >60 Amer. LAB GFRNAA . eGFR-All Other Races 55 Result Comment: eGFR (Estimated GFR) Units of measure: mL/min/1.73 meters squared eGFR is derived from the reexpressed MDRD Study equation using the following parameters: serum creatinine, age, gender and race. The creatinine assay has been calibrated to be traceable to IDMS. An eGFR <60 mL/min/1.73m2 for >3 months is consistent with chronic kidney disease. Refer to KDOQI guidelines for clinical interpretation. In patients with unstable renal function, e.g. those with acute kidney injury, the eGFR may not accurately reflect actual GFR. Performed By: #### CBCMELISSA, CRET1 #### [facility] [address] [place], [place] [address] PROGRESS Observed: 12/23/2017 Status: COMPLETED Source: [place] 3:15 PM [facility] REPOSITORY HNO ID: [id number] Author: Jose Raul Robles) Eber Service: (none) Author Type: Physician Type: Progress Notes Filed: 12/26/2017 9:19 AM Note Text: Chief Complaint Patient presents with: Establish Care HPI Tyrel Ruffin is a 77 year old male with PMH: brain aneurysm, intracranial hemorrhage, a fib, aortic dissection and AAA who presents here today for establish care. Complaining today of right eye vision changes which have occurred twice for the last month. Symptoms last for about 5 minutes. Describes as wayne or partial loss of vision over lower visual field. Denies slurred speech, numbness, tingling, weakness, loss of balance, headache, buddhism pain, injury to eye. Has not been evaluated by optho or had any imaging at this time. Following up with Dr. Valentine for history of a fib and aortic stenosis s/p TAVR. Typically asymptomatic, can occasionally feel when he is out of rhythm. Denies tachycardia or chest pain. Taking medications as prescribed without side effects. reviewed recent labs. Past medical history, appointments, medications, allergies reviewed. 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 Previous Surgical History PAST SURGICAL HISTORY Procedure Laterality Date - PAST SURGICAL HISTORY OF 10/2017 TAVR - TONSILLECTOMY HX Family History FAMILY HISTORY Problem Relation Age of Onset - Hypertension Mother age 90 from internal bleeding - Stroke Father 80 age 84 - other (Myocardial infarction) Brother 70 Patient Allergies ALLERGIES Allergen Reactions - Amoxacillin [Amoxic* Mental Status Change - Codeine Other: See Comments irregular heart beat Current Medications Current Outpatient Prescriptions on File Prior to Visit: metoprolol succinate ER (TOPROL XL) 100 mg Tb24 Take 1 tablet by mouth once daily. amLODIPine (NORVASC) 5 mg tablet Take 1 tablet by mouth once daily. atorvastatin (LIPITOR) 20 mg tablet Take 1 tablet by mouth once daily. aspirin, enteric coated (ASPIRIN, ENTERIC COATED) 81 mg EC tablet Take 81 mg by mouth once daily. No current facility-administered medications on file prior to visit. 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 Has living Review of Symptoms REVIEW OF SYSTEMS GENERAL: No weight loss, malaise or fevers RESPIRATORY: Negative for cough, hemoptysis, wheezing, COPD, dyspnea or shortness of breath CARDIOVASCULAR: Negative for chest pain, leg swelling, hypertension, CHF or palpitations GI: No nausea, vomiting, or diarrhea SKIN: Negative for lesions, rash, and itching EXAM: BP 138/88 Pulse 60 Temp 36.1 ?C (96.9 ?F) (Left Tympanic) Resp 12 Ht 175.3 cm (5' 9) Wt 80.7 kg (178 lb) BMI 26.29 kg/m? General Appearance: Well appearing, alert, in no acute distress, well-hydrated, well nourished.. Skin: Skin color, texture, turgor normal, no suspicious rashes or lesions. Head: Normocephalic, no masses, lesions, tenderness or abnormalities. Eyes: Anicteric sclera. Pupils are equally round and reactive to light. Extraocular movements are intact. . Neck: Supple, no adenopathy; thyroid symmetric, normal size, no bruits. Lungs: Lungs clear to auscultation. No wheezing, rhonchi, rales. Heart: RRR without murmur, gallop, or rubs. No ectopy. Abdomen: Normal abdominal exam, Abdomen soft, non-tender. Bowel sounds normal. No masses, organomegaly. Extremities: No deformities, edema, skin discoloration, clubbing or cyanosis. Good capillary refill. . Neurologic: Negative findings: speech normal, mental status intact, cranial nerves 2-12 intact, gait, including heel, toe, and tandem walking normal, Romberg negative, muscle tone normal, muscle strength normal, sensation to light touch and pinprick normal, proprioception normal, reflexes normal and symmetric. Health Maintenance List ANNUAL PCP TEAM CHRONIC DISEASE VISIT due on 1958 BLOOD PRESSURE CONTROLLED due on 1958 DTAP,TDAP,TD(1 - Tdap) due on 1959 COLORECTAL CANCER SCREENING,SEE MODIFIER due on 1990 ADULT PREVNAR-13 due on 2005 PNEUMOVAX AGE 65 AND OVER WITH 5YR LOOKBACK(1) due on 2005 LDL CHOLESTEROL due on 01/07/2018 INFLUENZA(1) due on 01/08/2018 DIABETES SCREEN due on 10/20/2020 LIPID SCREEN due on 01/07/2022 Data reviewed Component Latest Ref Rng AND Units 08/30/2017 08/30/2017 08/31/2017 09/01/2017 09/10/2017 10/20/2017 2:11 PM 2:43 PM WBC 3.70 - 11.00 k/uL 6.96 7.23 9.26 7.29 RBC 4.20 - 6.00 m/uL 4.71 4.74 4.63 4.57 Hemoglobin 13.0 - 17.0 g/dL 14.4 14.1 13.7 13.9 Hematocrit 39.0 - 51.0 % 43.3 43.2 43.0 42.7 MCV 80.0 - 100.0 fL 91.9 91.1 92.9 93.4 MCH 26.0 - 34.0 pG 30.6 29.7 29.6 30.4 MCHC 30.5 - 36.0 g/dL 33.3 32.6 31.9 32.6 RDW-CV 11.5 - 15.0 % 14.1 14.1 13.9 13.9 Platelet Count 150 - 400 k/uL 149 (L) 181 248 196 MPV 9.0 - 12.7 fL 9.5 10.5 9.5 9.6 Neut% % 75.7 Abs Neut (ANC) 1.45 - 7.50 k/uL 5.25 Lymph% % 12.5 Abs Lymph 1.00 - 4.00 k/uL 0.87 (L) Dougherty% % 9.1 Abs Dougherty <0.87 k/uL 0.63 Eosin% % 2.3 Abs Eosin <0.46 k/uL 0.16 Baso% % 0.4 Abs Baso <0.11 k/uL 0.03 Nucleated Reds 0 /100 WBC 0.0 Absolute nRBC <0.01 k/uL <0.01 <0.01 <0.01 <0.01 Diff Type Auto Diff Protein, Total 6.3 - 8.0 g/dL 6.4 6.6 Albumin 3.9 - 4.9 g/dL 4.0 4.0 Calcium 8.5 - 10.2 mg/dL 9.1 9.1 9.3 10.1 Bilirubin, Total 0.2 - 1.3 mg/dL 0.5 0.8 Alkaline Phosphatase 36 - 108 U/L 111 (H) 104 AST 14 - 40 U/L 12 (L) 18 Glucose 74 - 99 mg/dL 101 (H) 106 (H) 98 127 (H) BUN 9 - 24 mg/dL 14 18 19 20 Creatinine 0.73 - 1.22 mg/dL 1.13 1.29 (H) 1.30 (H) 1.33 (H) Sodium 136 - 144 mmol/L 140 140 142 144 Potassium 3.7 - 5.1 mmol/L 4.3 4.8 4.6 4.9 Chloride 97 - 105 mmol/L 104 100 100 103 CO2 22 - 30 mmol/L 24 30 29 29 Anion Gap 9 - 18 mmol/L 12 10 13 12 ALT 10 - 54 U/L 16 18 eGFR- >60 >60 >60 >60 eGFR-All Other Races . >60 54 54 52 Activated Clotting Time (POCT) 74 - 137 sec 301 (A) 114 ASSESSMENT/PLAN: 1. Vision changes - ICD9: 368.9, ICD10: H53.9 (primary diagnosis) Suspect amaurosis fugax. Will obtain MRI brain and MRA neck, refer to optho. Continue current regimen. Discussed red flag symptoms he should be seen in the ED for. - CREATININE BLD 2. Atrial fibrillation, chronic (HCC) - ICD9: 427.31, ICD10: I48.2 Rate controlled, on ASA due to bleeding from intracranial hemorrhage up until last year. 3. AAA (abdominal aortic aneurysm) without rupture (HCC) - ICD9: 441.4, ICD10: I71.4 F/u with cardiology. - CBC + DIFF 4. Hyperlipidemia, unspecified hyperlipidemia type - ICD9: 272.4, ICD10: E78.5 - to be determined upon return of lab results - Continue current medication. - Encouraged following a low fat, low cholesterol diet. - Discussed the benefits of regular aerobic exercise and weight loss. 5. Primary hypertension - ICD9: 401.9, ICD10: I10 - good control - Continue current medication(s) - Encouraged dietary sodium restriction/DASH diet - Recommended regular aerobic exercise. - Reviewed risks of HTN and principles of treatment - Goal of BP <140/90 6. Nonrheumatic aortic valve stenosis - ICD9: 424.1, ICD10: I35.0 Recommendations per cardiology 7. Intraparenchymal hemorrhage of brain (HCC) - ICD9: 431, ICD10: I61.9 Obtain MRI. To the ED with red flag symptoms. - CREATININE BLD 8. Screening for nephropathy - ICD9: V81.5, ICD10: Z13.89 9. Encounter for screening colonoscopy - ICD9: V76.51, ICD10: Z12.11 - FECAL OCCULT BLOOD TEST 10. Transient visual loss of right eye - ICD9: 368.12, ICD10: H53.121 See above - MRI BRAIN WO/W IVCON - IV CONTRAST (RADIOLOGY PROCEDURE) - CONSULT TO OPHTHALMOLOGY - MRA CAROTID WO IVCON 11. Sudden visual loss of right eye - ICD9: 368.11, ICD10: H53.131 - MRI BRAIN WO/W IVCON - IV CONTRAST (RADIOLOGY PROCEDURE) - CONSULT TO OPHTHALMOLOGY - MRA CAROTID WO IVCON Jose Raul Velázquez MD CNOV Observed: 12/23/2017 Status: COMPLETED Source: [place] 3:00 PM [facility] REPOSITORY Office Visit (FAMPWS) TYREL RUFFIN ([id number]) 1940 M Date Time Provider Department 12/23/17 3:00 PM JOSE RAUL VELÁZQUEZ) FAMPWS During your visit today, we recorded the following information about you: Temperature Pulse Respiration Blood pressure 96.9 degrees 60/minute 12/minute 138/88 Weight Height 80.7 kg 1.753 m Jose Raul Velázquez MD 12/26/2017 9:19 AM Signed Chief Complaint Patient presents with: Establish Care HPI Tyrel Ruffin is a 77 year old male with PMH: brain aneurysm, intracranial hemorrhage, a fib, aortic dissection and AAA who presents here today for establish care. Complaining today of right eye vision changes which have occurred twice for the last month. Symptoms last for about 5 minutes. Describes as wayne or partial loss of vision over lower visual field. Denies slurred speech, numbness, tingling, weakness, loss of balance, headache, buddhism pain, injury to eye. Has not been evaluated by optho or had any imaging at this time. Following up with Dr. Valentine for history of a fib and aortic stenosis s/p TAVR. Typically asymptomatic, can occasionally feel when he is out of rhythm. Denies tachycardia or chest pain. Taking medications as prescribed without side effects. reviewed recent labs. Past medical history, appointments, medications, allergies reviewed. 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 Previous Surgical History PAST SURGICAL HISTORY Procedure Laterality Date - PAST SURGICAL HISTORY OF 10/2017 TAVR - TONSILLECTOMY HX Family History FAMILY HISTORY Problem Relation Age of Onset - Hypertension Mother age 90 from internal bleeding - Stroke Father 80 age 84 - other (Myocardial infarction) Brother 70 Patient Allergies ALLERGIES Allergen Reactions - Amoxacillin [Amoxic* Mental Status Change - Codeine Other: See Comments irregular heart beat Current Medications Current Outpatient Prescriptions on File Prior to Visit: metoprolol succinate ER (TOPROL XL) 100 mg Tb24 Take 1 tablet by mouth once daily. amLODIPine (NORVASC) 5 mg tablet Take 1 tablet by mouth once daily. atorvastatin (LIPITOR) 20 mg tablet Take 1 tablet by mouth once daily. aspirin, enteric coated (ASPIRIN, ENTERIC COATED) 81 mg EC tablet Take 81 mg by mouth once daily. No current facility-administered medications on file prior to visit. 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 Has living Review of Symptoms REVIEW OF SYSTEMS GENERAL: No weight loss, malaise or fevers RESPIRATORY: Negative for cough, hemoptysis, wheezing, COPD, dyspnea or shortness of breath CARDIOVASCULAR: Negative for chest pain, leg swelling, hypertension, CHF or palpitations GI: No nausea, vomiting, or diarrhea SKIN: Negative for lesions, rash, and itching EXAM: BP 138/88 Pulse 60 Temp 36.1 ?C (96.9 ?F) (Left Tympanic) Resp 12 Ht 175.3 cm (5' 9) Wt 80.7 kg (178 lb) BMI 26.29 kg/m? General Appearance: Well appearing, alert, in no acute distress, well-hydrated, well nourished.. Skin: Skin color, texture, turgor normal, no suspicious rashes or lesions. Head: Normocephalic, no masses, lesions, tenderness or abnormalities. Eyes: Anicteric sclera. Pupils are equally round and reactive to light. Extraocular movements are intact. . Neck: Supple, no adenopathy; thyroid symmetric, normal size, no bruits. Lungs: Lungs clear to auscultation. No wheezing, rhonchi, rales. Heart: RRR without murmur, gallop, or rubs. No ectopy. Abdomen: Normal abdominal exam, Abdomen soft, non-tender. Bowel sounds normal. No masses, organomegaly. Extremities: No deformities, edema, skin discoloration, clubbing or cyanosis. Good capillary refill. . Neurologic: Negative findings: speech normal, mental status intact, cranial nerves 2-12 intact, gait, including heel, toe, and tandem walking normal, Romberg negative, muscle tone normal, muscle strength normal, sensation to light touch and pinprick normal, proprioception normal, reflexes normal and symmetric. Health Maintenance List ANNUAL PCP TEAM CHRONIC DISEASE VISIT due on 1958 BLOOD PRESSURE CONTROLLED due on 1958 DTAP,TDAP,TD(1 - Tdap) due on 1959 COLORECTAL CANCER SCREENING,SEE MODIFIER due on 1990 ADULT PREVNAR-13 due on 2005 PNEUMOVAX AGE 65 AND OVER WITH 5YR LOOKBACK(1) due on 2005 LDL CHOLESTEROL due on 01/07/2018 INFLUENZA(1) due on 01/08/2018 DIABETES SCREEN due on 10/20/2020 LIPID SCREEN due on 01/07/2022 Data reviewed Component Latest Ref Rng AND Units 08/30/2017 08/30/2017 08/31/2017 09/01/2017 09/10/2017 10/20/2017 2:11 PM 2:43 PM WBC 3.70 - 11.00 k/uL 6.96 7.23 9.26 7.29 RBC 4.20 - 6.00 m/uL 4.71 4.74 4.63 4.57 Hemoglobin 13.0 - 17.0 g/dL 14.4 14.1 13.7 13.9 Hematocrit 39.0 - 51.0 % 43.3 43.2 43.0 42.7 MCV 80.0 - 100.0 fL 91.9 91.1 92.9 93.4 MCH 26.0 - 34.0 pG 30.6 29.7 29.6 30.4 MCHC 30.5 - 36.0 g/dL 33.3 32.6 31.9 32.6 RDW-CV 11.5 - 15.0 % 14.1 14.1 13.9 13.9 Platelet Count 150 - 400 k/uL 149 (L) 181 248 196 MPV 9.0 - 12.7 fL 9.5 10.5 9.5 9.6 Neut% % 75.7 Abs Neut (ANC) 1.45 - 7.50 k/uL 5.25 Lymph% % 12.5 Abs Lymph 1.00 - 4.00 k/uL 0.87 (L) Dougherty% % 9.1 Abs Dougherty <0.87 k/uL 0.63 Eosin% % 2.3 Abs Eosin <0.46 k/uL 0.16 Baso% % 0.4 Abs Baso <0.11 k/uL 0.03 Nucleated Reds 0 /100 WBC 0.0 Absolute nRBC <0.01 k/uL <0.01 <0.01 <0.01 <0.01 Diff Type Auto Diff Protein, Total 6.3 - 8.0 g/dL 6.4 6.6 Albumin 3.9 - 4.9 g/dL 4.0 4.0 Calcium 8.5 - 10.2 mg/dL 9.1 9.1 9.3 10.1 Bilirubin, Total 0.2 - 1.3 mg/dL 0.5 0.8 Alkaline Phosphatase 36 - 108 U/L 111 (H) 104 AST 14 - 40 U/L 12 (L) 18 Glucose 74 - 99 mg/dL 101 (H) 106 (H) 98 127 (H) BUN 9 - 24 mg/dL 14 18 19 20 Creatinine 0.73 - 1.22 mg/dL 1.13 1.29 (H) 1.30 (H) 1.33 (H) Sodium 136 - 144 mmol/L 140 140 142 144 Potassium 3.7 - 5.1 mmol/L 4.3 4.8 4.6 4.9 Chloride 97 - 105 mmol/L 104 100 100 103 CO2 22 - 30 mmol/L 24 30 29 29 Anion Gap 9 - 18 mmol/L 12 10 13 12 ALT 10 - 54 U/L 16 18 eGFR- >60 >60 >60 >60 eGFR-All Other Races . >60 54 54 52 Activated Clotting Time (POCT) 74 - 137 sec 301 (A) 114 ASSESSMENT/PLAN: 1. Vision changes - ICD9: 368.9, ICD10: H53.9 (primary diagnosis) Suspect amaurosis fugax. Will obtain MRI brain and MRA neck, refer to optho. Continue current regimen. Discussed red flag symptoms he should be seen in the ED for. - CREATININE BLD 2. Atrial fibrillation, chronic (HCC) - ICD9: 427.31, ICD10: I48.2 Rate controlled, on ASA due to bleeding from intracranial hemorrhage up until last year. 3. AAA (abdominal aortic aneurysm) without rupture (HCC) - ICD9: 441.4, ICD10: I71.4 F/u with cardiology. - CBC + DIFF 4. Hyperlipidemia, unspecified hyperlipidemia type - ICD9: 272.4, ICD10: E78.5 - to be determined upon return of lab results - Continue current medication. - Encouraged following a low fat, low cholesterol diet. - Discussed the benefits of regular aerobic exercise and weight loss. 5. Primary hypertension - ICD9: 401.9, ICD10: I10 - good control - Continue current medication(s) - Encouraged dietary sodium restriction/DASH diet - Recommended regular aerobic exercise. - Reviewed risks of HTN and principles of treatment - Goal of BP <140/90 6. Nonrheumatic aortic valve stenosis - ICD9: 424.1, ICD10: I35.0 Recommendations per cardiology 7. Intraparenchymal hemorrhage of brain (HCC) - ICD9: 431, ICD10: I61.9 Obtain MRI. To the ED with red flag symptoms. - CREATININE BLD 8. Screening for nephropathy - ICD9: V81.5, ICD10: Z13.89 9. Encounter for screening colonoscopy - ICD9: V76.51, ICD10: Z12.11 - FECAL OCCULT BLOOD TEST 10. Transient visual loss of right eye - ICD9: 368.12, ICD10: H53.121 See above - MRI BRAIN WO/W IVCON - IV CONTRAST (RADIOLOGY PROCEDURE) - CONSULT TO OPHTHALMOLOGY - MRA CAROTID WO IVCON 11. Sudden visual loss of right eye - ICD9: 368.11, ICD10: H53.131 - MRI BRAIN WO/W IVCON - IV CONTRAST (RADIOLOGY PROCEDURE) - CONSULT TO OPHTHALMOLOGY - MRA CAROTID WO IVCON Jose Raul Velázquez MD Referring Provider: SELF [[id number]] Allergies As of Date: 12/23/2017 Noted Allergy Reaction AMOXACILLIN (AMOXICILLIN) 07/02/2017 1 - Mental Status Change CODEINE 01/07/2017 14 - Other: See Comments Comments: irregular heart beat Date Reviewed: 12/23/2017 Reviewed by: Emily Jimenez Ma - Fully Assessed Reason for Visit: Establish Care [42] Primary Visit Diagnosis:Vision changes [H53.9] Other Visit Diagnoses:Atrial fibrillation, chronic (HCC) [I48.2] AAA (abdominal aortic aneurysm) without rupture (HCC) [I71.4] Hyperlipidemia, unspecified hyperlipidemia type [E78.5] Primary hypertension [I10] Nonrheumatic aortic valve stenosis [I35.0] Intraparenchymal hemorrhage of brain (HCC) [I61.9] Screening for nephropathy [Z13.89] Encounter for screening colonoscopy [Z12.11] Transient visual loss of right eye [H53.121] Sudden visual loss of right eye [H53.131] Order(s):FECAL OCCULT BLOOD TEST [SQIFOBT] Order #: [id number] FUTURE CREATININE BLD [SQCRET] Order #: [id number] FUTURE MRI BRAIN WO/W IVCON [[id number]] Order #: [id number] FUTURE [] iv contrast (will be provided with radiology test)MRI Brain Inject, intravenously, once for 1 dose.No IV access, insert saline lock prior to beginning of sedation, infusion, injection of imaging exam.Discontinue saline lock post exam. If Pt. has a central line or IVAD, may access for administration according to line specific nursing protocol.Once exam is complete flush line and de- access according to line specific nursing protocol in the MR contrast administration guidelines linkDisp: 1 EachRfl: 0 CONSULT TO OPHTHALMOLOGY [9024] Order #: [id number]: 1 MRA CAROTID WO IVCON [[id number]] Order #: [id number] FUTURE CBC + DIFF [SQCBCDIF] Order #: [id number] FUTURE Prescriptions as of 12/23/2017 Sig: METOPROLOL SUCCINATE ER 100 M* Take 1 tablet by mouth once d* AMLODIPINE 5 MG TABLET Take 1 tablet by mouth once d* ATORVASTATIN 20 MG TABLET Take 1 tablet by mouth once d* ASPIRIN 81 MG TABLET,DELAYED * Take 81 mg by mouth once joel* IV CONTRAST (RADIOLOGY PROCED* MRI Brain Inject, intravenous* Problem List As Of Date 12/23/2017 Noted Resolved Aortic dissection (HCC) [I71.00] INVALID FOR* Atrial fibrillation, chronic (HCC) [I48.2] INVALID FOR* Priority: C More... Hyperlipidemia [E78.5] INVALID FOR* Priority: E More... Primary hypertension [I10] INVALID FOR* Priority: D More... Word finding difficulty [R47.89] INVALID FOR* More... AAA (abdominal aortic aneurysm) without rupture*INVALID FOR* Priority: A More... Aphasia [R47.01] INVALID FOR* Priority: A More... Nonrheumatic aortic valve stenosis [I35.0] INVALID FOR* More... Atherosclerosis of [place] coronary artery witho*INVALID FOR* More... Intraparenchymal hemorrhage of brain (HCC) [I61*INVALID FOR* More... Prescriptions ordered this encounter Disp Refills Start End IV CONTRAST (RADIOLOGY PROCEDURE) 1 Ea* 0 12/23/2017 12/24/2017 Class: In Office Sig: MRI Brain Inject, intravenously, once for 1 dose.No IV access, insert saline lock prior to beginning of sedation, infusion, injection of imaging exam.Discontinue saline lock post exam. If Pt. has a central line or IVAD, may access for administration according to line specific nursing protocol.Once exam is complete flush line and de-access according to line specific nursing protocol in the MR contrast administration guidelines link Follow-up and Disposition History Recorded Encounter Status:Closed by JOSE RAUL VELÁZQUEZ MD on 12/26/17 CASEY Observed: 10/20/2017 Status: COMPLETED Source: [place] 9:15 AM [facility] REPOSITORY Office Visit (CATHMN) TYREL RUFFIN ([id number]) 1940 M Date Time Provider Department 10/20/17 9:15 AM TRUPTI VALENTINE CATHDAVEY During your visit today, we recorded the following information about you: Pulse Respiration Blood pressure Weight 97/minute 13/minute 139/85 78.9 kg Height 1.753 m Trupti Valentine MD, 10/23/2017 8:46 AM [facility] [place] Greyson Santiago Department of Cardiovascular Medicine SECTION OF INTERVENTIONAL CARDIOLOGY OUTPATIENT VISIT DATE October 20, 2017 OUTPATIENT VISIT TYPE ESTABLISHED PRIMARY CARE PHYSICIAN: Billy Nieves MD ([facility]) [address] [place] [address] [place] [id number] CHIEF COMPLAINT: Patient presents with: Hospital F/U HISTORY OF PRESENT ILLNESS: Mr. Ruffin is a 77 year old male who presents today for follow-up visit for TAVR. Doing well, No complaints He denies chest pain, shortness of breath, dyspnea on exertion, orthopnea, PND, palpitations, lightheadedness, syncope, claudication, leg swelling, cough and wheezing. 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 PAST SURGICAL HISTORY Procedure Laterality Date - TONSILLECTOMY HX SOCIAL HISTORY Social History Substance Use Topics - Smoking status: Former Smoker Packs/day: 1.50 Years: 59.00 Quit date: 07/02/2012 - Smokeless tobacco: Never Used - Alcohol use Yes Comment: occasional FAMILY HISTORY Problem Relation Age of Onset - Hypertension Mother age 90 from internal bleeding - Stroke Father 80 age 84 - Myocardial infarction [OTHER] Brother 70 ALLERGIES: ALLERGIES Allergen Reactions - Amoxacillin [Amoxic* Mental Status Change - Codeine Other: See Comments irregular heart beat MEDICATIONS: metoprolol succinate ER (TOPROL XL) 100 mg Tb24 Take 1 tablet by mouth once daily. amLODIPine (NORVASC) 5 mg tablet Take 1 tablet by mouth once daily. atorvastatin (LIPITOR) 20 mg tablet Take 1 tablet by mouth once daily. aspirin, enteric coated (ASPIRIN, ENTERIC COATED) 81 mg EC tablet Take 81 mg by mouth once daily. REVIEW OF SYSTEMS: HEENT: Denies recent severe headaches, visual changes, difficulty swallowing. GASTROINTESTINAL: Denies melena, hematochezia, heartburn. GENITOURINARY: Denies hematuria. MUSCULOSKELETAL: Denies claudication or muscle myalgias. NEUROLOGIC: Denies unilateral paralysis, slurred speech. SKIN: Denies skin ulcers or lesions. HEMATOLOGICAL: Denies gingival bleeding, or prolonged epistaxis. ENDOCRINE:Denies heat or cold intolerance, excessive thirst or urination. All Other Remaining ROS negative. PHYSICAL EXAMINATION: BP 139/85 Pulse 97 Resp 13 Ht 5' 9 (1.75m) Wt 174 lb (78.9kg) SpO2 96% BMI 25.68 kg/(m2). General: Well appearing, in no acute distress, speaking in complete sentences. Skin: No clubbing, no cyanosis. Head/Eyes: Extra ocular movements intact Mouth: Teeth in good repair. Neck: No jugular venous distention, no carotid bruits, carotids have a normal upstroke, no palpable thyromegaly. Lungs: Clear to auscultation and no rales Heart: Regular rhythm, PMI not displaced, S1, S2 normal, no S3, no S4, no heaves, no rub and no murmur. PV Pulses:Pulses intact Abdomen: Soft, nontender, bowel sounds normal, no palpable organomegaly, no bruits. Extremities: No peripheral edema . Grade 2/4 distal pulses bilaterally. Edema Scale: No Musculoskeletal: Normal gait and ambulation Neuro: Oriented to time, place and person CARDIOVASCULAR MEDICINE TESTING: Echocardiogram: pending I have personally reviewed the Echocardiogram. IMPRESSION: Mr. Ruffin is a 77 year old male with TAVR Doing well No complaints PLAN AND RECOMMENDATIONS: Ct same meds CONTACT INFORMATION: Referring Provider: TRUPTI VALENTINE [[id number]] Allergies As of Date: 10/20/2017 Noted Allergy Reaction AMOXACILLIN (AMOXICILLIN) 07/02/2017 1 - Mental Status Change CODEINE 01/07/2017 14 - Other: See Comments Comments: irregular heart beat Date Reviewed: 09/10/2017 Reviewed by: Karen Clark (Kevin) Lucio - Fully Assessed Reason for Visit: Hospital F/U [57] Primary Visit Diagnosis:Nonrheumatic aortic valve stenosis [I35.0] Other Visit Diagnosis:Atrial fibrillation, chronic (HCC) [I48.2] Prescriptions as of 10/20/2017 Sig: METOPROLOL SUCCINATE ER 100 M* Take 1 tablet by mouth once d* AMLODIPINE 5 MG TABLET Take 1 tablet by mouth once d* ATORVASTATIN 20 MG TABLET Take 1 tablet by mouth once d* ASPIRIN 81 MG TABLET,DELAYED * Take 81 mg by mouth once joel* Problem List As Of Date 10/20/2017 Noted Resolved Aortic dissection (HCC) [I71.00] INVALID FOR* Atrial fibrillation, chronic (HCC) [I48.2] INVALID FOR* Priority: C More... Hyperlipidemia [E78.5] INVALID FOR* Priority: E More... Primary hypertension [I10] INVALID FOR* Priority: D More... Word finding difficulty [R47.89] INVALID FOR* More... AAA (abdominal aortic aneurysm) without rupture*INVALID FOR* Priority: A More... Aphasia [R47.01] INVALID FOR* Priority: A More... Nonrheumatic aortic valve stenosis [I35.0] INVALID FOR* More... Atherosclerosis of [place] coronary artery witho*INVALID FOR* More... Medications Discontinued During This Encounter clopidogrel (PLAVIX) 75 mg tablet 30 t* 0 09/02/2017 10/20/2017 Route: ORAL Sig: Take 1 tablet by mouth once daily. Disc: Course of therapy completed Encounter Status:Closed by TRUPTI VALENTINE MD on 10/23/17 PROGRESS Observed: 10/20/2017 Status: COMPLETED Source: [place] 8:47 AM [facility] REPOSITORY HNO ID: [id number] Author: Trupti Valentine MD Service: (none) Author Type: Physician Type: Progress Notes Filed: 10/23/2017 8:46 AM Note Text: [facility] [place] Greyson Santiago Department of Cardiovascular Medicine SECTION OF INTERVENTIONAL CARDIOLOGY OUTPATIENT VISIT DATE October 20, 2017 OUTPATIENT VISIT TYPE ESTABLISHED PRIMARY CARE PHYSICIAN: Billy Nieves MD ([facility]) [address] [facility] [address] [place] [address] CHIEF COMPLAINT: Patient presents with: Hospital F/U HISTORY OF PRESENT ILLNESS: Mr. Ruffin is a 77 year old male who presents today for follow-up visit for TAVR. Doing well, No complaints He denies chest pain, shortness of breath, dyspnea on exertion, orthopnea, PND, palpitations, lightheadedness, syncope, claudication, leg swelling, cough and wheezing. 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 PAST SURGICAL HISTORY Procedure Laterality Date - TONSILLECTOMY HX SOCIAL HISTORY Social History Substance Use Topics - Smoking status: Former Smoker Packs/day: 1.50 Years: 59.00 Quit date: 07/02/2012 - Smokeless tobacco: Never Used - Alcohol use Yes Comment: occasional FAMILY HISTORY Problem Relation Age of Onset - Hypertension Mother age 90 from internal bleeding - Stroke Father 80 age 84 - Myocardial infarction [OTHER] Brother 70 ALLERGIES: ALLERGIES Allergen Reactions - Amoxacillin [Amoxic* Mental Status Change - Codeine Other: See Comments irregular heart beat MEDICATIONS: metoprolol succinate ER (TOPROL XL) 100 mg Tb24 Take 1 tablet by mouth once daily. amLODIPine (NORVASC) 5 mg tablet Take 1 tablet by mouth once daily. atorvastatin (LIPITOR) 20 mg tablet Take 1 tablet by mouth once daily. aspirin, enteric coated (ASPIRIN, ENTERIC COATED) 81 mg EC tablet Take 81 mg by mouth once daily. REVIEW OF SYSTEMS: HEENT: Denies recent severe headaches, visual changes, difficulty swallowing. GASTROINTESTINAL: Denies melena, hematochezia, heartburn. GENITOURINARY: Denies hematuria. MUSCULOSKELETAL: Denies claudication or muscle myalgias. NEUROLOGIC: Denies unilateral paralysis, slurred speech. SKIN: Denies skin ulcers or lesions. HEMATOLOGICAL: Denies gingival bleeding, or prolonged epistaxis. ENDOCRINE:Denies heat or cold intolerance, excessive thirst or urination. All Other Remaining ROS negative. PHYSICAL EXAMINATION: BP 139/85 Pulse 97 Resp 13 Ht 5' 9 (1.75m) Wt 174 lb (78.9kg) SpO2 96% BMI 25.68 kg/(m2). General: Well appearing, in no acute distress, speaking in complete sentences. Skin: No clubbing, no cyanosis. Head/Eyes: Extra ocular movements intact Mouth: Teeth in good repair. Neck: No jugular venous distention, no carotid bruits, carotids have a normal upstroke, no palpable thyromegaly. Lungs: Clear to auscultation and no rales Heart: Regular rhythm, PMI not displaced, S1, S2 normal, no S3, no S4, no heaves, no rub and no murmur. PV Pulses:Pulses intact Abdomen: Soft, nontender, bowel sounds normal, no palpable organomegaly, no bruits. Extremities: No peripheral edema . Grade 2/4 distal pulses bilaterally. Edema Scale: No Musculoskeletal: Normal gait and ambulation Neuro: Oriented to time, place and person CARDIOVASCULAR MEDICINE TESTING: Echocardiogram: pending I have personally reviewed the Echocardiogram. IMPRESSION: Mr. Ruffin is a 77 year old male with TAVR Doing well No complaints PLAN AND RECOMMENDATIONS: Ct same meds CONTACT INFORMATION: CBC Collected: 10/20/2017 Status: F Source: [place] 8:22 AM [facility] REPOSITORY TYPE CODE TESTS RESULT OUT OF REFERENCE UNITS RANGE LAB WBC 3.70-11.00 k/uL WBC 7.29 LAB RBC 4.20-6.00 m/uL RBC 4.57 LAB HGB 13.0-17.0 g/dL Hemoglobin 13.9 LAB HCT 39.0-51.0 % Hematocrit 42.7 LAB MCV 80.0-100.0 fL MCV 93.4 LAB MCH 26.0-34.0 pG MCH 30.4 LAB MCHC 30.5-36.0 g/dL MCHC 32.6 LAB RDWCV 11.5-15.0 % RDW-CV 13.9 LAB PLTCT 150-400 k/uL Platelet Count 196 LAB MPV 9.0-12.7 fL MPV 9.6 LAB ABSNUC <0.01 k/uL Absolute nRBC <0.01 Performed By: #### CBC, CMP #### [facility] [address] [place], [place] [address] COMP METABOLIC PANEL Collected: 10/20/2017 Status: F Source: [place] 8:22 AM [facility] REPOSITORY TYPE CODE TESTS RESULT OUT OF REFERENCE UNITS RANGE LAB TP 6.3-8.0 g/dL Protein, Total 6.6 LAB ALB 3.9-4.9 g/dL Albumin 4.0 LAB CA 8.5-10.2 mg/dL Calcium, Total 10.1 LAB TBIL 0.2-1.3 mg/dL Bilirubin, Total 0.8 LAB ALKP 36-108 U/L Alkaline Phosphatase 104 LAB AST 14-40 U/L AST 18 LAB GLU 74-99 mg/dL Glucose High 127 Result Comment: The [place] Diabetes Association (ADA) provides guidance for cutoff values for fasting glucose and random glucose. The ADA defines fasting as no caloric intake for at least 8 hours. Fas ting plasma glucose results between 100 to 125 mg/dL indicate increased risk for diabetes (prediabetes). Fasting plasma glucose results greater than or equal to 126 mg/dL meet the criteria for diagnosis of diabetes. In the absence of unequivocal hyperglycemia, results should be confirmed by repeat testing. In a patient with classic symptoms of hyperglycemia or hyperglycemic crisis, random plasma glucose results greater than or equal to 200 mg/dL meet the criteria for diagnosis of diabetes. Reference: Standards of Medical Care in Diabetes 2016, [place] Diabetes Association. Diabetes Care. 2016.39(Suppl 1). LAB BUN 9-24 mg/dL BUN 20 LAB CRET 0.73-1.22 mg/dL Creatinine High 1.33 LAB NA 136-144 mmol/L Sodium 144 LAB K 3.7-5.1 mmol/L Potassium 4.9 LAB CL 97-105 mmol/L Chloride 103 LAB CO2 22-30 mmol/L CO2 29 LAB AGAP 9-18 mmol/L Anion Gap 12 LAB ALT 10-54 U/L ALT 18 LAB GFRAA eGFR- Amer. >60 LAB GFRNAA . eGFR-All Other Races 52 Result Comment: eGFR (Estimated GFR) Units of measure: mL/min/1.73 meters squared eGFR is derived from the reexpressed MDRD Study equation using the following parameters: serum creatinine, age, gender and race. The creatinine assay has been calibrated to be traceable to IDMS. An eGFR <60 mL/min/1.73m2 for >3 months is consistent with chronic kidney disease. Refer to KDOQI guidelines for clinical interpretation. In patients with unstable renal function, e.g. those with acute kidney injury, the eGFR may not accurately reflect actual GFR. Performed By: #### CBC, CMP #### [facility] [address] [place], [place] [address] ECG COMPLETE W Observed: 10/20/2017 Status: F Source: [place] INTERPRETATION 7:57 AM [facility] REPOSITORY NAME : TYREL RUFFIN PID : [id number] : 1940 Gender : Male Race : ORD : [id number] Procedure Date : Oct 20 2017 07:57:39 Edit Date : Oct 22 2017 14:27:29 Diagnosis:ATRIAL FIBRILLATION ABNORMAL ECG Confirmed by LINDA WELLS M.D. ([id number]) on 10/22/2017 2:25:04 PM Ventricular Rate : 91 BPM Atrial Rate : 357 BPM QRS Duration : 70 ms Q-T Interval : 332 ms QTC Calculation(Bezet) : 408 ms R [place] : 36 degrees T [place] : 49 degrees Test Reason : Location : 314 : J14 Overread By : LINDA WELLS M.D. Edited By : LINDA WELLS M.D. Referred By : TRUPTI VALENTINE Acquired by : MOISÉS ROBLEDO Observed: 09/10/2017 Status: COMPLETED Source: [place] 3:00 PM [facility] REPOSITORY Office Visit (CATHMN) TYREL RUFFIN ([id number]) 1940 M Date Time Provider Department 09/10/17 3:00 PM KAREN OLIVEROS (KEVIN) CATHMN During your visit today, we recorded the following information about you: Pulse Blood pressure Weight Height 88/minute 144/68 78 kg 1.778 m Karen Oliveros (Kevin) 09/13/2017 8:21 AM Signed [facility] [place] Greyson Santiago Department of Cardiovascular Medicine SECTION OF INTERVENTIONAL CARDIOLOGY OUTPATIENT VISIT DATE September 10, 2017 OUTPATIENT VISIT TYPE ESTABLISHED PRIMARY CARE PHYSICIAN: Billy Nieves MD ([facility]) [address] [place] [address] CHIEF COMPLAINT: Patient presents with: Follow Up HISTORY OF PRESENT ILLNESS: Mr. Ruffin is a 77 year old male with a history of LSCA dissection, infrarenal AAA, chronic A.Fib, prior LT parietal intracerebral hemorrhage (2013), HTN, HL and severe aortic stenosis, who presents today for follow-up visit status post successful reimplantation of #23 Castillo Daryl S3 valve, TAVR, transfemoral approach on 08/30/17. He admits to progressively worsening shortness of breath and fatgiue but is otherwise healthy with the exception of past intracranial hemorrhage and TIA. He is candidate for potential watchman. At his pre-op visit, he was found in rapid AFib. He was sent to the emergency room and was given IV lopressor x 3 and released to his appointments. He id not have any chest or dizziness. He had 4 teeth extracted on 08/24/2017 and has some residual discomfort. He did experience some dizziness after that. ? Echo 01/24: CONCLUSIONS: - Technically difficult exam due to suboptimal positioning and body habitus. - Exam indication: Sustained atrial fibrillation - The left ventricle is small. Left ventricular systolic function is normal. EF = 58 ? 5% (2D biplane) Left ventricular diastolic function was not evaluated due to AF. - The right ventricle is normal in size. Right ventricular systolic function is normal. - There is paradoxical low flow, low gradient, severe aortic valve stenosis caused ?by calcified valve. AV area is 0.75 cm? (0.39 cm?/m?) by continuity, VTI. The peak gradient is 31 mmHg, the mean gradient is 19 mmHg and the dimensionless valve ?index is 0.24. - Exam was compared with the prior CC echocardiographic exam performed on 01/07/2017. we will have better?visualization of the aortic valve on TAIWO later today. On 08/30/17, he underwent successful Successful reimplantation of #23 Castillo Daryl S3 valve, TAVR, transfemoral approach Post TAVR Echo: - Technically difficult exam due to suboptimal positioning. - Exam indication: Initial evaluation s/p TAVR - The left ventricle is small. Left ventricular systolic function is normal. EF = 52 ? 5% (2D biplane) - The right ventricle is normal in size. - S/P transcatheter aortic valve replacement. Castillo S3 prosthetic aortic valve (size #23). There is trivial aortic valve regurgitation. The peak gradient is 16 mmHg, the mean gradient is 9 mmHg and the dimensionless valve index is 0.39. S/p TAVR. There yoselin mild to moderate pericardial effusion adjacent to the right atrium measuring 1.3 cm. There is an epicardial fat pad. Effusion was present in prior exam as well. - Exam was compared with the prior CC echocardiographic exam performed on 08/30/2017 ([facility]). ECG Diagnosis:ATRIAL FIBRILLATION WITH RAPID VENTRICULAR RESPONSE , AGE UNDETERMINED ABNORMAL ECG Ventricular Rate : 111 ?BPM Atrial Rate : 147 ?BPM QRS Duration : 68 ?ms Q-T Interval : 282 ?ms QTC Calculation(Bezet) : 383 ?ms ? Metoprolol ER increased to 100 mg daily for AF rate control. HR in 90s at discharge. Hospital course uncomplicated. ? No AC per neurology. Needs repeat MRI in 1 month with f/u before we can consider AC Increase Beta Pat 01/12 to bid. If well tolerated, HR stable can go home in am. F/U with EP requested - needs eval with neurology to see if we can anticoagulate for 6 weeks and then EP eval for watchman (if we can have full AC) Since discharge, he has done very well and denies any further fatigue or shortness of breath. He is unsure at this time about pursuing the watchman due to the need for AC and the past bleed. He wants to be active and walk this summer. He denies chest pain, shortness of breath, dyspnea on exertion, orthopnea, PND, lightheadedness, syncope, claudication, leg swelling, cough and wheezing. 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 PAST SURGICAL HISTORY Procedure Laterality Date - TONSILLECTOMY HX SOCIAL HISTORY Social History Substance Use Topics - Smoking status: Former Smoker Packs/day: 1.50 Years: 59.00 Quit date: 07/02/2012 - Smokeless tobacco: Never Used - Alcohol use Yes Comment: occasional FAMILY HISTORY Problem Relation Age of Onset - Hypertension Mother age 90 from internal bleeding - Stroke Father 80 age 84 - Myocardial infarction [OTHER] Brother 70 ALLERGIES: ALLERGIES Allergen Reactions - Amoxacillin [Amoxic* Mental Status Change - Codeine Other: See Comments irregular heart beat MEDICATIONS: metoprolol succinate ER (TOPROL XL) 100 mg Tb24 Take 1 tablet by mouth once daily. clopidogrel (PLAVIX) 75 mg tablet Take 1 tablet by mouth once daily. amLODIPine (NORVASC) 5 mg tablet Take 1 tablet by mouth once daily. atorvastatin (LIPITOR) 20 mg tablet Take 1 tablet by mouth once daily. aspirin, enteric coated (ASPIRIN, ENTERIC COATED) 81 mg EC tablet Take 81 mg by mouth once daily. REVIEW OF SYSTEMS: HEENT: Denies recent severe headaches, visual changes, difficulty swallowing. GASTROINTESTINAL: Denies melena, hematochezia, heartburn. GENITOURINARY: Denies hematuria. MUSCULOSKELETAL: Denies claudication or muscle myalgias. NEUROLOGIC: Denies unilateral paralysis, slurred speech. SKIN: Denies skin ulcers or lesions. HEMATOLOGICAL: Denies gingival bleeding, or prolonged epistaxis. ENDOCRINE:Denies heat or cold intolerance, excessive thirst or urination. All Other Remaining ROS negative. PHYSICAL EXAMINATION: BP 144/68 Pulse 88 Ht 5' 10 (1.78m) Wt 172 lb (78.0kg) BMI 24.68 kg/(m2). General:well developed Skin:warm and dry Neck:no JVD, no carotid bruits, thyroid not palpable, no tenderness Lungs:clear to auscultation and no rales Heart:regular rhythm, S1, S2 normal, no S3, no S4, no heaves, no thrills and no murmur PV Pulses:pulses intact, no varicosities Abdomen:soft, non-tender, bowel sounds present, no organomegaly Extremities:normal exam Edema Scale:no Musculoskeletal:Normal gait and ambulation, Able to undergo exercise testing and/or participate in an exercise program. Neurologic:Oriented to time, place and person, Mood AND Affect: appropriate CARDIOVASCULAR MEDICINE TESTING: Electrocardiogram: Diagnosis:ATRIAL FIBRILLATION POSSIBLE ANTEROSEPTAL MYOCARDIAL INFARCTION , AGE UNCERTAIN ABNORMAL ECG Laboratory Testing: Component Latest Ref Rng AND Units 09/10/2017 Protein, Total 6.3 - 8.0 g/dL 6.4 Albumin 3.9 - 4.9 g/dL 4.0 Calcium 8.5 - 10.2 mg/dL 9.3 Bilirubin, Total 0.2 - 1.3 mg/dL 0.5 Alkaline Phosphatase 36 - 108 U/L 111 (H) AST 14 - 40 U/L 12 (L) Glucose 74 - 99 mg/dL 98 BUN 9 - 24 mg/dL 19 Creatinine 0.73 - 1.22 mg/dL 1.30 (H) Sodium 136 - 144 mmol/L 142 Potassium 3.7 - 5.1 mmol/L 4.6 Chloride 97 - 105 mmol/L 100 CO2 22 - 30 mmol/L 29 Anion Gap 9 - 18 mmol/L 13 ALT 10 - 54 U/L 16 eGFR- >60 eGFR-All Other Races . 54 WBC 3.70 - 11.00 k/uL 9.26 RBC 4.20 - 6.00 m/uL 4.63 Hemoglobin 13.0 - 17.0 g/dL 13.7 Hematocrit 39.0 - 51.0 % 43.0 MCV 80.0 - 100.0 fL 92.9 MCH 26.0 - 34.0 pG 29.6 MCHC 30.5 - 36.0 g/dL 31.9 RDW-CV 11.5 - 15.0 % 13.9 Platelet Count 150 - 400 k/uL 248 MPV 9.0 - 12.7 fL 9.5 Absolute nRBC <0.01 k/uL <0.01 I have personally reviewed the Electrocardiogram and Laboratory Testing. IMPRESSION/PLAN: Mr. Ruffin is a 77 year old male with a history of LSCA dissection, infrarenal AAA, chronic A.Fib, prior LT parietal intracerebral hemorrhage (2013), HTN, HL and severe aortic stenosis, who presents today for follow-up visit status post successful reimplantation of #23 Castillo Daryl S3 valve, TAVR, transfemoral approach on 08/30/17. (I35.0) Nonrheumatic aortic valve stenosis (primary encounter diagnosis) (Z95.3) Status post transcatheter aortic valve replacement (TAVR) using bioprosthesis Echo 01/24: EF = 58 ? 5% There is paradoxical low flow, low gradient, severe aortic valve stenosis caused ?by calcified valve. AV area is 0.75 cm? (0.39 cm?/m?) by continuity, VTI. The peak gradient is 31 mmHg, the mean gradient is 19 mmHg and the dimensionless valve ?index is 0.24. On 08/30/17, he underwent successful Successful reimplantation of #23 Castillo Daryl S3 valve, TAVR, transfemoral approach Post TAVR Echo: EF = 52 ? 5% . S/P transcatheter aortic valve replacement. Castillo S3 prosthetic aortic valve (size #23). There is trivial aortic valve regurgitation. The peak gradient is 16 mmHg, the mean gradient is 9 mmHg and the dimensionless valve index is 0.39. S/p TAVR. There yoselin mild to moderate pericardial effusion adjacent to the right atrium measuring 1.3 cm. There is an epicardial fat pad. Effusion was present in prior exam as well. - Exam was compared with the prior CC echocardiographic exam performed on 08/30/2017 - Continue aspirin, Plavix - Follow up with Dr. Valentine 10/20/17 (I48.2) Atrial fibrillation, chronic (HCC) - Hx of afib. On metoprolol XL 50mg daily at home, not on AC due to hx of cerebral hemorrhage in 2013 - CHADSVASc=3 (age and hypertension). Needs better rate control - No AC in setting of previous ICH - Continue Metoprolol - Will follow up with Dr. Valentine regarding Watchman (I25.10) Atherosclerosis of [place] coronary artery of [place] heart without angina pectoris - 03/03/17 Cath: Impression: Co-dominant coronary circulation with largely normal coronaries aside from 30-40% stenosis in the first diagonal branch - Continue aspirin, Lipitor (I10) Primary hypertension - BP stable - Continue Amlodipine, Metoprolol (E78.5) Hyperlipidemia, unspecified hyperlipidemia type - Continue Lipitor I spent > 35 minutes in the visit, with more than 50% of the total [id number] time of the visit in counseling / coordination of care. Karen Oliveros PA-C Referring Provider: TRUPTI VALENTINE [[id number]] Allergies As of Date: 09/10/2017 Noted Allergy Reaction AMOXACILLIN (AMOXICILLIN) 07/02/2017 1 - Mental Status Change CODEINE 01/07/2017 14 - Other: See Comments Comments: irregular heart beat Date Reviewed: 09/10/2017 Reviewed by: Karen Oliveros (Kevin) - Fully Assessed Reason for Visit: Follow Up [171] Primary Visit Diagnosis:Nonrheumatic aortic valve stenosis [I35.0] Other Visit Diagnoses:Status post transcatheter aortic valve replacement (TAVR) using bioprosthesis [Z95.3] Primary hypertension [I10] Hyperlipidemia, unspecified hyperlipidemia type [E78.5] Atrial fibrillation, chronic (HCC) [I48.2] Atherosclerosis of [place] coronary artery of [place] heart without angina pectoris [I25.10] Prescriptions as of 09/10/2017 Sig: METOPROLOL SUCCINATE ER 100 M* Take 1 tablet by mouth once d* CLOPIDOGREL 75 MG TABLET Take 1 tablet by mouth once d* AMLODIPINE 5 MG TABLET Take 1 tablet by mouth once d* ATORVASTATIN 20 MG TABLET Take 1 tablet by mouth once d* ASPIRIN 81 MG TABLET,DELAYED * Take 81 mg by mouth once joel* Problem List As Of Date 09/10/2017 Noted Resolved Aortic dissection (HCC) [I71.00] INVALID FOR* Atrial fibrillation, chronic (HCC) [I48.2] INVALID FOR* Priority: C More... Hyperlipidemia [E78.5] INVALID FOR* Priority: E More... Primary hypertension [I10] INVALID FOR* Priority: D More... Word finding difficulty [R47.89] INVALID FOR* More... AAA (abdominal aortic aneurysm) without rupture*INVALID FOR* Priority: A More... Aphasia [R47.01] INVALID FOR* Priority: A More... Nonrheumatic aortic valve stenosis [I35.0] INVALID FOR* More... Atherosclerosis of [place] coronary artery witho*INVALID FOR* More... Disposition: Return for Follow up with Dr. Yee 10/20/17. Follow-up and Disposition History Recorded Encounter Status:Closed by KAREN OLIVEROS PA-C on 09/13/17 CBC Collected: 09/10/2017 Status: F Source: [place] 2:16 PM [facility] REPOSITORY TYPE CODE TESTS RESULT OUT OF REFERENCE UNITS RANGE LAB WBC 3.70-11.00 k/uL WBC 9.26 LAB RBC 4.20-6.00 m/uL RBC 4.63 LAB HGB 13.0-17.0 g/dL Hemoglobin 13.7 LAB HCT 39.0-51.0 % Hematocrit 43.0 LAB MCV 80.0-100.0 fL MCV 92.9 LAB MCH 26.0-34.0 pG MCH 29.6 LAB MCHC 30.5-36.0 g/dL MCHC 31.9 LAB RDWCV 11.5-15.0 % RDW-CV 13.9 LAB PLTCT 150-400 k/uL Platelet Count 248 LAB MPV 9.0-12.7 fL MPV 9.5 LAB ABSNUC <0.01 k/uL Absolute nRBC <0.01 Performed By: #### CBC, CMP #### [facility] [address], [place] [address] COMP METABOLIC PANEL Collected: 09/10/2017 Status: F Source: [place] 2:16 PM [facility] REPOSITORY TYPE CODE TESTS RESULT OUT OF REFERENCE UNITS RANGE LAB TP 6.3-8.0 g/dL Protein, Total 6.4 LAB ALB 3.9-4.9 g/dL Albumin 4.0 LAB CA 8.5-10.2 mg/dL Calcium, Total 9.3 LAB TBIL 0.2-1.3 mg/dL Bilirubin, Total 0.5 LAB ALKP 36-108 U/L Alkaline High Phosphatase 111 LAB AST 14-40 U/L Low AST 12 LAB GLU 74-99 mg/dL Glucose 98 Result Comment: The [place] Diabetes Association (ADA) provides guidance for cutoff values for fasting glucose and random glucose. The ADA defines fasting as no caloric intake for at least 8 hours. Fas ting plasma glucose results between 100 to 125 mg/dL indicate increased risk for diabetes (prediabetes). Fasting plasma glucose results greater than or equal to 126 mg/dL meet the criteria for diagnosis of diabetes. In the absence of unequivocal hyperglycemia, results should be confirmed by repeat testing. In a patient with classic symptoms of hyperglycemia or hyperglycemic crisis, random plasma glucose results greater than or equal to 200 mg/dL meet the criteria for diagnosis of diabetes. Reference: Standards of Medical Care in Diabetes 2016, [place] Diabetes Association. Diabetes Care. 2016.39(Suppl 1). LAB BUN 9-24 mg/dL BUN 19 LAB CRET 0.73-1.22 mg/dL Creatinine High 1.30 LAB NA 136-144 mmol/L Sodium 142 LAB K 3.7-5.1 mmol/L Potassium 4.6 LAB CL 97-105 mmol/L Chloride 100 LAB CO2 22-30 mmol/L CO2 29 LAB AGAP 9-18 mmol/L Anion Gap 13 LAB ALT 10-54 U/L ALT 16 LAB GFRAA eGFR- Amer. >60 LAB GFRNAA . eGFR-All Other Races 54 Result Comment: eGFR (Estimated GFR) Units of measure: mL/min/1.73 meters squared eGFR is derived from the reexpressed MDRD Study equation using the following parameters: serum creatinine, age, gender and race. The creatinine assay has been calibrated to be traceable to IDMS. An eGFR <60 mL/min/1.73m2 for >3 months is consistent with chronic kidney disease. Refer to KDOQI guidelines for clinical interpretation. In patients with unstable renal function, e.g. those with acute kidney injury, the eGFR may not accurately reflect actual GFR. Performed By: #### CBC, CMP #### [facility] [address] [place], [place] [address] PROGRESS Observed: 09/10/2017 Status: COMPLETED Source: [place] 8:44 AM [facility] REPOSITORY HNO ID: [id number] Author: Karen Oliveros (Kevin) Service: (none) Author Type: Physician Field Support Technician Type: Progress Notes Filed: 09/13/2017 8:21 AM Note Text: [facility] [place] [facility] Department of Cardiovascular Medicine SECTION OF INTERVENTIONAL CARDIOLOGY OUTPATIENT VISIT DATE September 10, 2017 OUTPATIENT VISIT TYPE ESTABLISHED PRIMARY CARE PHYSICIAN: Billy Nieves MD (Jocelin) [address] [place] [address] CHIEF COMPLAINT: Patient presents with: Follow Up HISTORY OF PRESENT ILLNESS: Mr. Ruffin is a 77 year old male with a history of LSCA dissection, infrarenal AAA, chronic A.Fib, prior LT parietal intracerebral hemorrhage (2013), HTN, HL and severe aortic stenosis, who presents today for follow-up visit status post successful reimplantation of #23 Castillo Daryl S3 valve, TAVR, transfemoral approach on 08/30/17. He admits to progressively worsening shortness of breath and fatgiue but is otherwise healthy with the exception of past intracranial hemorrhage and TIA. He is candidate for potential watchman. At his pre-op visit, he was found in rapid AFib. He was sent to the emergency room and was given IV lopressor x 3 and released to his appointments. He id not have any chest or dizziness. He had 4 teeth extracted on 08/24/2017 and has some residual discomfort. He did experience some dizziness after that. ? Echo 01/24: CONCLUSIONS: - Technically difficult exam due to suboptimal positioning and body habitus. - Exam indication: Sustained atrial fibrillation - The left ventricle is small. Left ventricular systolic function is normal. EF = 58 ? 5% (2D biplane) Left ventricular diastolic function was not evaluated due to AF. - The right ventricle is normal in size. Right ventricular systolic function is normal. - There is paradoxical low flow, low gradient, severe aortic valve stenosis caused ?by calcified valve. AV area is 0.75 cm? (0.39 cm?/m?) by continuity, VTI. The peak gradient is 31 mmHg, the mean gradient is 19 mmHg and the dimensionless valve ?index is 0.24. - Exam was compared with the prior echocardiographic exam performed on 01/07/2017. we will have better?visualization of the aortic valve on TAIWO later today. On 08/30/17, he underwent successful Successful reimplantation of #23 Castillo Daryl S3 valve, TAVR, transfemoral approach Post TAVR Echo: - Technically difficult exam due to suboptimal positioning. - Exam indication: Initial evaluation s/p TAVR - The left ventricle is small. Left ventricular systolic function is normal. EF = 52 ? 5% (2D biplane) - The right ventricle is normal in size. - S/P transcatheter aortic valve replacement. Castillo S3 prosthetic aortic valve (size #23). There is trivial aortic valve regurgitation. The peak gradient is 16 mmHg, the mean gradient is 9 mmHg and the dimensionless valve index is 0.39. S/p TAVR. There yoselin mild to moderate pericardial effusion adjacent to the right atrium measuring 1.3 cm. There is an epicardial fat pad. Effusion was present in prior exam as well. - Exam was compared with the prior echocardiographic exam performed on 08/30/2017 ([facility]). ECG Diagnosis:ATRIAL FIBRILLATION WITH RAPID VENTRICULAR RESPONSE , AGE UNDETERMINED ABNORMAL ECG Ventricular Rate : 111 ?BPM Atrial Rate : 147 ?BPM QRS Duration : 68 ?ms Q-T Interval : 282 ?ms QTC Calculation(Bezet) : 383 ?ms ? Metoprolol ER increased to 100 mg daily for AF rate control. HR in 90s at discharge. Hospital course uncomplicated. ? No AC per neurology. Needs repeat MRI in 1 month with f/u before we can consider AC Increase Beta Pat 01/12 to bid. If well tolerated, HR stable can go home in am. F/U with EP requested - needs eval with neurology to see if we can anticoagulate for 6 weeks and then EP eval for watchman (if we can have full AC) Since discharge, he has done very well and denies any further fatigue or shortness of breath. He is unsure at this time about pursuing the watchman due to the need for AC and the past bleed. He wants to be active and walk this summer. He denies chest pain, shortness of breath, dyspnea on exertion, orthopnea, PND, lightheadedness, syncope, claudication, leg swelling, cough and wheezing. 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 PAST SURGICAL HISTORY Procedure Laterality Date - TONSILLECTOMY HX SOCIAL HISTORY Social History Substance Use Topics - Smoking status: Former Smoker Packs/day: 1.50 Years: 59.00 Quit date: 07/02/2012 - Smokeless tobacco: Never Used - Alcohol use Yes Comment: occasional FAMILY HISTORY Problem Relation Age of Onset - Hypertension Mother age 90 from internal bleeding - Stroke Father 80 age 84 - Myocardial infarction [OTHER] Brother 70 ALLERGIES: ALLERGIES Allergen Reactions - Amoxacillin [Amoxic* Mental Status Change - Codeine Other: See Comments irregular heart beat MEDICATIONS: metoprolol succinate ER (TOPROL XL) 100 mg Tb24 Take 1 tablet by mouth once daily. clopidogrel (PLAVIX) 75 mg tablet Take 1 tablet by mouth once daily. amLODIPine (NORVASC) 5 mg tablet Take 1 tablet by mouth once daily. atorvastatin (LIPITOR) 20 mg tablet Take 1 tablet by mouth once daily. aspirin, enteric coated (ASPIRIN, ENTERIC COATED) 81 mg EC tablet Take 81 mg by mouth once daily. REVIEW OF SYSTEMS: HEENT: Denies recent severe headaches, visual changes, difficulty swallowing. GASTROINTESTINAL: Denies melena, hematochezia, heartburn. GENITOURINARY: Denies hematuria. MUSCULOSKELETAL: Denies claudication or muscle myalgias. NEUROLOGIC: Denies unilateral paralysis, slurred speech. SKIN: Denies skin ulcers or lesions. HEMATOLOGICAL: Denies gingival bleeding, or prolonged epistaxis. ENDOCRINE:Denies heat or cold intolerance, excessive thirst or urination. All Other Remaining ROS negative. PHYSICAL EXAMINATION: BP 144/68 Pulse 88 Ht 5' 10 (1.78m) Wt 172 lb (78.0kg) BMI 24.68 kg/(m2). General:well developed Skin:warm and dry Neck:no JVD, no carotid bruits, thyroid not palpable, no tenderness Lungs:clear to auscultation and no rales Heart:regular rhythm, S1, S2 normal, no S3, no S4, no heaves, no thrills and no murmur PV Pulses:pulses intact, no varicosities Abdomen:soft, non-tender, bowel sounds present, no organomegaly Extremities:normal exam Edema Scale:no Musculoskeletal:Normal gait and ambulation, Able to undergo exercise testing and/or participate in an exercise program. Neurologic:Oriented to time, place and person, Mood AND Affect: appropriate CARDIOVASCULAR MEDICINE TESTING: Electrocardiogram: Diagnosis:ATRIAL FIBRILLATION POSSIBLE ANTEROSEPTAL MYOCARDIAL INFARCTION , AGE UNCERTAIN ABNORMAL ECG Laboratory Testing: Component Latest Ref Rng AND Units 09/10/2017 Protein, Total 6.3 - 8.0 g/dL 6.4 Albumin 3.9 - 4.9 g/dL 4.0 Calcium 8.5 - 10.2 mg/dL 9.3 Bilirubin, Total 0.2 - 1.3 mg/dL 0.5 Alkaline Phosphatase 36 - 108 U/L 111 (H) AST 14 - 40 U/L 12 (L) Glucose 74 - 99 mg/dL 98 BUN 9 - 24 mg/dL 19 Creatinine 0.73 - 1.22 mg/dL 1.30 (H) Sodium 136 - 144 mmol/L 142 Potassium 3.7 - 5.1 mmol/L 4.6 Chloride 97 - 105 mmol/L 100 CO2 22 - 30 mmol/L 29 Anion Gap 9 - 18 mmol/L 13 ALT 10 - 54 U/L 16 eGFR- >60 eGFR-All Other Races . 54 WBC 3.70 - 11.00 k/uL 9.26 RBC 4.20 - 6.00 m/uL 4.63 Hemoglobin 13.0 - 17.0 g/dL 13.7 Hematocrit 39.0 - 51.0 % 43.0 MCV 80.0 - 100.0 fL 92.9 MCH 26.0 - 34.0 pG 29.6 MCHC 30.5 - 36.0 g/dL 31.9 RDW-CV 11.5 - 15.0 % 13.9 Platelet Count 150 - 400 k/uL 248 MPV 9.0 - 12.7 fL 9.5 Absolute nRBC <0.01 k/uL <0.01 I have personally reviewed the Electrocardiogram and Laboratory Testing. IMPRESSION/PLAN: Mr. Ruffin is a 77 year old male with a history of LSCA dissection, infrarenal AAA, chronic A.Fib, prior LT parietal intracerebral hemorrhage (2013), HTN, HL and severe aortic stenosis, who presents today for follow-up visit status post successful reimplantation of #23 Castillo Daryl S3 valve, TAVR, transfemoral approach on 08/30/17. (I35.0) Nonrheumatic aortic valve stenosis (primary encounter diagnosis) (Z95.3) Status post transcatheter aortic valve replacement (TAVR) using bioprosthesis Echo 01/24: EF = 58 ? 5% There is paradoxical low flow, low gradient, severe aortic valve stenosis caused ?by calcified valve. AV area is 0.75 cm? (0.39 cm?/m?) by continuity, VTI. The peak gradient is 31 mmHg, the mean gradient is 19 mmHg and the dimensionless valve ?index is 0.24. On 08/30/17, he underwent successful Successful reimplantation of #23 Castillo Daryl S3 valve, TAVR, transfemoral approach Post TAVR Echo: EF = 52 ? 5% . S/P transcatheter aortic valve replacement. Castillo S3 prosthetic aortic valve (size #23). There is trivial aortic valve regurgitation. The peak gradient is 16 mmHg, the mean gradient is 9 mmHg and the dimensionless valve index is 0.39. S/p TAVR. There yoselin mild to moderate pericardial effusion adjacent to the right atrium measuring 1.3 cm. There is an epicardial fat pad. Effusion was present in prior exam as well. - Exam was compared with the prior echocardiographic exam performed on 08/30/2017 - Continue aspirin, Plavix - Follow up with Dr. Valentine 10/20/17 (I48.2) Atrial fibrillation, chronic (HCC) - Hx of afib. On metoprolol XL 50mg daily at home, not on AC due to hx of cerebral hemorrhage in 2013 - CHADSVASc=3 (age and hypertension). Needs better rate control - No AC in setting of previous ICH - Continue Metoprolol - Will follow up with Dr. Valentine regarding Watchman (I25.10) Atherosclerosis of [place] coronary artery of [place] heart without angina pectoris - 03/03/17 Cath: Impression: Co-dominant coronary circulation with largely normal coronaries aside from 30-40% stenosis in the first diagonal branch - Continue aspirin, Lipitor (I10) Primary hypertension - BP stable - Continue Amlodipine, Metoprolol (E78.5) Hyperlipidemia, unspecified hyperlipidemia type - Continue Lipitor I spent > 35 minutes in the visit, with more than 50% of the total [id number] time of the visit in counseling / coordination of care. Karen Oliveros PA-C CASE MANAGEM Observed: 09/01/2017 Status: COMPLETED Source: [place] 1:58 PM [facility] REPOSITORY HNO ID: [id number] Author: Roxana Heredia (Asst) Service: Care Management Author Type: Resource Center Field Support Technician Type: Care Mgt Progress Note Filed: 09/01/2017 2:00 PM Note Text: CARE MANAGEMENT PROGRESS NOTE SERVICE DATE: 09/01/2017 SERVICE TIME: 11:57 am LOS: 2 days IM letter given to patient on 09/01/17. SIGNATURE: Asst Neela PATIENT NAME: Tyrel Ruffin DATE: September 01, 2017 TIME: 1:59 PM PAGER/CONTACT #: [phone] PROGRESS Observed: 09/01/2017 Status: COMPLETED Source: [place] 1:57 PM [facility] REPOSITORY HNO ID: [id number] Author: Jacob Curiel (Pa) Service: Cardiovascular Medicine Author Type: Physician Field Support Technician Type: Progress Notes Filed: 09/01/2017 2:02 PM Note Text: [facility] CARDIOVASCULAR [facility]ICINE PROGRESS NOTE (Template ID [id number]) Tyrel Ruffin [id number] PRIMARY SERVICE: Hvi Card Intervention HOSPITAL DAY: # 2 INTERVAL HISTORY No CP, SOB PHYSICAL EXAM BP 124/77 Pulse 100 Temp 36.4 ?C (97.5 ?F) (Oral) Resp 18 Ht 177.8 cm (5' 10) Wt 76.9 kg (169 lb 8 oz) SpO2 97% BMI 24.32 kg/m2 Intake/Output Summary (Last 24 hours) at 09/01/17 1402 Last data filed at 09/01/17 0800 Gross per 24 hour Intake 400 ml Output 700 ml Net -300 ml General Appearance: Well developed HEENT: Neck: JVD - no Lungs: Clear Heart: Regular rate AND rhythm, 1/6 LILIAM LSB Abdomen: Soft, Non-tender and Organomegaly - no Skin: Warm and Dry Extremities: No edema. Pulses palpable throughout. R radial 2+ Musculoskeletal: No deformities Neurologic/Psychiatric: Oriented to time, place AND person MEDICATIONS Current hospital medications: metoprolol succinate ER 100 mg tab(s) (TOPROL XL) 100 mg ORAL DAILY clindamycin 300 mg (CLEOCIN) 300 mg ORAL q 6 H atorvastatin 20 mg tab(s) (LIPITOR) 20 mg ORAL DAILY amLODIPine 5 mg tab(s) (NORVASC) 5 mg ORAL DAILY aspirin, enteric coated 81 mg tab(s) (ASPIRIN, ENTERIC COATED) 81 mg ORAL DAILY acetaminophen 325-650 mg tab(s) (TYLENOL) 325-650 mg ORAL q 4 H PRN clopidogrel 75 mg tab(s) (PLAVIX) 75 mg ORAL DAILY heparin 5,000 Units injection 5,000 Units SUBCUTANEOUS q 12 H DATA Recent Labs 09/01/17 0528 08/31/17 0219 WBC 7.23 6.96 HB 14.1 14.4 HCT 43.2 43.3 PLT 181 149* Recent Labs 09/01/17 0528 08/31/17 0219 NA 140 140 K 4.8 4.3 CO2 30 24 BUN 18 14 CREAT 1.29* 1.13 GLUC 106* 101* IMAGING Echo: - Technically difficult exam due to suboptimal positioning. - Exam indication: Initial evaluation s/p TAVR - The left ventricle is small. Left ventricular systolic function is normal. EF = 52 ? 5% (2D biplane) - The right ventricle is normal in size. - S/P transcatheter aortic valve replacement. Castillo S3 prosthetic aortic valve (size #23). There is trivial aortic valve regurgitation. The peak gradient is 16 mmHg, the mean gradient is 9 mmHg and the dimensionless valve index is 0.39. S/p TAVR. There yoselin mild to moderate pericardial effusion adjacent to the right atrium measuring 1.3 cm. There is an epicardial fat pad. Effusion was present in prior exam as well. - Exam was compared with the prior echocardiographic exam performed on 08/30/2017 ([facility]). ASSESSMENT AND PLAN Presentation/Indication for admission/procedure: Descending Thoracic Dissection LVEF: 55 RVEF: NL Cards: none Cath: none PMH/PSH: HTN, HLD, pAF not on AC due to prior ICH, L parietal ICH in October of 2013, L sublcavian artery dissection, 4.8 infrarenal AAA Procedure/OR performed (including complications): Echocardiogram Brief Hospital Course/Narrative: 76 YOM with PMH of HTN, HLD, pAF not on AC due to prior ICH, L parietal ICH in October of 2013, being admitted with transient dysarthria, R sided weakness of upper and lower extremities, sensory changes and confusion. Found to have focal L sublcavian artery dissection (No acute intervention per vascular) and a 4.8 infrarenal AAA. CTH with encephalomalacia in region of prior ICH, and MRI reveals revealed contrast-enhancing lesion in area of encephalomalacia which has been present on multiple scans Issues to communicate: No AC per neurology. Needs repeat MRI in 1 month with f/u before we can consider AC Increase Beta Pat 01/12 to bid. If well tolerated, HR stable can go home in am. F/U with EP requested - needs eval with neurology to see if we can anticoagulate for 6 weeks and then EP eval for watchman (if we can have full AC) Problem Atrial Fibrillation, Chronic (Hcc) History: Hx of afib. On metoprolol XL 50mg daily at home, not on AC due to hx of cerebral hemorrhage in 2013 Assessment: CHADSVASc=3 (age and hypertension). Needs better rate control Plan: No AC in setting of previous ICH Primary Hypertension History: Home meds - amlodipine 5mg daily and metoprolol 50mg ER Assessment: Currently elevated Plan: Continue current meds and increase Beta Pat-metop ER 100 mg daily for rate control Hyperlipidemia History: lipitor 20mg daily at home Assessment: LDL 73 Plan: Lipitor 80. Atherosclerosis of [place] Coronary Artery Without Angina Pectoris 03/03/17 Cath: Impression: Co-dominant coronary circulation with largely normal coronaries aside from 30-40% stenosis in the first diagonal branch Nonrheumatic Aortic Valve Stenosis 08/30/17 Transfemoral TAVR with a 23 mm Castillo Daryl S3 valve Post TAVR Echo: - Technically difficult exam due to suboptimal positioning. - Exam indication: Initial evaluation s/p TAVR - The left ventricle is small. Left ventricular systolic function is normal. EF = 52 ? 5% (2D biplane) - The right ventricle is normal in size. - S/P transcatheter aortic valve replacement. Castillo S3 prosthetic aortic valve (size #23). There is trivial aortic valve regurgitation. The peak gradient is 16 mmHg, the mean gradient is 9 mmHg and the dimensionless valve index is 0.39. S/p TAVR. There yoselin mild to moderate pericardial effusion adjacent to the right atrium measuring 1.3 cm. There is an epicardial fat pad. Effusion was present in prior exam as well. - Exam was compared with the prior echocardiographic exam performed on 08/30/2017 ([facility]). Aortic Dissection (Hcc) Care Coordination Discharge Management: I personally spent greater than 30 minutes involved in the discharge management of this patient. All medications and potential SE were discussed with the patient Case to be discussed with staff Jacob Curiel PA-C Pager [phone] (please see below for after hours communication) 09/01/2017 1:57 PM For communication after 5 pm on weekdays and after 12 pm on weekends, please page the following: - Clinical Cardiology patients on all floors: page [phone] - Other Cardiology patients on J5 and J6: page [phone] - Other Cardiology patients on J7 and J8: page [phone] BASIC METABOLIC PANL Collected: 09/01/2017 Status: F Source: [place] 5:28 AM [facility] REPOSITORY TYPE CODE TESTS RESULT OUT OF REFERENCE UNITS RANGE LAB GLU 74-99 mg/dL High Glucose 106 Result Comment: The [place] Diabetes Association (ADA) provides guidance for cutoff values for fasting glucose and random glucose. The ADA defines fasting as no caloric intake for at least 8 hours. Fas ting plasma glucose results between 100 to 125 mg/dL indicate increased risk for diabetes (prediabetes). Fasting plasma glucose results greater than or equal to 126 mg/dL meet the criteria for diagnosis of diabetes. In the absence of unequivocal hyperglycemia, results should be confirmed by repeat testing. In a patient with classic symptoms of hyperglycemia or hyperglycemic crisis, random plasma glucose results greater than or equal to 200 mg/dL meet the criteria for diagnosis of diabetes. Reference: Standards of Medical Care in Diabetes 2016, [place] [employer]. Diabetes Care. 2016.39(Suppl 1). LAB BUN 9-24 mg/dL BUN 18 LAB CRET 0.73-1.22 mg/dL Creatinine High 1.29 LAB NA 136-144 mmol/L Sodium 140 LAB K 3.7-5.1 mmol/L Potassium 4.8 Result Comment: Results may be falsely increased due to interference by hemolysis. Suggest reorder as clinically indicated. LAB CL 97-105 mmol/L Chloride 100 LAB CO2 22-30 mmol/L CO2 30 LAB AGAP 9-18 mmol/L Anion Gap 10 LAB CA 8.5-10.2 mg/dL Calcium, Total 9.1 LAB GFRAA eGFR- >60 Amer. LAB GFRNAA . eGFR-All Other Races 54 Result Comment: eGFR (Estimated GFR) Units of measure: mL/min/1.73 meters squared eGFR is derived from the reexpressed MDRD Study equation using the following parameters: serum creatinine, age, gender and race. The creatinine assay has been calibrated to be traceable to IDMS. An eGFR <60 mL/min/1.73m2 for >3 months is consistent with chronic kidney disease. Refer to KDOQI guidelines for clinical interpretation. In patients with unstable renal function, e.g. those with acute kidney injury, the eGFR may not accurately reflect actual GFR. Performed By: #### BMP, CBC #### [facility] [address], [place] [address] CBC Collected: 09/01/2017 Status: F Source: [place] 5:28 AM [facility] REPOSITORY TYPE CODE TESTS RESULT OUT OF REFERENCE UNITS RANGE LAB WBC 3.70-11.00 k/uL WBC 7.23 LAB RBC 4.20-6.00 m/uL RBC 4.74 LAB HGB 13.0-17.0 g/dL Hemoglobin 14.1 LAB HCT 39.0-51.0 % Hematocrit 43.2 LAB MCV 80.0-100.0 fL MCV 91.1 LAB MCH 26.0-34.0 pG MCH 29.7 LAB MCHC 30.5-36.0 g/dL MCHC 32.6 LAB RDWCV 11.5-15.0 % RDW-CV 14.1 LAB PLTCT 150-400 k/uL Platelet Count 181 LAB MPV 9.0-12.7 fL MPV 10.5 LAB ABSNUC <0.01 k/uL Absolute nRBC <0.01 Performed By: #### BMP, CBC #### [facility] [address], [place] [address] PROGRESS Observed: 08/31/2017 Status: COMPLETED Source: [place] 3:31 PM [facility] REPOSITORY HNO ID: [id number] Author: Jacob Curiel (Pa) Service: Cardiovascular Medicine Author Type: Physician Field Support Technician Type: Progress Notes Filed: 09/01/2017 1:56 PM Note Text: [facility] CARDI[facility]ULAR [facility]ICINE PROGRESS NOTE (Template ID [id number]) Tyrel uRffin [id number] PRIMARY SERVICE: Hvi Card Intervention HOSPITAL DAY: # 2 INTERVAL HISTORY No CP, SOB PHYSICAL EXAM BP 124/77 Pulse 100 Temp 36.4 ?C (97.5 ?F) (Oral) Resp 18 Ht 177.8 cm (5' 10) Wt 76.9 kg (169 lb 8 oz) SpO2 97% BMI 24.32 kg/m2 Intake/Output Summary (Last 24 hours) at 09/01/17 1356 Last data filed at 09/01/17 0800 Gross per 24 hour Intake 400 ml Output 700 ml Net -300 ml General Appearance: Well developed HEENT: Neck: JVD - no Lungs: Clear Heart: Regular rate AND rhythm, 1/6 LILIAM LSB Abdomen: Soft, Non-tender and Organomegaly - no Skin: Warm and Dry Extremities: No edema. Pulses palpable throughout. R groin without hematoma or bruit Musculoskeletal: No deformities Neurologic/Psychiatric: Oriented to time, place AND person MEDICATIONS Current hospital medications: metoprolol succinate ER 100 mg tab(s) (TOPROL XL) 100 mg ORAL DAILY clindamycin 300 mg (CLEOCIN) 300 mg ORAL q 6 H atorvastatin 20 mg tab(s) (LIPITOR) 20 mg ORAL DAILY amLODIPine 5 mg tab(s) (NORVASC) 5 mg ORAL DAILY aspirin, enteric coated 81 mg tab(s) (ASPIRIN, ENTERIC COATED) 81 mg ORAL DAILY acetaminophen 325-650 mg tab(s) (TYLENOL) 325-650 mg ORAL q 4 H PRN clopidogrel 75 mg tab(s) (PLAVIX) 75 mg ORAL DAILY heparin 5,000 Units injection 5,000 Units SUBCUTANEOUS q 12 H DATA Recent Labs 08/31/17 0219 WBC 6.96 HB 14.4 HCT 43.3 PLT 149* Recent Labs 08/31/17 0219 NA 140 K 4.3 CO2 24 BUN 14 CREAT 1.13 GLUC 101* ECG ? Diagnosis:ATRIAL FIBRILLATION WITH RAPID VENTRICULAR RESPONSE, AGE UNDETERMINED ABNORMAL ECG ? Ventricular Rate : 111 ?BPM Atrial Rate : 147 ?BPM QRS Duration : 68 ?ms Q-T Interval : 282 ?ms QTC Calculation(Bezet) : 383 ?ms ASSESSMENT AND PLAN Presentation/Indication for admission/procedure: Descending Thoracic Dissection LVEF: 55 RVEF: NL Cards: none Cath: none PMH/PSH: HTN, HLD, pAF not on AC due to prior ICH, L parietal ICH in October of 2013, L sublcavian artery dissection, 4.8 infrarenal AAA Procedure/OR performed (including complications): Echocardiogram Brief Hospital Course/Narrative: 76 YOM with PMH of HTN, HLD, pAF not on AC due to prior ICH, L parietal ICH in October of 2013, being admitted with transient dysarthria, R sided weakness of upper and lower extremities, sensory changes and confusion. Found to have focal L sublcavian artery dissection (No acute intervention per vascular) and a 4.8 infrarenal AAA. CTH with encephalomalacia in region of prior ICH, and MRI reveals revealed contrast-enhancing lesion in area of encephalomalacia which has been present on multiple scans Issues to communicate: No AC per neurology. Needs repeat MRI in 1 month with f/u before we can consider AC Increase Beta Pat 01/12 to bid. If well tolerated, HR stable can go home in am. F/U with EP requested - needs eval with neurology to see if we can anticoagulate for 6 weeks and then EP eval for watchman (if we can have full AC) Problem Atrial Fibrillation, Chronic (Hcc) History: Hx of afib. On metoprolol XL 50mg daily at home, not on AC due to hx of cerebral hemorrhage in 2013 Assessment: CHADSVASc=3 (age and hypertension). Needs better rate control Plan: No AC in setting of previous ICH Primary Hypertension History: Home meds - amlodipine 5mg daily and metoprolol 50mg ER Assessment: Currently elevated Plan: Continue current meds and increase Beta Pat-metop ER 100 mg daily for rate control Hyperlipidemia History: lipitor 20mg daily at home Assessment: LDL 73 Plan: Lipitor 80. Atherosclerosis of [place] Coronary Artery Without Angina Pectoris 03/03/17 Cath: Impression: Co-dominant coronary circulation with largely normal coronaries aside from 30-40% stenosis in the first diagonal branch Nonrheumatic Aortic Valve Stenosis 08/30/17 Transfemoral TAVR with a 23 mm Castillo Daryl S3 valve Post TAVR Echo: - Technically difficult exam due to suboptimal positioning. - Exam indication: Initial evaluation s/p TAVR - The left ventricle is small. Left ventricular systolic function is normal. EF = 52 ? 5% (2D biplane) - The right ventricle is normal in size. - S/P transcatheter aortic valve replacement. Castillo S3 prosthetic aortic valve (size #23). There is trivial aortic valve regurgitation. The peak gradient is 16 mmHg, the mean gradient is 9 mmHg and the dimensionless valve index is 0.39. S/p TAVR. There yoselin mild to moderate pericardial effusion adjacent to the right atrium measuring 1.3 cm. There is an epicardial fat pad. Effusion was present in prior exam as well. - Exam was compared with the prior echocardiographic exam performed on 08/30/2017 ([facility]). Aortic Dissection (Hcc) Case to be discussed with staff GODWIN Rosasr [id number] (please see below for after hours communication) 08/31/2017 3:32 PM For communication after 5 pm on weekdays and after 12 pm on weekends, please page the following: - Clinical Cardiology patients on all floors: page [phone] - Other Cardiology patients on J5 and J6: page [phone] - Other Cardiology patients on J7 and J8: page [phone] CNDS Observed: 08/31/2017 Status: COMPLETED Source: [place] 3:15 PM [facility] REPOSITORY HNO ID: [id number] Author: Jacob Curiel (Pa) Service: Cardiovascular Medicine Author Type: Physician Field Support Technician Type: Discharge Summaries Filed: 09/01/2017 2:21 PM Note Text: Department of Cardiovascular Medicine Discharge Summary (Template ID [id number]) Patient Name: Tyrel Ruffin Patient Admission Date: 08/30/2017 Discharge Date: 09/01/2017 Attending Physician: Trupti Valentine MD Primary Service: Hvi Card Intervention Admission Diagnosis: Aortic stenosis Discharge Diagnosis: same Secondary Diagnoses: Patient Active Hospital Problem List: Atrial fibrillation, chronic (HCC) (01/07/2017) Primary hypertension (01/07/2017) Hyperlipidemia (01/07/2017) Aortic dissection (HCC) (01/07/2017) Nonrheumatic aortic valve stenosis (08/30/2017) Atherosclerosis of [place] coronary artery without angina pectoris (09/01/2017) Reason for Hospitalization/Chief Complaint: 77 year old male who presents today for TF-TAVR on Wednesday07/02/2017. He has PMH of , LSCA dissection, infrarenal AAA, chronic A.Fib, prior LT parietal intracerebral hemorrhage (2013), HTN and HLD. He was last seen bu Dr. Valentine on 07/02/2017. During his EKG test today, he was found in rapid AFib. He was sent to the emergency room and was given IV lopressor x 3 and released to his appointments. He id not have any chest or dizziness. He had 4 teeth extracted on 08/24/2017 and has some residual discomfort. He did experience some dizziness after that. ? He has noticed progression of his shortness of breath on exertion. He denies chest pain, lightheadedness, syncope and leg swelling. ? * How was the Chief Complaint addressed; specific medication changes; pertinent issues; reasons for extended stay: 08/30/17 Transfemoral TAVR with a 23 mm Castillo Daryl S3 valve Post TAVR Echo: - Technically difficult exam due to suboptimal positioning. - Exam indication: Initial evaluation s/p TAVR - The left ventricle is small. Left ventricular systolic function is normal. EF = 52 ? 5% (2D biplane) - The right ventricle is normal in size. - S/P transcatheter aortic valve replacement. Castillo S3 prosthetic aortic valve (size #23). There is trivial aortic valve regurgitation. The peak gradient is 16 mmHg, the mean gradient is 9 mmHg and the dimensionless valve index is 0.39. S/p TAVR. There yoselin mild to moderate pericardial effusion adjacent to the right atrium measuring 1.3 cm. There is an epicardial fat pad. Effusion was present in prior exam as well. - Exam was compared with the prior echocardiographic exam performed on 08/30/2017 ([facility]). ECG ? Diagnosis:ATRIAL FIBRILLATION WITH RAPID VENTRICULAR RESPONSE , AGE UNDETERMINED ABNORMAL ECG ? Ventricular Rate : 111 ?BPM Atrial Rate : 147 ?BPM QRS Duration : 68 ?ms Q-T Interval : 282 ?ms QTC Calculation(Bezet) : 383 ?ms Metoprolol ER increased to 100 mg daily for AF rate control. HR in 90s at discharge. Hospital course uncomplicated. Consults: None Major Procedure or Operation: see above Other Procedures, Testing AND Radiology: see above Patient Condition at Discharge: Improved Disposition: Home Information Provided to the Patient: Patient given copy of After Visit Summary which included activity instructions, diet instructions, wound care instructions, medication instructions and follow up appointment Discharge Medications: Current Discharge Medication List START taking these medications clindamycin (CLEOCIN) 300 mg Take 300 mg by mouth every 6 hours. Qty: 10 capsule Refills: 0 clopidogrel (PLAVIX) 75 mg Take 75 mg by mouth once daily. Qty: 30 tablet Refills: 0 CONTINUE these medications which have CHANGED metoprolol succinate ER (TOPROL XL) 100 mg Take 100 mg by mouth once daily. Qty: 30 tablet Refills: 11 CONTINUE these medications which have NOT CHANGED amLODIPine (NORVASC) 5 mg Take 5 mg by mouth once daily. Qty: 90 tablet Refills: 3 atorvastatin (LIPITOR) 20 mg Take 20 mg by mouth once daily. Qty: 90 tablet Refills: 3 aspirin, enteric coated (ASPIRIN, ENTERIC COATED) 81 mg Take 81 mg by mouth once daily. Outpatient Management: * Are there important medication changes and/or outstanding issues that need to be addressed: None * What is the plan for follow up: Future Appointments Date Time Provider Department Center 09/10/2017 2:00 PM [id number] MAIN LBJ1-4 CARD J BLD 09/10/2017 2:15 PM [id number] MAIN [id number] CARD J BLD 09/10/2017 3:00 PM 2579-KAREN OLIVEROS (KEVIN) CATHMN CARD J BLD 10/20/2017 8:00 AM [id number]-LBJ1-4 MAIN LBJ1-4 CARD J BLD 10/20/2017 8:30 AM [id number] MAIN [id number] CARD J BLD 10/20/2017 9:15 AM 6201-[facility]UPTI [facility] R CATHMN CARD J BLD 10/20/2017 9:15 AM 6201-[facility]I [facility] R CATHMN CARD J BLD 10/20/2017 10:00 AM [id number] DISCHARGE ECHO J3-5 PERVMN VASM J/S Bld Electronically SIGNED by Licensed Independent Practitioner: SARIKA RosasC CASE MGT INIT Observed: 08/31/2017 Status: COMPLETED Source: [facility] 2:32 PM [facility] REPOSITORY HNO ID: [id number] Author: Jose (Rn) DEEPTHI Sommer Service: Case Management Author Type: Registered Nurse Type: Care Mgt Initial Assessment Filed: 08/31/2017 2:37 PM Note Text: CARE MANAGEMENT: ASSESSMENT AND DISCHARGE PLAN SERVICE DATE: 08/31/2017 SERVICE TIME: 2:32 PM PRIMARY CARE PHYSICIAN: Billy Nieves MD -confirmed ADMISSION STATUS: Inpatient Needs Prior to Discharge: None 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 No Advance Directive: Current Advance Directive: Health Care Power of Silk Worker (Julia Ruffin, ) In Chart: Yes Up To Date and Valid: Yes Health Literacy: 1. How often do you need to have someone help you when you read instructions, pamphlets, or other written material from your doctor or pharmacy? Never - 1 2. How confident are you filling out medical forms by yourself? Extremely - 1 If Patient scores > 3 on either question, the following interventions were put into place: Patient did not score > 3 FUNCTIONAL AND COGNITIVE/BEHAVIORAL PRIOR TO ADMISSION: Baseline Mental Status: Alert AND Oriented, Person, Place , Time and Situation Functional Status: Independent Does Patient Currently Receive Any Community Services or Home Care? None Equipment Prior to Admission: None Has the Patient Been in a Half-Way Facility in the Past 30 days? 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 No Caregiver Needed Patient's transition needs and plan for meeting these needs: Independent with ADL and iADL prior to admission. Does the patient have an acute stroke diagnosis, or has the patient had a stroke during this admission? No Medication Adherence: I am convinced of the importance of my prescription medication: Agree mostly - 0 I worry that my prescription medication will do more harm than good to me Disagree mostly - 0 I feel financially burdened by my [id number] expenses for my prescription medication: Disagree mostly -0 Patient is categorized as low risk < 2 Are you interested in bedside delivery of your medications? Yes Food Concerns: In the Last Month, Have You had Trouble Getting Food? No trouble getting food During the Last Month, Have You Worried Whether Your Food Would Run Out Before You Had Enough Money to Buy More? No Is the Patient Psychosocially Complex? No ASSESSMENT AND PLAN: Medical Needs: None Psychosocial Needs: None FREEDOM OF CHOICE EXPLAINED: N/A POTENTIAL TRANSITION PLANS No Services Indicated 77 yo presents with Aortic Stenosis s/p Transfemoral TAVR with a 23 mm Castillo Daryl S3 valve. Met with patient and family at the bedside. Explained CM role. Patient lives with and daughter. 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 Denies the use of assistive DME or home O2. No skilled needs identified. Ready for discharge from CM standpoint. ? SIGNATURE: Jose Sommer RN PATIENT NAME: Tyrel Ruffin DATE: August 31, 2017 TIME: 2:32 PM PAGER/CONTACT #: [phone] PROGRESS Observed: 08/31/2017 Status: COMPLETED Source: [place] 7:09 AM [facility] REPOSITORY [facility] ID: [id number] Author: Delvis Lucero MD (Fel) Service: Cardiovascular Medicine Author Type: Fellow Type: Progress Notes Filed: 08/31/2017 7:10 AM Note Text: INTERVENTIONAL CARDIOLOGY Post Intervention Progress Note PROCEDURE: Transfemoral TAVR with a 23 mm Castillo Daryl S3 valve SUBJECTIVE: No events overnight on telemetry. No CP or SOB. No issues with access sites. Current Inpatient Medications Current hospital medications: metoprolol succinate ER 100 mg tab(s) (TOPROL XL) 100 mg ORAL DAILY clindamycin 300 mg (CLEOCIN) 300 mg ORAL q 6 H atorvastatin 20 mg tab(s) (LIPITOR) 20 mg ORAL DAILY amLODIPine 5 mg tab(s) (NORVASC) 5 mg ORAL DAILY aspirin, enteric coated 81 mg tab(s) (ASPIRIN, ENTERIC COATED) 81 mg ORAL DAILY acetaminophen 325-650 mg tab(s) (TYLENOL) 325-650 mg ORAL q 4 H PRN clopidogrel 75 mg tab(s) (PLAVIX) 75 mg ORAL DAILY heparin 5,000 Units injection 5,000 Units SUBCUTANEOUS q 12 H PHYSICAL EXAM BP 124/80 Pulse 110 Temp 36.2 ?C (97.2 ?F) (Temporal Artery) Resp 14 Ht 177.8 cm (5' 10) Wt 81.2 kg (179 lb 0.2 oz) SpO2 93% BMI 25.69 kg/m2 GEN: Awake, alert and orientedx3, pleasant and cooperative HEENT: MMM, OP clear, sclera anicteric NECK: no jugular venous distention CV: irreg irreg, tachy, normal S1 and S2 PULM: Normal effort, clear to the bases bilaterally ABD: Soft, non-tender, non-distended, EXT: Warm and well perfused without peripheral edema, no hematoma LABS: Recent Labs 08/31/17 0219 HCT 43.3 PLT 149* CREAT 1.13 EKG: afib with rvr Assessment and Plan: 77 year old male with severe aortic stenosis status post transfemoral TAVR with a 23 mm Castillo Daryl S3 valve Atrial fibrillation with rates >100 1. Aspirin 81 mg daily 2. Clopidogrel 75 mg daily 3. Clindamycin prophylaxis x 5 days 4. Echo today 5. Transfer to [facility] 6. Increase metoprolol to 100mg daily given RVR Please don't hesitate to contact me with any questions or concerns. Delvis Lucero MD Pager: [phone] Interventional formula maker 08/31/2017 7:09 AM CBC AND DIFFERENTIAL Collected: 08/31/2017 Status: F Source: [place] 2:19 AM [facility] REPOSITORY TYPE CODE TESTS RESULT OUT OF REFERENCE UNITS RANGE LAB WBC 3.70-11.00 k/uL WBC 6.96 LAB RBC 4.20-6.00 m/uL RBC 4.71 LAB HGB 13.0-17.0 g/dL Hemoglobin 14.4 LAB HCT 39.0-51.0 % Hematocrit 43.3 LAB MCV 80.0-100.0 fL MCV 91.9 LAB MCH 26.0-34.0 pG MCH 30.6 LAB MCHC 30.5-36.0 g/dL MCHC 33.3 LAB RDWCV 11.5-15.0 % RDW-CV 14.1 LAB PLTCT 150-400 k/uL Low Platelet Count 149 LAB MPV 9.0-12.7 fL MPV 9.5 LAB ANEUT % Neut% 75.7 LAB AANEUT 1.45-7.50 k/uL Abs Neut 5.25 LAB ALYMP % Lymph% 12.5 LAB AALYMP 1.00-4.00 k/uL Low Abs Lymph 0.87 LAB AMONO % Dougherty% 9.1 LAB AAMONO <0.87 k/uL Abs Dougherty 0.63 LAB AEOS % Eosin% 2.3 LAB AAEOS <0.46 k/uL Abs Eosin 0.16 LAB ABASO % Baso% 0.4 LAB AABASO <0.11 k/uL Abs Baso 0.03 LAB AUNRBC 0 /100 WBC NRBCs 0.0 LAB ABNRBC <0.01 k/uL Absolute nRBC <0.01 LAB DTYP DTYPE Auto Diff Performed By: #### CBCDIF, MARLYN #### [facility] [address] [place], [place] [address] BASIC METABOLIC PANL Collected: 08/31/2017 Status: F Source: [place] 2:19 AM [facility] REPOSITORY TYPE CODE TESTS RESULT OUT OF REFERENCE UNITS RANGE LAB GLU 74-99 mg/dL High Glucose 101 Result Comment: The [place] Diabetes Association (ADA) provides guidance for cutoff values for fasting glucose and random glucose. The ADA defines fasting as no caloric intake for at least 8 hours. Fas ting plasma glucose results between 100 to 125 mg/dL indicate increased risk for diabetes (prediabetes). Fasting plasma glucose results greater than or equal to 126 mg/dL meet the criteria for diagnosis of diabetes. In the absence of unequivocal hyperglycemia, results should be confirmed by repeat testing. In a patient with classic symptoms of hyperglycemia or hyperglycemic crisis, random plasma glucose results greater than or equal to 200 mg/dL meet the criteria for diagnosis of diabetes. Reference: Standards of Medical Care in Diabetes 2016, [place] Diabetes Association. Diabetes Care. 2016.39(Suppl 1). LAB BUN 9-24 mg/dL BUN 14 LAB CRET 0.73-1.22 mg/dL Creatinine 1.13 LAB NA 136-144 mmol/L Sodium 140 LAB K 3.7-5.1 mmol/L Potassium 4.3 LAB CL 97-105 mmol/L Chloride 104 LAB CO2 22-30 mmol/L CO2 24 LAB AGAP 9-18 mmol/L Anion Gap 12 LAB CA 8.5-10.2 mg/dL Calcium, Total 9.1 LAB GFRAA eGFR- Amer. >60 LAB GFRNAA . eGFR-All Other Races >60 Result Comment: eGFR (Estimated GFR) Units of measure: mL/min/1.73 meters squared eGFR is derived from the reexpressed MDRD Study equation using the following parameters: serum creatinine, age, gender and race. The creatinine assay has been calibrated to be traceable to IDMS. An eGFR <60 mL/min/1.73m2 for >3 months is consistent with chronic kidney disease. Refer to KDOQI guidelines for clinical interpretation. In patients with unstable renal function, e.g. those with acute kidney injury, the eGFR may not accurately reflect actual GFR. Performed By: #### CBCDIF, BMP #### [facility] [address] [place], [place] [address] ANES POST Observed: 08/30/2017 Status: COMPLETED Source: [place] 6:09 PM [facility] REPOSITORY HNO ID: [id number] Author: Homer Pitt Service: Anesthesiology Author Type: Anesthesiologist Type: Anesthesia PostOp Filed: 08/30/2017 6:09 PM Note Text: POST ANESTHESIA EVALUATION NOTE SERVICE DATE: 08/30/2017 SERVICE TIME: 6:09 PM : 1940 Vitals: 08/30/17 1145 08/30/17 1520 Temp: 36.2 ?C (97.2 ?F) 36.2 ?C (97.2 ?F) 08/30/17 1650 08/30/17 1710 08/30/17 1730 08/30/17 1750 BP: 108/72 103/65 121/61 107/68 08/30/17 1650 08/30/17 1710 08/30/17 1730 08/30/17 1750 Pulse: 83 80 81 90 08/30/17 1650 08/30/17 1710 08/30/17 1730 08/30/17 1750 Resp: 10 12 14 11 08/30/17 1650 08/30/17 1710 08/30/17 1730 08/30/17 1750 SpO2: 98% 99% 100% 99% Validated Vital Signs: Yes POST ANES STATUS: No apparent anesthetic complications. The patient is appropriately hydrated with stable respiratory and cardiovascular status. Patient has safe and adequate airway control. The patient has appropriate pain relief and no significant post operative nausea or vomiting. The patient has achieved baseline mental status. Further assessment by Anesthesia Service: None Other Remarks: SIGNATURE: Homer Pitt MD PATIENT NAME: Tyrel Ruffin DATE: August 30, 2017 TIME: 6:09 PM PAGER/CONTACT #: [phone] OPERATIVE NO Observed: 08/30/2017 Status: COMPLETED Source: [place] 12:00 AM [facility] REPOSITORY HNO ID: [id number] Author: Cj Romano Service: Cardiovascular Surgery Author Type: Physician Type: Operative Report Filed: 09/10/2017 7:44 AM Note Text: [place] [id number] [place] OPERATIVE REPORT DEPARTMENT OF THORACIC AND CARDIOVASCULAR SURGERY NAME: TYREL RUFFIN [facility] #: [id number] DATE: 08/30/2017 AGE: 77 SURGEON 1: Cj Romano M.D. SURGEON 2: MEDICAL CODING MANAGER 1: MEDICAL CODING MANAGER 2: ANESTHESIA: General. INTERVENTIONAL CARDIOLOGISTS: Nic Loredo M.D. OPERATION: Successful reimplantation of #23 Castillo Daryl S3 valve, TAVR, transfemoral approach. PREOPERATIVE DIAGNOSIS: Severe symptomatic calcific aortic stenosis. POSTOPERATIVE DIAGNOSIS: Severe symptomatic calcific aortic stenosis. OPERATIVE INDICATIONS:Same OPERATIVE PROCEDURE: Under general anesthesia, all the vascular access was obtained with modified Seldinger technique. A 5-[place] sheath was placed in the right femoral artery, was upsized under Lunderquist wire to E-sheath #14. Then, the A1 catheter with 0.035 wires was crossing the aortic valve and then we exchanged with the extra-stiff Amplatzer wire. Then, with the delivery system with a mounted valve #23 Castillo Daryl valve with nominal volume was advanced to the aortic position. Then, with rapid pacing to 180 beats per minute, the valve was deployed with satisfactory position. Echocardiogram and root angiogram showed aortic valve well seated. No significant aortic regurgitation, normal LV function, so the wires and the catheter were removed. Right ilial system angiography revealed normal flow, no stenosis, no dissection, no contrast extravasation. All the systems were removed. All the wires and catheters were removed and protamine was given. The patient tolerated very well the procedure and was transferred to the CVICU in stable condition. ESTIMATED BLOOD LOSS:minimal DRAINS:No SPECIMENS:No Cj Romano M.D. JN:[id number] /[id number] cc: OPERATIVE NO Observed: 08/30/2017 Status: COMPLETED Source: [place] 12:00 AM [facility] REPOSITORY HNO ID: [id number] Author: Cj Romano Service: Cardiovascular Surgery Author Type: Physician Type: Operative Report Filed: 09/17/2017 7:38 AM Note Text: [place] [id number] [place] OPERATIVE REPORT DEPARTMENT OF THORACIC AND CARDIOVASCULAR SURGERY NAME: TYREL RUFFIN [facility] #: [id number] DATE: 08/30/2017 AGE: 77 SURGEON 1: Cj Romano M.D. SURGEON 2: MEDICAL CODING MANAGER 1: MEDICAL CODING MANAGER 2: ANESTHESIA: General. INTERVENTIONAL CARDIOLOGISTS: Nic Loredo M.D. OPERATION: Successful reimplantation of #23 Castillo Daryl S3 valve, TAVR, transfemoral approach. PREOPERATIVE DIAGNOSIS: Severe symptomatic calcific aortic stenosis. POSTOPERATIVE DIAGNOSIS: Severe symptomatic calcific aortic stenosis. OPERATIVE INDICATIONS:Same OPERATIVE PROCEDURE: Under general anesthesia, all the vascular access was obtained with modified Seldinger technique. A 5-Cameroonian sheath was placed in the right femoral artery, was upsized under Lunderquist wire to E-sheath #14. Then, the A1 catheter with 0.035 wires was crossing the aortic valve and then we exchanged with the extra-stiff Amplatzer wire. Then, with the delivery system with a mounted valve #23 Castillo Daryl valve with nominal volume was advanced to the aortic position. Then, with rapid pacing to 180 beats per minute, the valve was deployed with satisfactory position. Echocardiogram and root angiogram showed aortic valve well seated. No significant aortic regurgitation, normal LV function, so the wires and the catheter were removed. Right ilial system angiography revealed normal flow, no stenosis, no dissection, no contrast extravasation. All the systems were removed. All the wires and catheters were removed and protamine was given. The patient tolerated very well the procedure and was transferred to the CVICU in stable condition. ESTIMATED BLOOD LOSS:minimal DRAINS:No SPECIMENS:No PROCEDURE START: 1341 PROCEDURE END: Cj Romano M.D. JN:[id number] Revised [facility] 09/16/17 /[id number] cc: PROGRESS Observed: 08/26/2017 Status: COMPLETED Source: [place] 3:47 PM [facility] REPOSITORY HNO ID: [id number] Author: Shira Watkins Service: (none) Author Type: Physician Type: Progress Notes Filed: 08/30/2017 3:50 PM Note Text: HVI TCI Consult Note Patient Type: Consult Visit to determine Surgery: Yes PCP: Billy Nieves MD ([facility]) [address] [place] [address] Referring Physician:: Trupti Valentine MD [address] [facility] [address] HPI: Mr. Tyrel Ruffin is a 77 year old male seen in consultation at the request of Trupti Valentine for opinion regarding treatment options for Aortic Stenosis, after being seen by Liz Skinner. 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 He has been symptomatic with SOB. I have personally reviewed his cardiac catheterization which shows mild CAD. The Echocardiogram reveals EF58%, LF LG with mean 19 and SVI 20. Based on my evaluation he is at high risk for cardiac surgery due to comorbidities and LF LG pathology. TRANSCATHETER AORTIC VALVE REPLACEMENT is reasonable. Impression: Aortic Stenosis Plan: Agree with TRANSCATHETER AORTIC VALVE REPLACEMENT I spent more than 50% of the visit face to face counseling the patient on the plan and treatment options. The time spent counseling was 30 minutes. The total time of the face to face visit was 30 minutes. These findings will be communicated back to the requesting physician via electronic medical record. Shira Watkins MD CNOV Observed: 08/26/2017 Status: COMPLETED Source: [place] 3:30 PM [facility] REPOSITORY Office Visit (CARTMN) TYREL RUFFIN ([id number]) 1940 M Date Time Provider Department 08/26/17 3:30 PM [facility] During your visit today, we recorded the following information about you: Jackson Rivero MD, MD 08/26/2017 4:16 PM Signed [facility] PRE[facility]ALU[facility] CARDIOTHORACIC ANESTHESIA CARDIAC SURGERY SERVICE DATE: 08/26/2017 SERVICE TIME: 2:44 PM Proposed Surgical Procedure: TAVR Re-do: No ASA Class: 4 Surgeon: Serge Surgery Date: 08/30/2017 Last Wt 08/26/17 : 77.1 kg (170 lb) Last Ht 08/26/17 : 177.8 cm (5' 10ANDquot;) Estimated body mass index is 24.54 kg/(m2) as calculated from the following: Height as of an earlier encounter on 08/26/17: 177.8 cm (5' 10ANDquot;). Weight as of an earlier encounter on 08/26/17: 77.6 kg (171 lb). Estimated body surface area is 1.96 meters squared as calculated from the following: Height as of an earlier encounter on 08/26/17: 177.8 cm (5' 10ANDquot;). Weight as of an earlier encounter on 08/26/17: 77.6 kg (171 lb). Mr. 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 Pt reports having increasing SOB and LEON. He is scheduled to undergo TF-TAVR on 08/30/[address] Valentine. Pt was sent to the ED the day of preoperative evaluation and testing for AFib w/ RVR, which was subsequently rate controlled after metoprolol 5mg IV x2. Active Problems: * No active hospital problems. * Resolved Problems: * No resolved hospital problems. * PAST MEDICAL HISTORY Diagnosis Date - AAA (abdominal aortic aneurysm) (HCC) - Aortic dissection distal to left subclavian (HCC) - Aortic stenosis - Atrial fibrillation (HCC) 2011 - Family history of early CAD - History of smoking - HTN (hypertension) 2013 - Hyperlipidemia 2013 - Intraparenchymal hemorrhage of brain (HCC) 2013 chronic L parietal ICH October 2013 w/ no significant residual deficit. PAST SURGICAL HISTORY Procedure Laterality Date - TONSILLECTOMY HX FAMILY HISTORY Problem Relation Age of Onset - Hypertension Mother age 90 from internal bleeding - Stroke Father 80 age 84 - Myocardial infarction [OTHER] Brother 70 Social History Substance Use Topics - Smoking status: Former Smoker Packs/day: 1.50 Years: 59.00 Quit date: 07/02/2012 - Smokeless tobacco: Never Used - Alcohol use Yes Comment: occasional ALLERGIES Allergen Reactions - Amoxacillin [Amoxic* Mental Status Change - Codeine Other: See Comments irregular heart beat REVIEW OF SYSTEMS: Neuro: Prior TIA Respiratory: No history of current cough or dyspnea, or pneumonia in the past 6 weeks. No history of respiratory/pulmonary symptoms or problems Cardiovascular: Positive for: Arrhythmia, Afib/Aflutter, HLD, Hypertension, Valvular Heart Disease GI: No history of GI symptoms or problems. No history of esophageal varices, recent ascites, or ETOH greater than 2 drinks per day. Endocrine: No history of diabetes. Has not taken steroids within the past 30 days. No history of endocrinological symptoms or problems. Hematology: No history of bleeding or clotting disorder. Pt is not taking anti-coagulation or platelet medications. No history of hematological symptoms or problems. CKD ANDamp; ANEMIA ASSESSMENT: Patient has both eGFR ANDlt; 60 mL/min and a Hemoglobin ANDlt; 11 g/dl: No if the patient is going on CPB. ANESTHETIC HISTORY: No history of prior anesthesia AIRWAY ASSESSMENT: Airway History: No abnormal airway history Airway Exam: General: Normal appearance Mallampati Score: CLASS II Temporo-Mandibular Displacement Test: Position A (lower teeth can be advanced beyond upper teeth) Interincisor Distance: 6 cm Thyromental Distance: 6 cm Neck Circumference: 40 cm Overbite: No Cervical Mobility: Normal Facial Hair: No Head/Neck Pathology: No ANTICIPATED DIFFICULT AIRWAY: NO Pre-Existing Diagnosis of Obstructive Sleep Apnea: No, STOP BANG SCORE: Criteria = Criteria: Age over 50 (77 year old) Male gender Score = 2, Score = 2 PHYSICAL EXAM: VITALS: There were no vitals taken for this visit. CARDIAC: Not assessed. LUNGS: Not assessed. Lines, Drains, Airway: Patient has no lines, drains or airway LABS: Lab Results Past 6 Months Component Value Date HB 15.7 08/26/2017 HCT 47.4 08/26/2017 PLT 191 08/26/2017 WBC 9.27 08/26/2017 NA 141 08/26/2017 K 4.5 08/26/2017 CREAT 1.40 (H) 08/26/2017 CA 9.2 08/26/2017 APTT 28.0 08/26/2017 INR 1.0 08/26/2017 Lab Results Past 6 Months Component Value Date GLUC 117 (H) 08/26/2017 K 4.5 08/26/2017 NA 141 08/26/2017 CHLOR 103 08/26/2017 CO2 27 08/26/2017 CREAT 1.40 (H) 08/26/2017 BUN 21 08/26/2017 ANION 11 08/26/2017 CA 9.2 08/26/2017 TPROT 7.6 08/26/2017 ALB 4.2 08/26/2017 TBILI 1.2 08/26/2017 ALKPHOS 114 (H) 08/26/2017 AST 17 08/26/2017 ALT 20 08/26/2017 ABO Group (no units) Date Value 12/15/2013 O ABO/RH(D) (no units) Date Value 08/26/2017 O POSITIVE Antibody Screen (no units) Date Value 08/26/2017 NEG Historical Ab Scr Status (no units) Date Value 08/26/2017 NEGATIVE Anticipated Blood Products Ordered: Ordered 2 units of PRBC. Will the Patient Accept Blood: Yes IMAGING ANDamp; TESTS: CT SCAN, 07/02/17: IMPRESSION: 1. ?Thickened and heavily calcified tricuspid aortic valve with severely reduced valve opening. ?Aortic valve orifice area = 0.8 cm2. The aortic annulus measures 2.6 x 1.8 cm; cross-sectional area = 3.5 cm2; circumference = 6.9 cm. 2. ?The thoracic aorta is normal in course and caliber. ?A short dissection flap is imaged in the proximal segment of the left subclavian artery, which is otherwise patent. Moderate partially calcified, atherosclerotic changes in the aortic arch, and significant, mixed atherosclerotic changes throughout the descending thoracic aorta. 3. ?Diffuse atherosclerotic changes throughout, and an infrarenal abdominal aortic aneurysm with significant adherent wall thrombus, surrounded by circumferential calcification (4.8 x 4.3 cm). 4. ?The pelvic arteries are tortuous with moderate calcification. ?The external iliac and common femoral arteries bilaterally are small in caliber. The minimal luminal caliber throughout = 5 mm (right external iliac artery). 5. 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 6. ?7 mm pleural-based non-calcified nodule in the left lingula. Incidental Finding: ?Follow-up for this incidentally detected lung nodule chest CT exam is recommended in 6-12 months. If stable on follow-up imaging, a repeat chest CT exam in 12 months (18-24 months from the initial exam) is recommended. ECG, 08/26/17: ATRIAL FIBRILLATION WITH RAPID VENTRICULAR RESPONSE WITH PREMATURE VENTRICULAR COMPLEXES, AGE UNDETERMINED ABNORMAL ECG ? Ventricular Rate : 153 ?BPM Atrial Rate : 178 ?BPM QRS Duration : 62 ?ms Q-T Interval : 272 ?ms QTC Calculation(Bezet) : 434 ?ms ECHO, 01/12/17: LEFT VENTRICLE The left ventricle is small. Left ventricular systolic function is normal. Left ventricular diastolic function was not evaluated due to AF. Wall Motion: All scored segments are normal. ? ? RIGHT VENTRICLE The right ventricle is normal in size. Right ventricular systolic function is normal. RV systolic tissue Doppler velocity ?is 8.0 cm/s.?Tricuspid annular displacement is 1.8 cm. Estimated right ventricular systolic pressure is 28 mmHg consistent with normal pulmonary artery pressures. Estimated right atrial pressure is 0 mmHg. ? LEFT ATRIUM The left atrial cavity is normal in size. ? RIGHT ATRIUM The right atrial cavity is normal in size. Inferior Vena Cava: The inferior vena cava appears small measuring 1.2 cm. The vessel decreases greater than 50 percent with inspiration. AORTIC VALVE There is low flow, low gradient, severe aortic valve stenosis caused by calcified valve. There is trivial aortic valve regurgitation. The peak gradient is 31 mmHg (peak velocity = 279.8 cm/s). The mean gradient is 19 mmHg. The LVOT mean velocity ?is 49.7 cm/s. The LVOT diameter is 2.0 cm. The aortic VTI is 52.5 cm. The mean velocity in the aortic valve is 207.1 cm/s. The dimensionless valve index is 0.24. ?AV area is 0.75 cm? (0.39 cm?/m?) by continuity, VTI. The LVOT stroke volume index is 20 ml/m?. ? AORTA The visualized aorta is normal in size. Measurements - Sinus 2.1 cm. Sinotubular junction 2.5 cm. Mid ascending aorta 2.8 cm. PERICARDIUM There is trivial pericardial effusion adjacent to the right atrium. ? CONCLUSIONS: - Technically difficult exam due to suboptimal positioning and body habitus. - Exam indication: Sustained atrial fibrillation - The left ventricle is small. Left ventricular systolic function is normal. EF = 58 ? 5% (2D biplane) Left ventricular diastolic function was not evaluated due to AF. - The right ventricle is normal in size. Right ventricular systolic function is normal. - There is paradoxical low flow, low gradient, severe aortic valve stenosis caused ?by calcified valve. AV area is 0.75 cm? (0.39 cm?/m?) by continuity, VTI. The peak gradient is 31 mmHg, the mean gradient is 19 mmHg and the dimensionless valve ?index is 0.24. - Exam was compared with the prior CC echocardiographic exam performed on 01/07/2017. we will have better?visualization of the aortic valve on TAIWO later today. HEART CATHETERIZATION, 03/03/17: Coronary Anatomy: Co-Dominant Injection Site(s): Left Main Coronary Artery and Right Coronary Artery LMT: - The LMT is normal. LAD: - The LAD has mild luminal irregularities. - The 1st diagonal is narrowed 35 % - mild diffuse disease. LCX: - The Circumflex is normal. RAMUS: - The Ramus is Absent. RCA: - The RCA has mild luminal irregularities. DEVICES: N/A MEDICATIONS: Current Outpatient Prescriptions: amLODIPine (NORVASC) 5 mg tablet Take 1 tablet by mouth once daily. atorvastatin (LIPITOR) 20 mg tablet Take 1 tablet by mouth once daily. metoprolol succinate ER (TOPROL XL) 50 mg 24 hr tablet Take 1 tablet by mouth once daily. aspirin, enteric coated (ASPIRIN, ENTERIC COATED) 81 mg EC tablet Take 81 mg by mouth once daily. No current facility-administered medications for this visit. Is the patient currently on any anticoagulant medications: Yes: Anticoagulant medications the patient is currently on: Aspirin: Last dose: still taking This was adequately stopped before surgery: No, primary service aware. PAIN AND ANXIETY EDUCATION AND MANAGEMENT: Patient has no concerns to address at this time. Additional Comments: I have reviewed the Cardiothoracic Surgical Assessment and agree with its findings. During the course of the encounter the patient was prepared for anesthetic care. This conversation included anesthetic options, possible use of invasive monitoring, the risks, benefits, alternatives, and personnel that will be present for the anesthetic encounter. The patient agreed to proceed with the planned anesthetic. Instructed to take metoprolol, aspirin, atorvastatin, and amlodipine with a small sip of water on the morning of surgery. Instructed nothing to eat or drink after midnight the night before surgery. Patient voiced understanding of these instructions. BETA PAT COMPLIANCE: Is the Patient Scheduled for a CABG: No SIGNATURE: Chau Cintron MD PATIENT NAME: Tyrel Ruffin DATE: August 26, 2017 TIME: 2:44 PM PAGER/CONTACT #: Referring Provider: TRUPTI VALENTINE [[id number]] Allergies As of Date: 08/26/2017 Noted Allergy Reaction AMOXACILLIN (AMOXICILLIN) 07/02/2017 1 - Mental Status Change CODEINE 01/07/2017 14 - Other: See Comments Comments: irregular heart beat Date Reviewed: 08/26/2017 Reviewed by: Laine Segura ([facility]) Held - Fully Assessed Primary Visit Diagnosis:Encounter for preoperative anesthesiology assessment for cardiac surgery [Z01.818] Order(s):PREOP RED BLOOD CELLS [SQPRERC] Order #: [id number] Prescriptions as of 08/26/2017 Sig: AMLODIPINE 5 MG TABLET Take 1 tablet by mouth once d* ATORVASTATIN 20 MG TABLET Take 1 tablet by mouth once d* METOPROLOL SUCCINATE ER 50 MG* Take 1 tablet by mouth once d* ASPIRIN 81 MG TABLET,DELAYED * Take 81 mg by mouth once joel* Problem List As Of Date 08/26/2017 Noted Resolved Aortic dissection (HCC) [I71.00] INVALID FOR* Atrial fibrillation, chronic (HCC) [I48.2] INVALID FOR* Priority: C More... Hyperlipidemia [E78.5] INVALID FOR* Priority: E More... Primary hypertension [I10] INVALID FOR* Priority: D More... Word finding difficulty [R47.89] INVALID FOR* More... AAA (abdominal aortic aneurysm) without rupture*INVALID FOR* Priority: A More... Aphasia [R47.01] INVALID FOR* Priority: A More... Encounter Status:Closed by JACKSON RIVERO MD on 4/19/18 PROGRESS Observed: 08/26/2017 Status: COMPLETED Source: [place] 2:44 PM [facility] REPOSITORY HNO ID: [id number] Author: Jackson Rivero MD Service: (none) Author Type: Resident Type: Progress Notes Filed: 08/26/2017 4:16 PM Note Text: [facility] PRE[facility] EVALUATION CARDIOTHORACIC ANESTHESIA CARDIAC SURGERY SERVICE DATE: 08/26/2017 SERVICE TIME: 2:44 PM Proposed Surgical Procedure: TAVR Re-do: No ASA Class: 4 Surgeon: Serge Surgery Date: 08/30/2017 Last Wt 08/26/17 : 77.1 kg (170 lb) Last Ht 08/26/17 : 177.8 cm (5' 10) Estimated body mass index is 24.54 kg/(m2) as calculated from the following: Height as of an earlier encounter on 08/26/17: 177.8 cm (5' 10). Weight as of an earlier encounter on 08/26/17: 77.6 kg (171 lb). Estimated body surface area is 1.96 meters squared as calculated from the following: Height as of an earlier encounter on 08/26/17: 177.8 cm (5' 10). Weight as of an earlier encounter on 08/26/17: 77.6 kg (171 lb). Mr. 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 Pt reports having increasing SOB and LEON. He is scheduled to undergo TF-TAVR on 08/30/[address] Valentine. Pt was sent to the ED the day of preoperative evaluation and testing for AFib w/ RVR, which was subsequently rate controlled after metoprolol 5mg IV x2. Active Problems: * No active hospital problems. * Resolved Problems: * No resolved hospital problems. * PAST MEDICAL HISTORY Diagnosis Date - AAA (abdominal aortic aneurysm) (HCC) - Aortic dissection distal to left subclavian (HCC) - Aortic stenosis - Atrial fibrillation (HCC) 2011 - Family history of early CAD - History of smoking - HTN (hypertension) 2013 - Hyperlipidemia 2013 - Intraparenchymal hemorrhage of brain (HCC) 2013 chronic L parietal ICH October 2013 w/ no significant residual deficit. PAST SURGICAL HISTORY Procedure Laterality Date - TONSILLECTOMY HX FAMILY HISTORY Problem Relation Age of Onset - Hypertension Mother age 90 from internal bleeding - Stroke Father 80 age 84 - Myocardial infarction [OTHER] Brother 70 Social History Substance Use Topics - Smoking status: Former Smoker Packs/day: 1.50 Years: 59.00 Quit date: 07/02/2012 - Smokeless tobacco: Never Used - Alcohol use Yes Comment: occasional ALLERGIES Allergen Reactions - Amoxacillin [Amoxic* Mental Status Change - Codeine Other: See Comments irregular heart beat REVIEW OF SYSTEMS: Neuro: Prior TIA Respiratory: No history of current cough or dyspnea, or pneumonia in the past 6 weeks. No history of respiratory/pulmonary symptoms or problems Cardiovascular: Positive for: Arrhythmia, Afib/Aflutter, HLD, Hypertension, Valvular Heart Disease GI: No history of GI symptoms or problems. No history of esophageal varices, recent ascites, or ETOH greater than 2 drinks per day. Endocrine: No history of diabetes. Has not taken steroids within the past 30 days. No history of endocrinological symptoms or problems. Hematology: No history of bleeding or clotting disorder. Pt is not taking anti-coagulation or platelet medications. No history of hematological symptoms or problems. CKD AND ANEMIA ASSESSMENT: Patient has both eGFR < 60 mL/min and a Hemoglobin < 11 g/dl: No if the patient is going on CPB. ANESTHETIC HISTORY: No history of prior anesthesia AIRWAY ASSESSMENT: Airway History: No abnormal airway history Airway Exam: General: Normal appearance Mallampati Score: CLASS II Temporo-Mandibular Displacement Test: Position A (lower teeth can be advanced beyond upper teeth) Interincisor Distance: 6 cm Thyromental Distance: 6 cm Neck Circumference: 40 cm Overbite: No Cervical Mobility: Normal Facial Hair: No Head/Neck Pathology: No ANTICIPATED DIFFICULT AIRWAY: NO Pre-Existing Diagnosis of Obstructive Sleep Apnea: No, STOP BANG SCORE: Criteria = Criteria: Age over 50 (77 year old) Male gender Score = 2, Score = 2 PHYSICAL EXAM: VITALS: There were no vitals taken for this visit. CARDIAC: Not assessed. LUNGS: Not assessed. Lines, Drains, Airway: Patient has no lines, drains or airway LABS: Lab Results Past 6 Months Component Value Date HB 15.7 08/26/2017 HCT 47.4 08/26/2017 PLT 191 08/26/2017 WBC 9.27 08/26/2017 NA 141 08/26/2017 K 4.5 08/26/2017 CREAT 1.40 (H) 08/26/2017 CA 9.2 08/26/2017 APTT 28.0 08/26/2017 INR 1.0 08/26/2017 Lab Results Past 6 Months Component Value Date GLUC 117 (H) 08/26/2017 K 4.5 08/26/2017 NA 141 08/26/2017 CHLOR 103 08/26/2017 CO2 27 08/26/2017 CREAT 1.40 (H) 08/26/2017 BUN 21 08/26/2017 ANION 11 08/26/2017 CA 9.2 08/26/2017 TPROT 7.6 08/26/2017 ALB 4.2 08/26/2017 TBILI 1.2 08/26/2017 ALKPHOS 114 (H) 08/26/2017 AST 17 08/26/2017 ALT 20 08/26/2017 ABO Group (no units) Date Value 12/15/2013 O ABO/RH(D) (no units) Date Value 08/26/2017 O POSITIVE Antibody Screen (no units) Date Value 08/26/2017 NEG Historical Ab Scr Status (no units) Date Value 08/26/2017 NEGATIVE Anticipated Blood Products Ordered: Ordered 2 units of PRBC. Will the Patient Accept Blood: Yes IMAGING AND TESTS: CT SCAN, 07/02/17: IMPRESSION: 1. ?Thickened and heavily calcified tricuspid aortic valve with severely reduced valve opening. ?Aortic valve orifice area = 0.8 cm2. The aortic annulus measures 2.6 x 1.8 cm; cross-sectional area = 3.5 cm2; circumference = 6.9 cm. 2. ?The thoracic aorta is normal in course and caliber. ?A short dissection flap is imaged in the proximal segment of the left subclavian artery, which is otherwise patent. Moderate partially calcified, atherosclerotic changes in the aortic arch, and significant, mixed atherosclerotic changes throughout the descending thoracic aorta. 3. ?Diffuse atherosclerotic changes throughout, and an infrarenal abdominal aortic aneurysm with significant adherent wall thrombus, surrounded by circumferential calcification (4.8 x 4.3 cm). 4. ?The pelvic arteries are tortuous with moderate calcification. ?The external iliac and common femoral arteries bilaterally are small in caliber. The minimal luminal caliber throughout = 5 mm (right external iliac artery). 5. 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 6. ?7 mm pleural-based non-calcified nodule in the left lingula. Incidental Finding: ?Follow-up for this incidentally detected lung nodule chest CT exam is recommended in 6-12 months. If stable on follow-up imaging, a repeat chest CT exam in 12 months (18-24 months from the initial exam) is recommended. ECG, 08/26/17: ATRIAL FIBRILLATION WITH RAPID VENTRICULAR RESPONSE WITH PREMATURE VENTRICULAR COMPLEXES, AGE UNDETERMINED ABNORMAL ECG ? Ventricular Rate : 153 ?BPM Atrial Rate : 178 ?BPM QRS Duration : 62 ?ms Q-T Interval : 272 ?ms QTC Calculation(Bezet) : 434 ?ms ECHO, 01/12/17: LEFT VENTRICLE The left ventricle is small. Left ventricular systolic function is normal. Left ventricular diastolic function was not evaluated due to AF. Wall Motion: All scored segments are normal. ? ? RIGHT VENTRICLE The right ventricle is normal in size. Right ventricular systolic function is normal. RV systolic tissue Doppler velocity ?is 8.0 cm/s.?Tricuspid annular displacement is 1.8 cm. Estimated right ventricular systolic pressure is 28 mmHg consistent with normal pulmonary artery pressures. Estimated right atrial pressure is 0 mmHg. ? LEFT ATRIUM The left atrial cavity is normal in size. ? RIGHT ATRIUM The right atrial cavity is normal in size. Inferior Vena Cava: The inferior vena cava appears small measuring 1.2 cm. The vessel decreases greater than 50 percent with inspiration. AORTIC VALVE There is low flow, low gradient, severe aortic valve stenosis caused by calcified valve. There is trivial aortic valve regurgitation. The peak gradient is 31 mmHg (peak velocity = 279.8 cm/s). The mean gradient is 19 mmHg. The LVOT mean velocity ?is 49.7 cm/s. The LVOT diameter is 2.0 cm. The aortic VTI is 52.5 cm. The mean velocity in the aortic valve is 207.1 cm/s. The dimensionless valve index is 0.24. ?AV area is 0.75 cm? (0.39 cm?/m?) by continuity, VTI. The LVOT stroke volume index is 20 ml/m?. ? AORTA The visualized aorta is normal in size. Measurements - Sinus 2.1 cm. Sinotubular junction 2.5 cm. Mid ascending aorta 2.8 cm. PERICARDIUM There is trivial pericardial effusion adjacent to the right atrium. ? CONCLUSIONS: - Technically difficult exam due to suboptimal positioning and body habitus. - Exam indication: Sustained atrial fibrillation - The left ventricle is small. Left ventricular systolic function is normal. EF = 58 ? 5% (2D biplane) Left ventricular diastolic function was not evaluated due to AF. - The right ventricle is normal in size. Right ventricular systolic function is normal. - There is paradoxical low flow, low gradient, severe aortic valve stenosis caused ?by calcified valve. AV area is 0.75 cm? (0.39 cm?/m?) by continuity, VTI. The peak gradient is 31 mmHg, the mean gradient is 19 mmHg and the dimensionless valve ?index is 0.24. - Exam was compared with the prior echocardiographic exam performed on 01/07/2017. we will have better?visualization of the aortic valve on TAIWO later today. HEART CATHETERIZATION, 03/03/17: Coronary Anatomy: Co-Dominant Injection Site(s): Left Main Coronary Artery and Right Coronary Artery LMT: - The LMT is normal. LAD: - The LAD has mild luminal irregularities. - The 1st diagonal is narrowed 35 % - mild diffuse disease. LCX: - The Circumflex is normal. RAMUS: - The Ramus is Absent. RCA: - The RCA has mild luminal irregularities. DEVICES: N/A MEDICATIONS: Current Outpatient Prescriptions: amLODIPine (NORVASC) 5 mg tablet Take 1 tablet by mouth once daily. atorvastatin (LIPITOR) 20 mg tablet Take 1 tablet by mouth once daily. metoprolol succinate ER (TOPROL XL) 50 mg 24 hr tablet Take 1 tablet by mouth once daily. aspirin, enteric coated (ASPIRIN, ENTERIC COATED) 81 mg EC tablet Take 81 mg by mouth once daily. No current facility-administered medications for this visit. Is the patient currently on any anticoagulant medications: Yes: Anticoagulant medications the patient is currently on: Aspirin: Last dose: still taking This was adequately stopped before surgery: No, primary service aware. PAIN AND ANXIETY EDUCATION AND MANAGEMENT: Patient has no concerns to address at this time. Additional Comments: I have reviewed the Cardiothoracic Surgical Assessment and agree with its findings. During the course of the encounter the patient was prepared for anesthetic care. This conversation included anesthetic options, possible use of invasive monitoring, the risks, benefits, alternatives, and personnel that will be present for the anesthetic encounter. The patient agreed to proceed with the planned anesthetic. Instructed to take metoprolol, aspirin, atorvastatin, and amlodipine with a small sip of water on the morning of surgery. Instructed nothing to eat or drink after midnight the night before surgery. Patient voiced understanding of these instructions. BETA PAT COMPLIANCE: Is the Patient Scheduled for a CABG: No SIGNATURE: Chau Cintron MD PATIENT NAME: Tyrel Ruffin DATE: August 26, 2017 TIME: 2:44 PM PAGER/CONTACT #: [id number] Observed: 08/26/2017 Status: COMPLETED Source: [place] 2:30 PM [facility] REPOSITORY Office Visit ([facility]) TYREL RUFFIN ([id number]) 1940 M Date Time Provider Department 08/26/17 2:30 PM SHIRA WATKINS [facility] During your visit today, we recorded the following information about you: Shira Watkins MD 08/30/2017 3:50 PM Signed [facility]VI TCI Consult Note Patient Type: Consult Visit to determine Surgery: Yes PCP: Billy Nieves MD ([facility]) [address] [place] [address] [address] [place] [address] Referring Physician:: Trupti Valentine MD [address] [facility] [address] [facility] [address] HPI: Mr. Tyrel Ruffin is a 77 year old male seen in consultation at the request of Trupti Valentine for opinion regarding treatment options for Aortic Stenosis, after being seen by Liz Skinner. 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 He has been symptomatic with SOB. I have personally reviewed his cardiac catheterization which shows mild CAD. The Echocardiogram reveals EF58%, LF LG with mean 19 and SVI 20. Based on my evaluation he is at high risk for cardiac surgery due to comorbidities and LF LG pathology. TRANSCATHETER AORTIC VALVE REPLACEMENT is reasonable. Impression: Aortic Stenosis Plan: Agree with TRANSCATHETER AORTIC VALVE REPLACEMENT I spent more than 50% of the visit face to face counseling the patient on the plan and treatment options. The time spent counseling was 30 minutes. The total time of the face to face visit was 30 minutes. These findings will be communicated back to the requesting physician via electronic medical record. Shira Watkins MD Referring Provider: TRUPTI VALENTINE [[id number]] Allergies As of Date: 08/26/2017 Noted Allergy Reaction AMOXACILLIN (AMOXICILLIN) 07/02/2017 1 - Mental Status Change CODEINE 01/07/2017 14 - Other: See Comments Comments: irregular heart beat Date Reviewed: 08/26/2017 Reviewed by: Laine Segura ([facility]) Held - Fully Assessed Primary Visit Diagnosis:Nonrheumatic aortic valve stenosis [I35.0] Prescriptions as of 08/26/2017 Sig: AMLODIPINE 5 MG TABLET Take 1 tablet by mouth once d* ATORVASTATIN 20 MG TABLET Take 1 tablet by mouth once d* METOPROLOL SUCCINATE ER 50 MG* Take 1 tablet by mouth once d* ASPIRIN 81 MG TABLET,DELAYED * Take 81 mg by mouth once joel* Problem List As Of Date 08/26/2017 Noted Resolved Aortic dissection (HCC) [I71.00] INVALID FOR* Atrial fibrillation, chronic (HCC) [I48.2] INVALID FOR* Priority: C More... Hyperlipidemia [E78.5] INVALID FOR* Priority: E More... Primary hypertension [I10] INVALID FOR* Priority: D More... Word finding difficulty [R47.89] INVALID FOR* More... AAA (abdominal aortic aneurysm) without rupture*INVALID FOR* Priority: A More... Aphasia [R47.01] INVALID FOR* Priority: A More... Encounter Status:Closed by SHIRA WATKINS MD on 08/30/17 PROGRESS Observed: 08/26/2017 Status: COMPLETED Source: [place] 1:05 PM [facility] HNO ID: [id number] Author: Laine Segura ([employer]) Held Service: (none) Author Type: Nurse Specialist Type: Progress Notes Filed: 08/26/2017 3:07 PM Note Text: [facility] [place] [facility] Department of Cardiovascular Medicine SECTION OF INTERVENTIONAL CARDIOLOGY OUTPATIENT VISIT DATE August 26, 2017 OUTPATIENT VISIT TYPE ESTABLISHED PRIMARY CARE PHYSICIAN: Billy Nieves MD ([facility]) [address] [address] CHIEF COMPLAINT: Patient presents with: Pre-Op Exam Aortic Stenosis HISTORY OF PRESENT ILLNESS: Mr. Ruffin is a 77 year old male who presents today for pre-op exam prior to scheduled TF-TAVR on Wednesday07/02/2017. He has PMH of , LSCA dissection, infrarenal AAA, chronic A.Fib, prior LT parietal intracerebral hemorrhage (2013), HTN and HLD. He was last seen bu Dr. Valentine on 07/02/2017. During his EKG test today, he was found in rapid AFib. He was sent to the emergency room and was given IV lopressor x 3 and released to his appointments. He id not have any chest or dizziness. He had 4 teeth extracted on 08/24/2017 and has some residual discomfort. He did experience some dizziness after that. He has noticed progression of his shortness of breath on exertion. He denies chest pain, lightheadedness, syncope and leg swelling. PAST MEDICAL HISTORY Diagnosis Date - AAA (abdominal aortic aneurysm) (HCC) - Aortic dissection distal to left subclavian (HCC) - Aortic stenosis - Atrial fibrillation (HCC) 2011 - Family history of early CAD - History of smoking - HTN (hypertension) 2013 - Hyperlipidemia 2013 - Intraparenchymal hemorrhage of brain (HCC) 2013 chronic L parietal ICH October 2013 w/ no significant residual deficit. PAST SURGICAL HISTORY Procedure Laterality Date - TONSILLECTOMY HX SOCIAL HISTORY Social History Substance Use Topics - Smoking status: Former Smoker Packs/day: 1.50 Years: 59.00 Quit date: 07/02/2012 - Smokeless tobacco: Never Used - Alcohol use Yes Comment: occasional FAMILY HISTORY Problem Relation Age of Onset - Hypertension Mother age 90 from internal bleeding - Stroke Father 80 age 84 - Myocardial infarction [OTHER] Brother 70 ALLERGIES: ALLERGIES Allergen Reactions - Amoxacillin [Amoxic* Mental Status Change - Codeine Other: See Comments irregular heart beat MEDICATIONS: amLODIPine (NORVASC) 5 mg tablet Take 1 tablet by mouth once daily. atorvastatin (LIPITOR) 20 mg tablet Take 1 tablet by mouth once daily. metoprolol succinate ER (TOPROL XL) 50 mg 24 hr tablet Take 1 tablet by mouth once daily. aspirin, enteric coated (ASPIRIN, ENTERIC COATED) 81 mg EC tablet Take 81 mg by mouth once daily. Serum Albumin 4.0 g/dl Collection date/time: 08/26/2017 LAO Activities of Daily Living: Activities Points (1 or 0) Fajardo: (1 Point) No supervision, direction or personal assistance Dependence: (0 Points) With supervision,direction,personal assistance or total care Bathing Points: 1 (1Point) Bathes self completely or needs help in bathing only a single part of the body such as the back, genital area or disabled extremity. (0 Points) Needs help with bathing more than one part of the body ,getting in or out of the tub or shower. Requires total bathing. Dressing Points: 1 (1 Point) Get clothes from closet and drawers and puts clothes and outer garments complete with fasteners. May have help tying shoes. (0 Points) Needs help with dressing self or needs to be completely dressed. Toileting Points: 1 (1 Point) Goes to toilet, gets on and off, arranges clothes, cleans genital area without help. (0 Points) Needs help transferring to the toilet, cleaning self or uses bedpan or commode. Transferring Points: 1 (1 Point) Moves in and out of bed or chair unassisted. Mechanical transferring aids are acceptable (0 Points) Need help in moving from bed to chair or requires a complete transfer. Continence Points: 1 (1 Point) Exercise complete self control over urination and defecation. (0 Points) Is partiially or total incontinent of bowel and bladder. Feeding Points: 1 (1 Point ) Gets food from plate into mouth without help. Preparation of food may be done by another person. (0 Points) Needs partial or total help with feeding or requires parenteral feeding. Total Points = 6 15 - Foot Walk: 6.5 seconds Cutoff off time to walk 15 feet criterion for frailty: Men Women Height < 173 cm > 7 seconds Height < 159 cm > 7 seconds Height > 173 cm > 6 seconds Height > 159 cm > 6 seconds REVIEW OF SYSTEMS: HEENT: Denies recent severe headaches, visual changes, difficulty swallowing. 4 teeth extracted on 08/24/17, + reading glasses, slightly hard of hearing GASTROINTESTINAL: Denies melena, hematochezia, heartburn. GENITOURINARY: Denies hematuria. MUSCULOSKELETAL: Denies claudication or muscle myalgias. NEUROLOGIC: Denies unilateral paralysis, slurred speech. SKIN: Denies skin ulcers or lesions. + bruises HEMATOLOGICAL: Denies gingival bleeding, or prolonged epistaxis. ENDOCRINE:Denies heat or cold intolerance, excessive thirst or urination. All Other Remaining ROS negative. PHYSICAL EXAM: BP 126/70 Pulse 84 Resp 20 Ht 173 cm (5' 8.11) Wt 77.6 kg (171 lb) BMI 25.92 kg/m2 General: Normal exam Neck : Neck veins are not distended Cardiac: Rhythm: regularly irregular, Rate: normal, Murmur 1:2/6, systolic, low pitched, LSB, S1: normal intensity, S2: normal intensity Chest: Chest clear to percussion and auscultation Abdomen: Normal, Bowel Sounds: Present Extremities: normal exam of the extremities, no edema present Pulses: dorsalis pedis pulses present both Skin:warm and dry CARDIOVASCULAR MEDICINE TESTING: Electrocardiogram: AFib, RVR Chest X-ray: IMPRESSION: NO ACUTE FINDINGS. Laboratory Testing: Component Latest Ref Rng AND Units 08/26/2017 8:12 AM WBC 3.70 - 11.00 k/uL 9.17 RBC 4.20 - 6.00 m/uL 5.06 Hemoglobin 13.0 - 17.0 g/dL 15.3 Hematocrit 39.0 - 51.0 % 46.4 MCV 80.0 - 100.0 fL 91.7 MCH 26.0 - 34.0 pG 30.2 MCHC 30.5 - 36.0 g/dL 33.0 RDW-CV 11.5 - 15.0 % 14.3 Platelet Count 150 - 400 k/uL 193 MPV 9.0 - 12.7 fL 9.8 Neut% % 74.5 Abs Neut (ANC) 1.45 - 7.50 k/uL 6.84 Lymph% % 14.2 Abs Lymph 1.00 - 4.00 k/uL 1.30 Dougherty% % 8.5 Abs Dougherty <0.87 k/uL 0.78 Eosin% % 2.1 Abs Eosin <0.46 k/uL 0.19 Baso% % 0.7 Abs Baso <0.11 k/uL 0.06 Nucleated Reds 0 /100 WBC 0.0 Absolute nRBC <0.01 k/uL <0.01 Diff Type Auto Diff Protein, Total 6.3 - 8.0 g/dL 7.0 Albumin 3.9 - 4.9 g/dL 4.0 Calcium 8.5 - 10.2 mg/dL 9.2 Bilirubin, Total 0.2 - 1.3 mg/dL 1.1 Alkaline Phosphatase 36 - 108 U/L 108 AST 14 - 40 U/L 15 Glucose 74 - 99 mg/dL 119 (H) BUN 9 - 24 mg/dL 21 Creatinine 0.73 - 1.22 mg/dL 1.44 (H) Sodium 136 - 144 mmol/L 142 Potassium 3.7 - 5.1 mmol/L 4.7 Chloride 97 - 105 mmol/L 103 CO2 22 - 30 mmol/L 26 Anion Gap 9 - 18 mmol/L 13 ALT 10 - 54 U/L 15 eGFR- 58 eGFR-All Other Races . 48 CK 51 - 298 U/L 115 MB <7.7 ng/mL CK MB % 0.0 - 4.0 % PT Sec 9.7 - 13.0 sec 10.6 PT INR 0.9 - 1.3 1.0 Haptoglobin 31 - 238 mg/dL 128 APTT 23.0 - 32.4 sec 28.0 CK MB <7.7 ng/mL 2.8 NT Pro BNP <450 pg/mL 1342 (H) Troponin T 0.000 - 0.029 ng/mL Magnesium 1.7 - 2.3 mg/dL IMPRESSION: Mr. Ruffin is a 77 year old male with severe, symptomatic aortic valve stenosis, NYHA FC III. PLAN AND RECOMMENDATIONS: 1) severe aortic valve stenosis- scheduled for TF-TAVR on Wednesday 08/30. He has been instructed to report at Noon to desk J1-2. He was seen by Dr. Skinner 07/02/2017 [address] to [address] Watkins 08/26/2017. I also reviewed the TF-TAVR animation and showed him the model of the valve. I reviewed the post-op immediate care in the hospital and discharge care, including the addition of Plavix. I also reviewed the use of the [place] device. 2) chronic afib without anticoagulation- was treated and released from the ER earlier today. He may need to go back to EP regarding better rate control s/p TAVR. He says he is aware of his Afib, but without any complaints. Not on any long-term anticoagluation due to his history intracerebral hemorrhage. 3) essential hypertension-he is on Toprol daily and Norvasc. Continue during admission. Laine Quiles RN WEIGHER AND CHARGER.CONSTRUCTION DRIVER ED NOTE Observed: 08/26/2017 Status: COMPLETED Source: [place] 12:32 PM [facility] REPOSITORY HNO ID: [id number] Author: Tamiko (Rn) DEEPTHI Lauren Service: Emergency Medicine Author Type: Registered Nurse Type: ED Notes Filed: 08/26/2017 12:33 PM Note Text: Discharge instructions given. Patient verbalizes understanding. IV discontinued, catheter tip intact, bleeding controlled. Follow up instructions given. Discharge vitals obtained BP 128/82 Pulse 86 Temp 37.2 ?C (99 ?F) (Oral) Resp 12 Ht 177.8 cm (5' 10) Wt 77.1 kg (170 lb) SpO2 98% BMI 24.39 kg/m2 . NAD noted upon discharge back to pre-op. Discharge complete. CNOV Observed: 08/26/2017 Status: COMPLETED Source: [place] 10:00 AM [facility] REPOSITORY Office Visit ([facility]) TYREL RUFFIN ([id number]) 1940 M Date Time Provider Department 08/26/17 10:00 AM LAINE QUILES ([facility]) [facility] During your visit today, we recorded the following information about you: Pulse Respiration Blood pressure Weight 84/minute 20/minute 126/70 77.6 kg Height 1.73 m Liane Quiles RN WEIGHER AND CHARGER.CONSTRUCTION DRIVER 08/26/2017 3:07 PM Signed [facility] [facility] Department of Cardiovascular Medicine SECTION OF INTERVENTIONAL CARDIOLOGY OUTPATIENT VISIT DATE August 26, 2017 OUTPATIENT VISIT TYPE ESTABLISHED PRIMARY CARE PHYSICIAN: Billy Nieves MD ([facility]) [address] [place] [address] CHIEF COMPLAINT: Patient presents with: Pre-Op Exam Aortic Stenosis HISTORY OF PRESENT ILLNESS: Mr. Ruffin is a 77 year old male who presents today for pre-op exam prior to scheduled TF-TAVR on Wednesday07/02/2017. He has PMH of , LSCA dissection, infrarenal AAA, chronic A.Fib, prior LT parietal intracerebral hemorrhage (2013), HTN and HLD. He was last seen bu Dr. Valentine on 07/02/2017. During his EKG test today, he was found in rapid AFib. He was sent to the emergency room and was given IV lopressor x 3 and released to his appointments. He id not have any chest or dizziness. He had 4 teeth extracted on 08/24/2017 and has some residual discomfort. He did experience some dizziness after that. He has noticed progression of his shortness of breath on exertion. He denies chest pain, lightheadedness, syncope and leg swelling. 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 PAST SURGICAL HISTORY Procedure Laterality Date - TONSILLECTOMY HX SOCIAL HISTORY Social History Substance Use Topics - Smoking status: Former Smoker Packs/day: 1.50 Years: 59.00 Quit date: 07/02/2012 - Smokeless tobacco: Never Used - Alcohol use Yes Comment: occasional FAMILY HISTORY Problem Relation Age of Onset - Hypertension Mother age 90 from internal bleeding - Stroke Father 80 age 84 - Myocardial infarction [OTHER] Brother 70 ALLERGIES: ALLERGIES Allergen Reactions - Amoxacillin [Amoxic* Mental Status Change - Codeine Other: See Comments irregular heart beat MEDICATIONS: amLODIPine (NORVASC) 5 mg tablet Take 1 tablet by mouth once daily. atorvastatin (LIPITOR) 20 mg tablet Take 1 tablet by mouth once daily. metoprolol succinate ER (TOPROL XL) 50 mg 24 hr tablet Take 1 tablet by mouth once daily. aspirin, enteric coated (ASPIRIN, ENTERIC COATED) 81 mg EC tablet Take 81 mg by mouth once daily. Serum Albumin 4.0 g/dl Collection date/time: 08/26/2017 LAO Activities of Daily Living: Activities Points (1 or 0) Fajardo: (1 Point) No supervision, direction or personal assistance Dependence: (0 Points) With supervision,direction,personal assistance or total care Bathing Points: 1 (1Point) Bathes self completely or needs help in bathing only a single part of the body such as the back, genital area or disabled extremity. (0 Points) Needs help with bathing more than one part of the body ,getting in or out of the tub or shower. Requires total bathing. Dressing Points: 1 (1 Point) Get clothes from closet and drawers and puts clothes and outer garments complete with fasteners. May have help tying shoes. (0 Points) Needs help with dressing self or needs to be completely dressed. Toileting Points: 1 (1 Point) Goes to toilet, gets on and off, arranges clothes, cleans genital area without help. (0 Points) Needs help transferring to the toilet, cleaning self or uses bedpan or commode. Transferring Points: 1 (1 Point) Moves in and out of bed or chair unassisted. Mechanical transferring aids are acceptable (0 Points) Need help in moving from bed to chair or requires a complete transfer. Continence Points: 1 (1 Point) Exercise complete self control over urination and defecation. (0 Points) Is partiially or total incontinent of bowel and bladder. Feeding Points: 1 (1 Point ) Gets food from plate into mouth without help. Preparation of food may be done by another person. (0 Points) Needs partial or total help with feeding or requires parenteral feeding. Total Points = 6 15 - Foot Walk: 6.5 seconds Cutoff off time to walk 15 feet criterion for frailty: Men Women Height ANDlt; 173 cm ANDgt; 7 seconds Height ANDlt; 159 cm ANDgt; 7 seconds Height ANDgt; 173 cm ANDgt; 6 seconds Height ANDgt; 159 cm ANDgt; 6 seconds REVIEW OF SYSTEMS: HEENT: Denies recent severe headaches, visual changes, difficulty swallowing. 4 teeth extracted on 08/24/17, + reading glasses, slightly hard of hearing GASTROINTESTINAL: Denies melena, hematochezia, heartburn. GENITOURINARY: Denies hematuria. MUSCULOSKELETAL: Denies claudication or muscle myalgias. NEUROLOGIC: Denies unilateral paralysis, slurred speech. SKIN: Denies skin ulcers or lesions. + bruises HEMATOLOGICAL: Denies gingival bleeding, or prolonged epistaxis. ENDOCRINE:Denies heat or cold intolerance, excessive thirst or urination. All Other Remaining ROS negative. PHYSICAL EXAM: BP 126/70 Pulse 84 Resp 20 Ht 173 cm (5' 8.11ANDquot;) Wt 77.6 kg (171 lb) BMI 25.92 kg/m2 General: Normal exam Neck : Neck veins are not distended Cardiac: Rhythm: regularly irregular, Rate: normal, Murmur 1:2/6, systolic, low pitched, LSB, S1: normal intensity, S2: normal intensity Chest: Chest clear to percussion and auscultation Abdomen: Normal, Bowel Sounds: Present Extremities: normal exam of the extremities, no edema present Pulses: dorsalis pedis pulses present both Skin:warm and dry CARDIOVASCULAR MEDICINE TESTING: Electrocardiogram: AFib, RVR Chest X-ray: IMPRESSION: NO ACUTE FINDINGS. Laboratory Testing: Component Latest Ref Rng ANDamp; Units 08/26/2017 8:12 AM WBC 3.70 - 11.00 k/uL 9.17 RBC 4.20 - 6.00 m/uL 5.06 Hemoglobin 13.0 - 17.0 g/dL 15.3 Hematocrit 39.0 - 51.0 % 46.4 MCV 80.0 - 100.0 fL 91.7 MCH 26.0 - 34.0 pG 30.2 MCHC 30.5 - 36.0 g/dL 33.0 RDW-CV 11.5 - 15.0 % 14.3 Platelet Count 150 - 400 k/uL 193 MPV 9.0 - 12.7 fL 9.8 Neut% % 74.5 Abs Neut (ANC) 1.45 - 7.50 k/uL 6.84 Lymph% % 14.2 Abs Lymph 1.00 - 4.00 k/uL 1.30 Dougherty% % 8.5 Abs Dougherty ANDlt;0.87 k/uL 0.78 Eosin% % 2.1 Abs Eosin ANDlt;0.46 k/uL 0.19 Baso% % 0.7 Abs Baso ANDlt;0.11 k/uL 0.06 Nucleated Reds 0 /100 WBC 0.0 Absolute nRBC ANDlt;0.01 k/uL ANDlt;0.01 Diff Type Auto Diff Protein, Total 6.3 - 8.0 g/dL 7.0 Albumin 3.9 - 4.9 g/dL 4.0 Calcium 8.5 - 10.2 mg/dL 9.2 Bilirubin, Total 0.2 - 1.3 mg/dL 1.1 Alkaline Phosphatase 36 - 108 U/L 108 AST 14 - 40 U/L 15 Glucose 74 - 99 mg/dL 119 (H) BUN 9 - 24 mg/dL 21 Creatinine 0.73 - 1.22 mg/dL 1.44 (H) Sodium 136 - 144 mmol/L 142 Potassium 3.7 - 5.1 mmol/L 4.7 Chloride 97 - 105 mmol/L 103 CO2 22 - 30 mmol/L 26 Anion Gap 9 - 18 mmol/L 13 ALT 10 - 54 U/L 15 eGFR- 58 eGFR-All Other Races . 48 CK 51 - 298 U/L 115 MB ANDlt;7.7 ng/mL CK MB % 0.0 - 4.0 % PT Sec 9.7 - 13.0 sec 10.6 PT INR 0.9 - 1.3 1.0 Haptoglobin 31 - 238 mg/dL 128 APTT 23.0 - 32.4 sec 28.0 CK MB ANDlt;7.7 ng/mL 2.8 NT Pro BNP ANDlt;450 pg/mL 1342 (H) Troponin T 0.000 - 0.029 ng/mL Magnesium 1.7 - 2.3 mg/dL IMPRESSION: Mr. Ruffin is a 77 year old male with severe, symptomatic aortic valve stenosis, NYHA FC III. PLAN AND RECOMMENDATIONS: 1) severe aortic valve stenosis- scheduled for TF-TAVR on Wednesday 08/30. He has been instructed to report at Noon to desk J1-2. He was seen by Dr. Skinner 07/02/2017 and due to see Dr. Watkins 08/26/2017. I also reviewed the TF-TAVR animation and showed him the model of the valve. I reviewed the post-op immediate care in the hospital and discharge care, including the addition of Plavix. I also reviewed the use of the [place] device. 2) chronic afib without anticoagulation- was treated and released from the ER earlier today. He may need to go back to EP regarding better rate control s/p TAVR. He says he is aware of his Afib, but without any complaints. Not on any long-term anticoagluation due to his history intracerebral hemorrhage. 3) essential hypertension-he is on Toprol daily and Norvasc. Continue during admission. Laine Quilse RN WEIGHER AND CHARGER.CONSTRUCTION DRIVER Referring Provider: TRUPTI VALENTINE [[id number]] Allergies As of Date: 08/26/2017 Noted Allergy Reaction AMOXACILLIN (AMOXICILLIN) 07/02/2017 1 - Mental Status Change CODEINE 01/07/2017 14 - Other: See Comments Comments: irregular heart beat Date Reviewed: 08/26/2017 Reviewed by: Laine Segura ([employer]) Arnie - Fully Assessed Reason for Visit: Pre-Op Exam [87] Aortic Stenosis [614] Primary Visit Diagnosis:Atrial fibrillation, chronic (HCC) [I48.2] Other Visit Diagnoses:Primary hypertension [I10] Nonrheumatic aortic valve stenosis [I35.0] Prescriptions as of 08/26/2017 Sig: AMLODIPINE 5 MG TABLET Take 1 tablet by mouth once d* ATORVASTATIN 20 MG TABLET Take 1 tablet by mouth once d* METOPROLOL SUCCINATE ER 50 MG* Take 1 tablet by mouth once d* ASPIRIN 81 MG TABLET,DELAYED * Take 81 mg by mouth once joel* Problem List As Of Date 08/26/2017 Noted Resolved Aortic dissection (HCC) [I71.00] INVALID FOR* Atrial fibrillation, chronic (HCC) [I48.2] INVALID FOR* Priority: C More... Hyperlipidemia [E78.5] INVALID FOR* Priority: E More... Primary hypertension [I10] INVALID FOR* Priority: D More... Word finding difficulty [R47.89] INVALID FOR* More... AAA (abdominal aortic aneurysm) without rupture*INVALID FOR* Priority: A More... Aphasia [R47.01] INVALID FOR* Priority: A More... Disposition: Return for scheduled. LOS history recorded Follow-up and Disposition History Recorded Encounter Status:Closed by HELD LAINE REESE on 08/26/17 PROGRESS Observed: 08/26/2017 Status: COMPLETED Source: [place] 9:38 AM [facility] REPOSITORY HNO ID: [id number] Author: Iris Buckley (Rt) Service: Radiology Author Type: Spring Intern Type: Progress Notes Filed: 08/26/2017 9:39 AM Note Text: Radiology Service Progress Note PATIENT NAME: Tyrel Ruffin DATE OF SERVICE: August 26, 2017 TIME: 9:38 AM PATIENT IDENTITY VERIFICATION COMPLETED USING TWO (2) METHODS: Patient confirmed name verbally and ID band matches.. PATIENT GENDER DATA: Male PATIENT RELEVANT IMPLANT DATA REVIEWED: Yes RADIOLOGY DEPARTMENT: General X-ray: Exam(s) Completed: Chest X-Ray PERIPHERAL IV DATA: Not applicable SIGNED BY: RT Randal August 26, 2017 9:38 AM XR CHEST 1V FRONTAL Observed: 08/26/2017 Status: F Source: [facility] 9:37 AM [facility] REPOSITORY * * *Final Report* * * DATE OF EXAM: Aug 26 2017 9:37AM EGX [id number] - XR CHEST 1V FRONTAL PORT / PROCEDURE REASON: Chest pain * * * * Physician Interpretation * * * * EXAMINATION: XR CHEST 1V FRONTAL PORT PATIENT/TECHNOLOGIST PROVIDED HISTORY: chest pain CLINICAL INFORMATION: Chest pain TECHNIQUE: Single AP portable image of the chest MQ: [id number] Comparison: 07/02/2017 RESULT: Lines, tubes, and devices: None. Lungs and pleura: No evidence of pneumothorax or pleural effusion. The pulmonary vascular pattern is normal. There is no evidence of pulmonary edema. Hilar structures appear unremarkable. No focal consolidation. Cardiomediastinal silhouette: Stable normal cardiomediastinal silhouette. IMPRESSION: NO ACUTE FINDINGS. Alarm Operator: PSCB Transcribe Date/Time: Aug 26 2017 9:43A Dictated by : SHANE NEWBERRY MD This examination was interpreted and the report reviewed and electronically signed by: DONTRELL GAXIOLA MD on Aug 26 2017 10:38AM EST [id number] CBC AND DIFFERENTIAL Collected: 08/26/2017 Status: F Source: [place] 9:35 AM [facility] REPOSITORY TYPE CODE TESTS RESULT OUT OF REFERENCE UNITS RANGE LAB WBC 3.70-11.00 k/uL WBC 9.27 LAB RBC 4.20-6.00 m/uL RBC 5.28 LAB HGB 13.0-17.0 g/dL Hemoglobin 15.7 LAB HCT 39.0-51.0 % Hematocrit 47.4 LAB MCV 80.0-100.0 fL MCV 89.8 LAB MCH 26.0-34.0 pG MCH 29.7 LAB MCHC 30.5-36.0 g/dL MCHC 33.1 LAB RDWCV 11.5-15.0 % RDW-CV 14.2 LAB PLTCT 150-400 k/uL Platelet Count 191 LAB MPV 9.0-12.7 fL MPV 9.5 LAB ANEUT % Neut% 77.2 LAB AANEUT 1.45-7.50 k/uL Abs Neut 7.15 LAB ALYMP % Lymph% 12.4 LAB AALYMP 1.00-4.00 k/uL Abs Lymph 1.15 LAB AMONO % Dougherty% 8.3 LAB AAMONO <0.87 k/uL Abs Dougherty 0.77 LAB AEOS % Eosin% 1.6 LAB AAEOS <0.46 k/uL Abs Eosin 0.15 LAB ABASO % Baso% 0.5 LAB AABASO <0.11 k/uL Abs Baso 0.05 LAB AUNRBC 0 /100 WBC NRBCs 0.0 LAB ABNRBC <0.01 k/uL Absolute nRBC <0.01 LAB DTYP DTYPE Auto Diff Performed By: #### CBCDIF, CKCKMB, CMP, SHARON #### [facility] [address] [place], [place] [address] CK, TOTAL AND CKMB Collected: 08/26/2017 Status: F Source: [place] 9:35 AM [facility] REPOSITORY TYPE CODE TESTS RESULT OUT OF RANGE REFERENCE UNITS LAB CK 51-298 U/L CK 118 Result Comment: Please note the updated, gender-specific reference range for this test (effective 04/23/2016). LAB MB <7.7 ng/mL MB 2.8 Result Comment: Please note the updated, gender-specific reference range for this test (effective 04/24/2016). LAB CKMBRI 0.0-4.0 % CK MB 2.4 % Performed By: #### CBCDIF, CKCKMB, CMP, SHARON #### [facility] [address] [place], [place] [address] COMP METABOLIC PANEL Collected: 08/26/2017 Status: F Source: [place] 9:35 AM [facility] REPOSITORY TYPE CODE TESTS RESULT OUT OF REFERENCE UNITS RANGE LAB TP 6.3-8.0 g/dL Protein, Total 7.6 LAB ALB 3.9-4.9 g/dL Albumin 4.2 LAB CA 8.5-10.2 mg/dL Calcium, Total 9.2 LAB TBIL 0.2-1.3 mg/dL Bilirubin, Total 1.2 LAB ALKP 36-108 U/L Alkaline High Phosphatase 114 LAB AST 14-40 U/L AST 17 LAB GLU 74-99 mg/dL Glucose High 117 Result Comment: The [place] Diabetes Association (ADA) provides guidance for cutoff values for fasting glucose and random glucose. The ADA defines fasting as no caloric intake for at least 8 hours. Fas ting plasma glucose results between 100 to 125 mg/dL indicate increased risk for diabetes (prediabetes). Fasting plasma glucose results greater than or equal to 126 mg/dL meet the criteria for diagnosis of diabetes. In the absence of unequivocal hyperglycemia, results should be confirmed by repeat testing. In a patient with classic symptoms of hyperglycemia or hyperglycemic crisis, random plasma glucose results greater than or equal to 200 mg/dL meet the criteria for diagnosis of diabetes. Reference: Standards of Medical Care in Diabetes 2016, [place] Diabetes Association. Diabetes Care. 2016.39(Suppl 1). LAB BUN 9-24 mg/dL BUN 21 LAB CRET 0.73-1.22 mg/dL Creatinine High 1.40 LAB NA 136-144 mmol/L Sodium 141 LAB K 3.7-5.1 mmol/L Potassium 4.5 LAB CL 97-105 mmol/L Chloride 103 LAB CO2 22-30 mmol/L CO2 27 LAB AGAP 9-18 mmol/L Anion Gap 11 LAB ALT 10-54 U/L ALT 20 LAB GFRAA eGFR- Amer. 59 LAB GFRNAA . eGFR-All Other Races 49 Result Comment: eGFR (Estimated GFR) Units of measure: mL/min/1.73 meters squared eGFR is derived from the reexpressed MDRD Study equation using the following parameters: serum creatinine, age, gender and race. The creatinine assay has been calibrated to be traceable to IDMS. An eGFR <60 mL/min/1.73m2 for >3 months is consistent with chronic kidney disease. Refer to KDOQI guidelines for clinical interpretation. In patients with unstable renal function, e.g. those with acute kidney injury, the eGFR may not accurately reflect actual GFR. Performed By: #### CBCDIF, CKCKMB, CMP, SHARON #### [facility] [address] [place] [address] TROPONIN T Collected: 08/26/2017 Status: F Source: [place] 9:35 AM [facility] REPOSITORY TYPE CODE TESTS RESULT OUT OF REFERENCE UNITS RANGE LAB TROPT 0.000-0.029 ng/mL Troponin T <0.010 Performed By: #### CBCDIF, CKCKMB, CMP, SHARON #### [facility] [address] [place] [address] MAGNESIUM Collected: 08/26/2017 Status: F Source: [place] 9:35 AM [facility] REPOSITORY TYPE CODE TESTS RESULT OUT OF REFERENCE UNITS RANGE LAB MG 1.7-2.3 mg/dL Magnesium 2.2 Performed By: #### MG1 #### [facility] [address] [address] ED NOTE Observed: 08/26/2017 Status: COMPLETED Source: [place] 9:32 AM [facility] REPOSITORY HNO ID: [id number] Author: Kaylen Ruano RN Service: Emergency Medicine Author Type: Registered Nurse Type: ED Notes Filed: 08/26/2017 9:32 AM Note Text: PCXR AT BS. ED NOTE Observed: 08/26/2017 Status: COMPLETED Source: [place] 9:26 AM [facility] REPOSITORY HNO ID: [id number] Author: Kaylen Ruano RN Service: Emergency Medicine Author Type: Registered Nurse Type: ED Notes Filed: 08/26/2017 9:28 AM Note Text: - Nursing Plan of Care initiated- -- Care Assumed -- Acknowledged patient /family -- Initiated monitoring -- Monitor vital signs -- Continue to monitor for safety and comfort -- Bed rails x [address] -- Call solorio in reach -- Education given on complaint specific Plan of Care: *Labs *Imaging * Medications * Length of stay Patient brought in by vivek for afib with rvr, he is completely asymptomatic but reports more leon in the last several months. He was at the ekg clinic for pre op testing and is having valve replacement Wednesday. ABC's intact, breath sounds equal and clear bilaterally , RR even and unlabored, abdomen is round soft and non-tender, TADEO's x 4 and follows commands. ED PROV NOTE Observed: 08/26/2017 Status: COMPLETED Source: [place] 9:26 AM [facility] REPOSITORY HNO ID: [id number] Author: Liz Epperson MD Service: Emergency Medicine Author Type: Physician Type: ED Provider Notes Filed: 08/28/2017 11:08 AM Note Text: ED Provider Note Patient Name: Tyrel Ruffin SERVICE DATE: 08/26/17 History Patient presents with: A-fib: while at ekg lab for pre op for valve replacement HPI Comments: 77-year-old male with past medical history of atrial fibrillation, hypertension, aortic stenosis, aortic dissection, AAA presents to the ED brought in by EMS for A. Fib. Patient was at outpatient appointment and noted to be in A. Fib with RVR. He states that he is chronically in A. Fib. He does not take anticoagulation. He is scheduled to have aortic valve replacement on Wednesday. He denies any associated chest pain or shortness of breath unchanged from baseline. He denies any swelling of the lower extremities. He reports that they drove in from out of town last night and he forgot to bring his medications with him therefore did not take his home medication yesterday or today. 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 PAST SURGICAL HISTORY Procedure Laterality Date - TONSILLECTOMY HX FAMILY HISTORY Problem Relation Age of Onset - Hypertension Mother age 90 from internal bleeding - Stroke Father 80 age 84 - Myocardial infarction [OTHER] Brother 70 Social History Social History Main Topics - Smoking status: Former Smoker Packs/day: 1.50 Years: 59.00 Quit date: 07/02/2012 - Smokeless tobacco: Never Used - Alcohol use Yes Comment: occasional - Drug use: No - Sexual activity: Not Asked ALLERGIES Allergen Reactions - Amoxacillin [Amoxic* Mental Status Change - Codeine Other: See Comments irregular heart beat Review of Systems Constitutional: Negative for chills and fever. HENT: Negative for congestion. Respiratory: Negative for cough and shortness of breath. Cardiovascular: Negative for chest pain, palpitations and leg swelling. Gastrointestinal: Negative for abdominal pain. Musculoskeletal: Negative for back pain. Skin: Negative for rash. Allergic/Immunologic: Negative for immunocompromised state. Neurological: Negative for headaches. Hematological: Does not bruise/bleed easily. Psychiatric/Behavioral: Negative for agitation and behavioral problems. Physical Exam BP 128/82 Pulse 86 Temp (Src) 99 (Oral) Resp 12 Ht 5' 10 (1.78m) Wt 170 lb (77.1kg) SpO2 98% BMI 24.39 kg/(m2). Physical Exam Constitutional: He is oriented to person, place, and time. He appears well-developed and well-nourished. HENT: Head: Normocephalic and atraumatic. Eyes: Conjunctivae are normal. Neck: Neck supple. Cardiovascular: Normal pulses. An irregularly irregular rhythm present. Tachycardia present. Pulses: Radial pulses are 2+ on the right side, and 2+ on the left side. Pulmonary/Chest: Effort normal and breath sounds normal. Neurological: He is alert and oriented to person, place, and time. Skin: Skin is warm and dry. Psychiatric: He has a normal mood and affect. His behavior is normal. Nursing note and vitals reviewed. Diagnostic Testing ED Labs Ordered and Reviewed COMP METABOLIC PANEL - Abnormal; Notable for the following: Result Value Ref Range Alkaline Phosphatase 114 (*) 36 - 108 U/L Glucose 117 (*) 74 - 99 mg/dL Creatinine 1.40 (*) 0.73 - 1.22 mg/dL All other components within normal limits CBC + DIFF TROPONIN T CK TOTAL AND CK-MB MAGNESIUM BLD XR CHEST 1V FRONTAL PORT Final Result IMPRESSION: NO ACUTE FINDINGS. Alarm Operator: JUNE Transcribe Date/Time: Aug 26 2017 9:43A Dictated by : SHANE NEWBERRY MD This examination was interpreted and the report reviewed and electronically signed by: DONTRELL GAXIOLA MD on Aug 26 2017 10:38AM EST EKG Review/Interpretation: The patient's EKG was reviewed and demonstrated a atrial fibrillation at 153 beats per minute with occasional PVCs, normal axis, normal intervals, reviewed and interpreted by Dr. Epperson. No additional acute changes are noted. Procedures Medical Decision Making / ED Course ED Course 77-year-old male presents to the emergency department with tachycardia sent from outpatient appointment. Patient has known atrial fibrillation and states that he is always in A. fib. Did not take blood pressure or rate control medications last night. Pt noted to be tachycardic on arrival, given 5mg IV metoprolol and home dosage of PO amlodipine. Remained tachycardic and was given additional 5mg IV metoprolol. Blood pressure was remained stable at 130/89. Heart rate was improved to low 100s. Pt remained chest pain free and did not have any SOB. Labs ordered: - CBC- No leukocytosis or anemia - CMP-Baseline elevation in creatinine, normal electrolytes - Magnesium- 2.2 - Troponin- no elevation - CKMB- no elevation Imaging ordered: CXR- no acute findings. - Diagnostic images were personally reviewed by me. At the time of discharge heart rate had improved to 86 bpm, blood pressure stable at 128/82 with good oxygen saturation. I have low concern for ACS, ischemia, electrolyte abnormality, to be a component of the patients rapid ventricular response at this time. The elevated heart rate was likely secondary to not taking medication for rate control yesterday or today. At this time, the most likely Dx is: Atrial fibrillation. Pt discharged home in good condition. Pt instructed to f/u with Cardiology in 7 days and encouraged to return to ED if symptoms worsen or if new symptoms develop. Encounter Diagnosis ICD-10-CM 1. Chronic atrial fibrillation (HCC) I48.2 Plan The Patient was DISCHARGED: Counseled patient regarding lab results AND radiology results AND suspected diagnosis AND need for follow- up. Discharged home with verbal and written instructions. They were instructed to return as needed for persistent or worsening symptoms or any new concerns. Condition at time of disposition: improved and stable SIGNATURE: GODWIN Church) KEVIN Ritchie 08/26/17 1214 Attending Note I have personally performed a face to face assessment of the patient and have reviewed the PA/REHABILITATION AIDE/SCHEDULER note. My rosado findings include: Patient present for rapid afib from cards office. Forgot to take meds last pm. Asymptomatic. Chronic Afib. PE: alert oriented wpwh Card: rapid irreg with sys m Chest: no rales or wheezing EKG: rev/interp by me. Rapid afib with rate dependent changes, No ventricular ectopy CXR: rev/interp by me. Chronic changes, no acute infiltrate or effusion Routine labwork unremarkable for patient. MDM: Pt with asymptomatic rapid afib despite sig . No failure or symptoms of ACS.. Repeated dosing metoprolol and reassessment with regulation of HR.Pt referred back to cards appt. Dx: afib with RVR Other additions or changes: None Signature: Liz Epperson MD Date: 08/28/2017 Time: 10:59 AM Liz Epperson MD 08/28/17 1108 EKG1 Observed: 08/26/2017 Status: F Source: [place] 9:20 AM [facility] REPOSITORY NAME : TYREL RUFFIN PID : [id number] : 1940 Gender : Male Race : ORD : Procedure Date : Aug 26 2017 09:20:23 Edit Date : Oct 15 2017 08:40:30 Diagnosis:ATRIAL FIBRILLATION WITH RAPID VENTRICULAR RESPONSE WITH PREMATURE VENTRICULAR COMPLEXES , AGE UNDETERMINED ABNORMAL ECG NOTE: PLEASE SEE PHYSICIAN'S NOTE FROM E.D. VISIT Confirmed by OVERREAD REPORT, NOT AN (1), news videotape editor SYHAM CASTILLO ([id number]) on 10/15/2017 8:40:26 AM Ventricular Rate : 153 BPM Atrial Rate : 178 BPM QRS Duration : 62 ms Q-T Interval : 272 ms QTC Calculation(Bezet) : 434 ms R [place] : 38 degrees T [place] : 58 degrees Test Reason : Location : 2 : EDNS1 Overread By : OVERREAD REPORT,NOT AN Edited By : SHYAM CASTILLO Referred By : , Acquired by : TK, ED NOTE Observed: 08/26/2017 Status: COMPLETED Source: [place] 9:13 AM [facility] REPOSITORY HNO ID: [id number] Author: Adelita LoganRn) Anders, RN Service: (none) Author Type: Registered Nurse Type: ED Notes Filed: 08/26/2017 9:13 AM Note Text: Bed: E18-10 Expected date: Expected time: Means of arrival: Comments: VIVEK VILLAFANA Observed: 08/26/2017 Status: COMPLETED Source: [place] 8:49 AM [facility] REPOSITORY HNO ID: [id number] Author: Oh (Retail Grocer) LIMA Dc Service: Respiratory Therapy Author Type: Respiratory Therapist Type: Med Emergency Tm/Significant Event Filed: 08/26/2017 9:44 AM Note Text: CMET called due to abnormal heart rhythm. Patient alert and oriented. No respiratory distress noted. Sats 99% on room air. Patient transferred to ED for further care. CBC AND DIFFERENTIAL Collected: 08/26/2017 Status: F Source: [place] 8:12 AM [facility] REPOSITORY TYPE CODE TESTS RESULT OUT OF REFERENCE UNITS RANGE LAB WBC 3.70-11.00 k/uL WBC 9.17 LAB RBC 4.20-6.00 m/uL RBC 5.06 LAB HGB 13.0-17.0 g/dL Hemoglobin 15.3 LAB HCT 39.0-51.0 % Hematocrit 46.4 LAB MCV 80.0-100.0 fL MCV 91.7 LAB MCH 26.0-34.0 pG MCH 30.2 LAB MCHC 30.5-36.0 g/dL MCHC 33.0 LAB RDWCV 11.5-15.0 % RDW-CV 14.3 LAB PLTCT 150-400 k/uL Platelet Count 193 LAB MPV 9.0-12.7 fL MPV 9.8 LAB ANEUT % Neut% 74.5 LAB AANEUT 1.45-7.50 k/uL Abs Neut 6.84 LAB ALYMP % Lymph% 14.2 LAB AALYMP 1.00-4.00 k/uL Abs Lymph 1.30 LAB AMONO % Dougherty% 8.5 LAB AAMONO <0.87 k/uL Abs Dougherty 0.78 LAB AEOS % Eosin% 2.1 LAB AAEOS <0.46 k/uL Abs Eosin 0.19 LAB ABASO % Baso% 0.7 LAB AABASO <0.11 k/uL Abs Baso 0.06 LAB AUNRBC 0 /100 WBC NRBCs 0.0 LAB ABNRBC <0.01 k/uL Absolute nRBC <0.01 LAB DTYP DTYPE Auto Diff Performed By: #### CBCDIF, PT, PTT, CK, HAPTO, MBE, CMP, NTBNP #### [facility] [address] [place], [place] [address] PROTIME Collected: 08/26/2017 Status: F Source: [place] 8:12 AM [facility] REPOSITORY TYPE CODE TESTS RESULT OUT OF RANGE REFERENCE UNITS LAB PSEC 9.7-13.0 sec PT Sec 10.6 LAB INR 0.9-1.3 PT INR 1.0 Result Comment: Vitamin K Antagonist (VKA) Therapeutic Range: INR 2 to 3 (Target INR of 2.5) Note: For patients treated with VKA drugs, such as warfarin, the [place] [employer] 2012 Guideline recommends a therapeutic INR range of 2 to 3 (target INR of 2.5). This recommendation includes high-risk patients with antiphospholipid syndrome with previous arterial or venous thromboembolism, current-generation mechanical or bioprosthetic aortic heart valve replacement. Note: Patients with mechanical aortic valve replacement and additional risk factors for thromboembolic events (atrial fibrillation, previous thromboembolism, LV dysfunction, hypercoagulable conditions) or an older generation mechanical AVR (i.e., ball in-Cage) or any mechanical MVR should have a INR therapeutic range of 2.5 to 3.5 (target INR of 3). Jsutina KUMAR, et al. Chest 2012, 141:7S-47S Yasmin RA, et al. [facility] 2017, 70: 252-289 Performed By: #### CBCDIF, PT, PTT, CK, HAPTO, MBE, CMP, NTBNP #### [facility] [address] [place], [place] [address] APTT Collected: 08/26/2017 Status: F Source: [place] 8:12 AM [facility] REPOSITORY TYPE CODE TESTS RESULT OUT OF RANGE REFERENCE UNITS LAB APTT 23.0-32.4 sec APTT 28.0 Result Comment: Unfractionated Heparin Therapeutic Ranges: Standard Heparin Nomogram: 53 to 78 seconds (anti-Xa level of 0.3 to 0.7 U/ml) Low Dose/ACS Nomogram: 49 to 67 seconds (anti-Xa level of 0.2 to 0.5 U/ml) Stroke Treatment Nomogram: 49 to 67 seconds (anti-Xa level of 0.2 to 0.5 U/ml) Note: The APTT therapeutic range has been determined for the current lot of laboratory APTT reagent in use throughout the [facility]. Performed By: #### CBCDIF, PT, PTT, CK, HAPTO, MBE, CMP, NTBNP #### [facility] [address] [place], [place] [address] CK Collected: 08/26/2017 Status: F Source: [facility] 8:12 AM [facility] REPOSITORY TYPE CODE TESTS RESULT OUT OF RANGE REFERENCE UNITS LAB CK 51-298 U/L CK 115 Result Comment: Please note the updated, gender-specific reference range for this test (effective 04/23/2016). Performed By: #### CBCDIF, PT, PTT, CK, HAPTO, MBE, CMP, NTBNP #### [place] [id number] HAPTOGLOBIN Collected: 08/26/2017 Status: F Source: [place] 8:12 AM [facility] REPOSITORY TYPE CODE TESTS RESULT OUT OF REFERENCE UNITS RANGE LAB HAPTO 31-238 mg/dL Haptoglobin 128 Performed By: #### CBCDIF, PT, PTT, CK, HAPTO, MBE, CMP, NTBNP #### [address] [address] CKMB Collected: 08/26/2017 Status: F Source: [place] 8:12 AM [facility] REPOSITORY TYPE CODE TESTS RESULT OUT OF RANGE REFERENCE UNITS LAB MBE1 <7.7 ng/mL CKMB 2.8 Result Comment: Please note the updated, gender-specific reference range for this test (effective 04/24/2016). Performed By: #### CBCDIF, PT, PTT, CK, HAPTO, MBE, CMP, NTBNP #### [id number] [place], [place] [id number] COMP METABOLIC PANEL Collected: 08/26/2017 Status: F Source: [place] 8:12 AM [facility] REPOSITORY TYPE CODE TESTS RESULT OUT OF REFERENCE UNITS RANGE LAB TP 6.3-8.0 g/dL Protein, Total 7.0 LAB ALB 3.9-4.9 g/dL Albumin 4.0 LAB CA 8.5-10.2 mg/dL Calcium, Total 9.2 LAB TBIL 0.2-1.3 mg/dL Bilirubin, Total 1.1 LAB ALKP 36-108 U/L Alkaline Phosphatase 108 LAB AST 14-40 U/L AST 15 LAB GLU 74-99 mg/dL Glucose High 119 Result Comment: The [place] Diabetes Association (ADA) provides guidance for cutoff values for fasting glucose and random glucose. The ADA defines fasting as no caloric intake for at least 8 hours. Fas ting plasma glucose results between 100 to 125 mg/dL indicate increased risk for diabetes (prediabetes). Fasting plasma glucose results greater than or equal to 126 mg/dL meet the criteria for diagnosis of diabetes. In the absence of unequivocal hyperglycemia, results should be confirmed by repeat testing. In a patient with classic symptoms of hyperglycemia or hyperglycemic crisis, random plasma glucose results greater than or equal to 200 mg/dL meet the criteria for diagnosis of diabetes. Reference: Standards of Medical Care in Diabetes 2016, [place] Diabetes Association. Diabetes Care. 2016.39(Suppl 1). LAB BUN 9-24 mg/dL BUN 21 LAB CRET 0.73-1.22 mg/dL Creatinine High 1.44 LAB NA 136-144 mmol/L Sodium 142 LAB K 3.7-5.1 mmol/L Potassium 4.7 LAB CL 97-105 mmol/L Chloride 103 LAB CO2 22-30 mmol/L CO2 26 LAB AGAP 9-18 mmol/L Anion Gap 13 LAB ALT 10-54 U/L ALT 15 LAB GFRAA eGFR- Amer. 58 LAB GFRNAA . eGFR-All Other Races 48 Result Comment: eGFR (Estimated GFR) Units of measure: mL/min/1.73 meters squared eGFR is derived from the reexpressed MDRD Study equation using the following parameters: serum creatinine, age, gender and race. The creatinine assay has been calibrated to be traceable to IDMS. An eGFR <60 mL/min/1.73m2 for >3 months is consistent with chronic kidney disease. Refer to KDOQI guidelines for clinical interpretation. In patients with unstable renal function, e.g. those with acute kidney injury, the eGFR may not accurately reflect actual GFR. Performed By: #### CBCDIF, PT, PTT, CK, HAPTO, MBE, CMP, NTBNP #### [facility] [address] [place], [place] [address] NT PRO BNP Collected: 08/26/2017 Status: F Source: [place] 8:12 AM [facility] REPOSITORY TYPE CODE TESTS RESULT OUT OF REFERENCE UNITS RANGE LAB PBNP <450 pg/mL High PRO B Natr 1342 Peptide Performed By: #### CBCDIF, PT, PTT, CK, HAPTO, MBE, CMP, NTBNP #### [facility] [address] [place], [place] [address] TYPE AND SCR (30D) Collected: 08/26/2017 Status: F Source: [place] 8:12 AM [facility] REPOSITORY TYPE CODE TESTS RESULT OUT OF REFERENCE UNITS RANGE LAB %ABR O ABO/RH(D) POSITIVE LAB % Antibody NEG Screen Performed By: #### [id number] #### [facility] [address] [place], [place] [address] PROGRESS Observed: 08/06/2017 Status: COMPLETED Source: [place] 9:56 PM [facility] REPOSITORY HNO ID: [id number] Author: Liz Skinner Service: (none) Author Type: Physician Type: Progress Notes Filed: 08/06/2017 10:01 PM Note Text: CHART COPY DO NOT DISCARD Patient Type: Consult Visit to determine Surgery: Yes Referring Physician:: SELF HPI: Mr. Tyrel Ruffin is a 77 year old male seen in consultation at the request of Self for opinion regarding treatment options for Aortic Stenosis and high surgical risk. Impression: Based on my evaluation he is a high risk for cardiac surgery and will be better served with a TAVR. Plan: Minimally Invasive, AV Replacement as TRANSCATHETER AORTIC VALVE REPLACEMENT - discussed with Dr Valentine I spent 25 minutes in this visit, with more than 50% of the time devoted to patient counseling. These findings will be communicated back to the requesting physician via electronic medical record Liz Skinner MD HOSP Observed: 07/28/2017 Status: COMPLETED Source: [place] 12:00 AM [facility] REPOSITORY Patient:Tyrel Ruffin MRN: <[id number]> Height:5' 10(1.778 m) Weight:170 lb (77.111 kg) Outpatient Medications as of 08/30/17: amLODIPine (NORVASC) 5 mg tablet atorvastatin (LIPITOR) 20 mg tablet metoprolol succinate ER (TOPROL XL) 50 mg 24 hr tablet aspirin, enteric coated (ASPIRIN, ENTERIC COATED) 81 mg EC tablet Admission/Clinic Administered Medications as of 08/30/17: Patient has no admission medications. Problem List: Aortic dissection (HCC) [I71.00] Atrial fibrillation, chronic (HCC) [I48.2] Hyperlipidemia [E78.5] Primary hypertension [I10] Word finding difficulty [R47.89] AAA (abdominal aortic aneurysm) without rupture (HCC) [I71.4] Aphasia [R47.01] Allergies: Amoxacillin [Amoxicillin] Codeine Date Verified: 08/30/17 Lab Values Lab Value Units Date High Low POTA* 4.5 mmol/L 08/26/2017 5.1 3.7 DAXA* 47.4 % 08/26/2017 51.0 39.0 Progress Notes ([facility]): Jackson Rivero MD, MD 08/26/2017 4:16 PM Signed [facility] PRE[facility] EVALUATION CARDIOTHORACIC ANESTHESIA CARDIAC SURGERY SERVICE DATE: 08/26/2017 SERVICE TIME: 2:44 PM Proposed Surgical Procedure: TAVR Re-do: No ASA Class: 4 Surgeon: Serge Surgery Date: 08/30/2017 Last Wt 08/26/17 : 77.1 kg (170 lb) Last Ht 08/26/17 : 177.8 cm (5' 10) Estimated body mass index is 24.54 kg/(m2) as calculated from the following: Height as of an earlier encounter on 08/26/17: 177.8 cm (5' 10). Weight as of an earlier encounter on 08/26/17: 77.6 kg (171 lb). Estimated body surface area is 1.96 meters squared as calculated from the following: Height as of an earlier encounter on 08/26/17: 177.8 cm (5' 10). Weight as of an earlier encounter on 08/26/17: 77.6 kg (171 lb). Mr. 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 Pt reports having increasing SOB and LEON. He is scheduled to undergo TF-TAVR on 08/30/[address] Valentine. Pt was sent to the ED the day of preoperative evaluation and testing for AFib w/ RVR, which was subsequently rate controlled after metoprolol 5mg IV x2. Active Problems: * No active hospital problems. * Resolved Problems: * No resolved hospital problems. * PAST MEDICAL HISTORY Diagnosis Date - AAA (abdominal aortic aneurysm) (HCC) - Aortic dissection distal to left subclavian (HCC) - Aortic stenosis - Atrial fibrillation (HCC) 2011 - Family history of early CAD - History of smoking - HTN (hypertension) 2013 - Hyperlipidemia 2013 - Intraparenchymal hemorrhage of brain (HCC) 2013 chronic L parietal ICH October 2013 w/ no significant residual deficit. PAST SURGICAL HISTORY Procedure Laterality Date - TONSILLECTOMY HX FAMILY HISTORY Problem Relation Age of Onset - Hypertension Mother age 90 from internal bleeding - Stroke Father 80 age 84 - Myocardial infarction [OTHER] Brother 70 Social History Substance Use Topics - Smoking status: Former Smoker Packs/day: 1.50 Years: 59.00 Quit date: 07/02/2012 - Smokeless tobacco: Never Used - Alcohol use Yes Comment: occasional ALLERGIES Allergen Reactions - Amoxacillin [Amoxic* Mental Status Change - Codeine Other: See Comments irregular heart beat REVIEW OF SYSTEMS: Neuro: Prior TIA Respiratory: No history of current cough or dyspnea, or pneumonia in the past 6 weeks. No history of respiratory/pulmonary symptoms or problems Cardiovascular: Positive for: Arrhythmia, Afib/Aflutter, HLD, Hypertension, Valvular Heart Disease GI: No history of GI symptoms or problems. No history of esophageal varices, recent ascites, or ETOH greater than 2 drinks per day. Endocrine: No history of diabetes. Has not taken steroids within the past 30 days. No history of endocrinological symptoms or problems. Hematology: No history of bleeding or clotting disorder. Pt is not taking anti-coagulation or platelet medications. No history of hematological symptoms or problems. CKD AND ANEMIA ASSESSMENT: Patient has both eGFR < 60 mL/min and a Hemoglobin < 11 g/dl: No if the patient is going on CPB. ANESTHETIC HISTORY: No history of prior anesthesia AIRWAY ASSESSMENT: Airway History: No abnormal airway history Airway Exam: General: Normal appearance Mallampati Score: CLASS II Temporo-Mandibular Displacement Test: Position A (lower teeth can be advanced beyond upper teeth) Interincisor Distance: 6 cm Thyromental Distance: 6 cm Neck Circumference: 40 cm Overbite: No Cervical Mobility: Normal Facial Hair: No Head/Neck Pathology: No ANTICIPATED DIFFICULT AIRWAY: NO Pre-Existing Diagnosis of Obstructive Sleep Apnea: No, STOP BANG SCORE: Criteria = Criteria: Age over 50 (77 year old) Male gender Score = 2, Score = 2 PHYSICAL EXAM: VITALS: There were no vitals taken for this visit. CARDIAC: Not assessed. LUNGS: Not assessed. Lines, Drains, Airway: Patient has no lines, drains or airway LABS: Lab Results Past 6 Months Component Value Date HB 15.7 08/26/2017 HCT 47.4 08/26/2017 PLT 191 08/26/2017 WBC 9.27 08/26/2017 NA 141 08/26/2017 K 4.5 08/26/2017 CREAT 1.40 (H) 08/26/2017 CA 9.2 08/26/2017 APTT 28.0 08/26/2017 INR 1.0 08/26/2017 Lab Results Past 6 Months Component Value Date GLUC 117 (H) 08/26/2017 K 4.5 08/26/2017 NA 141 08/26/2017 CHLOR 103 08/26/2017 CO2 27 08/26/2017 CREAT 1.40 (H) 08/26/2017 BUN 21 08/26/2017 ANION 11 08/26/2017 CA 9.2 08/26/2017 TPROT 7.6 08/26/2017 ALB 4.2 08/26/2017 TBILI 1.2 08/26/2017 ALKPHOS 114 (H) 08/26/2017 AST 17 08/26/2017 ALT 20 08/26/2017 ABO Group (no units) Date Value 12/15/2013 O ABO/RH(D) (no units) Date Value 08/26/2017 O POSITIVE Antibody Screen (no units) Date Value 08/26/2017 NEG Historical Ab Scr Status (no units) Date Value 08/26/2017 NEGATIVE Anticipated Blood Products Ordered: Ordered 2 units of PRBC. Will the Patient Accept Blood: Yes IMAGING AND TESTS: CT SCAN, 07/02/17: IMPRESSION: 1. ?Thickened and heavily calcified tricuspid aortic valve with severely reduced valve opening. ?Aortic valve orifice area = 0.8 cm2. The aortic annulus measures 2.6 x 1.8 cm; cross-sectional area = 3.5 cm2; circumference = 6.9 cm. 2. ?The thoracic aorta is normal in course and caliber. ?A short dissection flap is imaged in the proximal segment of the left subclavian artery, which is otherwise patent. Moderate partially calcified, atherosclerotic changes in the aortic arch, and significant, mixed atherosclerotic changes throughout the descending thoracic aorta. 3. ?Diffuse atherosclerotic changes throughout, and an infrarenal abdominal aortic aneurysm with significant adherent wall thrombus, surrounded by circumferential calcification (4.8 x 4.3 cm). 4. ?The pelvic arteries are tortuous with moderate calcification. ?The external iliac and common femoral arteries bilaterally are small in caliber. The minimal luminal caliber throughout = 5 mm (right external iliac artery). 5. 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 6. ?7 mm pleural-based non-calcified nodule in the left lingula. Incidental Finding: ?Follow-up for this incidentally detected lung nodule chest CT exam is recommended in 6-12 months. If stable on follow-up imaging, a repeat chest CT exam in 12 months (18-24 months from the initial exam) is recommended. ECG, 08/26/17: ATRIAL FIBRILLATION WITH RAPID VENTRICULAR RESPONSE WITH PREMATURE VENTRICULAR COMPLEXES, AGE UNDETERMINED ABNORMAL ECG ? Ventricular Rate : 153 ?BPM Atrial Rate : 178 ?BPM QRS Duration : 62 ?ms Q-T Interval : 272 ?ms QTC Calculation(Bezet) : 434 ?ms ECHO, 01/12/17: LEFT VENTRICLE The left ventricle is small. Left ventricular systolic function is normal. Left ventricular diastolic function was not evaluated due to AF. Wall Motion: All scored segments are normal. ? ? RIGHT VENTRICLE The right ventricle is normal in size. Right ventricular systolic function is normal. RV systolic tissue Doppler velocity ?is 8.0 cm/s.?Tricuspid annular displacement is 1.8 cm. Estimated right ventricular systolic pressure is 28 mmHg consistent with normal pulmonary artery pressures. Estimated right atrial pressure is 0 mmHg. ? LEFT ATRIUM The left atrial cavity is normal in size. ? RIGHT ATRIUM The right atrial cavity is normal in size. Inferior Vena Cava: The inferior vena cava appears small measuring 1.2 cm. The vessel decreases greater than 50 percent with inspiration. AORTIC VALVE There is low flow, low gradient, severe aortic valve stenosis caused by calcified valve. There is trivial aortic valve regurgitation. The peak gradient is 31 mmHg (peak velocity = 279.8 cm/s). The mean gradient is 19 mmHg. The LVOT mean velocity ?is 49.7 cm/s. The LVOT diameter is 2.0 cm. The aortic VTI is 52.5 cm. The mean velocity in the aortic valve is 207.1 cm/s. The dimensionless valve index is 0.24. ?AV area is 0.75 cm? (0.39 cm?/m?) by continuity, VTI. The LVOT stroke volume index is 20 ml/m?. ? AORTA The visualized aorta is normal in size. Measurements - Sinus 2.1 cm. Sinotubular junction 2.5 cm. Mid ascending aorta 2.8 cm. PERICARDIUM There is trivial pericardial effusion adjacent to the right atrium. ? CONCLUSIONS: - Technically difficult exam due to suboptimal positioning and body habitus. - Exam indication: Sustained atrial fibrillation - The left ventricle is small. Left ventricular systolic function is normal. EF = 58 ? 5% (2D biplane) Left ventricular diastolic function was not evaluated due to AF. - The right ventricle is normal in size. Right ventricular systolic function is normal. - There is paradoxical low flow, low gradient, severe aortic valve stenosis caused ?by calcified valve. AV area is 0.75 cm? (0.39 cm?/m?) by continuity, VTI. The peak gradient is 31 mmHg, the mean gradient is 19 mmHg and the dimensionless valve ?index is 0.24. - Exam was compared with the prior CC echocardiographic exam performed on 01/07/2017. we will have better?visualization of the aortic valve on TAIWO later today. HEART CATHETERIZATION, 03/03/17: Coronary Anatomy: Co-Dominant Injection Site(s): Left Main Coronary Artery and Right Coronary Artery LMT: - The LMT is normal. LAD: - The LAD has mild luminal irregularities. - The 1st diagonal is narrowed 35 % - mild diffuse disease. LCX: - The Circumflex is normal. RAMUS: - The Ramus is Absent. RCA: - The RCA has mild luminal irregularities. DEVICES: N/A MEDICATIONS: Current Outpatient Prescriptions: amLODIPine (NORVASC) 5 mg tablet Take 1 tablet by mouth once daily. atorvastatin (LIPITOR) 20 mg tablet Take 1 tablet by mouth once daily. metoprolol succinate ER (TOPROL XL) 50 mg 24 hr tablet Take 1 tablet by mouth once daily. aspirin, enteric coated (ASPIRIN, ENTERIC COATED) 81 mg EC tablet Take 81 mg by mouth once daily. No current facility-administered medications for this visit. Is the patient currently on any anticoagulant medications: Yes: Anticoagulant medications the patient is currently on: Aspirin: Last dose: still taking This was adequately stopped before surgery: No, primary service aware. PAIN AND ANXIETY EDUCATION AND MANAGEMENT: Patient has no concerns to address at this time. Additional Comments: I have reviewed the Cardiothoracic Surgical Assessment and agree with its findings. During the course of the encounter the patient was prepared for anesthetic care. This conversation included anesthetic options, possible use of invasive monitoring, the risks, benefits, alternatives, and personnel that will be present for the anesthetic encounter. The patient agreed to proceed with the planned anesthetic. Instructed to take metoprolol, aspirin, atorvastatin, and amlodipine with a small sip of water on the morning of surgery. Instructed nothing to eat or drink after midnight the night before surgery. Patient voiced understanding of these instructions. BETA PAT COMPLIANCE: Is the Patient Scheduled for a CABG: No SIGNATURE: Chau Cintron MD PATIENT NAME: Tyrel Ruffin DATE: August 26, 2017 TIME: 2:44 PM PAGER/CONTACT #: Previous Version Progress Notes (): Oh Dc FLOOR SPECIALIST, FLOOR SPECIALIST 08/26/2017 9:44 AM Signed CMET called due to abnormal heart rhythm. Patient alert and oriented. No respiratory distress noted. Sats 99% on room air. Patient transferred to ED for further care. Adelita Anders, RN, RN 08/26/2017 9:13 AM Signed Bed: E18-10 Expected date: Expected time: Means of arrival: Comments: VIVEK Epperson MD, MD 08/28/2017 11:08 AM Signed ED Provider Note Patient Name: Tyrel Ruffin SERVICE DATE: 08/26/17 History Patient presents with: A-fib: while at ekg lab for pre op for valve replacement HPI Comments: 77-year-old male with past medical history of atrial fibrillation, hypertension, aortic stenosis, aortic dissection, AAA presents to the ED brought in by EMS for A. Fib. Patient was at outpatient appointment and noted to be in A. Fib with RVR. He states that he is chronically in A. Fib. He does not take anticoagulation. He is scheduled to have aortic valve replacement on Wednesday. He denies any associated chest pain or shortness of breath unchanged from baseline. He denies any swelling of the lower extremities. He reports that they drove in from out of town last night and he forgot to bring his medications withhim therefore did not take his home medication yesterday or today. 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 PAST SURGICAL HISTORY Procedure Laterality Date - TONSILLECTOMY HX FAMILY HISTORY Problem Relation Age of Onset - Hypertension Mother age 90 from internal bleeding - Stroke Father 80 age 84 - Myocardial infarction [OTHER] Brother 70 Social History Social History Main Topics - Smoking status: Former Smoker Packs/day: 1.50 Years: 59.00 Quit date: 07/02/2012 - Smokeless tobacco: Never Used - Alcohol use Yes Comment: occasional - Drug use: No - Sexual activity: Not Asked ALLERGIES Allergen Reactions - Amoxacillin [Amoxic* Mental Status Change - Codeine Other: See Comments irregular heart beat Review of Systems Constitutional: Negative for chills and fever. HENT: Negative for congestion. Respiratory: Negative for cough and shortness of breath. Cardiovascular: Negative for chest pain, palpitations and leg swelling. Gastrointestinal: Negative for abdominal pain. Musculoskeletal: Negative for back pain. Skin: Negative for rash. Allergic/Immunologic: Negative for immunocompromised state. Neurological: Negative for headaches. Hematological: Does not bruise/bleed easily. Psychiatric/Behavioral: Negative for agitation and behavioral problems. Physical Exam BP 128/82 Pulse 86 Temp (Src) 99 (Oral) Resp 12 Ht 5' 10 (1.78m) Wt 170 lb (77.1kg) SpO2 98% BMI 24.39 kg/(m2). Physical Exam Constitutional: He is oriented to person, place, and time. He appears well-developed and well-nourished. HENT: Head: Normocephalic and atraumatic. Eyes: Conjunctivae are normal. Neck: Neck supple. Cardiovascular: Normal pulses. An irregularly irregular rhythm present. Tachycardia present. Pulses: Radial pulses are 2+ on the right side, and 2+ on the left side. Pulmonary/Chest: Effort normal and breath sounds normal. Neurological: He is alert and oriented to person, place, and time. Skin: Skin is warm and dry. Psychiatric: He has a normal mood and affect. His behavior is normal. Nursing note and vitals reviewed. Diagnostic Testing ED Labs Ordered and Reviewed COMP METABOLIC PANEL - Abnormal; Notable for the following: Result Value Ref Range Alkaline Phosphatase 114 (*) 36 - 108 U/L Glucose 117 (*) 74 - 99 mg/dL Creatinine 1.40 (*) 0.73 - 1.22 mg/dL All other components within normal limits CBC + DIFF TROPONIN T CK TOTAL AND CK-MB MAGNESIUM BLD XR CHEST 1V FRONTAL PORT Final Result IMPRESSION: NO ACUTE FINDINGS. Alarm Operator: JUNE Transcribe Date/Time: Aug 26 2017 9:43A Dictated by : SHANE NEWBERRY MD This examination was interpreted and the report reviewed and electronically signed by: DONTRELL GAXIOLA MD on Aug 26 2017 10:38AM EST EKG Review/Interpretation: The patient's EKG was reviewed and demonstrated a atrial fibrillation at 153 beats per minute with occasional PVCs, normal axis, normal intervals, reviewed and interpreted by Dr. Epperson. No additional acute changes are noted. Procedures Medical Decision Making / ED Course ED Course 77-year-old male presents to the emergency department with tachycardia sent from outpatient appointment. Patient has known atrial fibrillation and states that he is always in A. fib. Did not take blood pressure or rate control medications last night. Pt noted to be tachycardic on arrival, given 5mg IV metoprolol and home dosage of PO amlodipine. Remained tachycardic and was given additional 5mg IV metoprolol. Blood pressure was remained stable at 130/89. Heart rate was improved to low 100s. Pt remained chest pain free and did not have any SOB. Labs ordered: - CBC- No leukocytosis or anemia - CMP-Baseline elevation in creatinine, normal electrolytes - Magnesium- 2.2 - Troponin- no elevation - CKMB- no elevation Imaging ordered: CXR- no acute findings. - Diagnostic images were personally reviewed by me. At the time of discharge heart rate had improved to 86 bpm, blood pressure stable at 128/82 with good oxygen saturation. I have low concern for ACS, ischemia, electrolyte abnormality, to be a component of the patients rapid ventricular response at this time. The elevated heart rate was likely secondary to not taking medication for rate control yesterday or today. At this time, the most likely Dx is: Atrial fibrillation. Pt discharged home in good condition. Pt instructed to f/u with Cardiology in 7 days and encouraged to return to ED if symptoms worsen or if new symptoms develop. Encounter Diagnosis ICD-10-CM 1. Chronic atrial fibrillation (HCC) I48.2 Plan The Patient was DISCHARGED: Counseled patient regarding lab results AND radiology results AND suspected diagnosis AND need for follow-up. Discharged home with verbal and written instructions. They were instructed to return as needed for persistent or worsening symptoms or any new concerns. Condition at time of disposition: improved and stable SIGNATURE: GODWIN Church Pa-C, PA 08/26/17 1214 Attending Note I have personally performed a face to face assessment of the patient and have reviewed the PA/REHABILITATION AIDE/SCHEDULER note. My rosado findings include: Patient present for rapid afib from cards office. Forgot to take meds last pm. Asymptomatic. Chronic Afib. PE: alert oriented wpwh Card: rapid irreg with sys m Chest: no rales or wheezing EKG: rev/interp by me. Rapid afib with rate dependent changes, No ventricular ectopy CXR: rev/interp by me. Chronic changes, no acute infiltrate or effusion Routine labwork unremarkable for patient. MDM: Pt with asymptomatic rapid afib despite sig . No failure or symptoms of ACS.. Repeated dosing metoprolol and reassessment with regulation of HR.Pt referred back to cards appt. Dx: afib with RVR Other additions or changes: None Signature: Liz Epperson MD Date: 08/28/2017 Time: 10:59 AM Liz Epperson MD 08/28/17 1108 Previous Version Kaylen Ruano RN, RN 08/26/2017 9:28 AM Signed - Nursing Plan of Care initiated- -- Care Assumed -- Acknowledged patient /family -- Initiated monitoring -- Monitor vital signs -- Continue to monitor for safety and comfort -- Bed rails x [address] low and [address] -- Call solorio in reach -- Education given on complaint specific Plan of Care: *Labs *Imaging * Medications * Length of stay Patient brought in by vivek for afib with rvr, he is completely asymptomatic but reports more leon in the last several months. He was at the ekg clinic for pre op testing and is having valve replacement Wednesday. ABC's intact, breath sounds equal and clear bilaterally , RR even and unlabored, abdomen is round soft and non-tender, TADEO's x 4 and follows commands. Kaylen Ruano RN, RN 08/26/2017 9:32 AM Signed PCXR AT . RT Randal 08/26/2017 9:39 AM Signed Radiology Service Progress Note PATIENT NAME: Tyrel Ruffin DATE OF SERVICE: August 26, 2017 TIME: 9:38 AM PATIENT IDENTITY VERIFICATION COMPLETED USING TWO (2) METHODS: Patient confirmed name verbally and ID band matches.. PATIENT GENDER DATA: Male PATIENT RELEVANT IMPLANT DATA REVIEWED: Yes RADIOLOGY DEPARTMENT: General X-ray: Exam(s) Completed: Chest X-Ray PERIPHERAL IV DATA: Not applicable SIGNED BY: RT Randal August 26, 2017 9:38 AM Tamiko Lauren, RN, RN 08/26/2017 12:33 PM Signed Discharge instructions given. Patient verbalizes understanding. IV discontinued, catheter tip intact, bleeding controlled. Follow up instructions given. Discharge vitals obtained BP 128/82 Pulse 86 Temp 37.2 ?C (99 ?F) (Oral) Resp 12 Ht 177.8 cm (5' 10) Wt 77.1 kg (170 lb) SpO2 98% BMI 24.39 kg/m2 . NAD noted upon discharge back to pre-op. Discharge complete. PROGRESS Observed: 07/05/2017 Status: COMPLETED Source: [place] 10:26 AM [facility] REPOSITORY HNO ID: [id number] Author: Tatyana Neal (Cns) Service: (none) Author Type: Nurse Specialist Type: Progress Notes Filed: 07/05/2017 10:28 AM Note Text: MULTI DISCIPLINARY HIGH RISK AVR CARDIAC TEAM Members present: Dr. Sanchez, Dr. Renae, Dr. Watkins, Dr. Carlos, , Dr. Posadas, Dr. Ruvalcaba, Dr. Pathak, Joselin REESE, Stephen REESE, Baljit Bee RN Presenting Physician: Dr Sanchez on behalf of Dr Valentine PATIENT NAME: Tyrel Ruffin DATE: July 05, 2017 Outcome: Tyrel Ruffin 's history and imaging were reviewed by the physicians in attendance. CTA images reviewed. RT renal artery stenosis. Dr Valentine discussed case with Dr. Skinner. The collaborative recommendation would be TAVR, Castillo Daryl 3, transfemoral approach These recommendations will be communicated to the patient by our office. TAVR procedure scheduling will be handled by Our Office (Intervention). Tatyana Neal RN [facility] Observed: 07/05/2017 Status: COMPLETED Source: [place] 12:00 AM [facility] REPOSITORY Patient Update (CATHMN) TYREL RUFFIN ([id number]) 1940 M Date Time Provider Department 07/05/17 TATYANA NEAL (HUGH) CATHMN During your visit today, we recorded the following information about you: DEEPTHI Diamond 07/05/2017 10:28 AM Signed MULTI DISCIPLINARY HIGH RISK AVR CARDIAC TEAM Members present: Dr. Sanchez, Dr. Renae, Dr. Watkins, Dr. Carlos, , Dr. Posadas, Dr. Ruvalcaba, Dr. Pathak, Joselin REESE, Stephen REESE, Baljit Bee RN Presenting Physician: Dr Sanchez on behalf of Dr Valentine PATIENT NAME: Tyrel Ruffin DATE: July 05, 2017 Outcome: Tyrel Ruffin 's history and imaging were reviewed by the physicians in attendance. CTA images reviewed. RT renal artery stenosis. Dr Valentine discussed case with Dr. Skinner. The collaborative recommendation would be TAVR, Castillo Daryl 3, transfemoral approach These recommendations will be communicated to the patient by our office. TAVR procedure scheduling will be handled by Our Office (Intervention). Tatyana Neal RN CONSTRUCTION DRIVER Allergies As of Date: 07/05/2017 Noted Allergy Reaction AMOXACILLIN (AMOXICILLIN) 07/02/2017 1 - Mental Status Change CODEINE 01/07/2017 14 - Other: See Comments Comments: irregular heart beat Date Reviewed: 07/02/2017 Reviewed by: Awilda Xavier) [place] - Fully Assessed Reason for Visit: Patient Update [1234] Cmt: TAVR Team Review Prescriptions as of 07/05/2017 Sig: METOPROLOL SUCCINATE ER 50 MG* Take 50 mg by mouth once joel* ATORVASTATIN 20 MG TABLET Take 20 mg by mouth once joel* AMLODIPINE 5 MG TABLET Take 5 mg by mouth once daily. ASPIRIN 81 MG TABLET,DELAYED * Take 81 mg by mouth once joel* Problem List As Of Date 07/05/2017 Noted Resolved Aortic dissection (HCC) [I71.00] INVALID FOR* Atrial fibrillation, chronic (HCC) [I48.2] INVALID FOR* Priority: C More... Hyperlipidemia [E78.5] INVALID FOR* Priority: E More... Primary hypertension [I10] INVALID FOR* Priority: D More... Word finding difficulty [R47.89] INVALID FOR* More... AAA (abdominal aortic aneurysm) without rupture*INVALID FOR* Priority: A More... Aphasia [R47.01] INVALID FOR* Priority: A More... Encounter Status:Closed by ÁNGEL LACEY CONSTRUCTION DRIVER, TATYANA Perry on 07/05/17 PROGRESS Observed: 07/02/2017 Status: COMPLETED Source: [place] 11:44 AM [facility] REPOS[facility] O ID: [id number] Author: Carolina Willson Ct Service: (none) Author Type: (none) Type: Progress Notes Filed: 07/02/2017 11:50 AM Note Text: Radiology Service Progress Note PATIENT NAME: Tyrel Ruffin DATE OF SERVICE: July 02, 2017 TIME: 11:45 AM PATIENT IDENTITY VERIFICATION COMPLETED USING TWO (2) METHODS: Patient confirmed name verbally and ID band matches.. PATIENT GENDER DATA: Male PATIENT RELEVANT IMPLANT DATA REVIEWED: Yes RADIOLOGY DEPARTMENT: CT; Exam(s) Completed: Cardiac PERIPHERAL IV DATA: Site assessment: Clean,Dry and Intact, Site disposition Discontinued SIGNED BY: Carolina Willson Ct July 02, 2017 11:45 AM CTA C/A/P (GATED) W Observed: 07/02/2017 Status: F Source: [place] IVCON 11:44 AM [facility] REPOSITORY * * *Final Report* * * DATE OF EXAM: Jul 02 2017 11:44AM JQC 0133 - CTA C/A/P (GATED) W IVCON / PROCEDURE REASON: multiple diagnoses * * * * Physician Interpretation * * * * CTA chest, abdomen and pelvis dated 07/02/2017 11:44 AM. Comparison: None available. Indication: 77-year-old male with a past history of left subclavian artery dissection, infrarenal abdominal aortic aneurysm, and chronic atrial fibrillation, presents for evaluation prior to potential transcatheter aortic valve replacement. Technique: Multi-detector CT technology was employed (Siemens Somatom Force dual source scanner). Initially, a retrospectively gated acquisition was performed of the chest limited to the aortic valve for dynamic 4D evaluation following intravenous contrast. Subsequently, spiral imaging with high-pitched acquisition was performed of the chest, abdomen and pelvis without additional intravenous contrast. An additional delayed phase was also performed, limited to the chest. A low-osmolar contrast agent was used (120 cc of Omnipaque 350). CT Dose-Length Product (DLP): [address] Dose Reduction Employed: Yes For optimization of anatomic evaluation, multiplanar reconstruction, maximum intensity projections, and advanced 3-D off-line postprocessing were performed on a dedicated stand-alone workstation under the direct supervision of the interpreting physician. RESULT: Potential study limitations: None. CHEST: The chest wall, mediastinum, pericardium and central pulmonary arteries are unremarkable. Numerous prominent mediastinal and hilar lymph nodes (the largest measuring 1.1 cm). Additionally, there are calcified mediastinal and left hilar lymph nodes. Small hiatal hernia. Lung windows reveal mild pleural thickening in the apices bilaterally. There is a calcified nodule in the left upper lobe. There is a 7 mm pleural-based non-calcified nodule in the left lingula (Series 9, Image 64). There is no significant pulmonary parenchymal infiltrate or pleural effusion. The cardiac chambers demonstrate normal atrioventricular and ventriculoarterial concordance, and systemic and pulmonary venous return. Mild right atrial enlargement. No mitral annular calcification. A filling defect is noted at the tip of the left atrial appendage, which cleared on delayed phase imaging, consistent with slow flow. The coronary arteries have normal origins and courses. There are moderate scattered coronary calcifications identified, mainly in the proximal LAD, though this study was not optimized for coronary artery evaluation. VASCULAR WITH ADVANCED 3-D OFF-LINE POSTPROCESSING: Dedicated 4D dynamic imaging of the aortic root demonstrates a thickened and heavily calcified tricuspid aortic valve. Cusp size and root anatomy are symmetric. There is severely limited excursion of the valve cusps. Aortic valve orifice area = 0.8 cm2. The aortic annulus measures 2.6 x 1.8 cm; cross-sectional area = 3.5 cm2; circumference = 6.9 cm. The thoracic aorta is normal in course and caliber. The arch vessel branching pattern is normal. A short dissection flap is imaged in the proximal segment of the left subclavian artery, which is otherwise patent. Mild calcification in the sinotubular junction above the origins of the coronary arteries. Moderate partially calcified, atherosclerotic changes in the aortic arch, including in the mid aortic arch, where there is prominent, non-calcified atherosclerotic plaque. In the descending thoracic aorta, and there are significant, mixed atherosclerotic changes throughout. The abdominal aorta is notable for diffuse atherosclerotic changes throughout, and an infrarenal abdominal aortic aneurysm with significant adherent wall thrombus, surrounded by circumferential calcification. Reuse Technician dimensions of the abdominal aorta are as follows: 2.4 cm at the supramesenteric segment 2.2 cm at the mesenteric segment 2.0 cm at the renal segment 4.8 x 4.3 cm at the infrarenal abdominal aortic aneurysm The celiac axis and SMA appear patent proximally. There is severe stenosis at the ostium of the single right renal artery. The single left renal artery appears patent proximally. The SAMANTHA is not clearly identified, and is likely occluded. The pelvic arteries are tortuous with moderate calcification. The external iliac and common femoral arteries bilaterally are small in caliber. The minimal luminal caliber throughout = 5 mm (right external iliac artery). ABDOMEN: The liver, gallbladder, spleen and pancreas appear unremarkable, aside from fatty atrophy of the pancreas. Mild, non-specific thickening of the adrenal glands. The right kidney smaller than the left kidney. Bilateral cystic appearing kidney lesions (the largest measuring 2.5 cm in the left kidney). PELVIS: There is no significant retroperitoneal adenopathy. No free fluid or free air within the abdomen or pelvis. The bowel appears unremarkable on this non-GI contrast examination. The urinary bladder appears normal. Punctate calcification in the prostate gland. BONES: Mild degenerative changes. No destructive osseous lesions. IMPRESSION: 1. Thickened and heavily calcified tricuspid aortic valve with severely reduced valve opening. Aortic valve orifice area = 0.8 cm2. The aortic annulus measures 2.6 x 1.8 cm; cross-sectional area = 3.5 cm2; circumference = 6.9 cm. 2. The thoracic aorta is normal in course and caliber. A short dissection flap is imaged in the proximal segment of the left subclavian artery, which is otherwise patent. Moderate partially calcified, atherosclerotic changes in the aortic arch, and significant, mixed atherosclerotic changes throughout the descending thoracic aorta. 3. Diffuse atherosclerotic changes throughout, and an infrarenal abdominal aortic aneurysm with significant adherent wall thrombus, surrounded by circumferential calcification (4.8 x 4.3 cm). 4. The pelvic arteries are tortuous with moderate calcification. The external iliac and common femoral arteries bilaterally are small in caliber. The minimal luminal caliber throughout = 5 mm (right external iliac artery). 5. Severe stenosis at the ostium of the single right renal artery. 6. 7 mm pleural-based non-calcified nodule in the left lingula. Incidental Finding: Follow-up for this incidentally detected lung nodule chest CT exam is recommended in 6-12 months. If stable on follow-up imaging, a repeat chest CT exam in 12 months (18-24 months from the initial exam) is recommended. Alarm Operator: PSCB Transcribe Date/Time: Jul 02 2017 1:02P Dictated by : DORIS ELIZABETH MD This examination was interpreted and the report reviewed and electronically signed by: JOSELINE MOSQUERA MD on Jul 02 2017 2:25PM EST [id number] PROGRESS Observed: 07/02/2017 Status: COMPLETED Source: [place] 11:21 AM [facility] HNO ID: [id number] Author: Racheal (Rn) DEEPTHI Garcia Service: Radiology Author Type: Registered Nurse Type: Progress Notes Filed: 07/02/2017 11:32 AM Note Text: Radiology Service Progress Note PATIENT NAME: Tyrel Ruffin DATE OF SERVICE: July 02, 2017 TIME: 11:21 AM PATIENT WEIGHT: 170 LBS PATIENT IDENTITY VERIFICATION COMPLETED USING TWO (2) METHODS: Patient confirmed name verbally and Date of . PATIENT GENDER DATA: Male CONTRAST INDUCED NEPHROPATHY RISK FACTORS: Patient age > 60 years CREATININE: Creatinine Date Value Ref Range Status 03/03/2017 1.21 0.73 - 1.22 mg/dL Final 01/13/2017 1.27 (H) 0.73 - 1.22 mg/dL Final 01/12/2017 1.26 (H) 0.73 - 1.22 mg/dL Final eGFR-All Other Races Date Value Ref Range Status 03/03/2017 58 . Final Comment: eGFR (Estimated GFR) Units of measure: mL/min/1.73 meters squared eGFR is derived from the reexpressed MDRD Study equation using the following parameters: serum creatinine, age, gender and race. The creatinine assay has been calibrated to be traceable to IDMS. An eGFR <60 mL/min/1.73m2 for >3 months is consistent with chronic kidney disease. Refer to KDOQI guidelines for clinical interpretation. In patients with unstable renal function, e.g. those with acute kidney injury, the eGFR may not accurately reflect actual GFR. eGFR- Date Value Ref Range Status 03/03/2017 >60 Final P.O.C.T. RESULTS: POC done: Yes, See Lab Tab July 02, 2017 TREATMENT: No Hydration needed. ALLERGIES: Reviewed and unchanged CONTRAST ALLERGY: NO. IV SITE: Ambulatory: A peripheral IV was started in the Left antecubital site with a Angio cath: 20 gauge. and A Saline lock was inserted per protocol IV SITE APPEARANCE: Clean,Dry and Intact SIGNED BY: Racheal Garcia RN July 02, 2017 11:21 AM PROGRESS Observed: 07/02/2017 Status: COMPLETED Source: [place] 10:38 AM [facility] RE[facility] O ID: [id number] Author: Trupti Valentine MD Service: (none) Author Type: Physician Type: Progress Notes Filed: 07/02/2017 1:15 PM Note Text: [facility] [place] [facility] Department of Cardiovascular Medicine SECTION OF INTERVENTIONAL CARDIOLOGY OUTPATIENT VISIT DATE July 02, 2017 OUTPATIENT VISIT TYPE ESTABLISHED PRIMARY CARE PHYSICIAN: Billy Nieves MD ([facility]) [address] [place] [address] CHIEF COMPLAINT: Patient presents with: TAVR/Watchman evaluation HISTORY OF PRESENT ILLNESS: Mr. Ruffin is a 77 year old male who presents today for follow-up visit for and AF/ intracranial hemorrhage. Patient is getting more SOB. He is otherwise young but he has intracranial hemorrhage and TIA. He is candidate for potential watchman. He has recovered well since last time I saw him. He is tired and otherwise well. He denies chest pain, PND, palpitations, lightheadedness, syncope, claudication and leg swelling. 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 PAST SURGICAL HISTORY Procedure Laterality Date - TONSILLECTOMY HX SOCIAL HISTORY Social History Substance Use Topics - Smoking status: Former Smoker Packs/day: 1.50 Years: 59.00 Quit date: 07/02/2012 - Smokeless tobacco: Never Used - Alcohol use Yes Comment: occasional FAMILY HISTORY Problem Relation Age of Onset - Hypertension Mother age 90 from internal bleeding - Stroke Father 80 age 84 - Myocardial infarction [OTHER] Brother 70 ALLERGIES: ALLERGIES Allergen Reactions - Amoxacillin [Amoxic* Mental Status Change - Codeine Other: See Comments irregular heart beat MEDICATIONS: metoprolol succinate ER (TOPROL XL) 50 mg 24 hr tablet Take 50 mg by mouth once daily. atorvastatin (LIPITOR) 20 mg tablet Take 20 mg by mouth once daily. amLODIPine (NORVASC) 5 mg tablet Take 5 mg by mouth once daily. iv contrast (radiology procedure) CTA CHST/ABD/PEL. No IV access, insert saline lock prior to the sedation, infusion, injection for imaging exam. Discontinue saline lock post exam. If Pt. has a central line or IVAD, may access for administration according to line specific nursing protocol. Once exam is complete flush line and de-access according to line specific nursing protocol in the CT contrast administration guidelines link. aspirin, enteric coated (ASPIRIN, ENTERIC COATED) 81 mg EC tablet Take 81 mg by mouth once daily. REVIEW OF SYSTEMS: HEENT: Denies recent severe headaches, visual changes, difficulty swallowing. GASTROINTESTINAL: Denies melena, hematochezia, heartburn. GENITOURINARY: Denies hematuria. MUSCULOSKELETAL: Denies claudication or muscle myalgias. NEUROLOGIC: Denies unilateral paralysis, slurred speech. SKIN: Denies skin ulcers or lesions. HEMATOLOGICAL: Denies gingival bleeding, or prolonged epistaxis. ENDOCRINE:Denies heat or cold intolerance, excessive thirst or urination. All Other Remaining ROS negative. PHYSICAL EXAMINATION: BP 143/84 Pulse 84 Ht 5' 8 (1.73m) Wt 173 lb 4.8 oz (78.6kg) SpO2 99% BMI 26.36 kg/(m2). General: Well appearing, in no acute distress, speaking in complete sentences. Skin: No clubbing, no cyanosis. Head/Eyes: Extra ocular movements intact Mouth: Teeth in good repair. Neck: No jugular venous distention, no carotid bruits, carotids have a normal upstroke, no palpable thyromegaly. Lungs: Clear to auscultation and no rales Heart: Regular rhythm, PMI not displaced, S1, S2 normal, no S3, no S4, no heaves, no rub and systolic murmur. PV Pulses:Pulses intact Abdomen: Soft, nontender, bowel sounds normal, no palpable organomegaly, no bruits. Extremities: No peripheral edema . Grade 2/4 distal pulses bilaterally. Edema Scale: No Musculoskeletal: Normal gait and ambulation Neuro: Oriented to time, place and person CARDIOVASCULAR MEDICINE TESTING: Echocardiogram: severely calcified valve is severe but low flow I have personally reviewed the Echocardiogram. IMPRESSION: Mr. Ruffin is a 77 year old male with , AF, intracranial hemorrhage - also possible subclavian dissection, aortic aneurysm and also with dissection. CT pending PLAN AND RECOMMENDATIONS: We will do CT to assess the need for surgery or TAVR He will need surgical opinion for his risk assessment. Risk is higher due to risk of intracranial bleed and need CT to see anatomical risk/feasibility of TAVR and surgery. Also check NT BNP for timing of surgery CONTACT INFORMATION: Trupti Valentine MD This office note has been dictated. Trupti Valentine MD Good access Right renal stenosis At least intermediate risk and will do TAVR - discussed with Dr. Susanne Valentine MD CNOV Observed: 07/02/2017 Status: COMPLETED Source: [place] 10:00 AM [facility] REPOS[facility] Office Visit (TOMN) TYREL RUFFIN ([id number]) 1940 M Date Time Provider Department 07/02/17 10:00 AM LIZ SKINNER [facility] During your visit today, we recorded the following information about you: Pulse Blood pressure Weight Height 84/minute 143/84 78.5 kg 1.727 m Liz Skinner MD 08/06/2017 10:01 PM Signed CHART COPY DO NOT DISCARD Patient Type: Consult Visit to determine Surgery: Yes Referring Physician:: SELF HPI: Mr. Tyrel Ruffin is a 77 year old male seen in consultation at the request of Self for opinion regarding treatment options for Aortic Stenosis and high surgical risk. Impression: Based on my evaluation he is a high risk for cardiac surgery and will be better served with a TAVR. Plan: Minimally Invasive, AV Replacement as TRANSCATHETER AORTIC VALVE REPLACEMENT - discussed with Dr Valentine I spent 25 minutes in this visit, with more than 50% of the time devoted to patient counseling. These findings will be communicated back to the requesting physician via electronic medical record Liz Skinner MD Referring Provider: SELF [[id number]] Allergies As of Date: 07/02/2017 Noted Allergy Reaction AMOXACILLIN (AMOXICILLIN) 07/02/2017 1 - Mental Status Change CODEINE 01/07/2017 14 - Other: See Comments Comments: irregular heart beat Date Reviewed: 07/02/2017 Reviewed by: Awilda Xavier) [place] - Fully Assessed Primary Visit Diagnosis:Nonrheumatic aortic valve stenosis [I35.0] Prescriptions as of 07/02/2017 Sig: IV CONTRAST (RADIOLOGY PROCED* CTA CHST/ABD/PEL. No IV acces* X METOPROLOL SUCCINATE ER 50 MG* Take 50 mg by mouth once joel* ASPIRIN 81 MG TABLET,DELAYED * Take 81 mg by mouth once joel* X ATORVASTATIN 20 MG TABLET Take 20 mg by mouth once joel* X AMLODIPINE 5 MG TABLET Take 5 mg by mouth once daily. Problem List As Of Date 07/02/2017 Noted Resolved Aortic dissection (HCC) [I71.00] INVALID FOR* Atrial fibrillation, chronic (HCC) [I48.2] INVALID FOR* Priority: C More... Hyperlipidemia [E78.5] INVALID FOR* Priority: E More... Primary hypertension [I10] INVALID FOR* Priority: D More... Word finding difficulty [R47.89] INVALID FOR* More... AAA (abdominal aortic aneurysm) without rupture*INVALID FOR* Priority: A More... Aphasia [R47.01] INVALID FOR* Priority: A More... Encounter Status:Closed by LIZ SKINNER MD on 08/06/17 COMP METABOLIC PANEL Collected: 07/02/2017 Status: F Source: [place] 7:33 AM [facility] RE[facility] TYPE CODE TESTS RESULT OUT OF REFERENCE UNITS RANGE LAB TP 6.3-8.0 g/dL Protein, Total 7.1 LAB ALB 3.9-4.9 g/dL Albumin 4.1 LAB CA 8.5-10.2 mg/dL Calcium, Total 9.1 LAB TBIL 0.2-1.3 mg/dL Bilirubin, Total 0.8 LAB ALKP 36-108 U/L Alkaline Phosphatase 108 LAB AST 14-40 U/L AST 20 LAB GLU 74-99 mg/dL Glucose High 119 Result Comment: The [place] Diabetes Association (ADA) provides guidance for cutoff values for fasting glucose and random glucose. The ADA defines fasting as no caloric intake for at least 8 hours. Fas ting plasma glucose results between 100 to 125 mg/dL indicate increased risk for diabetes (prediabetes). Fasting plasma glucose results greater than or equal to 126 mg/dL meet the criteria for diagnosis of diabetes. In the absence of unequivocal hyperglycemia, results should be confirmed by repeat testing. In a patient with classic symptoms of hyperglycemia or hyperglycemic crisis, random plasma glucose results greater than or equal to 200 mg/dL meet the criteria for diagnosis of diabetes. Reference: Standards of Medical Care in Diabetes 2016, [place] Diabetes Association. Diabetes Care. 2016.39(Suppl 1). LAB BUN 9-24 mg/dL BUN 18 LAB CRET 0.73-1.22 mg/dL Creatinine High 1.39 LAB NA 136-144 mmol/L Sodium 140 LAB K 3.7-5.1 mmol/L Potassium 4.5 LAB CL 97-105 mmol/L Chloride 102 LAB CO2 22-30 mmol/L CO2 27 LAB AGAP 9-18 mmol/L Anion Gap 11 LAB ALT 10-54 U/L ALT 24 LAB GFRAA eGFR- Amer. 60 LAB GFRNAA . eGFR-All Other Races 50 Result Comment: eGFR (Estimated GFR) Units of measure: mL/min/1.73 meters squared eGFR is derived from the reexpressed MDRD Study equation using the following parameters: serum creatinine, age, gender and race. The creatinine assay has been calibrated to be traceable to IDMS. An eGFR <60 mL/min/1.73m2 for >3 months is consistent with chronic kidney disease. Refer to KDOQI guidelines for clinical interpretation. In patients with unstable renal function, e.g. those with acute kidney injury, the eGFR may not accurately reflect actual GFR. Performed By: #### CMP, NTBNP, CBCDIF #### [facility] [address] [place], [place] [id number] NT PRO BNP Collected: 07/02/2017 Status: F Source: [place] 7:33 AM [facility] TYPE CODE TESTS RESULT OUT OF REFERENCE UNITS RANGE LAB PBNP <450 pg/mL High PRO B Natr 1573 Peptide Performed By: #### CMP, NTBNP, CBCDIF #### [facility] [address] [place], [place] [address] CBC AND DIFFERENTIAL Collected: 07/02/2017 Status: F Source: [place] 7:33 AM [facility] TYPE CODE TESTS RESULT OUT OF REFERENCE UNITS RANGE LAB WBC 3.70-11.00 k/uL WBC 6.97 LAB RBC 4.20-6.00 m/uL RBC 5.10 LAB HGB 13.0-17.0 g/dL Hemoglobin 15.4 LAB HCT 39.0-51.0 % Hematocrit 47.7 LAB MCV 80.0-100.0 fL MCV 93.5 LAB MCH 26.0-34.0 pG MCH 30.2 LAB MCHC 30.5-36.0 g/dL MCHC 32.3 LAB RDWCV 11.5-15.0 % RDW-CV 13.5 LAB PLTCT 150-400 k/uL Platelet Count 203 LAB MPV 9.0-12.7 fL MPV 10.5 LAB ANEUT % Neut% 66.7 LAB AANEUT 1.45-7.50 k/uL Abs Neut 4.65 LAB ALYMP % Lymph% 20.4 LAB AALYMP 1.00-4.00 k/uL Abs Lymph 1.42 LAB AMONO % Dougherty% 7.5 LAB AAMONO <0.87 k/uL Abs Dougherty 0.52 LAB AEOS % Eosin% 4.4 LAB AAEOS <0.46 k/uL Abs Eosin 0.31 LAB ABASO % Baso% 1.0 LAB AABASO <0.11 k/uL Abs Baso 0.07 LAB AUNRBC 0 /100 WBC NRBCs 0.0 LAB ABNRBC <0.01 k/uL Absolute nRBC <0.01 LAB DTYP DTYPE Auto Diff Performed By: #### CMP, NTBNP, CBCDIF #### [facility] [address] [place] [id number] PROGRESS Observed: 07/02/2017 Status: COMPLETED Source: [place] 7:13 AM [facility] REPOSIT[facility] HNO ID: [id number] Author: Shelia Escobedo Rt Service: (none) Author Type: (none) Type: Progress Notes Filed: 07/02/2017 7:13 AM Note Text: Radiology Service Progress Note PATIENT NAME: Tyrel Ruffin DATE OF SERVICE: July 02, 2017 TIME: 7:13 AM PATIENT IDENTITY VERIFICATION COMPLETED USING TWO (2) METHODS: Patient confirmed name verbally and Date of . PATIENT GENDER DATA: Male PATIENT RELEVANT IMPLANT DATA REVIEWED: Not Applicable RADIOLOGY DEPARTMENT: General X-ray: Exam(s) Completed: Chest X-Ray PERIPHERAL IV DATA: Not applicable SIGNED BY: Shelia Escobedo Rt July 02, 2017 7:13 AM XR CHEST 2V FRONTAL/LAT Observed: 07/02/2017 Status: F Source: [place] 7:05 AM [facility] RE[facility] * * *Final Report* * * DATE OF EXAM: Jul 02 2017 7:05AM AOX [id number] - XR CHEST 2V FRONTAL/LAT / PROCEDURE REASON: Nonrheumatic aortic valve disorder, unspecified * * * * Physician Interpretation * * * * EXAMINATION: CHEST RADIOGRAPH (2 VIEW FRONTAL and LATERAL) Clinical History: Nonrheumatic aortic valve disorder, unspecified MQ: [id number]_4 Comparison: Chest radiograph 01/07/2017 RESULT: See impression. IMPRESSION: Lines, tubes, and devices: None. Lungs and pleura: No large pneumothorax or pleural effusion. Bilateral interstitial markings are also unchanged and likely related to mild pulmonary edema. No focal consolidation. Cardiomediastinal silhouette: Stable cardiomediastinal silhouette. Alarm Operator: PSCBoris Transcribe Date/Time: Jul 02 2017 8:35A Dictated by : DAWNA MEZA MD This examination was interpreted and the report reviewed and electronically signed by: DIA SEN MD on Jul 02 2017 1:08PM EST [id number] Observed: 07/02/2017 Status: COMPLETED Source: [place] 12:00 AM [facility] HNO ID: [id number] Author: Trupti Valentine MD Service: Cardiovascular Medicine Author Type: Physician Type: Letter Filed: 07/10/2017 2:51 PM Note Text: Trupti Valentine M.D., F.A.C.C. home and school visitor Director, [facility] Cardiac Catheterization Panelboard Tank Pumper, Interventional Cardiology Fellowship [facility] Department of Cardiovascular Medicine/J2-3 Office: [phone] Appointment: [phone] July 02, 2017 BILLY NIEVES MD [address] [address] NAME: TYREL RUFFIN [facility] NO: [id number] DATE OF SERVICE: 07/02/[address] Nieves: It was a great pleasure to see Mr. Flower here at the [facility]. As you remember, he is a very pleasant 77-year-old gentleman who comes in for further evaluation of his aortic valve and after his recent hospitalization. The patient initially came to the hospital with some speech difficulty and then had a CT scan and was found to have aortic or subclavian dissection. He was managed conservatively and subsequently he improved. He, however, did have AFib and possible TIA. Because of his intracranial hemorrhage, he was not anticoagulated. He had left parietal intracranial bleeding in October 2013 when he was on Coumadin. He also has infrarenal abdominal aneurysm. There was some question about the left subclavian artery dissection. He did well with the conservative management and he was then discharged. He has slowly recuperated from this illness and he is doing well. He, however, has not exercised or walk. When he tries to exercise or walk, he gets out of breath and then he had an echocardiogram that showed at least moderate, or maybe severe, aortic stenosis. There is low flow/low gradient . He does have calcified aortic valve. The patient came today to see me for consideration of the TAVR and WATCHMAN. The patient otherwise is doing well. He is questioning whether this is all required at this point in time or he can wait for that. On physical exam, there is no JVD, no carotid bruit. Lungs are clear. The heart exam does show a systolic murmur consistent with aortic stenosis. Abdomen is soft, nontender. Extremities with no edema. I have reviewed all his studies. I think we will do an NT- proBNP to see if he has symptoms related to aortic stenosis. We will also do a CT scan to evaluate the severity of aortic stenosis and his anatomical features. After this, we will determine the risk of open surgery versus transcatheter aortic valve replacement. After making all this assessment, we will decide whether he will be a candidate for transcatheter percutaneous treatment. I have explained all this to the patient and he understands. We will do the CT scan and evaluation with Dr. Skinner and then decide the final course of action. Again, it is my great pleasure to participate in the care of Mr. Flower, and feel free to call me anytime with questions. Sincerely yours, Trupti Valentine M.D. CC: Mr. Tyrel Ruffin [address] [facility] [address] [facility] [address] [facility] Audio #: [id number] Date Dictated: 07/02/2017 10:47:45 Date Typed: 07/07/2017 10:04:12 Date Revised: 07/08/2017 09:30:30 ALLERGIES ALLERGIES DATE TYPE / CODE NAME / CODE REACTION SEVERITY SOURCE 05/18/2018 Drug PENICILLINS UNKNOWN [facility] Class/[address] [place] 1003(SNOMED Repository CT) 04/24/2018 Drug Penicillins/E16138 Other Unknown [facility] Allergy/416 0476(RXNORM) [facility] 283797([facility] ED CT) Repository 04/24/2018 Drug amoxicillin/P69005 Other Unknown [place] Allergy/416 3675(RXNORM) Community 799455([facility] ED CT) Repository 07/02/2017 DRUG AMOXICILLIN Mental Chg [facility]/[address] [place] [address] 622805(SNOM Repository ED CT) 01/07/2017 DRUG CODEINE OTHER: [facility] 330160(SNOM Repository ED CT) 05/18/2014 Drug codeine/[id number] Other Unknown [place] Allergy/416 (RXNORM) [facility] 150472([facility] ED CT) Repository ENCOUNTERS ENCOUNTERS ADMIT/DISCHARGE ACCOUNT ADMITTING ENCOUNTER LOCATION SOURCE NUMBER CLASS 05/18/2018/05/24/19 [id number] Ambulatory [address] Repository 05/18/2018/05/18/19 [id number] Ambulatory [address] Repository 05/18/2018/05/18/19 [id number] Ambulatory [address] Repository 05/18/2018/05/18/19 [id number] Ambulatory [address] Repository 05/18/2018/05/19/19 [id number] Ambulatory [address] Repository 05/11/2018/05/12/19 [id number] Ambulatory [address] Repository 04/25/2018/05/01/20 [id number] JESSICA RODRIGUEZ Inpatient [place] [facility] Repository 04/24/2018/04/25/20 [id number] Rosa Elena, Inpatient Mu [place] 18 [place] F Encounter [facility] ing:ICURoom: Repository [id number]: 1 04/24/2018 [id number] Rosa Elena, Ambulatory BMSBuilding:Boris Chiu [facility] Repository 04/24/2018 [id number] Rosa Elena, Ambulatory BMSBuilding:Boris Chiu [facility] Repository 04/24/2018/04/25/20 [id number] Ambulatory BMSBuilding:[facility] Repository 01/25/2018/01/27/20 [id number] Ambulatory [address] [place] Repository 12/24/2017/12/29/19 [id number] Ambulatory [address] [place] Repository 12/23/2017/12/24/19 [id number] Ambulatory [address] [place] Repository 12/23/2017 [id number] Ambulatory [facility] [place] Repository 12/23/2017/12/28/19 [id number] Ambulatory [address] [place] Repository 10/20/2017/10/21/19 [id number] Ambulatory [address] [place] Repository 10/20/2017/10/21/19 [id number] Ambulatory [address] [place] Repository 10/20/2017 [id number] Ambulatory [facility] [place] Repository 10/20/2017 [id number] Ambulatory [facility] [place] Repository 09/10/2017/09/11/19 [id number] Ambulatory [address] [place] Repository 09/10/2017/09/11/19 [id number] Ambulatory [address] [place] Repository 09/10/2017 [id number] Ambulatory [facility] [place] Repository 08/30/2017/09/02/19 [id number] SERGE, Inpatient [address] [place] Repository 08/26/2017/08/27/19 [id number] Ambulatory [address] [place] Repository 08/26/2017/09/02/19 [id number] Ambulatory [address] [place] Repository 08/26/2017/08/27/19 [id number] Ambulatory [address] [place] Repository 08/26/2017/08/27/19 [id number] Emergency [address] [place] Repository 08/26/2017/08/27/19 [id number] Ambulatory [address] [place] Repository 08/26/2017 [id number] Ambulatory [facility] Repository 08/26/2017 [id number] Ambulatory [facility] Repository 07/02/2017/07/02/19 [id number] Ambulatory [address] [place] Repository 07/02/2017/08/24/19 [id number] Ambulatory [address] Repository 07/02/2017/07/02/19 [id number] Ambulatory [address] Repository 07/02/2017/07/02/19 [id number] Ambulatory [address] Repository 07/02/2017 [id number] Ambulatory [facility] Repository 07/02/2017/07/06/19 [id number] Ambulatory [address] Repository 07/02/2017/07/02/19 [id number] Ambulatory [address] Repository PAYERS PAYERS ENCOUNTER GUARANTOR PAYER SUBSCRIBER SOURCE 04/24/2018 TYREL Hays Primary TYREL [id number] TR Insurance:MEDICARE RUSSELLDOB: [address] PART [id number] [address]Xdr: Number: Repository [id number] () Date:2018-04-24 04/24/2018 Secondary NOT GIVENUNK [place] Insurance:SELF PAY [facility] Number: Effective Repository Date:2018-04-24 04/24/2018 TYREL S Primary TYREL Dobbins [id number] Insurance:MEDICARE RUSSELLDOB: [address], PART [place] [facility] [id number] [address]Gbo: Number: Repository [id number] () Date:2018-04-24 04/24/2018 Secondary NOT GIVENUNK [place] Insurance:SELF PAY [facility] Number: Effective Repository Date:2018-04-24 04/24/2018 TYREL S Primary TYREL S Mu [id number] TR Insurance:MEDICARE RUSSELLDOB: [address] PART [facility] [id number] [address]Fip: Number: Repository [id number] () Date:2018-04-24 04/24/2018 Secondary NOT GIVENUNK [place] Insurance:SELF PAY [facility] Number: Effective Repository Date:2018-04-24 04/24/2018 TYREL Hays Primary TYREL Dobbins [id number] Insurance:MEDICARE RUSSELLDOB: [address], PART [place] [facility] [id number] [facility] [id number]: Number: Repository [id number] () Date:2018-04-24 04/24/2018 Secondary NOT GIVENUNK [place] Insurance:SELF PAY [facility] Number: Effective Repository Date:2018-04-24
== END 2018-04-25 15:00 | disposition short-term general hospital (02) | DRG 66 ==
LOC: ED 15:33 → PCU 16:01 → ICU 16:14
PROVIDERS: Psychiatry & Neurology Neurology; Admitting Provider Family Medicine; Emergency Provider Emergency Medicine; Family Provider Family Medicine; PCP Family Medicine; Visit Provider Internal Medicine
DX: I63.9 Cerebral infarction, unspecified (principal); R47.9 Unspecified speech disturbances; I10 Essential (primary) hypertension; I48.2 Chronic atrial fibrillation; R56.9 Unspecified convulsions; R29.702 NIHSS score 2; E78.5 Hyperlipidemia, unspecified; Z86.79 Personal history of other diseases of the circulatory system; Z87.891 Personal history of nicotine dependence; Z79.899 Other long term (current) drug therapy; R47.1 Dysarthria and anarthria
CPT/HCPCS: 70450; 70496; 70498; 71045; 80048; 80061; 80076; 80307; 80320; 82962; 83036; 84443; 84484; 85025; 85610; 85730; 92523; 93005; 93306; 97162; 97165; 97802; 99283; J7030; Q9957; Q9967; A4216; C8929; G0480

== ENCOUNTER → 2018-08-25 10:15 | Outpatient (CLI) | payer MEDICARE, SELFPAY ==
[2018-04-24 17:00] VITALS: BMI 25.7
[2018-08-25 10:36] LABS: International Normalized Ratio 2.3; Prothrombin Time (Protime)PT. 25.7 SECONDS (11.7-14.9)
== END ==
PROVIDERS: Family Provider Family Medicine; PCP Family Medicine; Referring Provider Nurse Practitioner Primary Care; Visit Provider Nurse Practitioner Primary Care
DX: Z79.01 Long term (current) use of anticoagulants (principal)
CPT/HCPCS: 85610